=== PATIENT | male | born 1955 | race Caucasian/White ===

== ENCOUNTER → 2017-12-23 | Outpatient (CLI) | payer BC ==
[2017-12-23 16:01] LABS: Carbon Dioxide 25.8 mmol/L (21.6-31.8); Chloride 100 mmol/L (96-109); Cholesterol 208 mg/dL (0-200); Potassium 4.4 mmol/L (3.5-5.5); Sodium 138 mmol/L (135-145)
[2017-12-23 16:38] LABS: Hemoglobin A1C 6.1 % (4.0-6.0)
== END | disposition home or self-care (01) ==
LOC: LABWHC1 09:48
PROVIDERS: ATTEND Family Medicine
DX: I10 Essential (primary) hypertension (principal); Z79.899 Other long term (current) drug therapy
CPT/HCPCS: 36415; 80051; 80061; 82565; 83036; 83721; 84520

== ENCOUNTER → 2018-06-22 | Outpatient (CLI) | payer MEDICARE ==
--- NOTE | 2018-06-23 10:43 | ECHOF ---
Referral Reason:I25.10 Coronary Artery Disease MEASUREMENTS -------- HEIGHT: 180.3 cm WEIGHT: 113.4 kg BP: 156/86 RVIDd: 3.5 cm (< 3.3) IVSd: 1.4 cm (0.6 - 1.1) LVIDd: 4.5 cm (3.9 - 5.3) LVPWd: 1.4 cm (0.6 - 1.1) IVSs: 1.6 cm LVIDs: 2.9 cm LVPWs: 1.6 cm LA Diam: 3.5 cm (2.7 - 3.8) Ao Diam: 4.0 cm (2.0 - 3.7) AV Cusp: 2.3 cm (1.5 - 2.6) EPSS: 1.3 cm MV E Chente: 0.68 m/s MV DecT: 394 ms MV A Chente: 0.87 m/s MV E/A Ratio: 0.78 MV EF SLOPE: 56.21 mm/s (70 - 150) MV EXCURSION: 1.52 cm (> 18.000) FINDINGS -------- Sinus rhythm. This was a technically difficult study with suboptimal views. The left ventricular size is normal. There is moderate concentric left ventricular hypertrophy. O verall left ventricular systolic function is normal with, an EF between 60 - 65 %. The right ventricle is mildly enlarged. The left atrial size is normal. The right atrium was not well visualized. 5 ml of Lumason was utilized for enhancement of images. The aortic valve was not well visualized. Mild mitral annular calcification present. The tricuspid valve was not well visualized. The aortic root size is normal. IVC Not well visulized. There is no pericardial effusion. CONCLUSIONS -------- 1. Sinus rhythm. 2. This was a technically difficult study with suboptimal views. 3. The left ventricular size is normal. 4. There is moderate concentric left ventricular hypertrophy. 5. Overall left ventricular systolic function is normal with, an EF between 60 - 65 %. 6. The right ventricle is mildly enlarged. 7. The left atrial size is normal. 8. The right atrium was not well visualized. 9. 5 ml of Lumason was utilized for enhancement of images. 10. The aortic valve was not well visualized. 11. Mild mitral annular calcification present. 12. The tricuspid valve was not well visualized. 13. The aortic root size is normal. 14. IVC Not well visulized. 15. There is no pericardial effusion. [employer] MANAGER: LUCY Salinas
== END | disposition home or self-care (01) ==
LOC: RADECHMAIN 12:47
PROVIDERS: ATTEND Family Medicine
DX: I05.9 Rheumatic mitral valve disease, unspecified (principal); I25.10 Atherosclerotic heart disease of native coronary artery without angina pectoris
CPT/HCPCS: C8929; Q9950; 93306

== ENCOUNTER → 2018-09-27 | Outpatient (CLI) | payer MEDICARE ==
[2018-09-27 11:21] LABS: African American GFR (CKD) 40.3 (60.0-200.0); Anion Gap 9.3 mmol/L (4.00-12.00); Carbon Dioxide 30.7 mmol/L (21.6-31.8); LDL Cholesterol,Calculated 75.6 mg/dL (0.0-131.0); Potassium 3.5 mmol/L (3.5-5.5); VLDL Calculation 70.4 mg/dL (5.00-40.00)
[2018-09-27 14:06] LABS: Hemoglobin A1C 6.9 % (4.0-6.0)
== END ==
LOC: LABWHC1 07:18
PROVIDERS: ATTEND Family Medicine
DX: E11.9 Type 2 diabetes mellitus without complications (principal); I10 Essential (primary) hypertension; Z79.899 Other long term (current) drug therapy
CPT/HCPCS: 36415; 80051; 80061; 82565; 83036; 83880; 84443; 84520

== ENCOUNTER → 2019-01-05 | Outpatient (CLI) | payer MEDICARE ==
[2019-01-05 16:48] LABS: African American GFR (CKD) 45.4 (60.0-200.0); Non-African American GFR(CKD) 39.2 (60.0-200.0)
[2019-01-06 06:02] LABS: Anion Gap 13.1 mmol/L (4.00-12.00); Carbon Dioxide 24.9 mmol/L (21.6-31.8); Chol/HDL Ratio 5.53; Potassium 4.4 mmol/L (3.5-5.5)
== END | disposition home or self-care (01) ==
LOC: LABWHC1 07:36
PROVIDERS: ATTEND Family Medicine
DX: E11.9 Type 2 diabetes mellitus without complications (principal); I10 Essential (primary) hypertension; R97.20 Elevated prostate specific antigen [PSA]; Z79.899 Other long term (current) drug therapy
CPT/HCPCS: 36415; 80051; 80061; 82565; 83036; 84153; 84520

== ENCOUNTER 2019-03-26 22:37 | Emergency (ER) | payer MEDICARE ==
[2019-03-27] MEDS ORDERED: KETOROLAC 30 MG/ML 1 ML VIAL IM STA (00:03)
[2019-03-27] MEDS ORDERED: LIDOCAINE 5% PATCH TOPICAL STA (00:04)
[2019-03-27] MEDS ORDERED: HYDROcodone/APAP 5-325MG 1 EACH TAB PO STA (00:04)
--- NOTE | 2019-03-27 00:36 | XR ---
EXAMINATION TYPE: XR ribs RT w pa chest xray DATE OF EXAM: 03/27/2019 COMPARISON: 09/12/2015 HISTORY: Right rib injury and pain TECHNIQUE: 5 views FINDINGS: There is some patchy subsegmental atelectasis in both lungs. There is poor inspiration. Hea rt size is normal. There is no pneumothorax. There is slight blunting right costophrenic angle. I see no rib fracture. IMPRESSION: No rib fracture seen. There is mild pleural reaction and subsegmental atelectasis that is a change compared to old exam. Normal heart.
[2019-03-27] MEDS ORDERED: CYCLOBENZAPRINE 10MG STARTER 3 TAB BTL PO STA (01:18)
[2019-03-27] MEDS ORDERED: ACET/COD 300 MG/30 MG STARTER PACK 6 TAB BTL PO STA (01:18)
--- NOTE | 2019-03-27 01:20 | ED ---
General Adult HPI - General Chief complaint: Fall Stated complaint: Fall Time Seen by Provider: 03/26/19 23:48 Source: patient Mode of arrival: ambulatory Limitations: no limitations - History of Present Illness Initial comments: 63-year-old male patient presents to the emergency department today for evaluation of right-sided rib pain. Patient states 2 days ago he slipped on the ice and fell onto a hard snowbank. Patient states that he has developed pain to the right ribs over the last couple of days. Patient states it hurts when he takes a deep breath, coughs, laughs. He denies any cough or hemoptysis. Denies fever or chills. Denies any abdominal pain, nausea, or vomiting. Denies any hematuria, dysuria, urinary frequency, urinary urgency. Patient denies any headache, neck pain, back pain, chest pain, shortness of breath, dizziness, weakness, abdominal pain, nausea, vomiting, or difficulties with bowel movements or urination. Patient states he does generally take eliquis, but has been out of this medication for some time. He denies hitting his head or losing consciousness during the fall. - Related Data Home Medications Medication Instructions Recorded Confirmed Furosemide [Lasix] 40 mg PO DAILY 10/11/15 11/14/15 Amiodarone [Cordarone] 200 mg PO DAILY 10/17/15 11/14/15 Lisinopril [Zestril] 10 mg PO DAILY 11/12/15 11/14/15 Spironolactone [Aldactone] 25 mg PO DAILY 11/12/15 11/14/15 Previous Rx's Medication Instructions Recorded Apixaban [Eliquis] 5 mg PO BID #60 tab 09/12/15 Metoprolol Tartrate [Lopressor] 50 mg PO TID #90 tab 09/12/15 Aspirin 81 mg PO DAILY #90 chew 11/15/15 Atorvastatin [Lipitor] 80 mg PO HS #90 tab 11/15/15 Clopidogrel [Plavix] 75 mg PO DAILY #90 tab 11/15/15 Cyclobenzaprine [Flexeril] 10 mg PO TID #15 tab 03/27/19 Ibuprofen [Motrin] 600 mg PO Q8HR PRN #30 tab 03/27/19 Lidocaine 5% Patch [Lidoderm] 1 patch TOPICAL DAILY #30 patch 03/27/19 Allergies Allergy/AdvReac Type Severity Reaction Status Date / Time Penicillins Allergy THROAT Verified 03/26/19 22:51 SWELLING/RASH/HIVES Review of Systems ROS Statement: Those systems with pertinent positive or pertinent negative responses have been documented in the HPI. ROS Other: All systems not noted in ROS Statement are negative. Past Medical History Past Medical History: Atrial Fibrillation, Chest Pain / Angina, Heart Failure, COPD, Hypertension, Osteoarthritis (OA) Additional Past Medical History / Comment(s): Chronic renal insufficiency stage III, cardiomyopathy. History of Any Multi-Drug Resistant Organisms: None Reported Past Surgical History: Heart Catheterization, Heart Catheterization With Stent, Orthopedic Surgery Additional Past Surgical History / Comment(s): 11/14/15 PTCA with stent to LAD. Other surgical hx: KARAN, CARDIOVERSION 10/17/15, left arm surgery - 1976, heart catherization 10/22/2015 Past Anesthesia/Blood Transfusion Reactions: No Reported Reaction Date of Last Stent Placement:: 11/14/15 Past Psychological History: No Psychological Hx Reported Smoking Status: Current every day smoker - Past Family History Mother Family Medical History: Cancer, Myocardial Infarction ([place]) Additional Family Medical History / Comment(s): Mother of a NH in in 60's General Exam Limitations: no limitations General appearance: alert, in no apparent distress, other (This is a well- developed, well-nourished adult male patient in no acute distress. Vital signs upon presentation are temperature 98.4F, pulse 70, respirations 22, blood pressure 190/88, pulse ox 98% on room air.) Eye exam: Present: normal appearance, PERRL, EOMI. Absent: scleral icterus, conjunctival injection, periorbital swelling ENT exam: Present: normal exam, normal oropharynx, mucous membranes moist Neck exam: Present: normal inspection, full ROM, other (Nontender, no step-off, no deformity to firm midline palpation of the posterior cervical spine. Full range of motion without pain or limitation.). Absent: tenderness, meningismus, lymphadenopathy Respiratory exam: Present: normal lung sounds bilaterally, chest wall tenderness (Right lateral chest wall tenderness over the midaxillary line on the lower ribs.). Absent: respiratory distress, wheezes, rales, rhonchi, stridor Cardiovascular Exam: Present: regular rate, normal rhythm, normal heart sounds. Absent: systolic murmur, diastolic murmur, rubs, gallop, clicks GI/Abdominal exam: Present: soft, normal bowel sounds. Absent: distended, tenderness, guarding, rebound, rigid Back exam: Present: normal inspection, other (Nontender, no step-off, no deformity to firm midline palpation of the thoracic and lumbar vertebrae. Full range of motion without pain or limitation.). Absent: vertebral tenderness Neurological exam: Present: alert, oriented X3, CN II-XII intact Psychiatric exam: Present: normal affect, normal mood Skin exam: Present: warm, dry, intact, normal color. Absent: rash Course Vital Signs 03/26/19 03/27/19 22:46 02:04 Temperature 98.4 F 98.1 F Pulse Rate 70 71 Respiratory 22 18 Rate Blood Pressure 190/88 148/95 O2 Sat by Pulse 98 97 Oximetry Medical Decision Making - Medical Decision Making 63-year-old male patient presents to the emergency department today for evaluation of right rib pain after experiencing a fall 2 days ago. Physical examination did reveal tenderness over the right lateral lower ribs. Vital signs showed no major abnormalities. Normal oxygen saturation. X-ray of the ribs and chest was unremarkable other than some mild pleural reaction at the right lung base. I did discuss findings results with the patient. Symptoms are consistent with possible occult rib fracture or rib contusion. We'll treat with incentive spirometry, anti-inflammatories, muscle relaxer, and Lidoderm patch. He is instructed to follow-up with his primary care physician for recheck in 1-2 days. Return parameters were discussed in detail. He verbalizes understanding and agrees with this plan. - Radiology Data Radiology results: report reviewed, image reviewed 5 views of the right ribs are obtained. Report is reviewed in its entirety. Impression by Dr. Levine shows no rib fracture. Mild pleural reaction subsegmental atelectasis that is a change compared to old exam. Normal heart. Disposition Clinical Impression: Right rib fracture Disposition: HOME SELF-CARE Condition: Good Instructions (If sedation given, give patient instructions): How to Use an Incentive Spirometer (ED), Rib Fracture (ED) Additional Instructions: Take medications as directed. Perform coughing and deep breathing exercises. Use a pillow to splint for any coughing or sneezing. Follow-up with your primary care physician for recheck in 1-2 days. Return to the emergency department immediately for any new, worsening, or concerning symptoms. Prescriptions: Cyclobenzaprine [Flexeril] 10 mg PO TID #15 tab Lidocaine 5% Patch [Lidoderm] 1 patch TOPICAL DAILY #30 patch Ibuprofen [Motrin] 600 mg PO Q8HR PRN #30 tab PRN Reason: Pain Is patient prescribed a controlled substance at d/c from ED?: No Referrals: Ermias Soriano MD [Primary Care Provider] - 1-2 days Time of Disposition: 01:20
[2019-03-27 02:05] VITALS: BP 148/95; PULSE 71; RESP 18; TEMP 98.1
== END 2019-03-27 01:46 | disposition home or self-care (01) ==
LOC: EC 22:37
DX: S22.31XA Fracture of one rib, right side, initial encounter for closed fracture (principal); I48.91 Unspecified atrial fibrillation; I13.0 Hypertensive heart and chronic kidney disease with heart failure and stage 1 through stage 4 chronic kidney disease, or unspecified chronic kidney disease; I50.9 Heart failure, unspecified; N18.3 Chronic kidney disease, stage 3 (moderate); F17.200 Nicotine dependence, unspecified, uncomplicated; Z88.0 Allergy status to penicillin; Z79.899 Other long term (current) drug therapy; Z95.5 Presence of coronary angioplasty implant and graft; W00.0XXA Fall on same level due to ice and snow, initial encounter; Y93.01 Activity, walking, marching and hiking
CPT/HCPCS: 71101; 99283; 96372; J1885

== ENCOUNTER → 2019-11-28 | Outpatient (CLI) | payer MEDICARE ==
[2019-11-28 20:16] LABS: African American GFR (CKD) 48.7 (60.0-200.0); Anion Gap 15.5 mmol/L (4.00-12.00); Carbon Dioxide 25.5 mmol/L (21.6-31.8); Potassium 4.8 mmol/L (3.5-5.5)
[2019-11-28 21:39] LABS: Hemoglobin A1C 6.4 % (4.0-6.0)
== END | disposition home or self-care (01) ==
LOC: LABWHC1 09:47
PROVIDERS: ATTEND Family Medicine
DX: I10 Essential (primary) hypertension (principal); E11.9 Type 2 diabetes mellitus without complications
CPT/HCPCS: 36415; 80051; 82565; 83036; 84520

== ENCOUNTER → 2020-05-16 | Outpatient (CLI) | payer MEDICARE ==
[2020-05-16 18:06] LABS: HCT 35.3 % (39.6-50.0); MCH 28.8 pg (27.0-32.0); MCHC 31.2 g/dL (32.0-37.0); MCV 92.4 fL (80.0-97.0); Mean Platelet Volume 9.9 fL (9.5-12.2); Platelet Count 317 X 10*3/uL (140-440); RBC 3.82 X 10*6/uL (4.40-5.60); RDW 15.2 % (11.5-14.5); WBC 12.79 X 10*3/uL (4.50-10.00)
[2020-05-16 20:57] LABS: Hemoglobin A1C 5.6 % (4.0-6.0)
[2020-05-16 23:49] LABS: African American GFR (CKD) 39.7 (60.0-200.0); Albumin 3.8 g/dL (3.80-4.90); Albumin/Globulin Ratio 1.73 (1.60-3.17); Anion Gap 12.4 mmol/L (4.00-12.00); Calcium 9.1 mg/dL (8.7-10.3); Carbon Dioxide 21.6 mmol/L (21.6-31.8); Chol/HDL Ratio 4.69; Globulin 2.2 g/dL (1.6-3.3); LDL Cholesterol,Calculated 79.6 mg/dL (0.0-131.0); Non-African American GFR(CKD) 34.3 (60.0-200.0); Potassium 3.8 mmol/L (3.5-5.5); Prostate Specific Antigen 0.6 ng/mL (0.0-4.5); Total Bilirubin 1.2 mg/dL (0.2-1.2); VLDL Calculation 27.4 mg/dL (5.00-40.00)
[2020-05-16 23:57] LABS: Urine Creatinine 104.6 mg/dL
== END | disposition home or self-care (01) ==
LOC: LABWHC1 08:11
PROVIDERS: ATTEND Family Medicine
DX: E11.9 Type 2 diabetes mellitus without complications (principal); R97.20 Elevated prostate specific antigen [PSA]; I10 Essential (primary) hypertension; I25.10 Atherosclerotic heart disease of native coronary artery without angina pectoris; Z79.899 Other long term (current) drug therapy
CPT/HCPCS: 36415; 80053; 80061; 82043; 82570; 83036; 84153; 84443; 85027

== ENCOUNTER 2020-10-21 08:29 | Inpatient (IN) | payer MEDICARE ==
--- NOTE | 2020-10-21 09:10 | ED ---
General Adult HPI - General Chief complaint: Shortness of Breath Stated complaint: vertigo, sob, N&V Time Seen by Provider: 10/21/20 08:43 Source: patient Mode of arrival: wheelchair Limitations: physical limitation - History of Present Illness Initial comments: Dictation was produced using [employer] dictation software. please excuse any grammatical, word or spelling errors. Chief Complaint: 64-year-old male with past medical history of A. fib, heart failure hypertension, COPD presents emergency department for shortness of breath History of Present Illness: 64-year-old male he has multiple comorbidities. Over the last several days has been feeling short of breath and nauseated. Patient states he does have a mild rhinorrhea and sore throat. He states that his diffuse muscle aches. Patient states he short of breath especially tries to exert himself whenever he lies flat. Patient states he has past medical history of coronary artery disease that required stent placement. He denies any history of heart failure. Chart review says otherwise. Has past medical history of heart failure and A. fib. He takes multiple cardiac medications. She denies any fever. He does have some mild abdominal pain whenever he ambulates. Denies any pain at rest. The ROS documented in this emergency department record has been reviewed and confirmed by me. Those systems with pertinent positive or negative responses have been documented in the HPI. All other systems are other negative and/or noncontributory. PHYSICAL EXAM: General Impression: Alert and oriented x3, not in acute distress HEENT: Normocephalic atraumatic, extra-ocular movements intact, pupils equal and reactive to light bilaterally, mucous membranes moist, positive JVD Cardiovascular: Heart regular rate and rhythm Chest: Able to complete full sentences, no retractions, no tachypnea, mild crackles to the lung bases Abdomen: abdomen soft, non-tender, non-distended, no organomegaly Musculoskeletal: Pulses present and equal in all extremities, no peripheral e ricardo Motor: no focal deficits noted Neurological: CN II-XII grossly intact, no focal motor or sensory deficits noted Skin: Intact with no visualized rashes Psych: Normal affect and mood ED course: 64-year-old male presents emergency department for chief complaint of dyspnea. His multiple cardiac and pulmonary comorbidities. Vital signs upon arrival shows heart rate of 55, rest of vital signs within acceptable limits. Patient does not appear to be in any acute distress. Laboratory evaluation obtained. Leukocytosis of 15.0. His concern of stress leukocytosis. Hemoglobin is 8.4 which appears to be 2.5 g decreased compared to April. Does have evidence of microcytic anemia. Coag panel shows INR 1.4. Metabolic panel shows potassium 2.3 elevated renal markers above patient's baseline. Rotavirus negative. Chest x-ray is nonacute. Patient reevaluated at bedside final be in stable medical condition. Patient is agreeable for admission for hypokalemia with associated prolonged QT, acute kidney injury, and anemia case discussed with Dr. Soriano was went except patient care. He r equests cardiology consultation. EKG interpretation: Ventricular rate 55, sinus bradycardia, QRS 96, QTC 679. No IA prolongation,no ST or T-wave changes noted. Prolonged QT - Related Data Home Medications Medication Instructions Recorded Confirmed Furosemide [Lasix] 80 mg PO BID@0800,1200 10/11/15 10/21/20 Amiodarone [Cordarone] 100 mg PO DAILY 10/17/15 10/21/20 Aspirin 81 mg PO HS 10/21/20 10/21/20 Atorvastatin [Lipitor] 80 mg PO DAILY 10/21/20 10/21/20 Levothyroxine Sodium [Synthroid] 100 mcg PO DAILY 10/21/20 10/21/20 Montelukast [Singulair] 10 mg PO HS 10/21/20 10/21/20 Tiotropium 18 Mcg/Puff [Spiriva] 1 puff INHALATION RT-DAILY@1200 10/21/20 10/21/20 amLODIPine [Norvasc] 5 mg PO DAILY@1200 10/21/20 10/21/20 metOLazone [Zaroxolyn] 2.5 mg PO Q48H 10/21/20 10/21/20 Previous Rx's Medication Instructions Recorded Apixaban [Eliquis] 5 mg PO BID #60 tab 09/12/15 Metoprolol Tartrate [Lopressor] 50 mg PO TID #90 tab 09/12/15 Allergies Allergy/AdvReac Type Severity Reaction Status Date / Time Penicillins Allergy THROAT Verified 10/21/20 09:35 SWELLING/RASH/HIVES Review of Systems ROS Statement: Those systems with pertinent positive or pertinent negative responses have been documented in the HPI. ROS Other: All systems not noted in ROS Statement are negative. Past Medical History Past Medical History: Atrial Fibrillation, Chest Pain / Angina, Heart Failure, COPD, Hypertension, Osteoarthritis (OA) Additional Past Medical History / Comment(s): Chronic renal insufficiency stage III, cardiomyopathy, abdominal aneurysm History of Any Multi-Drug Resistant Organisms: None Reported Past Surgical History: Heart Catheterization, Heart Catheterization With Stent, Orthopedic Surgery Additional Past Surgical History / Comment(s): KARAN, CARDIOVERSION 10/17/15, left arm surgery - 1976 Past Anesthesia/Blood Transfusion Reactions: No Reported Reaction Date of Last Stent Placement:: 11/14/15 Past Psychological History: No Psychological Hx Reported Smoking Status: Former smoker Past Alcohol Use History: Occasional Past Drug Use History: None Reported - Past Family History Mother Family Medical History: Cancer, Myocardial Infarction ([place]) Additional Family Medical History / Comment(s): Mother of a [place] in in 60's General Exam Limitations: physical limitation Course Vital Signs 10/21/20 10/21/20 08:36 09:39 Temperature 98.3 F Pulse Rate 55 L 52 L Respiratory 18 18 Rate Blood Pressure 124/75 114/65 O2 Sat by Pulse 100 98 Oximetry Medical Decision Making - Lab Data Result diagrams: 10/21/20 09:08 10/21/20 09:08 Lab Results 10/21/20 10/21/20 10/21/20 Range/Units 09:08 09:08 09:08 WBC 15.0 H (3.8-10.6) k/uL RBC 3.79 L (4.30-5.90) m/uL Hgb 8.4 L (13.0-17.5) gm/dL Hct 27.2 L (39.0-53.0) % MCV 71.7 L (80.0-100.0) fL MCH 22.1 L (25.0-35.0) pg MCHC 30.8 L (31.0-37.0) g/dL RDW 17.0 H (11.5-15.5) % Plt Count 391 (150-450) k/uL MPV 8.3 Neutrophils % 80 % Lymphocytes % 8 % Monocytes % 8 % Eosinophils % 1 % Basophils % 1 % Neutrophils # 11.9 H (1.3-7.7) k/uL Lymphocytes # 1.3 (1.0-4.8) k/uL Monocytes # 1.3 H (0-1.0) k/uL Eosinophils # 0.2 (0-0.7) k/uL Basophils # 0.1 (0-0.2) k/uL Hypochromasia Marked Poikilocytosis Slight Anisocytosis Slight Microcytosis Moderate PT 14.3 H (9.0-12.0) sec INR 1.4 H (<1.2) APTT 31.5 H (22.0-30.0) sec Sodium 133 L (137-145) mmol/L Potassium 2.3 L* (3.5-5.1) mmol/L Chloride 88 L (98-107) mmol/L Carbon Dioxide 28 (22-30) mmol/L Anion Gap 17 mmol/L BUN 68 H (9-20) mg/dL Creatinine 3.52 H (0.66-1.25) mg/dL Est GFR (CKD-EPI)AfAm 20 (>60 ml/min/1.73 sqM) Est GFR (CKD-EPI)NonAf 17 (>60 ml/min/1.73 sqM) Glucose 243 H (74-99) mg/dL Calcium 8.6 (8.4-10.2) mg/dL Ionized Calcium Sultana (4.5-5.3) mg/dL Magnesium 2.7 H (1.6-2.3) mg/dL Troponin I (0.000-0.034) ng/mL NT-Pro-B Natriuret Pep pg/mL Coronavirus (PCR) (Not Detectd) 10/21/20 10/21/20 10/21/20 Range/Units 09:08 09:08 09:12 WBC (3.8-10.6) k/uL RBC (4.30-5.90) m/uL Hgb (13.0-17.5) gm/dL Hct (39.0-53.0) % MCV (80.0-100.0) fL MCH (25.0-35.0) pg MCHC (31.0-37.0) g/dL RDW (11.5-15.5) % Plt Count (150-450) k/uL MPV Neutrophils % % Lymphocytes % % Monocytes % % Eosinophils % % Basophils % % Neutrophils # (1.3-7.7) k/uL Lymphocytes # (1.0-4.8) k/uL Monocytes # (0-1.0) k/uL Eosinophils # (0-0.7) k/uL Basophils # (0-0.2) k/uL Hypochromasia Poikilocytosis Anisocytosis Microcytosis PT (9.0-12.0) sec INR (<1.2) APTT (22.0-30.0) sec Sodium (137-145) mmol/L Potassium (3.5-5.1) mmol/L Chloride (98-107) mmol/L Carbon Dioxide (22-30) mmol/L Anion Gap mmol/L BUN (9-20) mg/dL Creatinine (0.66-1.25) mg/dL Est GFR (CKD-EPI)AfAm (>60 ml/min/1.73 sqM) Est GFR (CKD-EPI)NonAf (>60 ml/min/1.73 sqM) Glucose (74-99) mg/dL Calcium (8.4-10.2) mg/dL Ionized Calcium Sultana (4.5-5.3) mg/dL Magnesium (1.6-2.3) mg/dL Troponin I <0.012 (0.000-0.034) ng/mL NT-Pro-B Natriuret Pep 724 pg/mL Coronavirus (PCR) Not Detected (Not Detectd) 10/21/20 Range/Units 09:13 WBC (3.8-10.6) k/uL RBC (4.30-5.90) m/uL Hgb (13.0-17.5) gm/dL Hct (39.0-53.0) % MCV (80.0-100.0) fL MCH (25.0-35.0) pg MCHC (31.0-37.0) g/dL RDW (11.5-15.5) % Plt Count (150-450) k/uL MPV Neutrophils % % Lymphocytes % % Monocytes % % Eosinophils % % Basophils % % Neutrophils # (1.3-7.7) k/uL Lymphocytes # (1.0-4.8) k/uL Monocytes # (0-1.0) k/uL Eosinophils # (0-0.7) k/uL Basophils # (0-0.2) k/uL Hypochromasia Poikilocytosis Anisocytosis Microcytosis PT (9.0-12.0) sec INR (<1.2) APTT (22.0-30.0) sec Sodium (137-145) mmol/L Potassium (3.5-5.1) mmol/L Chloride (98-107) mmol/L Carbon Dioxide (22-30) mmol/L Anion Gap mmol/L BUN (9-20) mg/dL Creatinine (0.66-1.25) mg/dL Est GFR (CKD-EPI)AfAm (>60 ml/min/1.73 sqM) Est GFR (CKD-EPI)NonAf (>60 ml/min/1.73 sqM) Glucose (74-99) mg/dL Calcium (8.4-10.2) mg/dL Ionized Calcium Sultana 3.9 L (4.5-5.3) mg/dL Magnesium (1.6-2.3) mg/dL Troponin I (0.000-0.034) ng/mL NT-Pro-B Natriuret Pep pg/mL Coronavirus (PCR) (Not Detectd) Disposition Clinical Impression: Hypokalemia, Prolonged QT interval, Anemia Disposition: ADMITTED IP TO THIS HOSP Condition: Fair Referrals: Ermias Soriano MD [Primary Care Provider] - 1-2 days
[2020-10-21 09:21] LABS: Anisocytosis Slight; Basophils # (A) 0.1 k/uL (0-0.2); Basophils % (A) 1 %; Eosinophils # (A) 0.2 k/uL (0-0.7); Eosinophils % (A) 1 %; HCT 27.2 % (39.0-53.0); HGB 8.4 gm/dL (13.0-17.5); Hypochromasia Marked; Lymphocytes # (A) 1.3 k/uL (1.0-4.8); Lymphocytes % (A) 8 %; MCH 22.1 pg (25.0-35.0); MCHC 30.8 g/dL (31.0-37.0); MCV 71.7 fL (80.0-100.0); Mean Platelet Volume 8.3; Microcytosis Moderate; Monocytes # (A) 1.3 k/uL (0-1.0); Monocytes % (A) 8 %; Neutrophils # (A) 11.9 k/uL (1.3-7.7); Neutrophils % (A) 80 %; Platelet Count 391 k/uL (150-450); Poikilocytosis Slight; RBC 3.79 m/uL (4.30-5.90)
--- NOTE | 2020-10-21 09:36 | XR ---
EXAMINATION TYPE: XR chest 2V DATE OF EXAM: 10/21/2020 COMPARISON: 03/27/2019 HISTORY: Shortness of breath TECHNIQUE: Frontal and lateral views of the chest are obtained. FINDINGS: Scattered senescent parenchymal changes noted. Hyperinflation compatible with COPD. No evidence for infiltrate. No evidence for atelectasis. Heart size is stable. Mediastinal structures are stable and grossly unremarkable. No evidence for hilar prominence. Degenerative changes dorsal spine. IMPRESSION: 1. No evidence for acute pulmonary disease.
[2020-10-21 09:39] LABS: Calcium 8.6 mg/dL (8.4-10.2); INR 1.4 (<1.2); Magnesium 2.7 mg/dL (1.6-2.3); Partial Thromboplastin Time 31.5 sec (22.0-30.0); Prothrombin Time 14.3 sec (9.0-12.0)
[2020-10-21 09:42] LABS: Potassium 2.3 mmol/L (3.5-5.1)
[2020-10-21] MEDS ORDERED: PANTOPRAZOLE 40 MG/10 ML VIAL IVP STA (09:47)
[2020-10-21] MEDS ORDERED: SODIUM CHLORIDE 0.9% 500 ML 500 ML IV STA (09:47)
[2020-10-21] MEDS ORDERED: CALCIUM GLUCONATE 1 GM in SODIUM CHLORIDE 0.9% 100 ML IVPB ONE (09:48)
[2020-10-21] MEDS: POTASSIUM CHLORIDE 20 MEQ in WATER FOR INJECTION 1 100ML.BAG IVPB SCH ×2 (10:35→13:58)
[2020-10-21] MEDS ORDERED: NALOXONE 0.4 MG/ML 1 ML VIAL IV PRN (10:58)
[2020-10-21] MEDS: SODIUM CHLORIDE 0.9% 1,000 ML IV SCH ×2 (13:58→22:58)
--- NOTE | 2020-10-21 16:50 | P.CNPUL ---
History of Present Illness Consult date: 10/21/20 Reason for consult: dyspnea, cough, COPD Chief complaint: Shortness of breath and cough for last 2-3 days History of present illness: Patient is a 64-year-old male with the history of COPD, hypertension hypertensive cardiovascular disease chronic atrial fibrillation came into the hospital with increasing shortness of breath, symptoms have been progressive like for last 3-4 days and started with upper respiratory infection, this patient started having aches and pains cough has been more productive) came into hospital for further evaluation, or excessive questioning denies initial seizure-like. He had a loss consciousness) ongoing aspiration symptoms denies any chest pain denies any bowel or bladder problems, patient has been monitored for chronic insufficiency as well, admitted chest x-ray consistent with COPD no active pulmonary process seen labs significant for leukocytosis microcytic anemia and severe electrolyte imbalance with potassium is 2.3 BUN/creatinine 16 and 3.5 to chronic virus is negative, patient is being continued on home medications including anticoagulants direct, being repleted with calcium and potassium, Review of Systems All systems: negative Past Medical History Past Medical History: Atrial Fibrillation, Chest Pain / Angina, Heart Failure, COPD, Hypertension, Osteoarthritis (OA) Additional Past Medical History / Comment(s): Chronic renal insufficiency stage III, cardiomyopathy, abdominal aneurysm History of Any Multi-Drug Resistant Organisms: None Reported Past Surgical History: Heart Catheterization, Heart Catheterization With Stent, Orthopedic Surgery Additional Past Surgical History / Comment(s): KARAN, CARDIOVERSION 10/17/15, left arm surgery - 1976 Past Anesthesia/Blood Transfusion Reactions: No Reported Reaction Date of Last Stent Placement:: 11/14/15 Past Psychological History: No Psychological Hx Reported Smoking Status: Former smoker Past Alcohol Use History: Occasional Past Drug Use History: None Reported - Past Family History Mother Family Medical History: Cancer, Myocardial Infarction (ID) Additional Family Medical History / Comment(s): Mother of a ID in in s Medications and Allergies Home Medications Medication Instructions Recorded Confirmed Type Apixaban [Eliquis] 5 mg PO BID #60 tab 09/12/15 10/21/20 Rx Metoprolol Tartrate [Lopressor] 50 mg PO TID #90 tab 09/12/15 10/21/20 Rx Furosemide [Lasix] 80 mg PO BID@0800,1200 10/11/15 10/21/20 History Amiodarone [Cordarone] 100 mg PO DAILY 10/17/15 10/21/20 History Aspirin 81 mg PO HS 10/21/20 10/21/20 History Atorvastatin [Lipitor] 80 mg PO DAILY 10/21/20 10/21/20 History Levothyroxine Sodium [Synthroid] 100 mcg PO DAILY 10/21/20 10/21/20 History Montelukast [Singulair] 10 mg PO HS 10/21/20 10/21/20 History Tiotropium 18 Mcg/Puff [Spiriva] 1 puff INHALATION RT-DAILY@1200 10/21/20 10/21/20 History amLODIPine [Norvasc] 5 mg PO DAILY@1200 10/21/20 10/21/20 History metOLazone [Zaroxolyn] 2.5 mg PO Q48H 10/21/20 10/21/20 History Allergies Allergy/AdvReac Type Severity Reaction Status Date / Time Penicillins Allergy THROAT Verified 10/21/20 09:35 SWELLING/RASH/HIVES Physical Exam Vitals: Vital Signs Temp Pulse Resp BP Pulse Ox 10/21/20 14:00 56 L 20 101/69 96 10/21/20 09:39 52 L 18 114/65 98 10/21/20 08:36 98.3 F 55 L 18 124/75 100 Intake and Output 10/21/20 10/21/20 10/21/20 06:59 14:59 22:59 Other: Weight 117.934 kg - Constitutional General appearance: average body habitus, disheveled - EENT Eyes: PERRLA ENT: normal oropharynx Ears: bilateral: normal - Neck Neck: normal ROM Carotids: bilateral: upstroke normal Thyroid: bilateral: normal size - Respiratory Respiratory: bilateral: diminished, rales, wheezing - Cardiovascular Rhythm: regular Heart sounds: normal: S1, S2 - Gastrointestinal General gastrointestinal: normal bowel sounds, soft - Integumentary Integumentary: normal turgor - Neurologic Neurologic: CNII-XII intact - Musculoskeletal Musculoskeletal: gait normal, generalized weakness, strength equal bilaterally - Psychiatric Psychiatric: A&O x's 3, appropriate affect, intact judgment & insight Results - Laboratory Findings CBC and BMP: 10/21/20 09:08 10/21/20 09:08 PT/INR, D-dimer PT 14.3 sec (9.0-12.0) H 10/21/20 09:08 INR 1.4 (<1.2) H 10/21/20 09:08 Abnormal lab findings: Abnormal Labs 10/21/20 10/21/20 10/21/20 09:08 09:08 09:08 WBC 15.0 H RBC 3.79 L Hgb 8.4 L Hct 27.2 L MCV 71.7 L MCH 22.1 L MCHC 30.8 L RDW 17.0 H Neutrophils # 11.9 H Monocytes # 1.3 H PT 14.3 H INR 1.4 H APTT 31.5 H Sodium 133 L Potassium 2.3 L* Chloride 88 L BUN 68 H Creatinine 3.52 H Glucose 243 H Ionized Calcium [place] Magnesium 2.7 H 10/21/20 09:13 WBC RBC Hgb Hct MCV MCH MCHC RDW Neutrophils # Monocytes # PT INR APTT Sodium Potassium Chloride BUN Creatinine Glucose Ionized Calcium [place] 3.9 L Magnesium - Diagnostic Findings Chest x-ray: report reviewed, image reviewed Assessment and Plan Assessment: Acute COPD exacerbation Severe degree of electrolyte imbalance with hypokalemia and hypocalcemia Tracheobronchitis Chronic kidney disease Chronic atrial fibrillation on direct anticoagulation Plan: Start patient on bronchodilators along with IV steroids and oral broad-spectrum antibiotics Supplemental oxygen Monitor and observe potassium level and electrolytes very closely and replete as needed Trend renal functions closely Further recommendations pending plan of care as per clinical response of patient Time with Patient: Greater than 30
[2020-10-21] MEDS: METOPROLOL TARTRATE 50 MG TAB PO SCH ×2 (18:15→22:06)
[2020-10-21] MEDS: DOXYCYCLINE 100 MG CAP PO SCH (20:58)
[2020-10-21] MEDS: ASPIRIN 81 MG PO SCH (20:58)
[2020-10-21] MEDS: MONTELUKAST 10 MG TAB PO SCH (20:59)
[2020-10-21] MEDS: methylPREDNISolone SOD SUCCI 40 MG/ML 1 ML VIAL IV SCH (20:59)
[2020-10-21] MEDS: APIXABAN 5 MG TAB PO SCH (20:59)
[2020-10-21] MEDS: IPRATROPIUM-ALBUTEROL 3 ML NEB INHALATION SCH (23:20)
--- NOTE | 2020-10-22 03:12 | HP ---
HISTORY AND PHYSICAL HISTORY OF PRESENT ILLNESS: Came with shortness of breath, cough, COPD, renal insufficiency with severe dehydration, COPD, hypertensive heart disease, atrial fibrillation, came in with increasing shortness of breath, progressive over the last 3-4 days with upper respiratory infection. The patient with increased had some loss of consciousness, falling, possible aspiration symptoms, history of COPD, severe electrolyte abnormalities and low potassium levels, leukocytosis, elevated BUN and creatinine. We will give IV fluids overnight. Hold his diuretics. Get Cardiology to see him. Replace potassium, calcium. PAST MEDICAL HISTORY: Atrial fibrillation, chest pain, angina, COPD, hypertension, osteoarthritis, he had heart catheterization with stents, orthopedic surgeries. SOCIAL HISTORY: Former smoker. FAMILY HISTORY: Mother with myocardial infarction, cancer. HOME MEDICATIONS: Eliquis 5 mg b.i.d., metoprolol tartrate 50 mg b.i.d., Lasix 80 mg b.i.d., Cordarone 100 mg daily, aspirin 81 mg daily, Lipitor 80 daily, levothyroxine 100 mcg daily, Zaroxolyn 2.5 mg daily, Norvasc 5 mg daily, Singulair 10 mg daily, Spiriva 1 puff b.i.d. ALLERGIES: TO PENICILLINS. Weight is 117 kg. REVIEW OF SYSTEMS: Fourteen-point review of systems negative except for mentioned in HPI. PHYSICAL EXAMINATION: CARDIOVASCULAR: S1, S2. LUNGS: Clear. GI soft. Integument: Dry skin turgor. Dry mucous membranes. Hematology: Negative Homans. Psych: Fair mood and affect. NEUROLOGIC: Alert and oriented x3. White count 15, hemoglobins 8.4, BUN is 68, creatinine is 3.52, baseline is around 2 for him. Potassium is 2.3. ASSESSMENT: 1. Severe degree of electrolyte imbalance with hypokalemia, hypocalcemia. 2. Tracheobronchitis. 3. Chronic kidney disease. 4. Chronic atrial fibrillation. 5. Prerenal azotemia. Continue with steroids, antibiotics, updraft. Replace electrolytes. Hold diuretics and adjust his diuretics for discharge. MMODL / IJN: [id number] /
[2020-10-22] MEDS: LEVOTHYROXINE 100 MCG TAB PO SCH (06:16)
[2020-10-22] MEDS: IPRATROPIUM-ALBUTEROL 3 ML NEB INHALATION SCH ×4 (08:40→20:14)
[2020-10-22] MEDS: METOPROLOL TARTRATE 50 MG TAB PO SCH ×3 (08:53→20:30)
[2020-10-22] MEDS: methylPREDNISolone SOD SUCCI 40 MG/ML 1 ML VIAL IV SCH ×2 (09:13→20:30)
[2020-10-22] MEDS: ATORVASTATIN 80 MG TAB PO SCH (09:13)
[2020-10-22] MEDS: APIXABAN 5 MG TAB PO SCH (09:13)
[2020-10-22] MEDS: DOXYCYCLINE 100 MG CAP PO SCH ×2 (09:14→20:31)
[2020-10-22] MEDS: AMIODARONE 100 MG TAB PO SCH (09:14)
[2020-10-22] MEDS ORDERED: FUROSEMIDE 40 MG TAB PO SCH (09:28)
[2020-10-22] MEDS ORDERED: Potassium Replacement Protocol 1 EACH MISC MISCELLANE PRN ×2 (10:00→20:04)
[2020-10-22 10:16] LABS: Basophils # (A) 0.02 X 10*3/uL (0.00-0.10); Basophils % (A) 0.2 %; Eosinophils # (A) 0 X 10*3/uL (0.04-0.35); Eosinophils % (A) 0 %; HCT 22.2 % (39.6-50.0); HGB 6.8 g/dL (13.0-17.0); Lymphocytes # (A) 0.62 X 10*3/uL (0.90-5.00); Lymphocytes % (A) 5.2 %; MCH 21.3 pg (27.0-32.0); MCHC 30.6 g/dL (32.0-37.0); MCV 69.6 fL (80.0-97.0); Mean Platelet Volume 10.4 fL (9.5-12.2); Monocytes # (A) 0.36 X 10*3/uL (0.20-1.00); Neutrophils # (A) 10.81 X 10*3/uL (1.80-7.70); Neutrophils % (A) 91.2 %; Platelet Count 322 X 10*3/uL (140-440); RBC 3.19 X 10*6/uL (4.40-5.60); RDW 16.9 % (11.5-14.5); WBC 11.86 X 10*3/uL (4.50-10.00)
[2020-10-22] MEDS: POTASSIUM CHLORIDE ER 20 MEQ TAB.ER PO SCH ×6 (10:16→23:18)
[2020-10-22 10:17] LABS: Acanthocytes 3+; Hypochromasia (M) 2+; Schistocytes 1+
[2020-10-22 10:33] LABS: African American GFR (CKD) 18.9 (60.0-200.0); Albumin 3.5 g/dL (3.80-4.90); Albumin/Globulin Ratio 1.52 (1.60-3.17); Anion Gap 16.7 mmol/L (4.00-12.00); BUN/Creat Ratio 21.08 Ratio (12.00-20.00); Calcium 8.1 mg/dL (8.7-10.3); Carbon Dioxide 28.3 mmol/L (21.6-31.8); Globulin 2.3 g/dL (1.6-3.3); Magnesium 3.1 mg/dL (1.5-2.4); Non-African American GFR(CKD) 16.3 (60.0-200.0); Potassium 2.6 mmol/L (3.5-5.5); Total Bilirubin 1.4 mg/dL (0.3-1.2); Total Protein 5.8 g/dL (6.2-8.2)
--- NOTE | 2020-10-22 10:54 | P.CRDCN ---
History of Present Illness History of present illness: HISTORY OF PRESENTING ILLNESS This is a pleasant 64-year-old male past medical history significant for paroxysmal atrial fibrillation status post cardioversion 2016, coronary artery disease, history of acute OR, history of systolic heart failure, hypertension, COPD, chronic kidney disease and chronic nicotine dependence. He does not follow regularly in the office, he saw Dr. Raya last in 2017. We have been asked to see in consultation for heart failure. He presented to the hospital with shortness of breath that has been worsening over the previous few days associated with nausea and nasal drainage. He denies symptoms of chest discomfort. His shortness of breath is worse with any sort of exertion or when he attempts to lay flat. He is noted to have a hemoglobin of 6.8 with significant hypokalemia. He is seen and examined sitting up on the edge of the bed in no acute distress. He denies active symptoms of chest discomfort or shortness of breath. DIAGNOSTICS EKG reveals indicate sinus bradycardia heart rate of 55 with first-degree AV block. Telemetry tracings sinus bradycardia with PACs Chest xray negative for an acute cardiopulmonary process. Laboratory reviewed, the ABC 11.8, hemoglobin 6.8, platelets 322, INR 1.4, sodium 135, potassium on admission 2. 3 repeat today 2.5, creatinine 3.7, magnesium 3.1, cardiac enzymes negative 1 and NT proBNP 724. Current cardiac medications include amiodarone 100 mg daily, Eliquis 5 mg twice a day, aspirin 81 mg daily, atorvastatin 80 mg daily, Lasix 80 mg twice a day, Lopressor 50 mg 3 times a day, amlodipine 5 mg daily and Zaroxolyn 2.5 mg every other day. Most recent cardiac catheterization 2016 revealed left main with no significant disease, LAD mildly diffuse disease, diagonal branch 90% stenosis, circumflex mild diffuse disease with no significant stenosis, RCA aneurysmal with a focal stenosis in the proximal to midportion 70-80%. At that time he underwent successful PCI of the diagonal branch. Most recent echocardiogram obtained May 2018 revealed preserved LV systolic function with ejection fraction 60-65%. REVIEW OF SYSTEMS At the time of my exam: CONSTITUTIONAL: Denies fever or chills. CARDIOVASCULAR: Denies chest pain, shortness of breath, orthopnea, PND or palpitations. RESPIRATORY: Denies cough. GASTROINTESTINAL: Denies abdominal pain, diarrhea, constipation, nausea or vomiting. MUSCULOSKELETAL: Denies myalgias. NEUROLOGIC: Denies numbness, tingling, headache or weakness. ENDOCRINE: Denies fatigue, weight change, polydipsia or polyurina. GENITOURINARY: Denies burning, hematuria or urgency with micturation. HEMATOLOGIC: Denies history of anemia or bleeding. PHYSICAL EXAMINATION Blood pressure 100/59 heart rate 61 afebrile and maintaining oxygen saturation on room air. CONSTITUTIONAL: No apparent distress. HEENT: Head is normocephalic. Pupils are equal, round. Sclerae anicteric. Mucous membranes of the mouth are moist. No JVD. No carotid bruit. CHEST EXAMINATION: Lungs are clear to auscultation. No chest wall tenderness is noted on palpation or with deep breathing. HEART EXAMINATION: Regular rate and rhythm. S1, S2 heard. No murmurs, gallops or rub. ABDOMEN: Soft, nontender. EXTREMITIES: 2+ peripheral pulses, trace bilateral lower extremity edema and no calf tenderness. NEUROLOGIC EXAMINATION: Patient is awake, alert and oriented x3. ASSESSMENT Shortness of breath secondary to a combination of exacerbation of COPD and anemia Hypokalemia Acute on chronic kidney disease Chronic systolic heart failure, clinically euvolemic Coronary artery disease Chronic nicotine dependence Paroxysmal atrial fibrillation on Eliquis Hypertension Dyslipidemia PLAN Symptoms of shortness of breath are related to a combination of COPD and anemia. CBC profile indicates the patient either has iron deficient anemia or is actively bleeding. Check stool for occult blood as well as iron profile. Hold Eliquis. GI evaluation pending. Hold diuretics secondary to hypokalemia and kidney disease. Clinically the patient is euvolemic. Continue to aggressively replace potassium per protocol. Repeat 2-D echocardiogram and Doppler study to assess cardiac structure and function. Further recommendations to follow based upon clinical course. Thank you kindly for this consultation. Nurse Practitioner note has been reviewed, I agree with a documented findings and plan of care. Patient was seen and examined. Past Medical History Past Medical History: Atrial Fibrillation, Chest Pain / Angina, Heart Failure, COPD, Hypertension, Osteoarthritis (OA) Additional Past Medical History / Comment(s): Chronic renal insufficiency stage III, cardiomyopathy, abdominal aneurysm History of Any Multi-Drug Resistant Organisms: None Reported Past Surgical History: Heart Catheterization, Heart Catheterization With Stent, Orthopedic Surgery Additional Past Surgical History / Comment(s): KARAN, CARDIOVERSION 8/18/16, left arm surgery - 1976 Past Anesthesia/Blood Transfusion Reactions: No Reported Reaction Date of Last Stent Placement:: 11/14/15 Past Psychological History: No Psychological Hx Reported Smoking Status: Former smoker Past Alcohol Use History: Occasional Past Drug Use History: None Reported - Past Family History Mother Family Medical History: Cancer, Myocardial Infarction (OR) Additional Family Medical History / Comment(s): Mother of a OR in in 60's Medications and Allergies Home Medications Medication Instructions Recorded Confirmed Type Apixaban [Eliquis] 5 mg PO BID #60 tab 09/12/15 10/21/20 Rx Metoprolol Tartrate [Lopressor] 50 mg PO TID #90 tab 09/12/15 10/21/20 Rx Furosemide [Lasix] 80 mg PO BID@0800,1200 10/11/15 10/21/20 History Amiodarone [Cordarone] 100 mg PO DAILY 10/17/15 10/21/20 History Aspirin 81 mg PO HS 10/21/20 10/21/20 History Atorvastatin [Lipitor] 80 mg PO DAILY 10/21/20 10/21/20 History Levothyroxine Sodium [Synthroid] 100 mcg PO DAILY 10/21/20 10/21/20 History Montelukast [Singulair] 10 mg PO HS 10/21/20 10/21/20 History Tiotropium 18 Mcg/Puff [Spiriva] 1 puff INHALATION RT-DAILY@1200 10/21/20 10/21/20 History amLODIPine [Norvasc] 5 mg PO DAILY@1200 10/21/20 10/21/20 History metOLazone [Zaroxolyn] 2.5 mg PO Q48H 10/21/20 10/21/20 History Allergies Allergy/AdvReac Type Severity Reaction Status Date / Time Penicillins Allergy THROAT Verified 10/21/20 09:35 SWELLING/RASH/HIVES Physical Exam Vitals: Vital Signs Temp Pulse Pulse Resp BP BP Pulse Ox 10/22/20 08:44 70 10/22/20 01:24 98.3 F 61 16 100/59 97 10/21/20 22:44 98.1 F 68 16 98/61 98 10/21/20 21:00 64 18 102/59 97 10/21/20 20:00 61 16 10/21/20 19:00 61 18 100/64 97 10/21/20 17:27 60 18 107/56 98 10/21/20 14:00 56 L 20 101/69 96 10/21/20 09:39 52 L 18 114/65 98 Intake and Output 10/21/20 10/22/20 10/22/20 22:59 06:59 14:59 Other: Voiding Method Bedside Commode Urinal # Voids 3 Results 10/22/20 05:36 10/22/20 09:15 Cardiac Enzymes 10/21/20 Range/Units 09:08 Troponin I <0.012 (0.000-0.034) ng/mL Coagulation 10/21/20 Range/Units 09:08 PT 14.3 H (9.0-12.0) sec APTT 31.5 H (22.0-30.0) sec Comprehensive Metabolic Panel 10/21/20 Range/Units 09:08 Sodium 133 L (137-145) mmol/L Potassium 2.3 L* (3.5-5.1) mmol/L Chloride 88 L (98-107) mmol/L Carbon Dioxide 28 (22-30) mmol/L BUN 68 H (9-20) mg/dL Creatinine 3.52 H (0.66-1.25) mg/dL Glucose 243 H (74-99) mg/dL Calcium 8.6 (8.4-10.2) mg/dL Current Medications Generic Name Dose Route Start Last Admin Trade Name Freq PRN Reason Stop Dose Admin Albuterol/Ipratropium 3 ml 10/21/20 20:00 10/22/20 08:40 Ipratropium-Albuterol 3 Ml Neb INHALATION 3 ml RT-QID SOFYA Administration Amiodarone HCl 100 mg 10/22/20 09:00 10/22/20 09:14 Amiodarone 100 Mg Tab PO 100 mg DAILY SOFYA Administration Amlodipine Besylate 5 mg 10/22/20 12:00 Amlodipine 5 Mg Tab PO DAILY@1200 SOFYA Apixaban 5 mg 10/21/20 21:00 10/22/20 09:13 Apixaban 5 Mg Tab PO 5 mg BID SOFYA Administration Protocol Aspirin 81 mg 10/21/20 21:00 10/21/20 20:58 Aspirin 81 Mg PO 81 mg HS SOFYA Administration Atorvastatin Calcium 80 mg 10/22/20 09:00 10/22/20 09:13 Atorvastatin 80 Mg Tab PO 80 mg DAILY SOFYA Administration Doxycycline Monohydrate 100 mg 10/21/20 21:00 10/22/20 09:14 Doxycycline 100 Mg Cap PO 100 mg BID SOFYA Administration Furosemide 40 mg 10/22/20 09:28 Furosemide 40 Mg Tab PO BID@0900,1600 REPLACED BY [facility] Sodium Chloride 1,000 mls @ 75 mls/hr 10/21/20 11:00 10/21/20 22:58 Saline 0.9% IV 75 mls/hr .[id number] SOFYA Administration Levothyroxine Sodium 100 mcg 10/22/20 06:30 10/22/20 06:16 Levothyroxine 100 Mcg Tab PO 100 mcg DAILY@0630 SOFYA Administration Methylprednisolone Sodium Succinate 40 mg 10/21/20 21:00 10/22/20 09:13 Methylprednisolone Sod Succi 40 Mg/Ml 1 Ml Vial IV 40 mg Q12HR SOFYA Administration Metoprolol Tartrate 50 mg 10/21/20 16:00 10/22/20 08:53 Metoprolol Tartrate 50 Mg Tab PO Not Given TID SOFYA Montelukast Sodium 10 mg 10/21/20 21:00 10/21/20 20:59 Montelukast 10 Mg Tab PO 10 mg HS SOFYA Administration Naloxone HCl 0.2 mg 10/21/20 10:58 Naloxone 0.4 Mg/Ml 1 Ml Vial IV Q2M PRN Opioid Reversal Tiotropium [place] 2 puff 10/22/20 12:00 Tiotropium 2.5 Mcg Inhaler INHALATION RT-DAILY@1200 REPLACED BY [facility] Intake and Output 10/21/20 10/22/20 10/22/20 22:59 06:59 14:59 Other: Voiding Method Bedside Commode Urinal # Voids 3 10/21/20 09:08 10/21/20 09:08
--- NOTE | 2020-10-22 11:19 | ECHOF ---
Referral Reason:hx cardiomyopathy MEASUREMENTS -------- HEIGHT: 180.3 cm WEIGHT: 117.9 kg BP: IVSd: 1.2 cm (0.6 - 1.1) LVIDd: 4.7 cm (3.9 - 5.3) LVPWd: 1.3 cm (0.6 - 1.1) IVSs: 1.4 cm LVIDs: 2.6 cm LVPWs: 1.6 cm Ao Diam: 3.6 cm (2.0 - 3.7) AV Cusp: 2.5 cm (1.5 - 2.6) LA Diam: 3.6 cm (2.7 - 3.8) MV EXCURSION: 19.371 mm (> 18.000) MV EF SLOPE: 96 mm/s (70 - 150) EPSS: 1.6 cm MV E Chente: 0.55 m/s MV DecT: 206 ms MV A Chenet: 0.60 m/s MV E/A Ratio: 0.92 RAP: 5.00 mmHg RVSP: 17.13 mmHg FINDINGS -------- This was a technically difficult study with suboptimal views. The left ventricular size is normal. There is mild concentric left ventricular hypertrophy. Overa ll left ventricular systolic function is normal with, an EF between 55 - 60 %. The right ventricle is normal in size. The left atrial size is normal. The right atrial size is normal. Lumason used The aortic valve was not well visualized. The mitral valve was not well visualized. There is trace mitral regurgitation. The tricuspid valve was not well visualized. Trace tricuspid regurgitation present. Right ventric ular systolic pressure is normal at < 35 mmHg. The pulmonic valve was not well visualized. The aortic root size is normal. IVC Not well visulized. There is no pericardial effusion. CONCLUSIONS -------- 1. The left ventricular size is normal. 2. There is mild concentric left ventricular hypertrophy. 3. Overall left ventricular systolic function is normal with, an EF between 55 - 60 %. 4. There is trace mitral regurgitation. 5. Trace tricuspid regurgitation present. 6. There is no pericardial effusion. SALES SERVICE ASSISTANT: Claudine Earl [facility]
[2020-10-22] MEDS: TIOTROPIUM 2.5 MCG INHALER INHALATION SCH (11:43)
[2020-10-22] MEDS: amLODIPine 5 MG TAB PO SCH (11:56)
[2020-10-22] MEDS ORDERED: diphenhydrAMINE 50 MG/ML 1 ML VIAL IVP STA (15:06)
--- NOTE | 2020-10-22 15:06 | P.PN ---
Progress Note - Text Progress Note Date: 10/22/20 Called to bedside due to concern for patient's reaction to blood transfusion. Pt was HDS upon my arrival. Plan is to get in touch with blood bank to notify them of reaction and repeat type and cross, then if blood product is permissible, care team will reach out to primary regarding pre-treatment with anti-pyretic and anti-histamine prior to transfusion.
--- NOTE | 2020-10-22 15:18 | P.CONS ---
History of Present Illness - Reason for Consult Consult date: 10/22/20 Anemia Requesting physician: Ermias Soriano - Chief Complaint Shortness of breath - History of Present Illness This a pleasant 64-year-old white male who presented to the emergency department with complaints of shortness of breath. He has a past medical history for proximal atrial fibrillation status post cardioversion 2016, coronary artery disease, history of acute DE, history of systolic heart failure, hypertension, COPD, stage III chronic kidney disease and former smoker. The patient has been taking Eliquis for his atrial fibrillation last dose this morning. He was noted to have a drop in his hemoglobin this morning to 6.8. His labs are consistent with a microcytic anemia. He denies any dark stool or blood in his stool. He does state that he's been having multiple bloody noses within the last 2 weeks maybe every other day, bleeding up to 30 minutes each time. He also states he does vomit frequently within the last 2 weeks that daily but states that he will get dizzy and have sinus drainage and get a GI upset and will vomit. He does state that he has a history of an ulcer in the past with possible EGD. He denies any previous colonoscopy. He denies any NSAID use. He currently has no abdominal pain, nausea, or vomiting. Review of Systems REVIEW OF SYSTEMS: CARDIOPULMONARY: No chest pain. Shortness of breath. Gastrointestinal: No abdominal pain. Nausea, no vomiting. No hematemesis, coffee-ground emesis. No rectal bleeding, or melena. GENITOURINARY: No dysuria or hematuria. MUSCULOSKELETAL: Reports normal range of motion., Joint pain. SKIN: No rashes. No jaundice. ENDOCRINE: No chills, fevers. No excessive weight gain or loss. No polydipsia or polyuria. PSYCHIATRIC: Unremarkable. NEUROLOGY: No change in mental status. Denies dizziness, headache. ENT: Vision unremarkable. CONSTITUTIONAL: No recent weight loss. No fever, chills, night sweats. Past Medical History Past Medical History: Atrial Fibrillation, Chest Pain / Angina, Heart Failure, COPD, Hypertension, Osteoarthritis (OA) Additional Past Medical History / Comment(s): Chronic renal insufficiency stage III, cardiomyopathy, abdominal aneurysm History of Any Multi-Drug Resistant Organisms: None Reported Past Surgical History: Heart Catheterization, Heart Catheterization With Stent, Orthopedic Surgery Additional Past Surgical History / Comment(s): KARAN, CARDIOVERSION 8/18/16, left arm surgery - 1976 Past Anesthesia/Blood Transfusion Reactions: No Reported Reaction Date of Last Stent Placement:: 11/14/15 Past Psychological History: No Psychological Hx Reported Smoking Status: Former smoker Past Alcohol Use History: Occasional Past Drug Use History: None Reported - Past Family History Mother Family Medical History: Cancer, Myocardial Infarction (DE) Additional Family Medical History / Comment(s): Mother of a DE in in 60's Medications and Allergies Home Medications Medication Instructions Recorded Confirmed Type Apixaban [Eliquis] 5 mg PO BID #60 tab 09/12/15 10/21/20 Rx Metoprolol Tartrate [Lopressor] 50 mg PO TID #90 tab 09/12/15 10/21/20 Rx Furosemide [Lasix] 80 mg PO BID@0800,1200 10/11/15 10/21/20 History Amiodarone [Cordarone] 100 mg PO DAILY 10/17/15 10/21/20 History Aspirin 81 mg PO HS 10/21/20 10/21/20 History Atorvastatin [Lipitor] 80 mg PO DAILY 10/21/20 10/21/20 History Levothyroxine Sodium [Synthroid] 100 mcg PO DAILY 10/21/20 10/21/20 History Montelukast [Singulair] 10 mg PO HS 10/21/20 10/21/20 History Tiotropium 18 Mcg/Puff [Spiriva] 1 puff INHALATION RT-DAILY@1200 10/21/20 10/21/20 History amLODIPine [Norvasc] 5 mg PO DAILY@1200 10/21/20 10/21/20 History metOLazone [Zaroxolyn] 2.5 mg PO Q48H 10/21/20 10/21/20 History Allergies Allergy/AdvReac Type Severity Reaction Status Date / Time Penicillins Allergy THROAT Verified 10/21/20 09:35 SWELLING/RASH/HIVES Physical Exam Vitals: Vital Signs Temp Pulse Pulse Resp BP BP BP 10/22/20 10:56 98.4 F 67 17 84/50 10/22/20 09:17 61 16 10/22/20 08:44 70 10/22/20 01:24 98.3 F 61 16 100/59 10/21/20 22:44 98.1 F 68 16 98/61 10/21/20 21:00 64 18 102/59 10/21/20 20:00 61 16 10/21/20 19:00 61 18 100/64 10/21/20 17:27 60 18 107/56 10/21/20 14:00 56 L 20 101/69 Pulse Ox 10/22/20 10:56 98 10/22/20 09:17 10/22/20 08:44 10/22/20 01:24 97 10/21/20 22:44 98 10/21/20 21:00 97 10/21/20 20:00 10/21/20 19:00 97 10/21/20 17:27 98 10/21/20 14:00 96 Intake and Output 10/21/20 10/22/20 10/22/20 22:59 06:59 14:59 Output Total 350 Balance -350 Output: Urine 350 Other: Voiding Method Bedside Commode Bedside Commode Urinal Urinal # Voids 3 General appearance: The patient is alert, oriented, appears in no acute distress. HET: Head is normocephalic and atraumatic. Conjunctiva pink. Sclera anicteric. Neck: Supple without lymphadenopathy. Trachea midline. Heart: S1 S2. Regular rate and rhythm. Lungs: Clear to auscultation. Abdomen: Soft, nontender, nondistended with bowel sounds. No guarding or rigidity. Skin: No rashes. No jaundice. Extremities: Normal skin color and turgor. No pedal edema. Neurological: No focal deficits. Alert and oriented 3.. Results CBC & Chem 7: 10/22/20 05:36 10/22/20 11:58 Labs: Abnormal Lab Results - Last 24 Hours (Table) 10/22/20 10/22/20 10/22/20 Range/Units 05:36 05:36 09:15 WBC 11.86 H (4.50-10.00) X 10*3/uL RBC 3.19 L (4.40-5.60) X 10*6/uL Hgb 6.8 L* (13.0-17.0) g/dL Hct 22.2 L (39.6-50.0) % MCV 69.6 L (80.0-97.0) fL MCH 21.3 L (27.0-32.0) pg MCHC 30.6 L (32.0-37.0) g/dL RDW 16.9 H (11.5-14.5) % Immature Gran # 0.05 H (0.00-0.04) X 10*3/uL Neutrophils # 10.81 H (1.80-7.70) X 10*3/uL Lymphocytes # 0.62 L (0.90-5.00) X 10*3/uL Eosinophils # 0 L (0.04-0.35) X 10*3/uL Potassium 2.6 L* 2.5 L* (3.5-5.5) mmol/L Chloride 90 L (96-109) mmol/L Anion Gap 16.70 H (4.00-12.00) mmol/L BUN 78.0 H (9.0-27.0) mg/dL Creatinine 3.7 H (0.6-1.5) mg/dL Est GFR (CKD-EPI)AfAm 18.9 L (60.0-200.0) Est GFR (CKD-EPI)NonAf 16.3 L (60.0-200.0) BUN/Creatinine Ratio 21.08 H (12.00-20.00) Ratio Glucose 165 H (70-110) mg/dL Calcium 8.1 L (8.7-10.3) mg/dL Magnesium 3.1 H (1.5-2.4) mg/dL Total Bilirubin 1.4 H (0.3-1.2) mg/dL AST 43 H (14-35) U/L Alkaline Phosphatase 139 H (41-126) U/L Total Protein 5.8 L (6.2-8.2) g/dL Albumin 3.50 L (3.80-4.90) g/dL Albumin/Globulin Ratio 1.52 L (1.60-3.17) g/dL 10/22/20 Range/Units 11:58 WBC (4.50-10.00) X 10*3/uL RBC (4.40-5.60) X 10*6/uL Hgb (13.0-17.0) g/dL Hct (39.6-50.0) % MCV (80.0-97.0) fL MCH (27.0-32.0) pg MCHC (32.0-37.0) g/dL RDW (11.5-14.5) % Immature Gran # (0.00-0.04) X 10*3/uL Neutrophils # (1.80-7.70) X 10*3/uL Lymphocytes # (0.90-5.00) X 10*3/uL Eosinophils # (0.04-0.35) X 10*3/uL Potassium 2.9 L (3.5-5.5) mmol/L Chloride (96-109) mmol/L Anion Gap (4.00-12.00) mmol/L BUN (9.0-27.0) mg/dL Creatinine (0.6-1.5) mg/dL Est GFR (CKD-EPI)AfAm (60.0-200.0) Est GFR (CKD-EPI)NonAf (60.0-200.0) BUN/Creatinine Ratio (12.00-20.00) Ratio Glucose (70-110) mg/dL Calcium (8.7-10.3) mg/dL Magnesium (1.5-2.4) mg/dL Total Bilirubin (0.3-1.2) mg/dL AST (14-35) U/L Alkaline Phosphatase (41-126) U/L Total Protein (6.2-8.2) g/dL Albumin (3.80-4.90) g/dL Albumin/Globulin Ratio (1.60-3.17) g/dL Assessment and Plan (1) Anemia Narrative/Plan: This is 64-year-old male who presented to the emergency department with complaints of shortness of breath. He has multiple comorbidities including atrial fibrillation on Eliquis, chronic kidney disease. He denies any history of alcohol abuse. Patient had a drop in his hemoglobin to 6.8 this morning, labs are consistent with microcytic anemia. No signs or symptoms of GI bleed. No previous history of GI bleed. Hernandez to state he has been having some frequent vomiting on a daily basis but states he'll get some dizziness he's had some sinus drainage and then he gets a GI upset and will vomit. Denies any hematemes is or coffee-ground emesis. No dark stool or blood in his stool. He does state though he has been having multiple bloody noses every other day for last 2 weeks duration and states he may have bleeding up to 30 minutes at a time. He has no previous history of colonoscopy or EGD. Does believe he has a history of an ulcer. Iron studies are ordered. Eliquis currently on hold. Current Visit: Yes Status: Acute Code(s): D64.9 - ANEMIA, UNSPECIFIED SNOMED Code(s): 023179733 (2) Chronic kidney disease Current Visit: Yes Status: Acute Code(s): N18.9 - CHRONIC KIDNEY DISEASE, UNSPECIFIED SNOMED Code(s): 162052637 (3) Atrial fibrillation with RVR Current Visit: No Status: Acute Code(s): I48.91 - UNSPECIFIED ATRIAL FIBRILLATION SNOMED Code(s): 586541617234521 (4) CHF (congestive heart failure) Current Visit: No Status: Acute Code(s): I50.9 - HEART FAILURE, UNSPECIFIED SNOMED Code(s): 68173678 Plan: 1. Continue symptomatic and supportive care 2. Hold Eliquis 3. Daily CBC, transfuse for hemoglobin less than 7 4. Agree with PRBC transfusion 5. Iron studies ordered 6. Protonix 40 mg twice a day 7. Continue diet as tolerated, start clear liquid diet tomorrow morning 8. We'll plan for EGD and colonoscopy on , will start bowel prep tomorrow evening. Thank you for this consultation, we will continue to follow closely. Dr. Ugo Dodd I agree with the dictator's note, documented as a scribe by Sara Chen.
[2020-10-22] MEDS ORDERED: ACETAMINOPHEN IV (For NPO) 1,000 MG in EMPTY BAG 1 BAG IVPB ONE (15:30)
--- NOTE | 2020-10-22 15:58 | CT ---
EXAMINATION TYPE: CODE STROKE: CT brain wo contr DATE OF EXAM: 10/22/2020 COMPARISON: None HISTORY: altered mental status CT DLP: 1202.[address] of the brain was performed. The ventricles, basal cisterns and sulci overlying the cerebral convexities demonstrate mild enlargem ent. Physiologic calcification right basal ganglia. There is no evidence for intracranial hemorrhage or sulcal effacement. There is decreased attenuation about the periventricular white matter and deep white matter of both c erebral hemispheres, compatible with chronic small vessel ischemia. Differential diagnosis does inclu de demyelination. No mass effects are seen.No midline shift. Osseous calvarium is intact. If symptoms persist consider MRI. IMPRESSION: 1. Age related atrophic and chronic small vessel ischemic change without acute intracranial process s een at this time.
[2020-10-22 16:19] LABS: Anisocytosis Slight; Basophils % (A) 0 %; Eosinophils % (A) 0 %; HCT 24.3 % (39.0-53.0); HGB 7.4 gm/dL (13.0-17.5); Hypochromasia Marked; Lymphocytes # (A) 0.7 k/uL (1.0-4.8); Lymphocytes % (A) 4 %; MCHC 30.5 g/dL (31.0-37.0); MCV 72.1 fL (80.0-100.0); Microcytosis Moderate; Monocytes # (A) 0.7 k/uL (0-1.0); Monocytes % (A) 4 %; Neutrophils # (A) 18.3 k/uL (1.3-7.7); Neutrophils % (A) 92 %; Platelet Count 382 k/uL (150-450); Poikilocytosis Slight; RBC 3.37 m/uL (4.30-5.90); RDW 16.6 % (11.5-15.5); WBC 19.9 k/uL (3.8-10.6)
[2020-10-22 16:32] LABS: INR 1.4 (<1.2); Partial Thromboplastin Time 30.1 sec (22.0-30.0); Prothrombin Time 14.4 sec (9.0-12.0)
--- NOTE | 2020-10-22 16:33 | P.PN ---
Subjective Progress Note Date: 10/22/20 Principal diagnosis: Acute confusional state may very well be related to Benadryl Transfusion reaction Acute COPD exacerbation Severe degree of electrolyte imbalance with hypokalemia and hypocalcemia Tracheobronchitis Chronic kidney disease Chronic atrial fibrillation on direct anticoagulation 10/22/2020, patient seen eval examined during the rounds labs reviewed medicat ions reviewed care plan discussed, patient underwent blood transfusion during transfusion she started having some chills intermittent back pain, Benadryl was given after that patient was very confused anxious and with a blank stare, patient was taken to the computed tomography scan for "stroke all, computed tomography scan has been no acute findings identified patient slowly coming back oriented 3 now denies any chest pain denies any headache chills or fever we'll consult urology as well for acute current confusional state actually related to Benadryl Patient is a 64-year-old male with the history of COPD, hypertension hypertensive cardiovascular disease chronic atrial fibrillation came into the hospital with increasing shortness of breath, symptoms have been progressive like for last 3-4 days and started with upper respiratory infection, this patient started having aches and pains cough has been more productive) came into hospital for further evaluation, or excessive questioning denies initial seizure-like. He had a loss consciousness) ongoing aspiration symptoms denies any chest pain denies any bowel or bladder problems, patient has been monitored for chronic insufficiency as well, admitted chest x-ray consistent with COPD no active pulmonary process seen labs significant for leukocytosis microcytic anemia and severe electrolyte imbalance with potassium is 2.3 BUN/creatinine 16 and 3.5 to chronic virus is negative, patient is being continued on home medications including anticoagulants direct, being repleted with calcium and potassium, Objective - Vital Signs Vital signs: Vital Signs Temp 97.8 F 10/22/20 15:09 Pulse 82 10/22/20 15:09 Resp 20 10/22/20 15:09 BP 111/71 10/22/20 15:09 Pulse Ox 100 10/22/20 15:09 Intake & Output 10/21/20 10/22/20 10/22/20 18:59 06:59 18:59 Intake Total 305 Output Total 350 Balance -45 Weight 117.934 kg Intake: Blood Product 305 Rc As-1 Unit 305 [id number] Output: Urine 350 Other: Voiding Method Bedside Commode Bedside Commode Urinal Urinal # Voids 3 - Exam - Constitutional General appearance: average body habitus, disheveled - EENT Eyes: PERRLA ENT: normal oropharynx Ears: bilateral: normal - Neck Neck: normal ROM Carotids: bilateral: upstroke normal Thyroid: bilateral: normal size - Respiratory Respiratory: bilateral: diminished, rales, wheezing - Cardiovascular Rhythm: regular Heart sounds: normal: S1, S2 - Gastrointestinal General gastrointestinal: normal bowel sounds, soft - Integumentary Integumentary: normal turgor - Neurologic Neurologic: CNII-XII intact - Musculoskeletal Musculoskeletal: gait normal, generalized weakness, strength equal bilaterally - Psychiatric Psychiatric: A&O x's 3, appropriate affect, intact judgment & insigh - Labs CBC & Chem 7: 10/22/20 15:52 10/22/20 11:58 Labs: Abnormal Lab Results - Last 24 Hours (Table) 10/22/20 10/22/20 10/22/20 Range/Units 05:36 05:36 09:15 WBC 11.86 H (4.50-10.00) X 10*3/uL RBC 3.19 L (4.40-5.60) X 10*6/uL Hgb 6.8 L* (13.0-17.0) g/dL Hct 22.2 L (39.6-50.0) % MCV 69.6 L (80.0-97.0) fL MCH 21.3 L (27.0-32.0) pg MCHC 30.6 L (32.0-37.0) g/dL RDW 16.9 H (11.5-14.5) % Immature Gran # 0.05 H (0.00-0.04) X 10*3/uL Neutrophils # 10.81 H (1.80-7.70) X 10*3/uL Lymphocytes # 0.62 L (0.90-5.00) X 10*3/uL Eosinophils # 0 L (0.04-0.35) X 10*3/uL Potassium 2.6 L* 2.5 L* (3.5-5.5) mmol/L Chloride 90 L (96-109) mmol/L Anion Gap 16.70 H (4.00-12.00) mmol/L BUN 78.0 H (9.0-27.0) mg/dL Creatinine 3.7 H (0.6-1.5) mg/dL Est GFR (CKD-EPI)AfAm 18.9 L (60.0-200.0) Est GFR (CKD-EPI)NonAf 16.3 L (60.0-200.0) BUN/Creatinine Ratio 21.08 H (12.00-20.00) Ratio Glucose 165 H (70-110) mg/dL Calcium 8.1 L (8.7-10.3) mg/dL Magnesium 3.1 H (1.5-2.4) mg/dL Total Bilirubin 1.4 H (0.3-1.2) mg/dL AST 43 H (14-35) U/L Alkaline Phosphatase 139 H (41-126) U/L Total Protein 5.8 L (6.2-8.2) g/dL Albumin 3.50 L (3.80-4.90) g/dL Albumin/Globulin Ratio 1.52 L (1.60-3.17) g/dL Crossmatch 10/22/20 10/22/20 10/22/20 Range/Units 11:58 11:58 15:52 WBC 19.9 H (4.50-10.00) X 10*3/uL RBC 3.37 L (4.40-5.60) X 10*6/uL Hgb 7.4 L (13.0-17.0) g/dL Hct 24.3 L (39.6-50.0) % MCV 72.1 L (80.0-97.0) fL MCH 22.0 L (27.0-32.0) pg MCHC 30.5 L (32.0-37.0) g/dL RDW 16.6 H (11.5-14.5) % Immature Gran # (0.00-0.04) X 10*3/uL Neutrophils # 18.3 H (1.80-7.70) X 10*3/uL Lymphocytes # 0.7 L (0.90-5.00) X 10*3/uL Eosinophils # (0.04-0.35) X 10*3/uL Potassium 2.9 L (3.5-5.5) mmol/L Chloride (96-109) mmol/L Anion Gap (4.00-12.00) mmol/L BUN (9.0-27.0) mg/dL Creatinine (0.6-1.5) mg/dL Est GFR (CKD-EPI)AfAm (60.0-200.0) Est GFR (CKD-EPI)NonAf (60.0-200.0) BUN/Creatinine Ratio (12.00-20.00) Ratio Glucose (70-110) mg/dL Calcium (8.7-10.3) mg/dL Magnesium (1.5-2.4) mg/dL Total Bilirubin (0.3-1.2) mg/dL AST (14-35) U/L Alkaline Phosphatase (41-126) U/L Total Protein (6.2-8.2) g/dL Albumin (3.80-4.90) g/dL Albumin/Globulin Ratio (1.60-3.17) g/dL Crossmatch See Detail Assessment and Plan Assessment: Acute confusional state post Benadryl slowly improving Transfusion reaction mild Acute COPD exacerbation Severe degree of electrolyte imbalance with hypokalemia and hypocalcemia Tracheobronchitis Chronic kidney disease Chronic atrial fibrillation on direct anticoagulation Plan: Observe patient closely neuro checks every 2 hours hourly consult neurology Start patient on bronchodilators along with IV steroids and oral broad-spectrum antibiotics Supplemental oxygen Monitor and observe potassium level and electrolytes very closely and replete as needed Trend renal functions closely Further recommendations pending plan of care as per clinical response of patient Time with Patient: Greater than 30
[2020-10-22 16:34] LABS: AST 43 U/L (17-59); African American GFR (CKD) 18 (>60 ml/min/1.73 sqM); Albumin 3.5 g/dL (3.5-5.0); Albumin/Globulin Ratio 1.3; Alkaline Phosphatase 139 U/L (38-126); Anion Gap 17 mmol/L; Blood Urea Nitrogen 74 mg/dL (9-20); Calcium 8.1 mg/dL (8.4-10.2); Carbon Dioxide 21 mmol/L (22-30); Chloride 89 mmol/L (98-107); Globulin 2.7 g/dL; Glucose 257 mg/dL (74-99); Non-African American GFR(CKD) 16 (>60 ml/min/1.73 sqM); Sodium 127 mmol/L (137-145); Total Bilirubin 1.6 mg/dL (0.2-1.3); Total Protein 6.2 g/dL (6.3-8.2)
[2020-10-22 16:41] LABS: ALT 29 U/L (4-49)
[2020-10-22 16:45] LABS: Potassium 2.5 mmol/L (3.5-5.1)
[2020-10-22] MEDS ORDERED: SODIUM CHLORIDE 0.9% 500 ML 500 ML IV ONE (20:26)
[2020-10-22] MEDS: MONTELUKAST 10 MG TAB PO SCH (20:30)
[2020-10-22] MEDS: ASPIRIN 81 MG PO SCH (20:30)
[2020-10-22] MEDS: SODIUM CHLORIDE 0.9% 1,000 ML IV SCH (20:41)
--- NOTE | 2020-10-22 22:31 | US ---
EXAMINATION TYPE: US carotid duplex BILAT DATE OF EXAM: 10/22/2020 COMPARISON: None. CLINICAL HISTORY: weakness . Weakness per order. Hx previous smoker, cardiac stent, Hypertension. EXAM MEASUREMENTS: RIGHT: Peak Systolic Velocity (PSV) cm/sec ----- Right CCA: 86.4 ----- Right ICA: 107.0 ----- Right ECA: 160.0 ICA/CCA ratio: 1.24 RIGHT: End Diastole cm/sec ----- Right CCA: 24.0 ----- Right ICA: 26.6 ----- Right ECA: 31.7 LEFT: Peak Systolic Velocity (PSV) cm/sec ----- Left CCA: 114.0 ----- Left ICA: 123.0 ----- Left ECA: 274.0 ICA/CCA ratio: 1.08 LEFT: End Diastole cm/sec ----- Left CCA: 24.9 ----- Left ICA: 31.2 ----- Left ECA: 43.0 VERTEBRALS (direction of flow): Right Vertebral: Unable to visualize. Left Vertebral: Antegrade Rhythm: Normal *Exam is limited due to patient being in pain and patient movement. Plaque seen in bilateral carotid arteries and bilateral carotid bifurcations. Elevated velocities within bilateral ECAs, left greater than right. Limited visibility of left ECA. Left ICA appears to be tortuous. IMPRESSION: 1. No evidence of hemodynamically significant stenosis of the bilateral common carotids or internal c arotid arteries. Any stenosis that may be present is less than 50%. 2. There may be hemodynamically significant stenosis of the origin of the left external carotid arter y. 3. Nonvisualization of the right vertebral artery. NASCET criteria was used in interpretation of this exam? Criteria for Assigning % of Stenosis / Diameter reduction (Estimation based on the indirect measurements of the internal carotid artery velocities (ICA PSV). 1. Normal (no stenosis)=ICA PSV < 125 cm/s: ratio < 2.0: ICA EDV<40 cm/s. 2. Less than 50% stenosis=ICA PSV < 125 cm/s: ratio < 2.0: ICA EDV<40 cm/s. 3. 50 to 69% stenosis=ICA PSV of 125 to 230 cm/s: ration 2.0 ? 4.0: ICA EDV 40-100 cm/s. 4. Greater than 70% stenosis to near occlusion= ICA PSV > 230 cm/s: ratio > 4.0: ICA EDV > 100 cm/s. 5. Near occlusion= ICA PSV velocities may be low or undetectable: variable ratio and ICA EDV. 6. Total occlusion=unable to detect flow.
[2020-10-22 23:08] LABS: % Iron Saturation 3.23 (15.00-50.00)
[2020-10-23] MEDS: SODIUM FERRIC GLUCONAT-SUCROSE 125 MG in SODIUM CHLORIDE 0.9% 100 ML IVPB SCH ×2 (00:44→21:08)
[2020-10-23] MEDS: POTASSIUM CHLORIDE ER 20 MEQ TAB.ER PO SCH ×3 (00:44→06:22)
[2020-10-23 02:15] LABS: ALT 22 U/L (4-49); AST 42 U/L (17-59); African American GFR (CKD) 19 (>60 ml/min/1.73 sqM); Albumin 3.1 g/dL (3.5-5.0); Albumin/Globulin Ratio 1.2; Alkaline Phosphatase 134 U/L (38-126); Anion Gap 13 mmol/L; Blood Urea Nitrogen 78 mg/dL (9-20); Calcium 7.9 mg/dL (8.4-10.2); Carbon Dioxide 22 mmol/L (22-30); Chloride 94 mmol/L (98-107); Globulin 2.5 g/dL; Glucose 224 mg/dL (74-99); Non-African American GFR(CKD) 17 (>60 ml/min/1.73 sqM); Potassium 3.3 mmol/L (3.5-5.1); Sodium 129 mmol/L (137-145); Total Bilirubin 1.2 mg/dL (0.2-1.3); Total Protein 5.6 g/dL (6.3-8.2)
[2020-10-23] MEDS ORDERED: Potassium Replacement Protocol 1 EACH MISC MISCELLANE PRN (03:07)
[2020-10-23] MEDS: SODIUM CHLORIDE 0.9% 1,000 ML IV SCH ×3 (03:38→20:47)
[2020-10-23 06:08] LABS: Ferritin 11.2 ng/mL (22.0-322.0)
[2020-10-23] MEDS: LEVOTHYROXINE 100 MCG TAB PO SCH (06:21)
--- NOTE | 2020-10-23 06:51 | PN ---
PROGRESS NOTE 64-year-old white male, confusional state related to Benadryl, transfusion reaction today. Had to stop blood transfusion due to altered mental status. He is in with COPD exacerbation, severe dehydration, hypokalemia, hypomagnesemia, tracheobronchitis, chronic kidney disease, chronic atrial fibrillation, worsening case of prerenal renal insufficiency, continues on boluses of fluids due to hypotension, going to give him a 500 mL bolus today. He is sitting up eating all his food. He is worked up for stroke, but it sounds like he had a transfusion reaction. Temperature 97.8, pulse 88, respiratory 18-20, blood pressure 110/ . Lungs clear. GI soft. Hematology: Negative Homans. Psych: Fair mood and affect. Hemoglobin now is 7.4. PLAN: Observe, neuro checks, broad-spectrum diet. IV steroids, antibiotics, oxygen. Monitor potassium, electrolytes, magnesium. Check renal functions. Prognosis extremely guarded. We will give Venofer due to low iron. Get a hematology consult. GI, EGD and colonoscopy due to possible acute blood loss anemia at this point. MMODL / IJN: [id number] /
[2020-10-23 07:06] LABS: Anisocytosis Slight; Basophils % (A) 0 %; Eosinophils % (A) 0 %; HCT 21.9 % (39.0-53.0); Hypochromasia Marked; Lymphocytes # (A) 0.6 k/uL (1.0-4.8); Lymphocytes % (A) 3 %; MCH 21.6 pg (25.0-35.0); MCHC 29.8 g/dL (31.0-37.0); MCV 72.3 fL (80.0-100.0); Mean Platelet Volume 7.9; Microcytosis Moderate; Monocytes # (A) 0.7 k/uL (0-1.0); Monocytes % (A) 4 %; Neutrophils # (A) 18.8 k/uL (1.3-7.7); Neutrophils % (A) 92 %; Platelet Count 306 k/uL (150-450); Poikilocytosis Slight; RBC 3.03 m/uL (4.30-5.90); RDW 16.8 % (11.5-15.5); WBC 20.4 k/uL (3.8-10.6)
[2020-10-23 07:23] LABS: HGB 6.5 gm/dL (13.0-17.5)
[2020-10-23 07:28] LABS: ALT 21 U/L (4-49); AST 38 U/L (17-59); African American GFR (CKD) 22 (>60 ml/min/1.73 sqM); Albumin/Globulin Ratio 1.2; Alkaline Phosphatase 113 U/L (38-126); Anion Gap 14 mmol/L; Blood Urea Nitrogen 78 mg/dL (9-20); Calcium 7.7 mg/dL (8.4-10.2); Carbon Dioxide 21 mmol/L (22-30); Chloride 95 mmol/L (98-107); Globulin 2.6 g/dL; Glucose 220 mg/dL (74-99); Non-African American GFR(CKD) 19 (>60 ml/min/1.73 sqM); Potassium 3.5 mmol/L (3.5-5.1); Sodium 130 mmol/L (137-145); Total Bilirubin 1.1 mg/dL (0.2-1.3); Total Protein 5.6 g/dL (6.3-8.2)
[2020-10-23] MEDS: METOPROLOL TARTRATE 50 MG TAB PO SCH ×2 (08:16→20:47)
[2020-10-23] MEDS: amLODIPine 5 MG TAB PO SCH (08:16)
[2020-10-23] MEDS: AMIODARONE 100 MG TAB PO SCH (08:17)
[2020-10-23] MEDS: DOXYCYCLINE 100 MG CAP PO SCH ×2 (08:17→20:47)
[2020-10-23] MEDS: ATORVASTATIN 80 MG TAB PO SCH (08:17)
[2020-10-23] MEDS: methylPREDNISolone SOD SUCCI 40 MG/ML 1 ML VIAL IV SCH ×2 (08:17→20:48)
[2020-10-23] MEDS: IPRATROPIUM-ALBUTEROL 3 ML NEB INHALATION SCH ×3 (08:51→16:05)
--- NOTE | 2020-10-23 09:05 | P.CNNES ---
History of Present Illness Consult date: 10/22/20 Requesting physician: Alejandro Bella Reason for Consult: Stroke code History of Present Illness: Patient is a 64-year-old male with history of atrial fibrillation, CHF, hypertension, COPD who came to the hospital actually yesterday at 8:29 AM a.m. for shortness of breath, nausea, dizziness and couldn't walk because of shortn ess of breath, of 4-5 days duration. Patient was found to have significant anemia with hemoglobin 8.4, which the following day, today came down to 6.8. White cells were 15.0, platelets 391. His INR was 1.4 and PTT 31.5. Sodium 133 potassium 2.3, BUN 68, creatinine 3.52. Patient's AST slightly elevated 43, ALT 22. Troponin negative. BNP normal. Kennedy virus negative. GI consultation was initiated, and was recommended to hold Eliquis because of anemia, also recommended daily CBCs and transfusion of PRBC, and patient was scheduled for possible scoping on , 10/24/2020. Due to anemia, patient was given blood transfusion. When the transfusion was started, within less than 5 minutes, patient apparently developed transfusion reaction. He started having trembling, complained of left flank pain, severe headache, and shortness of breath. An A-team was called. It was felt patient probably has ALLERGIC reaction to the transfusion. It was discontinued. Patient was given 50 mg Benadryl IV push. Immediately after Benadryl was given, patient developed some altered mental status, had a glazed look, appeared confused. He was alert and awake, but could not tell the year, or the president or the month. Stroke code was activated. His NIH stroke scale was reported as 4, partly because of disorientation. He was having trouble reading sentences and he was not able to see peripherally. It was also reported he has some limp ataxia on the right side. Patient underwent stat computed tomography scan of the head, which came back no acute process. Age-related atrophic and chronic small vessel ischemic changes without acute intracranial process. I came to see patient, and on my evaluation, the symptoms have all resolved. His NIH stroke scale was 0. Patient denies any focal numbness tingling headache, double vision loss of vision, slurred speech or any stroke symptoms at this time. Review of Systems Patient denies headache. Denies any numbness tingling focal weakness. Denies any problem with the vision. No chest pain,. Denies any abdominal pain nausea vomiting at this time. He does have some shortness of breath. Past Medical History Past Medical History: Atrial Fibrillation, Chest Pain / Angina, Heart Failure, COPD, Hypertension, Osteoarthritis (OA) Additional Past Medical History / Comment(s): Chronic renal insufficiency stage III, cardiomyopathy, abdominal aneurysm History of Any Multi-Drug Resistant Organisms: None Reported Past Surgical History: Heart Catheterization, Heart Catheterization With Stent, Orthopedic Surgery Additional Past Surgical History / Comment(s): KARAN, CARDIOVERSION 10/17/15, left arm surgery - 1976 Past Anesthesia/Blood Transfusion Reactions: No Reported Reaction Date of Last Stent Placement:: 11/14/15 Past Psychological History: No Psychological Hx Reported Smoking Status: Former smoker Past Alcohol Use History: Occasional Past Drug Use History: None Reported - Past Family History Mother Family Medical History: Cancer, Myocardial Infarction ([place]) Additional Family Medical History / Comment(s): Mother of a [place] in in Medications and Allergies Home Medications Medication Instructions Recorded Confirmed Type Apixaban [Eliquis] 5 mg PO BID #60 tab 09/12/15 10/21/20 Rx Metoprolol Tartrate [Lopressor] 50 mg PO TID #90 tab 09/12/15 10/21/20 Rx Furosemide [Lasix] 80 mg PO BID@0800,1200 10/11/15 10/21/20 History Aspirin 81 mg PO HS 10/21/20 10/21/20 History Atorvastatin [Lipitor] 80 mg PO DAILY 10/21/20 10/21/20 History Levothyroxine Sodium [Synthroid] 100 mcg PO DAILY 10/21/20 10/21/20 History Montelukast [Singulair] 10 mg PO HS 10/21/20 10/21/20 History Tiotropium 18 Mcg/Puff [Spiriva] 1 puff INHALATION RT-DAILY@1200 10/21/20 10/21/20 History amLODIPine [Norvasc] 5 mg PO DAILY@1200 10/21/20 10/21/20 History metOLazone [Zaroxolyn] 2.5 mg PO Q48H 10/21/20 10/21/20 History Allergies Allergy/AdvReac Type Severity Reaction Status Date / Time Penicillins Allergy THROAT Verified 10/21/20 09:35 SWELLING/RASH/HIVES Physical Examination - Vital Signs Vital Signs: Vital Signs Temp Pulse Pulse Resp BP BP BP 10/22/20 15:09 97.8 F 82 20 111/71 10/22/20 14:39 99.4 F 81 18 109/67 10/22/20 10:56 98.4 F 67 17 84/50 10/22/20 09:17 61 16 10/22/20 08:44 70 10/22/20 01:24 98.3 F 61 16 100/59 10/21/20 22:44 98.1 F 68 16 98/61 10/21/20 21:00 64 18 102/59 10/21/20 20:00 61 16 10/21/20 19:00 61 18 100/64 10/21/20 17:27 60 18 107/56 Pulse Ox 10/22/20 15:09 100 10/22/20 14:39 100 10/22/20 10:56 98 10/22/20 09:17 10/22/20 08:44 10/22/20 01:24 97 10/21/20 22:44 98 10/21/20 21:00 97 10/21/20 20:00 10/21/20 19:00 97 10/21/20 17:27 98 Intake and Output 10/22/20 10/22/20 10/22/20 06:59 14:59 22:59 Intake Total 305 Output Total 350 Balance -45 Intake: Blood Product 305 Rc As-1 Unit 305 [id number] Output: Urine 350 Other: Voiding Method Bedside Commode Urinal # Voids 3 Patient is an elderly male, in no acute distress. Patient is alert awake oriented to time place and person. Patient knows the month, year and the name of the building, city and the state. Speech and language functions are normal. Attention, concentration and fund of knowledge is adequate. Patient can name and repeat very well, followed directions. Comprehension intact. On cranial examination, pupils are round and reacting to light, visual retana are full on confrontation, with no neglect, extraocular muscles are intact with no nystagmus. Face is symmetric, tongue protrudes to the midline. Palatal elevation and sensation normal, hearing and shoulder shrug normal, facial sensation normal. Shoulder shrug normal. On muscle strength testing, there is no pronator drift and the strength is normal in arms and legs distally and proximally. Patient has some metabolic tremors of outstretched hands. Deep tendon reflexes are hypoactive and plantars downgoing. Sensory to touch is equal with no neglect on double simultaneous stimulation. Cerebellar function showed no ataxia for opolxx-su-lucl testing. Patient has tremulousness for penkiw-tg-lcfa testing. No dysdiadochokinesia. Tone and bulk of muscles normal. Gait not checked. On general examination, there is no carotid bruit or murmur, S1-S2 audible. Abdomen is soft nontender. Chest is clear. Peripheral pulses are present. Mild peripheral edema. Patient has evidence of umbilicus hernia. It is nontender to touch. Results - Laboratory Findings CBC and BMP: 10/23/20 06:44 10/23/20 06:44 Abnormal Lab Findings: Abnormal Labs 10/21/20 10/21/20 10/21/20 09:08 09:08 09:08 WBC 15.0 H RBC 3.79 L Hgb 8.4 L Hct 27.2 L MCV 71.7 L MCH 22.1 L MCHC 30.8 L RDW 17.0 H Immature Gran # Neutrophils # 11.9 H Lymphocytes # Monocytes # 1.3 H Eosinophils # PT 14.3 H INR 1.4 H APTT 31.5 H Sodium 133 L Potassium 2.3 L* Chloride 88 L Carbon Dioxide Anion Gap BUN 68 H Creatinine 3.52 H Est GFR (CKD-EPI)AfAm Est GFR (CKD-EPI)NonAf BUN/Creatinine Ratio Glucose 243 H Calcium Ionized Calcium Sultana Magnesium 2.7 H Total Bilirubin AST Alkaline Phosphatase Total Protein Albumin Albumin/Globulin Ratio Crossmatch 10/21/20 10/22/20 10/22/20 09:13 05:36 05:36 WBC 11.86 H RBC 3.19 L Hgb 6.8 L* Hct 22.2 L MCV 69.6 L MCH 21.3 L MCHC 30.6 L RDW 16.9 H Immature Gran # 0.05 H Neutrophils # 10.81 H Lymphocytes # 0.62 L Monocytes # Eosinophils # 0 L PT INR APTT Sodium Potassium 2.6 L* Chloride 90 L Carbon Dioxide Anion Gap 16.70 H BUN 78.0 H Creatinine 3.7 H Est GFR (CKD-EPI)AfAm 18.9 L Est GFR (CKD-EPI)NonAf 16.3 L BUN/Creatinine Ratio 21.08 H Glucose 165 H Calcium 8.1 L Ionized Calcium Sultana 3.9 L Magnesium 3.1 H Total Bilirubin 1.4 H AST 43 H Alkaline Phosphatase 139 H Total Protein 5.8 L Albumin 3.50 L Albumin/Globulin Ratio 1.52 L Crossmatch 10/22/20 10/22/20 10/22/20 09:15 11:58 11:58 WBC RBC Hgb Hct MCV MCH MCHC RDW Immature Gran # Neutrophils # Lymphocytes # Monocytes # Eosinophils # PT INR APTT Sodium Potassium 2.5 L* 2.9 L Chloride Carbon Dioxide Anion Gap BUN Creatinine Est GFR (CKD-EPI)AfAm Est GFR (CKD-EPI)NonAf BUN/Creatinine Ratio Glucose Calcium Ionized Calcium Sultana Magnesium Total Bilirubin AST Alkaline Phosphatase Total Protein Albumin Albumin/Globulin Ratio Crossmatch See Detail 10/22/20 10/22/20 10/22/20 15:52 15:52 15:52 WBC 19.9 H RBC 3.37 L Hgb 7.4 L Hct 24.3 L MCV 72.1 L MCH 22.0 L MCHC 30.5 L RDW 16.6 H Immature Gran # Neutrophils # 18.3 H Lymphocytes # 0.7 L Monocytes # Eosinophils # PT 14.4 H INR 1.4 H APTT 30.1 H Sodium 127 L Potassium 2.5 L* Chloride 89 L Carbon Dioxide 21 L Anion Gap BUN 74 H Creatinine 3.81 H Est GFR (CKD-EPI)AfAm Est GFR (CKD-EPI)NonAf BUN/Creatinine Ratio Glucose 257 H Calcium 8.1 L Ionized Calcium Sultana Magnesium Total Bilirubin 1.6 H AST Alkaline Phosphatase 139 H Total Protein 6.2 L Albumin Albumin/Globulin Ratio Crossmatch Assessment and Plan Assessment: * Altered mental status, with some focal findings reported, unclear etiology. Differential diagnosis is between an ALLERGIC reaction to transfusion/Benadryl, versus TIA. Neurological symptoms have resolved. Patient not a candidate for TPA at this time, as his symptoms have resolved. * Atrial fibrillation, on long-term anticoagulation, currently on hold because of anemia. * Congestive heart failure * COPD * Hypertension * Chronic renal insufficiency * Osteoarthritis Plan: * Stat carotid Doppler was performed. There is no evidence of hemodynamically significant stenosis of bilateral common carotid or internal carotid artery. Nonvisualization of the right vertebral artery. Patient cannot undergo CTA or MRA because of significant renal insufficiency. * Continue aspirin 81 mg. * Resume Eliquis as early as possible (when cleared by GI/IM) to prevent stroke/TIA related to chronic atrial fibrillation. * 2-D echo revealed normal left-ventricular size. Mild concentric LVH. EF is between 55-60%. Trace MR. * Neuro checks, every 1 hour for 4 hours, then every 2 hours for 4 hours then every 4 hours. Report any changes in neurological status. * We will follow patient.
[2020-10-23] MEDS ORDERED: POTASSIUM CHLORIDE ER 20 MEQ TAB.ER PO STA (09:27)
--- NOTE | 2020-10-23 09:31 | P.NPCON ---
History of Present Illness - Reason for Consult acute renal failure, chronic renal failure - History of Present Illness Reason for consultation: Acute kidney injury on chronic kidney disease History of present illness: Patient is a 64-year-old male seen in renal consultation for acute kidney injury on chronic kidney disease. Patient has chronic kidney disease stage IIIB with baseline creatinine in the range of 1.7-2. Creatinine on admission was 3.5 and peaked at 3.8 on yesterday. It is 3.3 today. Patient presented to the hospital with nausea and vomiting and generalized weakness. He denies history of diabetes. He does not follow with a real estate legal secretary outpatient. He is receiving IV fluids. Good urine output. No hematuria or dysuria. He was on diuretics outpatient which are currently held. Blood pressure is on the lower side and was 99/55 this morning. Chest x-ray done on October 21 revealed no evidence of fluid overload. No edema. Currently on room air. No chest pain or shortness of breath. No fever or chills. Hemoglobin is low at 6.5 today. Scheduled for EGD and colonoscopy today. Hemoglobin is again low at 6.5 this morning. He has received blood transfusion this admission. He denies melena or hematochezia. Denies use of nonsteroidals. He was on anticoagulation outpatient which is currently held. Vital signs are stable. General: The patient appeared well nourished and normally developed. HEENT: Head exam is unremarkable. Neck is without jugular venous distension. LUNGS: Breath sounds decreased. HEART: Rate and Rhythm are regular. ABDOMEN: Soft, obese. No distention. EXTREMITITES: No edema. Past Medical History Past Medical History: Atrial Fibrillation, Chest Pain / Angina, Heart Failure, COPD, Hypertension, Osteoarthritis (OA) Additional Past Medical History / Comment(s): Chronic renal insufficiency stage III, cardiomyopathy, abdominal aneurysm History of Any Multi-Drug Resistant Organisms: None Reported Past Surgical History: Heart Catheterization, Heart Catheterization With Stent, Orthopedic Surgery Additional Past Surgical History / Comment(s): KARAN, CARDIOVERSION 10/17/15, left arm surgery - 1976 Past Anesthesia/Blood Transfusion Reactions: No Reported Reaction Date of Last Stent Placement:: 11/14/15 Past Psychological History: No Psychological Hx Reported Smoking Status: Former smoker Past Alcohol Use History: Occasional Past Drug Use History: None Reported - Past Family History Mother Family Medical History: Cancer, Myocardial Infarction ([place]) Additional Family Medical History / Comment(s): Mother of a [place] in in 60's Medications and Allergies Home Medications Medication Instructions Recorded Confirmed Type Apixaban [Eliquis] 5 mg PO BID #60 tab 09/12/15 10/21/20 Rx Metoprolol Tartrate [Lopressor] 50 mg PO TID #90 tab 09/12/15 10/21/20 Rx Furosemide [Lasix] 80 mg PO BID@0800,1200 10/11/15 10/21/20 History Aspirin 81 mg PO HS 10/21/20 10/21/20 History Atorvastatin [Lipitor] 80 mg PO DAILY 10/21/20 10/21/20 History Levothyroxine Sodium [Synthroid] 100 mcg PO DAILY 10/21/20 10/21/20 History Montelukast [Singulair] 10 mg PO HS 10/21/20 10/21/20 History Tiotropium 18 Mcg/Puff [Spiriva] 1 puff INHALATION RT-DAILY@1200 10/21/20 10/21/20 History amLODIPine [Norvasc] 5 mg PO DAILY@1200 10/21/20 10/21/20 History metOLazone [Zaroxolyn] 2.5 mg PO Q48H 10/21/20 10/21/20 History Allergies Allergy/AdvReac Type Severity Reaction Status Date / Time Penicillins Allergy THROAT Verified 10/21/20 09:35 SWELLING/RASH/HIVES Physical Exam Vitals: Vital Signs Temp Pulse Pulse Resp BP BP BP 10/23/20 08:00 97.5 F L 65 16 99/55 10/23/20 01:33 97.9 F 69 18 101/59 10/22/20 23:20 109/71 10/22/20 23:13 99/62 10/22/20 20:41 98.4 F 18 10/22/20 20:15 98.4 F 77 18 115/71 10/22/20 19:35 69 18 10/22/20 16:20 97.8 F 81 94/56 10/22/20 15:28 97.8 F 83 18 111/71 10/22/20 15:12 97.8 F 83 18 111/71 10/22/20 15:09 97.8 F 82 20 111/71 10/22/20 14:42 99.4 F 81 18 109/67 10/22/20 14:39 99.4 F 81 18 109/67 10/22/20 10:56 98.4 F 67 17 84/50 Pulse Ox 10/23/20 08:00 98 10/23/20 01:33 98 10/22/20 23:20 10/22/20 23:13 10/22/20 20:41 100 10/22/20 20:15 100 10/22/20 19:35 10/22/20 16:20 100 10/22/20 15:28 100 10/22/20 15:12 100 10/22/20 15:09 100 10/22/20 14:42 100 10/22/20 14:39 100 10/22/20 10:56 98 Intake and Output 10/22/20 10/23/20 10/23/20 22:59 06:59 14:59 Output Total 300 Balance -300 Output: Urine 300 Other: Voiding Method Bedside Commode Urinal # Voids 3 Weight 117.934 kg Results - Lab Results Most recent lab results Calcium 7.7 mg/dL (8.4-10.2) L 10/23/20 06:44 Magnesium 3.1 mg/dL (1.5-2.4) H 10/22/20 05:36 10/23/20 06:44 10/23/20 06:44 Assessment and Plan Plan: Assessment: 1. Acute kidney injury secondary to ATN secondary to hypotension and acute blood loss anemia. Creatinine peaked at 3.8 this admission and is 3.3 today. 2. Chronic diastolic CHF. 3. GI bleed status post blood transfusion this admission. GI following. Scheduled for EGD and colonoscopy today. Receiving IV iron. 4. Hypokalemia from diuresis and poor intake. Replaced. Better. 5. Hypovolemic hyponatremia improving with IV hydration. 6. Chronic kidney disease stage IIIB with baseline creatinine in the range of 1.7-2. Etiology is likely nephrosclerosis. 7. Hypertension with chronic kidney disease. Blood pressure on the lower side. Plan: Maintain IV fluids. Consider blood transfusion today. I will give him a dose of IV DDAVP today. Stop amlodipine. Continue to hold diuretics for now. Avoid nephrotoxins. Continue to replace potassium. Continue to monitor renal function and urine output. Check UA and renal ultrasound. Patient will need to follow-up outpatient upon discharge for CKD care. Thank you for the consultation. I will continue to follow the patient with you during his hospital stay.
--- NOTE | 2020-10-23 09:43 | P.PN ---
Subjective Progress Note Date: 10/23/20 Principal diagnosis: Acute confusional state may very well be related to Benadryl Transfusion reaction Acute COPD exacerbation Severe degree of electrolyte imbalance with hypokalemia and hypocalcemia Tracheobronchitis Chronic kidney disease Chronic atrial fibrillation on direct anticoagulation 10/23/2020, patient seen eval reexamined during the rounds awake and alert sitt ing upright in bed with a component confusional state resolved now, patient is being scheduled for upper and lower exam tomorrow, patient hemoglobin drop down to 6.5 would recommend a unit of packed RBC, protection with improved to 3.5 now 10/22/2020, patient seen eval examined during the rounds labs reviewed medications reviewed care plan discussed, patient underwent blood transfusion during transfusion she started having some chills intermittent back pain, Benadryl was given after that patient was very confused anxious and with a blank stare, patient was taken to the computed tomography scan for "stroke all, computed tomography scan has been no acute findings identified patient slowly coming back oriented 3 now denies any chest pain denies any headache chills or fever we'll consult urology as well for acute current confusional state actually related to Benadryl Patient is a 64-year-old male with the history of COPD, hypertension hypertensive cardiovascular disease chronic atrial fibrillation came into the hospital with increasing shortness of breath, symptoms have been progressive like for last 3-4 days and started with upper respiratory infection, this patient started having aches and pains cough has been more productive) came into hospital for further evaluation, or excessive questioning denies initial seizure-like. He had a loss consciousness) ongoing aspiration symptoms denies any chest pain denies any bowel or bladder problems, patient has been monitored for chronic insufficiency as well, admitted chest x-ray consistent with COPD no active pulmonary process seen labs significant for leukocytosis microcytic anemia and severe electrolyte imbalance with potassium is 2.3 BUN/creatinine 16 and 3.5 to chronic virus is negative, patient is being continued on home me dications including anticoagulants direct, being repleted with calcium and potassium, Objective - Vital Signs Vital signs: Vital Signs Temp 97.5 F L 10/23/20 08:00 Pulse 65 10/23/20 08:00 Resp 16 10/23/20 08:00 BP 99/55 10/23/20 08:00 Pulse Ox 98 10/23/20 08:00 Intake & Output 10/22/20 10/23/20 10/23/20 18:59 06:59 18:59 Intake Total 305 Output Total 350 300 Balance -45 -300 Weight 117.934 kg Intake: Blood Product 305 Rc As-1 Unit 305 [id number] Output: Urine 350 300 Other: Voiding Method Bedside Commode Bedside Commode Urinal Urinal # Voids 3 - Exam - Constitutional General appearance: average body habitus, disheveled - EENT Eyes: PERRLA ENT: normal oropharynx Ears: bilateral: normal - Neck Neck: normal ROM Carotids: bilateral: upstroke normal Thyroid: bilateral: normal size - Respiratory Respiratory: bilateral: diminished, rales, wheezing - Cardiovascular Rhythm: regular Heart sounds: normal: S1, S2 - Gastrointestinal General gastrointestinal: normal bowel sounds, soft - Integumentary Integumentary: normal turgor - Neurologic Neurologic: CNII-XII intact - Musculoskeletal Musculoskeletal: gait normal, generalized weakness, strength equal bilaterally - Psychiatric Psychiatric: A&O x's 3, appropriate affect, intact judgment & insigh - Labs CBC & Chem 7: 10/23/20 06:44 10/23/20 06:44 Labs: Abnormal Lab Results - Last 24 Hours (Table) 10/22/20 10/22/20 10/22/20 Range/Units 05:36 05:36 05:36 WBC 11.86 H (4.50-10.00) X 10*3/uL RBC 3.19 L (4.40-5.60) X 10*6/uL Hgb 6.8 L* (13.0-17.0) g/dL Hct 22.2 L (39.6-50.0) % MCV 69.6 L (80.0-97.0) fL MCH 21.3 L (27.0-32.0) pg MCHC 30.6 L (32.0-37.0) g/dL RDW 16.9 H (11.5-14.5) % Immature Gran # 0.05 H (0.00-0.04) X 10*3/uL Neutrophils # 10.81 H (1.80-7.70) X 10*3/uL Lymphocytes # 0.62 L (0.90-5.00) X 10*3/uL Eosinophils # 0 L (0.04-0.35) X 10*3/uL PT (9.0-12.0) sec INR (<1.2) APTT (22.0-30.0) sec Sodium (137-145) mmol/L Potassium 2.6 L* (3.5-5.5) mmol/L Chloride 90 L (96-109) mmol/L Carbon Dioxide (22-30) mmol/L Anion Gap 16.70 H (4.00-12.00) mmol/L BUN 78.0 H (9.0-27.0) mg/dL Creatinine 3.7 H (0.6-1.5) mg/dL Est GFR (CKD-EPI)AfAm 18.9 L (60.0-200.0) Est GFR (CKD-EPI)NonAf 16.3 L (60.0-200.0) BUN/Creatinine Ratio 21.08 H (12.00-20.00) Ratio Glucose 165 H (70-110) mg/dL Calcium 8.1 L (8.7-10.3) mg/dL Magnesium 3.1 H (1.5-2.4) mg/dL Iron 14 L (65-175) ug/dL % Saturation 3.23 L (15.00-50.00) Ferritin 11.2 L (22.0-322.0) ng/mL Total Bilirubin 1.4 H (0.3-1.2) mg/dL AST 43 H (14-35) U/L Alkaline Phosphatase 139 H (41-126) U/L Total Protein 5.8 L (6.2-8.2) g/dL Albumin 3.50 L (3.80-4.90) g/dL Albumin/Globulin Ratio 1.52 L (1.60-3.17) g/dL Crossmatch 10/22/20 10/22/20 10/22/20 Range/Units 09:15 11:58 11:58 WBC (4.50-10.00) X 10*3/uL RBC (4.40-5.60) X 10*6/uL Hgb (13.0-17.0) g/dL Hct (39.6-50.0) % MCV (80.0-97.0) fL MCH (27.0-32.0) pg MCHC (32.0-37.0) g/dL RDW (11.5-14.5) % Immature Gran # (0.00-0.04) X 10*3/uL Neutrophils # (1.80-7.70) X 10*3/uL Lymphocytes # (0.90-5.00) X 10*3/uL Eosinophils # (0.04-0.35) X 10*3/uL PT (9.0-12.0) sec INR (<1.2) APTT (22.0-30.0) sec Sodium (137-145) mmol/L Potassium 2.5 L* 2.9 L (3.5-5.5) mmol/L Chloride (96-109) mmol/L Carbon Dioxide (22-30) mmol/L Anion Gap (4.00-12.00) mmol/L BUN (9.0-27.0) mg/dL Creatinine (0.6-1.5) mg/dL Est GFR (CKD-EPI)AfAm (60.0-200.0) Est GFR (CKD-EPI)NonAf (60.0-200.0) BUN/Creatinine Ratio (12.00-20.00) Ratio Glucose (70-110) mg/dL Calcium (8.7-10.3) mg/dL Magnesium (1.5-2.4) mg/dL Iron (65-175) ug/dL % Saturation (15.00-50.00) Ferritin (22.0-322.0) ng/mL Total Bilirubin (0.3-1.2) mg/dL AST (14-35) U/L Alkaline Phosphatase (41-126) U/L Total Protein (6.2-8.2) g/dL Albumin (3.80-4.90) g/dL Albumin/Globulin Ratio (1.60-3.17) g/dL Crossmatch See Detail 10/22/20 10/22/20 10/22/20 Range/Units 15:52 15:52 15:52 WBC 19.9 H (4.50-10.00) X 10*3/uL RBC 3.37 L (4.40-5.60) X 10*6/uL Hgb 7.4 L (13.0-17.0) g/dL Hct 24.3 L (39.6-50.0) % MCV 72.1 L (80.0-97.0) fL MCH 22.0 L (27.0-32.0) pg MCHC 30.5 L (32.0-37.0) g/dL RDW 16.6 H (11.5-14.5) % Immature Gran # (0.00-0.04) X 10*3/uL Neutrophils # 18.3 H (1.80-7.70) X 10*3/uL Lymphocytes # 0.7 L (0.90-5.00) X 10*3/uL Eosinophils # (0.04-0.35) X 10*3/uL PT 14.4 H (9.0-12.0) sec INR 1.4 H (<1.2) APTT 30.1 H (22.0-30.0) sec Sodium 127 L (137-145) mmol/L Potassium 2.5 L* (3.5-5.5) mmol/L Chloride 89 L (96-109) mmol/L Carbon Dioxide 21 L (22-30) mmol/L Anion Gap (4.00-12.00) mmol/L BUN 74 H (9.0-27.0) mg/dL Creatinine 3.81 H (0.6-1.5) mg/dL Est GFR (CKD-EPI)AfAm (60.0-200.0) Est GFR (CKD-EPI)NonAf (60.0-200.0) BUN/Creatinine Ratio (12.00-20.00) Ratio Glucose 257 H (70-110) mg/dL Calcium 8.1 L (8.7-10.3) mg/dL Magnesium (1.5-2.4) mg/dL Iron (65-175) ug/dL % Saturation (15.00-50.00) Ferritin (22.0-322.0) ng/mL Total Bilirubin 1.6 H (0.3-1.2) mg/dL AST (14-35) U/L Alkaline Phosphatase 139 H (41-126) U/L Total Protein 6.2 L (6.2-8.2) g/dL Albumin (3.80-4.90) g/dL Albumin/Globulin Ratio (1.60-3.17) g/dL Crossmatch 10/22/20 10/23/20 10/23/20 Range/Units 18:07 01:43 06:44 WBC (4.50-10.00) X 10*3/uL RBC (4.40-5.60) X 10*6/uL Hgb (13.0-17.0) g/dL Hct (39.6-50.0) % MCV (80.0-97.0) fL MCH (27.0-32.0) pg MCHC (32.0-37.0) g/dL RDW (11.5-14.5) % Immature Gran # (0.00-0.04) X 10*3/uL Neutrophils # (1.80-7.70) X 10*3/uL Lymphocytes # (0.90-5.00) X 10*3/uL Eosinophils # (0.04-0.35) X 10*3/uL PT (9.0-12.0) sec INR (<1.2) APTT (22.0-30.0) sec Sodium 129 L 130 L (137-145) mmol/L Potassium 2.8 L 3.3 L (3.5-5.5) mmol/L Chloride 94 L 95 L (96-109) mmol/L Carbon Dioxide 21 L (22-30) mmol/L Anion Gap (4.00-12.00) mmol/L BUN 78 H 78 H (9.0-27.0) mg/dL Creatinine 3.60 H 3.31 H (0.6-1.5) mg/dL Est GFR (CKD-EPI)AfAm (60.0-200.0) Est GFR (CKD-EPI)NonAf (60.0-200.0) BUN/Creatinine Ratio (12.00-20.00) Ratio Glucose 224 H 220 H (70-110) mg/dL Calcium 7.9 L 7.7 L (8.7-10.3) mg/dL Magnesium (1.5-2.4) mg/dL Iron (65-175) ug/dL % Saturation (15.00-50.00) Ferritin (22.0-322.0) ng/mL Total Bilirubin (0.3-1.2) mg/dL AST (14-35) U/L Alkaline Phosphatase 134 H (41-126) U/L Total Protein 5.6 L 5.6 L (6.2-8.2) g/dL Albumin 3.1 L 3.0 L (3.80-4.90) g/dL Albumin/Globulin Ratio (1.60-3.17) g/dL Crossmatch 10/23/20 Range/Units 06:44 WBC 20.4 H (4.50-10.00) X 10*3/uL RBC 3.03 L (4.40-5.60) X 10*6/uL Hgb 6.5 L* (13.0-17.0) g/dL Hct 21.9 L (39.6-50.0) % MCV 72.3 L (80.0-97.0) fL MCH 21.6 L (27.0-32.0) pg MCHC 29.8 L (32.0-37.0) g/dL RDW 16.8 H (11.5-14.5) % Immature Gran # (0.00-0.04) X 10*3/uL Neutrophils # 18.8 H (1.80-7.70) X 10*3/uL Lymphocytes # 0.6 L (0.90-5.00) X 10*3/uL Eosinophils # (0.04-0.35) X 10*3/uL PT (9.0-12.0) sec INR (<1.2) APTT (22.0-30.0) sec Sodium (137-145) mmol/L Potassium (3.5-5.5) mmol/L Chloride (96-109) mmol/L Carbon Dioxide (22-30) mmol/L Anion Gap (4.00-12.00) mmol/L BUN (9.0-27.0) mg/dL Creatinine (0.6-1.5) mg/dL Est GFR (CKD-EPI)AfAm (60.0-200.0) Est GFR (CKD-EPI)NonAf (60.0-200.0) BUN/Creatinine Ratio (12.00-20.00) Ratio Glucose (70-110) mg/dL Calcium (8.7-10.3) mg/dL Magnesium (1.5-2.4) mg/dL Iron (65-175) ug/dL % Saturation (15.00-50.00) Ferritin (22.0-322.0) ng/mL Total Bilirubin (0.3-1.2) mg/dL AST (14-35) U/L Alkaline Phosphatase (41-126) U/L Total Protein (6.2-8.2) g/dL Albumin (3.80-4.90) g/dL Albumin/Globulin Ratio (1.60-3.17) g/dL Crossmatch Assessment and Plan Assessment: Acute confusional state resolved now Transfusion reaction mild Acute COPD exacerbation Severe degree of electrolyte imbalance with hypokalemia and hypocalcemia Tracheobronchitis Chronic kidney disease Chronic atrial fibrillation on direct anticoagulation Plan: Endoscopy tomorrow up or and lower Continue bronchodilators along with IV steroids and oral broad-spectrum antibiotics Supplemental oxygen Monitor and observe potassium level and electrolytes very closely and replete as needed Trend renal functions closely Further recommendations pending plan of care as per clinical response of patient
[2020-10-23] MEDS ORDERED: DESMOPRESSIN ACETATE 23 MCG in SODIUM CHLORIDE 0.9% 50 ML IVPB ONE (10:30)
--- NOTE | 2020-10-23 11:04 | P.PN ---
Subjective HISTORY OF PRESENTING ILLNESS This is a pleasant 64-year-old male past medical history significant for paroxysmal atrial fibrillation status post cardioversion 2016, coronary artery disease, history of acute OK, history of systolic heart failure, hypertension, COPD, chronic kidney disease and chronic nicotine dependence. He does not follow regularly in the office, he saw Dr. Raya last in 2017. We have been asked to see in consultation for heart failure. He presented to the hospital with shortness of breath that has been worsening over the previous few days associated with nausea and nasal drainage. He denies symptoms of chest discomfort. His shortness of breath is worse with any sort of exertion or when he attempts to lay flat. He is noted to have a hemoglobin of 6.8 with significant hypokalemia. He is seen and examined sitting up on the edge of the bed in no acute distress. He denies active symptoms of chest discomfort or shortness of breath. DIAGNOSTICS EKG reveals indicate sinus bradycardia heart rate of 55 with first-degree AV block. Telemetry tracings sinus bradycardia with PACs Chest xray negative for an acute cardiopulmonary process. Laboratory reviewed, the ABC 11.8, hemoglobin 6.8, platelets 322, INR 1.4, sodium 135, potassium on admission 2. 3 repeat today 2.5, creatinine 3.7, magnesium 3.1, cardiac enzymes negative 1 and NT proBNP 724. Current cardiac medications include amiodarone 100 mg daily, Eliquis 5 mg twice a day, aspirin 81 mg daily, atorvastatin 80 mg daily, Lasix 80 mg twice a day, Lopressor 50 mg 3 times a day, amlodipine 5 mg daily and Zaroxolyn 2.5 mg every other day. Most recent cardiac catheterization 2015 revealed left main with no significant disease, LAD mildly diffuse disease, diagonal branch 90% stenosis, circumflex mild diffuse disease with no significant stenosis, RCA aneurysmal with a focal stenosis in the proximal to midportion 70-80%. At that time he underwent successful PCI of the diagonal branch. Most recent echocardiogram obtained May 2018 revealed preserved LV systolic function with ejection fraction 60-65%. 10/23/2020 Pt seen and examined sitting up on the edge of the bed in no acute distress. He denies chest pain, shortness of breath, dizziness or palpitations. He is scheduled to undergo endoscopy studies tomorrow with Dr. Dodd. Echocardiogram obtained reveals preserved LV systolic function with ejection fraction 55-60%. Blood pressure 99/55 heart rate 65 afebrile maintaining oxygen saturation on room air. Laboratory data reviewed, WBC 20, hemoglobin 6.5, platelets 306, sodium 1:30, potassium 3.5, creatinine 3.31. PHYSICAL EXAMINATION CONSTITUTIONAL: No apparent distress. HEENT: Head is normocephalic. Pupils are equal, round. Sclerae anicteric. Mucous membranes of the mouth are moist. No JVD. No carotid bruit. CHEST EXAMINATION: Lungs are clear to auscultation. No chest wall tenderness is noted on palpation or with deep breathing. HEART EXAMINATION: Regular rate and rhythm. S1, S2 heard. No murmurs, gallops or rub. EXTREMITIES: 2+ peripheral pulses, trace bilateral lower extremity edema and no calf tenderness. ASSESSMENT Shortness of breath secondary to a combination of exacerbation of COPD and anemia Hypokalemia Acute on chronic kidney disease Chronic systolic heart failure, clinically euvolemic Coronary artery disease Chronic nicotine dependence Paroxysmal atrial fibrillation on Eliquis Hypertension Dyslipidemia PLAN Continue to hold anticoagulation pending further endoscopy findings. Discontinue amiodarone. Ongoing medical management and treatment of underlying anemia and COPD. Follow-up in the office with Dr. Montilla in 2 weeks. Nurse Practitioner note has been reviewed, I agree with a documented findings and plan of care. Patient was seen and examined. Objective - Vital Signs Vital signs: Vital Signs Temp 97.5 F L 10/23/20 08:00 Pulse 65 10/23/20 08:00 Resp 16 10/23/20 08:00 BP 99/55 10/23/20 08:00 Pulse Ox 98 10/23/20 08:00 Intake & Output 10/22/20 10/23/20 10/23/20 18:59 06:59 18:59 Intake Total 305 Output Total 350 300 Balance -45 -300 Weight 117.934 kg Intake: Blood Product 305 Rc As-1 Unit 305 [id number] Output: Urine 350 300 Other: Voiding Method Bedside Commode Bedside Commode Urinal Urinal # Voids 3 - Labs CBC & Chem 7: 10/23/20 06:44 10/23/20 06:44 Labs: Abnormal Lab Results - Last 24 Hours (Table) 10/22/20 10/22/20 10/22/20 Range/Units 05:36 11:58 11:58 WBC (3.8-10.6) k/uL RBC (4.30-5.90) m/uL Hgb (13.0-17.5) gm/dL Hct (39.0-53.0) % MCV (80.0-100.0) fL MCH (25.0-35.0) pg MCHC (31.0-37.0) g/dL RDW (11.5-15.5) % Neutrophils # (1.3-7.7) k/uL Lymphocytes # (1.0-4.8) k/uL PT (9.0-12.0) sec INR (<1.2) APTT (22.0-30.0) sec Sodium (137-145) mmol/L Potassium 2.9 L (3.5-5.1) mmol/L Chloride (98-107) mmol/L Carbon Dioxide (22-30) mmol/L BUN (9-20) mg/dL Creatinine (0.66-1.25) mg/dL Glucose (74-99) mg/dL Calcium (8.4-10.2) mg/dL Iron 14 L (65-175) ug/dL % Saturation 3.23 L (15.00-50.00) Ferritin 11.2 L (22.0-322.0) ng/mL Total Bilirubin (0.2-1.3) mg/dL Alkaline Phosphatase (38-126) U/L Total Protein (6.3-8.2) g/dL Albumin (3.5-5.0) g/dL Crossmatch See Detail 10/22/20 10/22/20 10/22/20 Range/Units 15:52 15:52 15:52 WBC 19.9 H (3.8-10.6) k/uL RBC 3.37 L (4.30-5.90) m/uL Hgb 7.4 L (13.0-17.5) gm/dL Hct 24.3 L (39.0-53.0) % MCV 72.1 L (80.0-100.0) fL MCH 22.0 L (25.0-35.0) pg MCHC 30.5 L (31.0-37.0) g/dL RDW 16.6 H (11.5-15.5) % Neutrophils # 18.3 H (1.3-7.7) k/uL Lymphocytes # 0.7 L (1.0-4.8) k/uL PT 14.4 H (9.0-12.0) sec INR 1.4 H (<1.2) APTT 30.1 H (22.0-30.0) sec Sodium 127 L (137-145) mmol/L Potassium 2.5 L* (3.5-5.1) mmol/L Chloride 89 L (98-107) mmol/L Carbon Dioxide 21 L (22-30) mmol/L BUN 74 H (9-20) mg/dL Creatinine 3.81 H (0.66-1.25) mg/dL Glucose 257 H (74-99) mg/dL Calcium 8.1 L (8.4-10.2) mg/dL Iron (65-175) ug/dL % Saturation (15.00-50.00) Ferritin (22.0-322.0) ng/mL Total Bilirubin 1.6 H (0.2-1.3) mg/dL Alkaline Phosphatase 139 H (38-126) U/L Total Protein 6.2 L (6.3-8.2) g/dL Albumin (3.5-5.0) g/dL Crossmatch 10/22/20 10/23/20 10/23/20 Range/Units 18:07 01:43 06:44 WBC (3.8-10.6) k/uL RBC (4.30-5.90) m/uL Hgb (13.0-17.5) gm/dL Hct (39.0-53.0) % MCV (80.0-100.0) fL MCH (25.0-35.0) pg MCHC (31.0-37.0) g/dL RDW (11.5-15.5) % Neutrophils # (1.3-7.7) k/uL Lymphocytes # (1.0-4.8) k/uL PT (9.0-12.0) sec INR (<1.2) APTT (22.0-30.0) sec Sodium 129 L 130 L (137-145) mmol/L Potassium 2.8 L 3.3 L (3.5-5.1) mmol/L Chloride 94 L 95 L (98-107) mmol/L Carbon Dioxide 21 L (22-30) mmol/L BUN 78 H 78 H (9-20) mg/dL Creatinine 3.60 H 3.31 H (0.66-1.25) mg/dL Glucose 224 H 220 H (74-99) mg/dL Calcium 7.9 L 7.7 L (8.4-10.2) mg/dL Iron (65-175) ug/dL % Saturation (15.00-50.00) Ferritin (22.0-322.0) ng/mL Total Bilirubin (0.2-1.3) mg/dL Alkaline Phosphatase 134 H (38-126) U/L Total Protein 5.6 L 5.6 L (6.3-8.2) g/dL Albumin 3.1 L 3.0 L (3.5-5.0) g/dL Crossmatch 10/23/20 Range/Units 06:44 WBC 20.4 H (3.8-10.6) k/uL RBC 3.03 L (4.30-5.90) m/uL Hgb 6.5 L* (13.0-17.5) gm/dL Hct 21.9 L (39.0-53.0) % MCV 72.3 L (80.0-100.0) fL MCH 21.6 L (25.0-35.0) pg MCHC 29.8 L (31.0-37.0) g/dL RDW 16.8 H (11.5-15.5) % Neutrophils # 18.8 H (1.3-7.7) k/uL Lymphocytes # 0.6 L (1.0-4.8) k/uL PT (9.0-12.0) sec INR (<1.2) APTT (22.0-30.0) sec Sodium (137-145) mmol/L Potassium (3.5-5.1) mmol/L Chloride (98-107) mmol/L Carbon Dioxide (22-30) mmol/L BUN (9-20) mg/dL Creatinine (0.66-1.25) mg/dL Glucose (74-99) mg/dL Calcium (8.4-10.2) mg/dL Iron (65-175) ug/dL % Saturation (15.00-50.00) Ferritin (22.0-322.0) ng/mL Total Bilirubin (0.2-1.3) mg/dL Alkaline Phosphatase (38-126) U/L Total Protein (6.3-8.2) g/dL Albumin (3.5-5.0) g/dL Crossmatch
[2020-10-23 11:36] LABS: Appearance,Urine Clear (Clear); Bilirubin,Urine Negative (Negative); Blood,Urine Trace (Negative); Color,Urine Yellow; Glucose,Urine (UA) Negative (Negative); Ketones,Urine Negative (Negative); Leukocyte Esterase,Urine Negative (Negative); Nitrite,Urine Negative (Negative); Protein,Urine Negative (Negative); RBC,Urine <1 /hpf (0-5); Urobilinogen,Urine <2.0 mg/dL (<2.0); WBC,Urine 4 /hpf (0-5)
--- NOTE | 2020-10-23 11:44 | US ---
EXAMINATION TYPE: US kidneys/renal and bladder DATE OF EXAM: 10/23/2020 COMPARISON: NONE CLINICAL HISTORY: chloe. CHLOE EXAM MEASUREMENTS: Right Kidney: 11.3 x 5.3 x 5.6 cm Left Kidney: 11.8 x 5.2 x 4.8 cm *technical limitations due to large amount of overlying bowel content Right Kidney: no evidence of hydronephrosis Left Kidney: cystic areas noted, largest lower pole = 4.3 x 3.2 x 4.1cm, cysts show anechoic appearan ce with increased through transmission, imperceptible wall consistent with simple cysts. Cortical med ullary differentiation is maintained bilaterally. Question some mild increase in cortical echogenicit y. Bladder: appears wnl Bilateral Jets seen: no There is no evidence for hydronephrosis at this point in time. No nephrolithiasis is seen. IMPRESSION: There may be underlying medical renal disease. Simple cyst left kidney.
[2020-10-23] MEDS: TIOTROPIUM 2.5 MCG INHALER INHALATION SCH (12:17)
--- NOTE | 2020-10-23 14:53 | P.PN ---
Subjective Progress Note Date: 10/23/20 Principal diagnosis: anemia CT 4-year-old male who presented to the emergency department with complaints of shortness of breath. He has a past medical history of proximal atrial fibrillation and was on Eliquis which was discontinued yesterday. Yesterday he was noted to have a drop in his hemoglobin to 6.8. His labs are consistent with microcytic anemia. He has denied any dark stool or blood in his stool. He has stated that he's been having multiple bloody noses. Yesterday he was ordered 1 unit of PRBC transfusion, during his transfusion early on he had a reaction felt hot, sweaty, shaky, and then proceeded to have altered mental status changes. A code stroke was called on the patient, he was evaluated by neurology. He had a CT scan of the head that showed age related atrophy and chronic small vessel ischemic changes without acute intracranial process. Today he states he is feeling much better. He states the symptoms only lasted for about 40 minutes. Neurology does not feel patient had acute stroke, symptoms likely related to blood transfusion reaction. He had a repeat hemoglobin today of 6.5 he was given IV iron yesterday evening and it is ordered every at bedtime. Patient is currently refusing any further blood transfusions. He is denying any abdominal pain, nausea, or vomiting. No reports of any symptoms of GI bleed. Objective - Vital Signs Vital signs: Vital Signs Temp 97.5 F L 10/23/20 08:00 Pulse 65 10/23/20 08:00 Resp 16 10/23/20 08:00 BP 99/55 10/23/20 08:00 Pulse Ox 98 10/23/20 08:00 Intake & Output 10/22/20 10/23/20 10/23/20 18:59 06:59 18:59 Intake Total 305 Output Total 350 300 Balance -45 -300 Weight 117.934 kg Intake: Blood Product 305 Rc As-1 Unit 305 [id number] Output: Urine 350 300 Other: Voiding Method Bedside Commode Bedside Commode Urinal Urinal # Voids 3 - Exam General appearance: The patient is alert, oriented, appears in no acute distress. HET: Head is normocephalic and atraumatic. Conjunctiva pink. Sclera anicteric. Neck: Supple without lymphadenopathy. Abdomen: Soft, nontender, nondistended with bowel sounds. No guarding or rigidity. Extremities: Normal skin color and turgor. No pedal edema Skin: No rashes, no jaundice Neurological: No focal deficits. Alert and oriented 3. - Labs CBC & Chem 7: 10/23/20 06:44 10/23/20 06:44 Labs: Abnormal Lab Results - Last 24 Hours (Table) 10/22/20 10/22/20 10/22/20 Range/Units 05:36 05:36 05:36 WBC 11.86 H (4.50-10.00) X 10*3/uL RBC 3.19 L (4.40-5.60) X 10*6/uL Hgb 6.8 L* (13.0-17.0) g/dL Hct 22.2 L (39.6-50.0) % MCV 69.6 L (80.0-97.0) fL MCH 21.3 L (27.0-32.0) pg MCHC 30.6 L (32.0-37.0) g/dL RDW 16.9 H (11.5-14.5) % Immature Gran # 0.05 H (0.00-0.04) X 10*3/uL Neutrophils # 10.81 H (1.80-7.70) X 10*3/uL Lymphocytes # 0.62 L (0.90-5.00) X 10*3/uL Eosinophils # 0 L (0.04-0.35) X 10*3/uL PT (9.0-12.0) sec INR (<1.2) APTT (22.0-30.0) sec Sodium (137-145) mmol/L Potassium 2.6 L* (3.5-5.5) mmol/L Chloride 90 L (96-109) mmol/L Carbon Dioxide (22-30) mmol/L Anion Gap 16.70 H (4.00-12.00) mmol/L BUN 78.0 H (9.0-27.0) mg/dL Creatinine 3.7 H (0.6-1.5) mg/dL Est GFR (CKD-EPI)AfAm 18.9 L (60.0-200.0) Est GFR (CKD-EPI)NonAf 16.3 L (60.0-200.0) BUN/Creatinine Ratio 21.08 H (12.00-20.00) Ratio Glucose 165 H (70-110) mg/dL Calcium 8.1 L (8.7-10.3) mg/dL Magnesium 3.1 H (1.5-2.4) mg/dL Iron 14 L (65-175) ug/dL % Saturation 3.23 L (15.00-50.00) Ferritin 11.2 L (22.0-322.0) ng/mL Total Bilirubin 1.4 H (0.3-1.2) mg/dL AST 43 H (14-35) U/L Alkaline Phosphatase 139 H (41-126) U/L Total Protein 5.8 L (6.2-8.2) g/dL Albumin 3.50 L (3.80-4.90) g/dL Albumin/Globulin Ratio 1.52 L (1.60-3.17) g/dL Crossmatch 10/22/20 10/22/20 10/22/20 Range/Units 09:15 11:58 11:58 WBC (4.50-10.00) X 10*3/uL RBC (4.40-5.60) X 10*6/uL Hgb (13.0-17.0) g/dL Hct (39.6-50.0) % MCV (80.0-97.0) fL MCH (27.0-32.0) pg MCHC (32.0-37.0) g/dL RDW (11.5-14.5) % Immature Gran # (0.00-0.04) X 10*3/uL Neutrophils # (1.80-7.70) X 10*3/uL Lymphocytes # (0.90-5.00) X 10*3/uL Eosinophils # (0.04-0.35) X 10*3/uL PT (9.0-12.0) sec INR (<1.2) APTT (22.0-30.0) sec Sodium (137-145) mmol/L Potassium 2.5 L* 2.9 L (3.5-5.5) mmol/L Chloride (96-109) mmol/L Carbon Dioxide (22-30) mmol/L Anion Gap (4.00-12.00) mmol/L BUN (9.0-27.0) mg/dL Creatinine (0.6-1.5) mg/dL Est GFR (CKD-EPI)AfAm (60.0-200.0) Est GFR (CKD-EPI)NonAf (60.0-200.0) BUN/Creatinine Ratio (12.00-20.00) Ratio Glucose (70-110) mg/dL Calcium (8.7-10.3) mg/dL Magnesium (1.5-2.4) mg/dL Iron (65-175) ug/dL % Saturation (15.00-50.00) Ferritin (22.0-322.0) ng/mL Total Bilirubin (0.3-1.2) mg/dL AST (14-35) U/L Alkaline Phosphatase (41-126) U/L Total Protein (6.2-8.2) g/dL Albumin (3.80-4.90) g/dL Albumin/Globulin Ratio (1.60-3.17) g/dL Crossmatch See Detail 10/22/20 10/22/20 10/22/20 Range/Units 15:52 15:52 15:52 WBC 19.9 H (4.50-10.00) X 10*3/uL RBC 3.37 L (4.40-5.60) X 10*6/uL Hgb 7.4 L (13.0-17.0) g/dL Hct 24.3 L (39.6-50.0) % MCV 72.1 L (80.0-97.0) fL MCH 22.0 L (27.0-32.0) pg MCHC 30.5 L (32.0-37.0) g/dL RDW 16.6 H (11.5-14.5) % Immature Gran # (0.00-0.04) X 10*3/uL Neutrophils # 18.3 H (1.80-7.70) X 10*3/uL Lymphocytes # 0.7 L (0.90-5.00) X 10*3/uL Eosinophils # (0.04-0.35) X 10*3/uL PT 14.4 H (9.0-12.0) sec INR 1.4 H (<1.2) APTT 30.1 H (22.0-30.0) sec Sodium 127 L (137-145) mmol/L Potassium 2.5 L* (3.5-5.5) mmol/L Chloride 89 L (96-109) mmol/L Carbon Dioxide 21 L (22-30) mmol/L Anion Gap (4.00-12.00) mmol/L BUN 74 H (9.0-27.0) mg/dL Creatinine 3.81 H (0.6-1.5) mg/dL Est GFR (CKD-EPI)AfAm (60.0-200.0) Est GFR (CKD-EPI)NonAf (60.0-200.0) BUN/Creatinine Ratio (12.00-20.00) Ratio Glucose 257 H (70-110) mg/dL Calcium 8.1 L (8.7-10.3) mg/dL Magnesium (1.5-2.4) mg/dL Iron (65-175) ug/dL % Saturation (15.00-50.00) Ferritin (22.0-322.0) ng/mL Total Bilirubin 1.6 H (0.3-1.2) mg/dL AST (14-35) U/L Alkaline Phosphatase 139 H (41-126) U/L Total Protein 6.2 L (6.2-8.2) g/dL Albumin (3.80-4.90) g/dL Albumin/Globulin Ratio (1.60-3.17) g/dL Crossmatch 10/22/20 10/23/20 10/23/20 Range/Units 18:07 01:43 06:44 WBC (4.50-10.00) X 10*3/uL RBC (4.40-5.60) X 10*6/uL Hgb (13.0-17.0) g/dL Hct (39.6-50.0) % MCV (80.0-97.0) fL MCH (27.0-32.0) pg MCHC (32.0-37.0) g/dL RDW (11.5-14.5) % Immature Gran # (0.00-0.04) X 10*3/uL Neutrophils # (1.80-7.70) X 10*3/uL Lymphocytes # (0.90-5.00) X 10*3/uL Eosinophils # (0.04-0.35) X 10*3/uL PT (9.0-12.0) sec INR (<1.2) APTT (22.0-30.0) sec Sodium 129 L 130 L (137-145) mmol/L Potassium 2.8 L 3.3 L (3.5-5.5) mmol/L Chloride 94 L 95 L (96-109) mmol/L Carbon Dioxide 21 L (22-30) mmol/L Anion Gap (4.00-12.00) mmol/L BUN 78 H 78 H (9.0-27.0) mg/dL Creatinine 3.60 H 3.31 H (0.6-1.5) mg/dL Est GFR (CKD-EPI)AfAm (60.0-200.0) Est GFR (CKD-EPI)NonAf (60.0-200.0) BUN/Creatinine Ratio (12.00-20.00) Ratio Glucose 224 H 220 H (70-110) mg/dL Calcium 7.9 L 7.7 L (8.7-10.3) mg/dL Magnesium (1.5-2.4) mg/dL Iron (65-175) ug/dL % Saturation (15.00-50.00) Ferritin (22.0-322.0) ng/mL Total Bilirubin (0.3-1.2) mg/dL AST (14-35) U/L Alkaline Phosphatase 134 H (41-126) U/L Total Protein 5.6 L 5.6 L (6.2-8.2) g/dL Albumin 3.1 L 3.0 L (3.80-4.90) g/dL Albumin/Globulin Ratio (1.60-3.17) g/dL Crossmatch 10/23/20 Range/Units 06:44 WBC 20.4 H (4.50-10.00) X 10*3/uL RBC 3.03 L (4.40-5.60) X 10*6/uL Hgb 6.5 L* (13.0-17.0) g/dL Hct 21.9 L (39.6-50.0) % MCV 72.3 L (80.0-97.0) fL MCH 21.6 L (27.0-32.0) pg MCHC 29.8 L (32.0-37.0) g/dL RDW 16.8 H (11.5-14.5) % Immature Gran # (0.00-0.04) X 10*3/uL Neutrophils # 18.8 H (1.80-7.70) X 10*3/uL Lymphocytes # 0.6 L (0.90-5.00) X 10*3/uL Eosinophils # (0.04-0.35) X 10*3/uL PT (9.0-12.0) sec INR (<1.2) APTT (22.0-30.0) sec Sodium (137-145) mmol/L Potassium (3.5-5.5) mmol/L Chloride (96-109) mmol/L Carbon Dioxide (22-30) mmol/L Anion Gap (4.00-12.00) mmol/L BUN (9.0-27.0) mg/dL Creatinine (0.6-1.5) mg/dL Est GFR (CKD-EPI)AfAm (60.0-200.0) Est GFR (CKD-EPI)NonAf (60.0-200.0) BUN/Creatinine Ratio (12.00-20.00) Ratio Glucose (70-110) mg/dL Calcium (8.7-10.3) mg/dL Magnesium (1.5-2.4) mg/dL Iron (65-175) ug/dL % Saturation (15.00-50.00) Ferritin (22.0-322.0) ng/mL Total Bilirubin (0.3-1.2) mg/dL AST (14-35) U/L Alkaline Phosphatase (41-126) U/L Total Protein (6.2-8.2) g/dL Albumin (3.80-4.90) g/dL Albumin/Globulin Ratio (1.60-3.17) g/dL Crossmatch Assessment and Plan (1) Anemia Narrative/Plan: This is 64-year-old male who presented to the emergency department with complaints of shortness of breath. He has multiple comorbidities including atrial fibrillation on Eliquis, chronic kidney disease. He denies any history of alcohol abuse. Patient had a drop in his hemoglobin to 6.8 this morning, labs are consistent with microcytic anemia. No signs or symptoms of GI bleed. No previous history of GI bleed. Hernandez to state he has been having some frequent vomiting on a daily basis but states he'll get some dizziness he's had some sinus drainage and then he gets a GI upset and will vomit. Denies any hematemesis or coffee-ground emesis. No dark stool or blood in his stool. He does state though he has been having multiple bloody noses every other day for last 2 weeks duration and states he may have bleeding up to 30 minutes at a ti me. He has no previous history of colonoscopy or EGD. Does believe he has a history of an ulcer. Iron studies are ordered. Eliquis currently on hold. Current Visit: Yes Status: Acute Code(s): D64.9 - ANEMIA, UNSPECIFIED SNOMED Code(s): 970691966 (2) Chronic kidney disease Current Visit: Yes Status: Acute Code(s): N18.9 - CHRONIC KIDNEY DISEASE, UNSPECIFIED SNOMED Code(s): 307061572 (3) Atrial fibrillation with RVR Current Visit: No Status: Acute Code(s): I48.91 - UNSPECIFIED ATRIAL FIBRILLATION SNOMED Code(s): 415983056058717 (4) CHF (congestive heart failure) Current Visit: No Status: Acute Code(s): I50.9 - HEART FAILURE, UNSPECIFIED SNOMED Code(s): 66652157 (5) Blood transfusion reaction Current Visit: Yes Status: Acute Code(s): T80.92XA - UNSPECIFIED TRANSFUSION REACTION, INITIAL ENCOUNTER SNOMED Code(s): 59607937 Plan: 1. Continue symptomatic and supportive care 2. Hold Eliquis 3. Daily CBC 4. Hematology on consult, will discuss proceeding with EGD and colonoscopy and need for transfusions 5. Iron studies ordered 6. Protonix 40 mg twice a day 7. Clear liquid diet, nothing by mouth after midnight 8. Bowel prep this evening 9. Agree with IV iron 10. Will proceed with EGD and colonoscopy tomorrow. Procedures discussed with patient in detail including risks and benefits, patient willing to proceed with procedures. Thank you for this consultation, we will continue to follow closely. Dr. Ugo Dodd I agree with the dictator's note, documented as a scribe by Sara Chen.
[2020-10-23] MEDS ORDERED: IPRATROPIUM-ALBUTEROL 3 ML NEB INHALATION PRN (16:09)
[2020-10-23] MEDS ORDERED: PEG 3350-NA SULF,BICARB,CL/KCL 4,000 ML BOTTLE PO ONE (17:00)
--- NOTE | 2020-10-23 17:00 | P.PN ---
Subjective Progress Note Date: 10/23/20 Patient was seen for a follow-up. Patient's was also present today. Patient is not in a good mood. Patient is saying that he is feeling "not good". When I asked about symptoms, patient states that everybody is asking the same question, check out with other people who has asked the questions. I informed him that I do not prefer receiving secondhand information. He then able was informed me about his concerns. He is concerned about procedure coming up tomorrow. Sometimes his low back hurts, sometimes he gets nosebleeds, now complaining of some chest pressure but no pain. He denies any hemorrhoids. No bright red blood per rectum. Objective - Vital Signs Vital signs: Vital Signs Temp 97.5 F L 10/23/20 08:00 Pulse 65 10/23/20 08:00 Resp 16 10/23/20 08:00 BP 99/55 10/23/20 08:00 Pulse Ox 98 10/23/20 08:00 Intake & Output 10/22/20 10/23/20 10/23/20 18:59 06:59 18:59 Intake Total 305 Output Total 350 300 Balance -45 -300 Weight 117.934 kg Intake: Blood Product 305 Rc As-1 Unit 305 [id number] Output: Urine 350 300 Other: Voiding Method Bedside Commode Bedside Commode Urinal Urinal # Voids 3 - Exam Patient is an elderly male, in no acute distress. Patient is alert awake oriented to time place and person. Patient knows the month, year and the name of the building, city and the state. Speech and language functions are normal. Attention, concentration and fund of knowledge is adequate. Patient can name and repeat very well, followed directions. Comprehension intact. No aphasia or dysarthria. On cranial examination, pupils are round and reacting to light, visual retana are full on confrontation, with no neglect, extraocular muscles are intact with no nystagmus. Face is symmetric, tongue protrudes to the midline. Palatal elevation and sensation normal, hearing and shoulder shrug normal, facial sensation normal. Shoulder shrug normal. On muscle strength testing, there is no pronator drift and the strength is normal in arms and legs distally and proximally. Patient has some metabolic tremors of outstretched hands. Deep tendon reflexes are hypoactive and plantars downgoing. Sensory to touch is equal with no neglect on double simultaneous stimulation. Cerebellar function showed no ataxia for [id number] testing. Patient has tremulousness for crpugu-[id number] testing. No dysdiadochokinesia. Tone and bulk of muscles normal. Gait not checked. On general examination, there is no carotid bruit or murmur, S1-S2 audible. Abdomen is soft nontender. Chest is clear. Peripheral pulses are present. Mild peripheral edema. Patient has evidence of umbilicus hernia. It is nontender to touch. - Labs CBC & Chem 7: 10/23/20 06:44 10/23/20 06:44 Labs: Abnormal Lab Results - Last 24 Hours (Table) 10/22/20 10/22/20 10/22/20 Range/Units 05:36 11:58 15:52 WBC 19.9 H (3.8-10.6) k/uL RBC 3.37 L (4.30-5.90) m/uL Hgb 7.4 L (13.0-17.5) gm/dL Hct 24.3 L (39.0-53.0) % MCV 72.1 L (80.0-100.0) fL MCH 22.0 L (25.0-35.0) pg MCHC 30.5 L (31.0-37.0) g/dL RDW 16.6 H (11.5-15.5) % Neutrophils # 18.3 H (1.3-7.7) k/uL Lymphocytes # 0.7 L (1.0-4.8) k/uL PT (9.0-12.0) sec INR (<1.2) APTT (22.0-30.0) sec Sodium (137-145) mmol/L Potassium (3.5-5.1) mmol/L Chloride (98-107) mmol/L Carbon Dioxide (22-30) mmol/L BUN (9-20) mg/dL Creatinine (0.66-1.25) mg/dL Glucose (74-99) mg/dL Calcium (8.4-10.2) mg/dL Iron 14 L (65-175) ug/dL % Saturation 3.23 L (15.00-50.00) Ferritin 11.2 L (22.0-322.0) ng/mL Total Bilirubin (0.2-1.3) mg/dL Alkaline Phosphatase (38-126) U/L Total Protein (6.3-8.2) g/dL Albumin (3.5-5.0) g/dL Urine Blood (Negative) Crossmatch See Detail 10/22/20 10/22/20 10/22/20 Range/Units 15:52 15:52 18:07 WBC (3.8-10.6) k/uL RBC (4.30-5.90) m/uL Hgb (13.0-17.5) gm/dL Hct (39.0-53.0) % MCV (80.0-100.0) fL MCH (25.0-35.0) pg MCHC (31.0-37.0) g/dL RDW (11.5-15.5) % Neutrophils # (1.3-7.7) k/uL Lymphocytes # (1.0-4.8) k/uL PT 14.4 H (9.0-12.0) sec INR 1.4 H (<1.2) APTT 30.1 H (22.0-30.0) sec Sodium 127 L (137-145) mmol/L Potassium 2.5 L* 2.8 L (3.5-5.1) mmol/L Chloride 89 L (98-107) mmol/L Carbon Dioxide 21 L (22-30) mmol/L BUN 74 H (9-20) mg/dL Creatinine 3.81 H (0.66-1.25) mg/dL Glucose 257 H (74-99) mg/dL Calcium 8.1 L (8.4-10.2) mg/dL Iron (65-175) ug/dL % Saturation (15.00-50.00) Ferritin (22.0-322.0) ng/mL Total Bilirubin 1.6 H (0.2-1.3) mg/dL Alkaline Phosphatase 139 H (38-126) U/L Total Protein 6.2 L (6.3-8.2) g/dL Albumin (3.5-5.0) g/dL Urine Blood (Negative) Crossmatch 10/23/20 10/23/20 10/23/20 Range/Units 01:43 06:44 06:44 WBC 20.4 H (3.8-10.6) k/uL RBC 3.03 L (4.30-5.90) m/uL Hgb 6.5 L* (13.0-17.5) gm/dL Hct 21.9 L (39.0-53.0) % MCV 72.3 L (80.0-100.0) fL MCH 21.6 L (25.0-35.0) pg MCHC 29.8 L (31.0-37.0) g/dL RDW 16.8 H (11.5-15.5) % Neutrophils # 18.8 H (1.3-7.7) k/uL Lymphocytes # 0.6 L (1.0-4.8) k/uL PT (9.0-12.0) sec INR (<1.2) APTT (22.0-30.0) sec Sodium 129 L 130 L (137-145) mmol/L Potassium 3.3 L (3.5-5.1) mmol/L Chloride 94 L 95 L (98-107) mmol/L Carbon Dioxide 21 L (22-30) mmol/L BUN 78 H 78 H (9-20) mg/dL Creatinine 3.60 H 3.31 H (0.66-1.25) mg/dL Glucose 224 H 220 H (74-99) mg/dL Calcium 7.9 L 7.7 L (8.4-10.2) mg/dL Iron (65-175) ug/dL % Saturation (15.00-50.00) Ferritin (22.0-322.0) ng/mL Total Bilirubin (0.2-1.3) mg/dL Alkaline Phosphatase 134 H (38-126) U/L Total Protein 5.6 L 5.6 L (6.3-8.2) g/dL Albumin 3.1 L 3.0 L (3.5-5.0) g/dL Urine Blood (Negative) Crossmatch 10/23/20 Range/Units 11:20 WBC (3.8-10.6) k/uL RBC (4.30-5.90) m/uL Hgb (13.0-17.5) gm/dL Hct (39.0-53.0) % MCV (80.0-100.0) fL MCH (25.0-35.0) pg MCHC (31.0-37.0) g/dL RDW (11.5-15.5) % Neutrophils # (1.3-7.7) k/uL Lymphocytes # (1.0-4.8) k/uL PT (9.0-12.0) sec INR (<1.2) APTT (22.0-30.0) sec Sodium (137-145) mmol/L Potassium (3.5-5.1) mmol/L Chloride (98-107) mmol/L Carbon Dioxide (22-30) mmol/L BUN (9-20) mg/dL Creatinine (0.66-1.25) mg/dL Glucose (74-99) mg/dL Calcium (8.4-10.2) mg/dL Iron (65-175) ug/dL % Saturation (15.00-50.00) Ferritin (22.0-322.0) ng/mL Total Bilirubin (0.2-1.3) mg/dL Alkaline Phosphatase (38-126) U/L Total Protein (6.3-8.2) g/dL Albumin (3.5-5.0) g/dL Urine Blood Trace H (Negative) Crossmatch Assessment and Plan Assessment: * Altered mental status, with some focal findings reported, unclear etiology. Differential diagnosis is between an ALLERGIC reaction to transfusion/Benadryl, versus TIA. Neurological symptoms have resolved. Current neurological examination is normal. * Atrial fibrillation, on long-term anticoagulation, currently on hold because of anemia. * Congestive heart failure * COPD * Hypertension * Chronic renal insufficiency * Osteoarthritis Plan: * Carotid Doppler revealed no evidence of hemodynamically significant stenosis of bilateral common carotid or internal carotid artery. Nonvisualization of the right vertebral artery. Patient cannot undergo CTA or MRA because of significant renal insufficiency. * Continue aspirin 81 mg. * Resume Eliquis as early as possible (when cleared by GI/IM) to prevent stroke/TIA related to chronic atrial fibrillation. * Patient undergoing EGD and colonoscopy in the morning. * 2-D echo revealed normal left-ventricular size. Mild concentric LVH. EF is between 55-60%. Trace MR. * Report any changes in neurological status. * Please reconsult neurology if any other concerns.
--- NOTE | 2020-10-23 17:13 | P.CONS ---
History of Present Illness - Reason for Consult Consult date: 10/23/20 anemia Requesting physician: Ermias Soriano - Chief Complaint anemia - History of Present Illness Mr Mo is a very pleasant 64-year-old male with a past medical history including cardiac disease with Cardiac stent, on anticoagulation and antiplatelet therapy, chronic kidney disease, hypertension, hyperlipidemia, Chronic kidney disease and hypothyroidism we have been asked to see because of anemia. Patient denies history of anemia (first noted in this medical record 05/19) he is not currently on any iron supplementation, he has been on Nadine Sharri and aspirin after a cardiac stent for at least 5 years, he denies any overt bleeding, no blood in the urine of the stool that these of her seen. He denies any hemorrhoids, acute changes in bowel habits, his last GI workup was many years ago. He is had no recent difficulty in swallowing, nausea, vomiting, u nintentional weight loss, acute changes in appetite. Denies a personal history of cancer Review of Systems 10 point ROS is neg except as stated in HPI Past Medical History Past Medical History: Atrial Fibrillation, Chest Pain / Angina, Heart Failure, COPD, Hypertension, Osteoarthritis (OA) Additional Past Medical History / Comment(s): Chronic renal insufficiency stage III, cardiomyopathy, abdominal aneurysm History of Any Multi-Drug Resistant Organisms: None Reported Past Surgical History: Heart Catheterization, Heart Catheterization With Stent, Orthopedic Surgery Additional Past Surgical History / Comment(s): KARAN, CARDIOVERSION 10/17/15, left arm surgery - 1976 Past Anesthesia/Blood Transfusion Reactions: No Reported Reaction Date of Last Stent Placement:: 11/14/15 Past Psychological History: No Psychological Hx Reported Smoking Status: Former smoker Past Alcohol Use History: Occasional Past Drug Use History: None Reported - Past Family History Mother Family Medical History: Cancer, Myocardial Infarction (MS) Additional Family Medical History / Comment(s): Mother of a MS in in s Medications and Allergies Home Medications Medication Instructions Recorded Confirmed Type Apixaban [Eliquis] 5 mg PO BID #60 tab 09/12/15 10/21/20 Rx Metoprolol Tartrate [Lopressor] 50 mg PO TID #90 tab 09/12/15 10/21/20 Rx Furosemide [Lasix] 80 mg PO BID@0800,1200 10/11/15 10/21/20 History Aspirin 81 mg PO HS 10/21/20 10/21/20 History Atorvastatin [Lipitor] 80 mg PO DAILY 10/21/20 10/21/20 History Levothyroxine Sodium [Synthroid] 100 mcg PO DAILY 10/21/20 10/21/20 History Montelukast [Singulair] 10 mg PO HS 10/21/20 10/21/20 History Tiotropium 18 Mcg/Puff [Spiriva] 1 puff INHALATION RT-DAILY@1200 10/21/20 10/21/20 History amLODIPine [Norvasc] 5 mg PO DAILY@1200 10/21/20 10/21/20 History metOLazone [Zaroxolyn] 2.5 mg PO Q48H 10/21/20 10/21/20 History Allergies Allergy/AdvReac Type Severity Reaction Status Date / Time Penicillins Allergy THROAT Verified 10/21/20 09:35 SWELLING/RASH/HIVES Physical Exam Vitals: Vital Signs Temp Pulse Resp BP BP Pulse Ox 10/23/20 14:00 97.7 F 77 18 124/70 100 10/23/20 08:00 97.5 F L 65 16 99/55 98 10/23/20 01:33 97.9 F 69 18 101/59 98 10/22/20 23:20 109/71 10/22/20 23:13 99/62 10/22/20 20:41 98.4 F 18 100 10/22/20 20:15 98.4 F 77 18 115/71 100 10/22/20 19:35 69 18 Intake and Output 10/23/20 10/23/20 10/23/20 06:59 14:59 22:59 Intake Total 600 Output Total 300 Balance -300 600 Intake: Intake, IV Titration 600 Amount Sodium Chloride 0.9% 1, 600 000 ml @ 75 mls/hr IV . [id number] [facility] Rx#:[id number] Output: Urine 300 - Constitutional General appearance: cooperative, no acute distress - EENT Eyes: anicteric sclerae, EOMI ENT: hearing grossly normal - Neck Neck: no lymphadenopathy - Respiratory Respiratory: bilateral: CTA - Cardiovascular Heart sounds: normal: S1, S2 Abnormal Heart Sounds: no systolic murmur, no diastolic murmur, no rub, no S3 Gallop, no S4 Gallop, no click, no other leg Peripheral Edema: bilateral: Trace - Gastrointestinal General gastrointestinal: no absent bowel sounds, no decreased bowel sounds, no distended, no hepatomegaly, no hyperactive bowel sounds, normal bowel sounds, no organomegaly, no rigid, no scaphoid, soft, no splenomegaly, no tenderness, no umbilical hernia, no ventral hernia - Neurologic Neurologic: CNII-XII intact - Musculoskeletal Musculoskeletal: generalized weakness, strength equal bilaterally - Psychiatric Psychiatric: A&O x's 3, appropriate affect, intact judgment & insight Results CBC & Chem 7: 10/23/20 06:44 10/23/20 06:44 Labs: Abnormal Lab Results - Last 24 Hours (Table) 10/22/20 10/22/20 10/23/20 Range/Units 05:36 18:07 01:43 WBC (3.8-10.6) k/uL RBC (4.30-5.90) m/uL Hgb (13.0-17.5) gm/dL Hct (39.0-53.0) % MCV (80.0-100.0) fL MCH (25.0-35.0) pg MCHC (31.0-37.0) g/dL RDW (11.5-15.5) % Neutrophils # (1.3-7.7) k/uL Lymphocytes # (1.0-4.8) k/uL Sodium 129 L (137-145) mmol/L Potassium 2.8 L 3.3 L (3.5-5.1) mmol/L Chloride 94 L (98-107) mmol/L Carbon Dioxide (22-30) mmol/L BUN 78 H (9-20) mg/dL Creatinine 3.60 H (0.66-1.25) mg/dL Glucose 224 H (74-99) mg/dL Calcium 7.9 L (8.4-10.2) mg/dL Iron 14 L (65-175) ug/dL % Saturation 3.23 L (15.00-50.00) Ferritin 11.2 L (22.0-322.0) ng/mL Alkaline Phosphatase 134 H (38-126) U/L Total Protein 5.6 L (6.3-8.2) g/dL Albumin 3.1 L (3.5-5.0) g/dL Urine Blood (Negative) 10/23/20 10/23/2021 Range/Units 06:44 06:44 11:20 WBC 20.4 H (3.8-10.6) k/uL RBC 3.03 L (4.30-5.90) m/uL Hgb 6.5 L* (13.0-17.5) gm/dL Hct 21.9 L (39.0-53.0) % MCV 72.3 L (80.0-100.0) fL MCH 21.6 L (25.0-35.0) pg MCHC 29.8 L (31.0-37.0) g/dL RDW 16.8 H (11.5-15.5) % Neutrophils # 18.8 H (1.3-7.7) k/uL Lymphocytes # 0.6 L (1.0-4.8) k/uL Sodium 130 L (137-145) mmol/L Potassium (3.5-5.1) mmol/L Chloride 95 L (98-107) mmol/L Carbon Dioxide 21 L (22-30) mmol/L BUN 78 H (9-20) mg/dL Creatinine 3.31 H (0.66-1.25) mg/dL Glucose 220 H (74-99) mg/dL Calcium 7.7 L (8.4-10.2) mg/dL Iron (65-175) ug/dL % Saturation (15.00-50.00) Ferritin (22.0-322.0) ng/mL Alkaline Phosphatase (38-126) U/L Total Protein 5.6 L (6.3-8.2) g/dL Albumin 3.0 L (3.5-5.0) g/dL Urine Blood Trace H (Negative) MRI - head: report reviewed Assessment and Plan (1) Microcytic hypochromic anemia Narrative/Plan: Labs and chart thoroughly reviewed. As of note, patient's renal function has been trending down, hemoglobin has been following. Nephrology consulted Patient's labs are indicative of iron deficiency. GI workup has been ordered. Iron has been ordered. Was contacted by nursing, patient had a reaction to blood transfusion yesterday and now he does not want to be transfused again for fear of another reaction. Explained that each transfusion is a different unit of blood. So, if the patient needs blood, has a reaction, must remove the offending unit of blood and begin with the next unit. Having a reaction to one unit of blood does not mean that she will have a reaction to all of them. Also, offered pre-medications. Patient refused the same. He understands risks of endoscopy procedure with anemia. Nursing is obtaining a new consent. Recheck CBC in a.m. Current Visit: Yes Status: Acute Priority: High Code(s): D50.9 - IRON DEFICIENCY ANEMIA, UNSPECIFIED SNOMED Code(s): 70753729
[2020-10-23] MEDS: ASPIRIN 81 MG PO SCH (20:47)
[2020-10-23] MEDS: MONTELUKAST 10 MG TAB PO SCH (20:47)
[2020-10-23 22:36] LABS: % Iron Saturation 3.47 (15.00-50.00); Ferritin 11.1 ng/mL (22.0-322.0)
[2020-10-24] MEDS: LEVOTHYROXINE 100 MCG TAB PO SCH (05:37)
--- NOTE | 2020-10-24 07:13 | PN ---
PROGRESS NOTE 64-year-old white male with anemia hypokalemia, severe anemia of unclear etiology. Refused blood transfusion. Hemoglobin despite I think the patient had vasovagal reaction to the blood transfusion as it happened within 2 drops of the blood going in his body. Benzo was not given until after reaction, so he possibly will need a blood transfusion if they cannot find any bleeding on EGD and colonoscopy. Either way will have to stop his blood thinners, Eliquis he takes for atrial fibrillation. Discussed case with the and the patient. Cardiovascular S1-S2. Lungs clear. GI soft. Extremities 2+ edema. PLAN: For EGD, colonoscopy. Possible blood transfusion tomorrow. Hold Eliquis indefinitely due to severe anemia, bleeding. MMODL / IJN: [id number] /
[2020-10-24] MEDS: METOPROLOL TARTRATE 50 MG TAB PO SCH ×2 (07:31→21:12)
[2020-10-24] MEDS: methylPREDNISolone SOD SUCCI 40 MG/ML 1 ML VIAL IV SCH ×2 (07:33→21:12)
[2020-10-24] MEDS: DOXYCYCLINE 100 MG CAP PO SCH ×2 (07:33→21:12)
[2020-10-24] MEDS: ATORVASTATIN 80 MG TAB PO SCH (07:33)
--- NOTE | 2020-10-24 09:05 | P.PN ---
Subjective Progress Note Date: 10/24/20 Principal diagnosis: Acute confusional state may very well be related to Benadryl Transfusion reaction Acute COPD exacerbation Severe degree of electrolyte imbalance with hypokalemia and hypocalcemia Tracheobronchitis Chronic kidney disease Chronic atrial fibrillation on direct anticoagulation 10/24/2020 patient seen eval reexamined awake and alert now continue to present, denies any chest pain, patient is awaiting endoscopy upper and lower, afebrile hemodynamically stable, oxygen saturation 97%, labs from yesterday reviewed hemoglobin down to 6.4, protection improving so a sodium BUN/creatinine continued to be indicative of severe acute renal failure 10/23/2020, patient seen eval reexamined during the rounds awake and alert sitting upright in bed with a component confusional state resolved now, patient is being scheduled for upper and lower exam tomorrow, patient hemoglobin drop down to 6.5 would recommend a unit of packed RBC, protection with improved to 3. 5 now 10/22/2020, patient seen eval examined during the rounds labs reviewed medications reviewed care plan discussed, patient underwent blood transfusion during transfusion she started having some chills intermittent back pain, Benadryl was given after that patient was very confused anxious and with a blank stare, patient was taken to the computed tomography scan for "stroke all, computed tomography scan has been no acute findings identified patient slowly coming back oriented 3 now denies any chest pain denies any headache chills or fever we'll consult urology as well for acute current confusional state actually related to Benadryl Patient is a 64-year-old male with the history of COPD, hypertension hypertensive cardiovascular disease chronic atrial fibrillation came into the hospital with increasing shortness of breath, symptoms have been progressive like for last 3-4 days and started with upper respiratory infection, this patient started having aches and pains cough has been more productive) came into hospital for further evaluation, or excessive questioning denies initial sei zure-like. He had a loss consciousness) ongoing aspiration symptoms denies any chest pain denies any bowel or bladder problems, patient has been monitored for chronic insufficiency as well, admitted chest x-ray consistent with COPD no active pulmonary process seen labs significant for leukocytosis microcytic anemia and severe electrolyte imbalance with potassium is 2.3 BUN/creatinine 16 and 3.5 to chronic virus is negative, patient is being continued on home medications including anticoagulants direct, being repleted with calcium and potassium, Objective - Vital Signs Vital signs: Vital Signs Temp 98.0 F 10/24/20 07:43 Pulse 67 10/24/20 07:43 Resp 16 10/24/20 07:43 BP 100/52 10/24/20 07:43 Pulse Ox 97 10/24/20 07:43 Intake & Output 10/23/20 10/24/20 10/24/20 18:59 06:59 18:59 Intake Total 600 4925 Balance 600 4925 Intake: Intake, IV Titration 600 925 Amount Sodium Chloride 0.9% 1, 600 825 000 ml @ 75 mls/hr IV . [id number] [facility] Rx#:[id number] Sodium Ferric Gluconat- 100 Sucrose 125 mg In Sodium Chloride 0.9% 100 ml @ 100 mls/hr IVPB HS [facility] Rx #:[id number] Oral 4000 Other: # Voids 1 # Bowel Movements 1 - Exam - Constitutional General appearance: average body habitus, disheveled - EENT Eyes: PERRLA ENT: normal oropharynx Ears: bilateral: normal - Neck Neck: normal ROM Carotids: bilateral: upstroke normal Thyroid: bilateral: normal size - Respiratory Respiratory: bilateral: diminished, rales, wheezing - Cardiovascular Rhythm: regular Heart sounds: normal: S1, S2 - Gastrointestinal General gastrointestinal: normal bowel sounds, soft - Integumentary Integumentary: normal turgor - Neurologic Neurologic: CNII-XII intact - Musculoskeletal Musculoskeletal: gait normal, generalized weakness, strength equal bilaterally - Psychiatric Psychiatric: A&O x's 3, appropriate affect, intact judgment & insigh - Labs CBC & Chem 7: 10/23/20 06:44 10/23/20 06:44 Labs: Abnormal Lab Results - Last 24 Hours (Table) 10/21/20 10/23/20 Range/Units 09:13 11:20 Iron 16 L (65-175) ug/dL TIBC 461 H (228-460) ug/dL % Saturation 3.47 L (15.00-50.00) Ferritin 11.1 L (22.0-322.0) ng/mL Urine Blood Trace H (Negative) Assessment and Plan Assessment: Severe anemia plans are on their way for endoscopy later on today Acute confusional state resolved now Transfusion reaction mild Acute COPD exacerbation Severe degree of electrolyte imbalance with hypokalemia and hypocalcemia Tracheobronchitis Chronic kidney disease Chronic atrial fibrillation on direct anticoagulation Plan: Endoscopy planned later on today Continue bronchodilators along with IV steroids and oral broad-spectrum antibiotics, likely can be switched to oral when ready for discharge Supplemental oxygen Monitor and observe potassium level and electrolytes very closely and replete as needed Trend renal functions closely Further recommendations pending plan of care as per clinical response of patient Time with Patient: Greater than 30
--- NOTE | 2020-10-24 10:19 | P.PN ---
Subjective Patient is seen in follow-up for acute kidney injury on chronic kidney disease. Renal function improving with creatinine down to 3.31 as of yesterday. Denies any melena or hematochezia. Scheduled for EGD and colonoscopy today. No vomiting or diarrhea. Vital signs are stable. General: The patient appeared well nourished and normally developed. HEENT: Head exam is unremarkable. LUNGS: Breath sounds decreased. HEART: Rate and Rhythm are regular. ABDOMEN: Soft, no distention. EXTREMITITES: No edema. Objective - Vital Signs Vital signs: Vital Signs Temp 98.0 F 10/24/20 07:43 Pulse 67 10/24/20 07:43 Resp 16 10/24/20 07:43 BP 100/52 10/24/20 07:43 Pulse Ox 97 10/24/20 07:43 Intake & Output 10/23/20 10/24/20 10/24/20 18:59 06:59 18:59 Intake Total 600 4925 Balance 600 4925 Intake: Intake, IV Titration 600 925 Amount Sodium Chloride 0.9% 1, 600 825 000 ml @ 75 mls/hr IV . [id number] [facility] Rx#:[id number] Sodium Ferric Gluconat- 100 Sucrose 125 mg In Sodium Chloride 0.9% 100 ml @ 100 mls/hr IVPB HS [facility] Rx #:[id number] Oral 4000 Other: # Voids 1 # Bowel Movements 1 - Labs CBC & Chem 7: 10/23/20 06:44 10/23/20 06:44 Labs: Abnormal Lab Results - Last 24 Hours (Table) 10/21/20 10/23/20 Range/Units 09:13 11:20 Iron 16 L (65-175) ug/dL TIBC 461 H (228-460) ug/dL % Saturation 3.47 L (15.00-50.00) Ferritin 11.1 L (22.0-322.0) ng/mL Urine Blood Trace H (Negative) Assessment and Plan Plan: Assessment: 1. Acute kidney injury secondary to ATN secondary to hypotension and acute blood loss anemia. Creatinine peaked at 3.8 this admission and down to 3.31 as of yesterday. UA benign. No hydronephrosis noted on kidney ultrasound. 2. Chronic diastolic CHF. 3. GI bleed status post blood transfusion this admission. GI following. Scheduled for EGD and colonoscopy today. Receiving IV iron. Also received a dose of IV DDAVP. 4. Hypokalemia from diuresis and poor intake. Replaced. 5. Hypovolemic hyponatremia improving with IV hydration. 6. Chronic kidney disease stage IIIB with baseline creatinine in the range of 1.7-2. Etiology is nephrosclerosis. 7. Hypertension with chronic kidney disease. Blood pressure on the lower side. Plan: Maintain IV fluids. Unable to receive blood due to transfusion reaction. Stopped amlodipine. Continue to hold diuretics for now. Avoid nephrotoxins. Continue to replace potassium as needed. Continue to monitor renal function and urine output. Morning labs pending. Patient will need to follow-up outpatient upon discharge for CKD care.
[2020-10-24] MEDS ORDERED: IV FLUID CONTINUATION 500 ML IV ONE (12:16)
[2020-10-24] MEDS ORDERED: PROPOFOL 10 MG/ML 20 ML VIAL IV ONE (12:18)
[2020-10-24] MEDS ORDERED: PHENYLEPHRINE-0.9% NACL SYG 1,000 MCG/10 ML SYRINGE ONE (12:18)
[2020-10-24] MEDS ORDERED: LIDOCAINE 1% INJ 10MG/ML (20 ML MDV) ONE (12:18)
[2020-10-24 12:36] LABS: Basophils # (A) 0.02 X 10*3/uL (0.00-0.10); Basophils % (A) 0.1 %; Eosinophils # (A) 0 X 10*3/uL (0.04-0.35); Eosinophils % (A) 0 %; HCT 18.8 % (39.6-50.0); HGB 5.5 g/dL (13.0-17.0); Lymphocytes # (A) 0.61 X 10*3/uL (0.90-5.00); Lymphocytes % (A) 3.7 %; MCH 20.7 pg (27.0-32.0); MCHC 29.3 g/dL (32.0-37.0); MCV 70.7 fL (80.0-97.0); Monocytes # (A) 0.88 X 10*3/uL (0.20-1.00); Monocytes % (A) 5.3 %; Neutrophils # (A) 14.91 X 10*3/uL (1.80-7.70); Neutrophils % (A) 90.2 %; Platelet Count 298 X 10*3/uL (140-440); RBC 2.66 X 10*6/uL (4.40-5.60); RDW 16.9 % (11.5-14.5); WBC 16.53 X 10*3/uL (4.50-10.00)
[2020-10-24 12:37] LABS: Acanthocytes 2+; Microcytosis (M) 2+; Schistocytes 1+
--- NOTE | 2020-10-24 12:57 | P.PCN ---
Date of Procedure: 10/24/20 Procedure(s) Performed: Brief history: Patient is a pleasant 64-year-old white male with the hospital with severe symptomatic microcytic Anemia with hemoglobin of 6 g/dL consistent with iron deficiency. He denies any GI bleeding. He is scheduled scheduled for an upper endoscopy as well as colonoscopy as a part of evaluation of and deficiency anemia. He is on a Eliquis has been on hold for the last 2 days. Procedure performed: Esophagogastroduodenoscopy with biopsy and cautery Colonoscopy Preoperative diagnosis: Microcytic hypochromic anemia Anesthesia: MAC Procedure: After informed consent was obtained from the patient was brought into the endoscopy unit and IV sedation was administered by anesthesia under continuous monitoring. Initially upper endoscopy was done. The Olympus GF 160 video endoscope was inserted inserted into the mouth and esophagus intubated without any difficulty and was gradually advanced into the stomach and duodenum and carefully examined. The bulb and second part of the duodenum appeared normal. Biopsies were done from the duodenum to rule out celiac disease. The scope was then withdrawn into the stomach adequately insufflated with air and upon careful examination the antrum scattered vascular ectasia noted with a couple of them having some oozing. Cautery was performed using a gold probe and hemostasis. The body, cardia and fundus appeared normal. The scope was then withdrawn into the esophagus. The GE junction was located at 40 cm to the incthere was a short segment of Grover's esophagus at 25-6 minutes proximal to the GE junction which was biopsied.Rest of the esophagus appeared normal. Patient tolerated the procedure well. At this time the patient continued to remain sedation. Initial digital rectal examination was normal. Olympus CF 160 video colonoscope was then inserted into the rectum and gradually advanced to the cecum without any difficulty. Careful examination was performed as the scope was gradually being withdrawn. The prep was excellent. The cecum, ascending colon, transverse colon, descending colon, sigmoid colon and rectum appeared normal. Retroflexion was performed in the rectum and no lesions were noted. Patient tolerated the procedure well. Impression: 1. 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 Colonoscopy was within normal limits with no evidence of colitis or colorectal neoplasia Recommendations: Findings of this examination were discussed with the patient as wel his family. He was advised to follow with the biopsy results. Continue iron supplements. Monitor CBC periodically. Resume Eliquis in 2-3 days
[2020-10-24 13:51] LABS: African American GFR (CKD) 25.3 (60.0-200.0); Albumin 3.3 g/dL (3.80-4.90); Albumin/Globulin Ratio 1.57 (1.60-3.17); Anion Gap 15.3 mmol/L (4.00-12.00); BUN/Creat Ratio 26.55 Ratio (12.00-20.00); Carbon Dioxide 23.7 mmol/L (21.6-31.8); Globulin 2.1 g/dL (1.6-3.3); Non-African American GFR(CKD) 21.9 (60.0-200.0); Potassium 3.6 mmol/L (3.5-5.5); Total Bilirubin 1.1 mg/dL (0.3-1.2); Total Protein 5.4 g/dL (6.2-8.2)
[2020-10-24] MEDS ORDERED: diphenhydrAMINE 50 MG/ML 1 ML VIAL IVP STA (14:10)
[2020-10-24] MEDS ORDERED: FAMOTIDINE 20 MG/2 ML VIAL IV STA (14:10)
[2020-10-24] MEDS ORDERED: methylPREDNISolone SOD SUCCI 125 MG/2 ML VIAL IV STA (14:10)
--- NOTE | 2020-10-24 18:28 | P.PN ---
Subjective Progress Note Date: 10/24/20 Principal diagnosis: anemia Pt pending endoscopy today, denies bleeding, fever. He has been ordered daily IV iron. He had a transfusion reaction and refused blood previously. Blood transfusions and reactions reviewed with pt. We also discussed pre meds can be used. Family at bedside Objective - Vital Signs Vital signs: Vital Signs Temp 98.2 F 10/24/20 17:35 Pulse 81 10/24/20 17:35 Resp 16 10/24/20 17:35 BP 136/75 10/24/20 17:35 Pulse Ox 96 10/24/20 13:42 Intake & Output 10/23/20 10/24/20 10/24/20 18:59 06:59 18:59 Intake Total 600 4925 1310 Balance 600 4925 1310 Intake: IV 400 Intake, IV Titration 600 925 600 Amount Sodium Chloride 0.9% 1, 600 825 600 000 ml @ 75 mls/hr IV . [id number] [facility] Rx#:[id number] Sodium Ferric Gluconat- 100 Sucrose 125 mg In Sodium Chloride 0.9% 100 ml @ 100 mls/hr IVPB HS [facility] Rx #:[id number] Oral 4000 Blood Product 310 Rc As-1 Unit 310 [id number] Other: # Voids 1 # Bowel Movements 1 - Constitutional General appearance: Present: cooperative, no acute distress, obese - EENT Eyes: Present: anicteric sclerae, EOMI ENT: Present: hearing grossly normal - Respiratory Details: resp even and unlabored at rest - Peripheral edema foot Peripheral Edema: bilateral: Trace - Integumentary Integumentary: Present: pale - Neurologic Neurologic: Present: CNII-XII intact - Musculoskeletal Musculoskeletal: Present: strength equal bilaterally - Psychiatric Psychiatric: Present: A&O x's 3, appropriate affect, intact judgment & insight - Labs CBC & Chem 7: 10/24/20 07:00 10/24/20 07:00 Labs: Abnormal Lab Results - Last 24 Hours (Table) 10/21/20 10/22/20 10/24/20 Range/Units 09:13 11:58 07:00 WBC 16.53 H (4.50-10.00) X 10*3/uL RBC 2.66 L (4.40-5.60) X 10*6/uL Hgb 5.5 L* (13.0-17.0) g/dL Hct 18.8 L* (39.6-50.0) % MCV 70.7 L (80.0-97.0) fL MCH 20.7 L (27.0-32.0) pg MCHC 29.3 L (32.0-37.0) g/dL RDW 16.9 H (11.5-14.5) % Immature Gran # 0.11 H (0.00-0.04) X 10*3/uL Neutrophils # 14.91 H (1.80-7.70) X 10*3/uL Lymphocytes # 0.61 L (0.90-5.00) X 10*3/uL Eosinophils # 0 L (0.04-0.35) X 10*3/uL Anion Gap (4.00-12.00) mmol/L BUN (9.0-27.0) mg/dL Creatinine (0.6-1.5) mg/dL Est GFR (CKD-EPI)AfAm (60.0-200.0) Est GFR (CKD-EPI)NonAf (60.0-200.0) BUN/Creatinine Ratio (12.00-20.00) Ratio Glucose (70-110) mg/dL Calcium (8.7-10.3) mg/dL Iron 16 L (65-175) ug/dL TIBC 461 H (228-460) ug/dL % Saturation 3.47 L (15.00-50.00) Ferritin 11.1 L (22.0-322.0) ng/mL AST (14-35) U/L Total Protein (6.2-8.2) g/dL Albumin (3.80-4.90) g/dL Albumin/Globulin Ratio (1.60-3.17) g/dL Crossmatch See Detail 10/24/20 Range/Units 07:00 WBC (4.50-10.00) X 10*3/uL RBC (4.40-5.60) X 10*6/uL Hgb (13.0-17.0) g/dL Hct (39.6-50.0) % MCV (80.0-97.0) fL MCH (27.0-32.0) pg MCHC (32.0-37.0) g/dL RDW (11.5-14.5) % Immature Gran # (0.00-0.04) X 10*3/uL Neutrophils # (1.80-7.70) X 10*3/uL Lymphocytes # (0.90-5.00) X 10*3/uL Eosinophils # (0.04-0.35) X 10*3/uL Anion Gap 15.30 H (4.00-12.00) mmol/L BUN 77.0 H (9.0-27.0) mg/dL Creatinine 2.9 H (0.6-1.5) mg/dL Est GFR (CKD-EPI)AfAm 25.3 L (60.0-200.0) Est GFR (CKD-EPI)NonAf 21.9 L (60.0-200.0) BUN/Creatinine Ratio 26.55 H (12.00-20.00) Ratio Glucose 158 H (70-110) mg/dL Calcium 8.0 L (8.7-10.3) mg/dL Iron (65-175) ug/dL TIBC (228-460) ug/dL % Saturation (15.00-50.00) Ferritin (22.0-322.0) ng/mL AST 50 H (14-35) U/L Total Protein 5.4 L (6.2-8.2) g/dL Albumin 3.30 L (3.80-4.90) g/dL Albumin/Globulin Ratio 1.57 L (1.60-3.17) g/dL Crossmatch Assessment and Plan (1) Microcytic hypochromic anemia Narrative/Plan: Labs and chart thoroughly reviewed. As of note, patient's renal function has been trending down, hemoglobin has been following. Nephrology consulted Patient's labs show iron deficiency. Attending ordered IV iron. Endo with GI today. Was contacted by nursing, Hgb 5.5. Recommended transfusion of 1 unit with premeds, I see from medical record pt did receive and it appears to be without incident. CBC in AM Current Visit: Yes Status: Acute Priority: High Code(s): D50.9 - IRON DEFICIENCY ANEMIA, UNSPECIFIED SNOMED Code(s): 71735936
[2020-10-24] MEDS: MONTELUKAST 10 MG TAB PO SCH (21:12)
[2020-10-24] MEDS: SODIUM FERRIC GLUCONAT-SUCROSE 125 MG in SODIUM CHLORIDE 0.9% 100 ML IVPB SCH (21:12)
[2020-10-24] MEDS: ASPIRIN 81 MG PO SCH (21:12)
[2020-10-25] MEDS: SODIUM CHLORIDE 0.9% 1,000 ML IV SCH ×2 (00:42→07:54)
[2020-10-25 02:02] VITALS: RESP 16
[2020-10-25] MEDS: LEVOTHYROXINE 100 MCG TAB PO SCH (05:30)
[2020-10-25 07:18] LABS: Anisocytosis Slight; Basophils % (A) 0 %; Eosinophils % (A) 0 %; HCT 26.3 % (39.0-53.0); Hypochromasia Marked; Lymphocytes # (A) 0.5 k/uL (1.0-4.8); Lymphocytes % (A) 3 %; MCH 23.4 pg (25.0-35.0); MCHC 30.7 g/dL (31.0-37.0); MCV 76.3 fL (80.0-100.0); Mean Platelet Volume 7.5; Microcytosis Slight; Monocytes # (A) 0.8 k/uL (0-1.0); Monocytes % (A) 4 %; Neutrophils % (A) 93 %; Platelet Count 340 k/uL (150-450); Poikilocytosis Moderate; RBC 3.44 m/uL (4.30-5.90); RDW 17.5 % (11.5-15.5); WBC 19.5 k/uL (3.8-10.6)
[2020-10-25 07:33] LABS: HGB 8.1 gm/dL (13.0-17.5)
[2020-10-25] MEDS: METOPROLOL TARTRATE 50 MG TAB PO SCH (07:51)
[2020-10-25] MEDS: ATORVASTATIN 80 MG TAB PO SCH (07:51)
[2020-10-25] MEDS: methylPREDNISolone SOD SUCCI 40 MG/ML 1 ML VIAL IV SCH (07:52)
[2020-10-25] MEDS: DOXYCYCLINE 100 MG CAP PO SCH (07:52)
--- NOTE | 2020-10-25 09:00 | PN ---
PROGRESS NOTE Was given 2 units of blood for hemoglobin 5.5. He was having no transfusion reaction at al. He had a vasovagal with a prior infusion. He underwent EGD with biopsy and cautery and well as well as a colonoscopy. He had a vascular ectasia of the antrum, short-segment Grover's esophagus proximal to the GE junction. This was biopsied. Colonoscopy done didn't find a whole lot. ASSESSMENT: Gastric antral vascular ectasia, oozing, status post cautery, short-segment Grover's esophagus, colonoscopies negative. Monitor CBC. Resume Eliquis 2-3 days. To get two units of blood. CARDIOVASCULAR: S1, S2. Lungs clear. GI soft. Negative Homans. I would recommend PPI twice a day, blood transfusion of 2 units today. Monitor his hemoglobin and possible discharge home next 24 to 48 hours depending on his strength and ambulation. MMODL / IJN: [id number] /
--- NOTE | 2020-10-25 09:44 | P.PN ---
Subjective Patient is seen in follow-up for acute kidney injury on chronic kidney disease. Renal function improving with creatinine down to 2.9 as of yesterday. Denies any melena or hematochezia. Hemoglobin improved post blood transfusion yesterday. No vomiting or diarrhea. No active complaints at this time. Vital signs are stable. General: The patient appeared well nourished and normally developed. HEENT: Head exam is unremarkable. LUNGS: Breath sounds decreased. HEART: Rate and Rhythm are regular. ABDOMEN: Soft, no distention. EXTREMITITES: No edema. Objective - Vital Signs Vital signs: Vital Signs Temp 97.9 F 10/25/20 08:00 Pulse 63 10/25/20 08:00 Resp 16 10/25/20 08:00 BP 131/73 10/25/20 08:00 Pulse Ox 95 10/25/20 08:00 Intake & Output 10/24/20 10/25/20 10/25/20 18:59 06:59 18:59 Intake Total 1310 2908 Balance 1310 2908 Intake: IV 400 Intake, IV Titration 600 850 Amount Sodium Chloride 0.9% 1, 600 750 000 ml @ 75 mls/hr IV . [id number] [facility] Rx#:[id number] Sodium Ferric Gluconat- 100 Sucrose 125 mg In Sodium Chloride 0.9% 100 ml @ 100 mls/hr IVPB HS SOF[facility] Rx #:[id number] Oral 1120 Blood Product 310 938 Rc As-1 Unit 310 [id number] Rc As-1 Unit 310 [id number] Other: # Voids 2 # Bowel Movements 2 - Labs CBC & Chem 7: 10/25/20 06:53 10/24/20 07:00 Labs: Abnormal Lab Results - Last 24 Hours (Table) 10/22/20 10/24/20 10/24/20 Range/Units 11:58 07:00 07:00 WBC 16.53 H (4.50-10.00) X 10*3/uL RBC 2.66 L (4.40-5.60) X 10*6/uL Hgb 5.5 L* (13.0-17.0) g/dL Hct 18.8 L* (39.6-50.0) % MCV 70.7 L (80.0-97.0) fL MCH 20.7 L (27.0-32.0) pg MCHC 29.3 L (32.0-37.0) g/dL RDW 16.9 H (11.5-14.5) % Immature Gran # 0.11 H (0.00-0.04) X 10*3/uL Neutrophils # 14.91 H (1.80-7.70) X 10*3/uL Lymphocytes # 0.61 L (0.90-5.00) X 10*3/uL Eosinophils # 0 L (0.04-0.35) X 10*3/uL Anion Gap 15.30 H (4.00-12.00) mmol/L BUN 77.0 H (9.0-27.0) mg/dL Creatinine 2.9 H (0.6-1.5) mg/dL Est GFR (CKD-EPI)AfAm 25.3 L (60.0-200.0) Est GFR (CKD-EPI)NonAf 21.9 L (60.0-200.0) BUN/Creatinine Ratio 26.55 H (12.00-20.00) Ratio Glucose 158 H (70-110) mg/dL Calcium 8.0 L (8.7-10.3) mg/dL AST 50 H (14-35) U/L Total Protein 5.4 L (6.2-8.2) g/dL Albumin 3.30 L (3.80-4.90) g/dL Albumin/Globulin Ratio 1.57 L (1.60-3.17) g/dL Crossmatch See Detail 10/25/20 Range/Units 06:53 WBC 19.5 H (4.50-10.00) X 10*3/uL RBC 3.44 L (4.40-5.60) X 10*6/uL Hgb 8.1 L D (13.0-17.0) g/dL Hct 26.3 L (39.6-50.0) % MCV 76.3 L (80.0-97.0) fL MCH 23.4 L (27.0-32.0) pg MCHC 30.7 L (32.0-37.0) g/dL RDW 17.5 H (11.5-14.5) % Immature Gran # (0.00-0.04) X 10*3/uL Neutrophils # 18.0 H (1.80-7.70) X 10*3/uL Lymphocytes # 0.5 L (0.90-5.00) X 10*3/uL Eosinophils # (0.04-0.35) X 10*3/uL Anion Gap (4.00-12.00) mmol/L BUN (9.0-27.0) mg/dL Creatinine (0.6-1.5) mg/dL Est GFR (CKD-EPI)AfAm (60.0-200.0) Est GFR (CKD-EPI)NonAf (60.0-200.0) BUN/Creatinine Ratio (12.00-20.00) Ratio Glucose (70-110) mg/dL Calcium (8.7-10.3) mg/dL AST (14-35) U/L Total Protein (6.2-8.2) g/dL Albumin (3.80-4.90) g/dL Albumin/Globulin Ratio (1.60-3.17) g/dL Crossmatch Assessment and Plan Plan: Assessment: 1. Acute kidney injury secondary to ATN secondary to hypotension and acute blood loss anemia. Creatinine peaked at 3.8 this admission and down to 2.9 as of yesterday. UA benign. No hydronephrosis noted on kidney ultrasound. 2. Chronic diastolic CHF. 3. GI bleed status post blood transfusion this admission. GI following. 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 Receiving IV iron. Also received a dose of IV DDAVP. 4. Hypokalemia from diuresis and poor intake. Replaced. 5. Hypovolemic hyponatremia improving with IV hydration. 6. Chronic kidney disease stage IIIB with baseline creatinine in the range of 1.7-2. Etiology is nephrosclerosis. 7. Hypertension with chronic kidney disease. Controlled. Plan: Hep-Lock IV fluids. Stopped amlodipine. Continue to hold diuretics for now. Avoid nephrotoxins. Continue to replace potassium as needed. Continue to monitor renal function and urine output. Morning labs pending. Patient will need to follow-up outpatient upon discharge for CKD care.
[2020-10-25 10:12] LABS: African American GFR (CKD) 31.8 (60.0-200.0); Anion Gap 14.1 mmol/L (4.00-12.00); BUN/Creat Ratio 25.42 Ratio (12.00-20.00); Calcium 8.3 mg/dL (8.7-10.3); Carbon Dioxide 22.9 mmol/L (21.6-31.8); Magnesium 2.6 mg/dL (1.5-2.4); Non-African American GFR(CKD) 27.5 (60.0-200.0); Potassium 3.4 mmol/L (3.5-5.5)
[2020-10-25 15:18] VITALS: BP 107/68; PULSE 62; TEMP 97.3
[2020-10-25] MEDS ORDERED: Potassium Replacement Protocol 1 EACH MISC MISCELLANE PRN (15:32)
[2020-10-25] MEDS: POTASSIUM CHLORIDE ER 20 MEQ TAB.ER PO SCH (15:41)
--- NOTE | 2020-10-25 17:08 | P.PN ---
Subjective Progress Note Date: 10/25/20 Principal diagnosis: anemia 64-year-old male who presented to the emergency department with complaints of shortness of breath. He has a past medical history of proximal atrial fi brillation and was on Eliquis is currently on hold. He was noted to have a drop in his hemoglobin to 6.8. His labs are consistent with microcytic anemia. He has denied any dark stool or blood in his stool. He has stated that he's been having multiple bloody noses. The patient underwent an EGD and colonoscopy yesterday. EGD revealed gastric antral vascular ectasia with losing status post cautery using a cold probe and short segment of Grover's esophagus. Colonoscopy was within normal limits with no evidence of colitis or colorectal neoplasia. Patient had repeat CBC which had a drop in his hemoglobin to type 0.5 yesterday and received 2 units of PRBC transfusion with no reaction. Today he denies any bowel movement, no abdominal pain, nausea, or vomiting. His hemoglobin is stable at 8.0. Objective - Vital Signs Vital signs: Vital Signs Temp 97.9 F 10/25/20 08:00 Pulse 63 10/25/20 08:00 Resp 16 10/25/20 08:00 BP 131/73 10/25/20 08:00 Pulse Ox 95 10/25/20 08:00 Intake & Output 10/24/20 10/25/20 10/25/20 18:59 06:59 18:59 Intake Total 1310 2908 Balance 1310 2908 Intake: IV 400 Intake, IV Titration 600 850 Amount Sodium Chloride 0.9% 1, 600 750 000 ml @ 75 mls/hr IV . [id number] [facility] Rx#:[id number] Sodium Ferric Gluconat- 100 Sucrose 125 mg In Sodium Chloride 0.9% 100 ml @ 100 mls/hr IVPB HS [facility] Rx #:[id number] Oral 1120 Blood Product 310 938 Rc As-1 Unit 310 [id number] Rc As-1 Unit 310 [id number] Other: # Voids 2 # Bowel Movements 2 - Exam General appearance: The patient is alert, oriented, appears in no acute distress. HET: Head is normocephalic and atraumatic. Conjunctiva pink. Sclera anicteric. Neck: Supple without lymphadenopathy. Abdomen: Soft, nontender, nondistended with bowel sounds. No guarding or rigidity. Extremities: Normal skin color and turgor. No pedal edema Skin: No rashes, no jaundice Neurological: No focal deficits. Alert and oriented 3. - Labs CBC & Chem 7: 10/25/20 06:53 10/25/20 06:53 Labs: Abnormal Lab Results - Last 24 Hours (Table) 10/22/20 10/24/20 10/24/20 Range/Units 11:58 07:00 07:00 WBC 16.53 H (4.50-10.00) X 10*3/uL RBC 2.66 L (4.40-5.60) X 10*6/uL Hgb 5.5 L* (13.0-17.0) g/dL Hct 18.8 L* (39.6-50.0) % MCV 70.7 L (80.0-97.0) fL MCH 20.7 L (27.0-32.0) pg MCHC 29.3 L (32.0-37.0) g/dL RDW 16.9 H (11.5-14.5) % Immature Gran # 0.11 H (0.00-0.04) X 10*3/uL Neutrophils # 14.91 H (1.80-7.70) X 10*3/uL Lymphocytes # 0.61 L (0.90-5.00) X 10*3/uL Eosinophils # 0 L (0.04-0.35) X 10*3/uL Anion Gap 15.30 H (4.00-12.00) mmol/L BUN 77.0 H (9.0-27.0) mg/dL Creatinine 2.9 H (0.6-1.5) mg/dL Est GFR (CKD-EPI)AfAm 25.3 L (60.0-200.0) Est GFR (CKD-EPI)NonAf 21.9 L (60.0-200.0) BUN/Creatinine Ratio 26.55 H (12.00-20.00) Ratio Glucose 158 H (70-110) mg/dL Calcium 8.0 L (8.7-10.3) mg/dL AST 50 H (14-35) U/L Total Protein 5.4 L (6.2-8.2) g/dL Albumin 3.30 L (3.80-4.90) g/dL Albumin/Globulin Ratio 1.57 L (1.60-3.17) g/dL Crossmatch See Detail 10/25/20 Range/Units 06:53 WBC 19.5 H (4.50-10.00) X 10*3/uL RBC 3.44 L (4.40-5.60) X 10*6/uL Hgb 8.1 L D (13.0-17.0) g/dL Hct 26.3 L (39.6-50.0) % MCV 76.3 L (80.0-97.0) fL MCH 23.4 L (27.0-32.0) pg MCHC 30.7 L (32.0-37.0) g/dL RDW 17.5 H (11.5-14.5) % Immature Gran # (0.00-0.04) X 10*3/uL Neutrophils # 18.0 H (1.80-7.70) X 10*3/uL Lymphocytes # 0.5 L (0.90-5.00) X 10*3/uL Eosinophils # (0.04-0.35) X 10*3/uL Anion Gap (4.00-12.00) mmol/L BUN (9.0-27.0) mg/dL Creatinine (0.6-1.5) mg/dL Est GFR (CKD-EPI)AfAm (60.0-200.0) Est GFR (CKD-EPI)NonAf (60.0-200.0) BUN/Creatinine Ratio (12.00-20.00) Ratio Glucose (70-110) mg/dL Calcium (8.7-10.3) mg/dL AST (14-35) U/L Total Protein (6.2-8.2) g/dL Albumin (3.80-4.90) g/dL Albumin/Globulin Ratio (1.60-3.17) g/dL Crossmatch Assessment and Plan (1) Anemia Narrative/Plan: This is 64-year-old male who presented to the emergency department with complaints of shortness of breath. He has multiple comorbidities including atrial fibrillation on Eliquis, chronic kidney disease. He denies any history of alcohol abuse. Patient had a drop in his hemoglobin to 6.8 this morning, labs are consistent with microcytic anemia. No signs or symptoms of GI bleed. No previous history of GI bleed. Hernandez to state he has been having some frequent vomiting on a daily basis but states he'll get some dizziness he's had some sinus drainage and then he gets a GI upset and will vomit. Denies any hematemesis or coffee-ground emesis. No dark stool or blood in his stool. He does state though he has been having multiple bloody noses every other day for last 2 weeks duration and states he may have bleeding up to 30 minutes at a time. He has no previous history of colonoscopy or EGD. Does believe he has a history of an ulcer. Iron studies are ordered. Eliquis currently on hold. Patient is status post EGD and colonoscopy. EGD showed gastric antral vascular ectasia with oozing status post cautery using a cold probe and short segment of Grover's esophagus. Colonoscopy showed a normal colon with no evidence of colitis or colorectal neoplasia. Recommend holding Ahlquist for 2-3 more days. Current Visit: Yes Status: Acute Code(s): D64.9 - ANEMIA, UNSPECIFIED SNOMED Code(s): 753424381 (2) Chronic kidney disease Current Visit: Yes Status: Acute Code(s): N18.9 - CHRONIC KIDNEY DISEASE, UNSPECIFIED SNOMED Code(s): 036481335 (3) Atrial fibrillation with RVR Current Visit: No Status: Acute Code(s): I48.91 - UNSPECIFIED ATRIAL FIBRILLATION SNOMED Code(s): 178158231332604 (4) CHF (congestive heart failure) Current Visit: No Status: Acute Code(s): I50.9 - HEART FAILURE, UNSPECIFIED SNOMED Code(s): 46089958 (5) Blood transfusion reaction Current Visit: Yes Status: Acute Code(s): T80.92XA - UNSPECIFIED TRANSFUSION REACTION, INITIAL ENCOUNTER SNOMED Code(s): 42393127 Plan: 1. Continue symptomatic and supportive care 2. Hold Eliquis for 2-3 days 3. Daily CBC 4. Continue IV iron 5. Patient is status post EGD and colonoscopy 6. Protonix 40 mg twice a day 7. Diabetes tolerated 8. Patient is cleared for discharge from gastroenterology, again recommend holding Eliquis for 2-3 days Thank you for this consultation, we will sign off at this time. Dr. Ugo Dodd I agree with the dictator's note, documented as a scribe by Sara Chen.
--- NOTE | 2020-10-25 17:08 | PN ---
PROGRESS NOTE This is a 64-year-old white male who was admitted with acute GI bleeding. He had an EGD and colonoscopy that showed some antral ectasias which were cauterized. He received two units of blood, yesterday went from 5.5 up to 8.1 hemoglobin today. Potassium is low at 3.4. Sodium is 136. BUN and creatinine are improving every day, as he had acute tubular necrosis from 3.6 to 3.31 to 2.9 down to 2.4 today. Sugars have been running in the mid 150s in the last 24 hours. Magnesium is a little bit high. Liver enzymes: AST is low high at 50. Albumin is low at 3.3, but improved. ASSESSMENT: 1. Acute kidney injury secondary to acute tubular necrosis due to hypertension. 2. Acute blood loss anemia, as mentioned, is much improved. 3. Chronic diastolic congestive heart failure. 4. Gastrointestinal bleed. Two units of blood, receiving IV iron. IV DDAVP was given. 5. Hypokalemia. Potassium is replaced. 6. Hypovolemic hyponatremia, improved with IV hydration. 7. Chronic kidney disease stage IIIB. Baseline creatinine 1.7 to 2. Etiology is nephrosclerosis. 8. Hypertension. 9. Chronic kidney disease, controlled. Amlodipine was stopped. Diuretics were held on admission. Avoiding nephrotoxins. Replacing potassium. Once he is stabilized and his hemoglobin stabilizes, possibly discharge in the next 24 to 48 hours. MMODL / IJN: [id number] /
--- NOTE | 2020-10-25 20:43 | P.PN ---
Subjective Progress Note Date: 10/25/20 Patient was seen for a follow-up. Patient is doing very well. Wants to go home. Denies any focal symptoms. Patient underwent EGD and colonoscopy yesterday on 10/24/2020. It revealed gastric antral vascular ectasia with closing, status post cautery using cold probe and short segment Grover's esophagus. Eap Counselor recommended resuming Eliquis in 2-3 days. Objective - Vital Signs Vital signs: Vital Signs Temp 97.3 F L 10/25/20 14:00 Pulse 62 10/25/20 14:00 Resp 16 10/25/20 14:00 BP 107/68 10/25/20 14:00 Pulse Ox 99 10/25/20 14:00 Intake & Output 10/24/20 10/25/20 10/25/20 18:59 06:59 18:59 Intake Total 1310 2908 Balance 1310 2908 Intake: IV 400 Intake, IV Titration 600 850 Amount Sodium Chloride 0.9% 1, 600 750 000 ml @ 75 mls/hr IV . [id number] [facility] Rx#:[id number] Sodium Ferric Gluconat- 100 Sucrose 125 mg In Sodium Chloride 0.9% 100 ml @ 100 mls/hr IVPB HS [facility] Rx #:[id number] Oral 1120 Blood Product 310 938 Rc As-1 Unit 310 [id number] Rc As-1 Unit 310 [id number] Other: Voiding Method Toilet # Voids 2 # Bowel Movements 2 - Exam Patient is an elderly male, in no acute distress. Patient is alert awake oriented to time place and person. Patient knows the month, year and the name of the building, city and the state. Speech and language functions are normal. Attention, concentration and fund of knowledge is adequate. Patient can name and repeat very well, followed directions. Comprehension intact. No aphasia or dysarthria. On cranial examination, pupils are round and reacting to light, visual retana are full on confrontation, with no neglect, extraocular muscles are intact with no nystagmus. Face is symmetric, tongue protrudes to the midline. Palatal elevation and sensation normal, hearing and shoulder shrug normal, facial sensation normal. Shoulder shrug normal. On muscle strength testing, there is no pronator drift and the strength is normal in arms and legs distally and proximally. Patient has some metabolic tremors of outstretched hands. Deep tendon reflexes are hypoactive and plantars downgoing. Sensory to touch is equal with no neglect on double simultaneous stimulation. Cerebellar function showed no ataxia for znilbx-xe-hken testing. Patient has tremulousness for bebztp-zz-luyz testing. No dysdiadochokinesia. Tone and bulk of muscles normal. Gait not checked. On general examination, there is no carotid bruit or murmur, S1-S2 audible. Abdomen is soft nontender. Chest is clear. Peripheral pulses are present. Mild peripheral edema. Patient has evidence of umbilicus hernia. It is nontender to touch. - Labs CBC & Chem 7: 10/25/20 06:53 10/25/20 06:53 Labs: Abnormal Lab Results - Last 24 Hours (Table) 10/22/20 10/25/20 10/25/20 Range/Units 11:58 06:53 06:53 WBC 19.5 H (3.8-10.6) k/uL RBC 3.44 L (4.30-5.90) m/uL Hgb 8.1 L D (13.0-17.5) gm/dL Hct 26.3 L (39.0-53.0) % MCV 76.3 L (80.0-100.0) fL MCH 23.4 L (25.0-35.0) pg MCHC 30.7 L (31.0-37.0) g/dL RDW 17.5 H (11.5-15.5) % Neutrophils # 18.0 H (1.3-7.7) k/uL Lymphocytes # 0.5 L (1.0-4.8) k/uL Potassium 3.4 L (3.5-5.5) mmol/L Anion Gap 14.10 H (4.00-12.00) mmol/L BUN 61.0 H (9.0-27.0) mg/dL Creatinine 2.4 H (0.6-1.5) mg/dL Est GFR (CKD-EPI)AfAm 31.8 L (60.0-200.0) Est GFR (CKD-EPI)NonAf 27.5 L (60.0-200.0) BUN/Creatinine Ratio 25.42 H (12.00-20.00) Ratio Glucose 155 H (70-110) mg/dL Calcium 8.3 L (8.7-10.3) mg/dL Magnesium 2.6 H (1.5-2.4) mg/dL Crossmatch See Detail Assessment and Plan Assessment: * Altered mental status, with some focal findings reported, unclear etiology. Differential diagnosis is between an ALLERGIC reaction to transfusion/Benadryl, versus TIA. Neurological symptoms have resolved. Current neurological examination is normal. * Atrial fibrillation, on long-term anticoagulation, currently on hold because of anemia. * Gastric antral vascular ectasia with oozing * Congestive heart failure * COPD * Hypertension * Chronic renal insufficiency * Osteoarthritis Plan: * Patient's EGD showed gastric antral vascular ectasia with closing. Patient had undergone cauterization. Eap Counselor has recommended to resume Eliquis in 2-3 days. Patient states that he will follow up with his primary physician on 10/28/2020 and will probably resume Eliquis. * Carotid Doppler revealed no evidence of hemodynamically significant stenosis of bilateral common carotid or internal carotid artery. Nonvisualization of the right vertebral artery. Patient cannot undergo CTA or MRA because of significant renal insufficiency. * Continue aspirin 81 mg. * 2-D echo revealed normal left-ventricular size. Mild concentric LVH. EF is between 55-60%. Trace MR. * We will sign off. Please reconsult neurology if any other concerns.
--- NOTE | 2020-10-26 00:30 | P.PN ---
Subjective Progress Note Date: 10/26/20 Principal diagnosis: GI Bleed Status Post GI evaluation with evidence of gastric antral ectasia with oozing status post cautery per GI ok to resume AC with eliquis in 2 days. Plan for patient to follow-up in office for CBC check next week and probable parental iron. Objective - Vital Signs Vital signs: Vital Signs Temp 97.4 F L 10/25/20 10:54 Pulse 64 10/25/20 10:54 Resp 16 10/25/20 08:00 BP 119/75 10/25/20 10:54 Pulse Ox 100 10/25/20 10:54 Intake & Output 10/24/20 10/25/20 10/25/20 18:59 06:59 18:59 Intake Total 1310 2908 Balance 1310 2908 Intake: IV 400 Intake, IV Titration 600 850 Amount Sodium Chloride 0.9% 1, 600 750 000 ml @ 75 mls/hr IV . [id number] [facility] Rx#:[id number] Sodium Ferric Gluconat- 100 Sucrose 125 mg In Sodium Chloride 0.9% 100 ml @ 100 mls/hr IVPB HS [facility] Rx #:[id number] Oral 1120 Blood Product 310 938 Rc As-1 Unit 310 [id number] Rc As-1 Unit 310 [id number] Other: Voiding Method Bedside Commode Urinal # Voids 2 # Bowel Movements 2 - Exam - Constitutional General appearance: Present: cooperative, no acute distress, obese - EENT Eyes: Present: anicteric sclerae, EOMI ENT: Present: hearing grossly normal - Respiratory Details: resp even and unlabored at rest - Peripheral edema foot Peripheral Edema: bilateral: Trace - Integumentary Integumentary: Present: pale - Neurologic Neurologic: Present: CNII-XII intact - Musculoskeletal Musculoskeletal: Present: strength equal bilaterally - Psychiatric Psychiatric: Present: A&O x's 3, appropriate affect, intact judgment & insight - Labs CBC & Chem 7: 10/25/20 06:53 10/25/20 06:53 Labs: Abnormal Lab Results - Last 24 Hours (Table) 10/22/20 10/24/20 10/24/20 Range/Units 11:58 07:00 07:00 WBC 16.53 H (4.50-10.00) X 10*3/uL RBC 2.66 L (4.40-5.60) X 10*6/uL Hgb 5.5 L* (13.0-17.0) g/dL Hct 18.8 L* (39.6-50.0) % MCV 70.7 L (80.0-97.0) fL MCH 20.7 L (27.0-32.0) pg MCHC 29.3 L (32.0-37.0) g/dL RDW 16.9 H (11.5-14.5) % Immature Gran # 0.11 H (0.00-0.04) X 10*3/uL Neutrophils # 14.91 H (1.80-7.70) X 10*3/uL Lymphocytes # 0.61 L (0.90-5.00) X 10*3/uL Eosinophils # 0 L (0.04-0.35) X 10*3/uL Potassium (3.5-5.5) mmol/L Anion Gap 15.30 H (4.00-12.00) mmol/L BUN 77.0 H (9.0-27.0) mg/dL Creatinine 2.9 H (0.6-1.5) mg/dL Est GFR (CKD-EPI)AfAm 25.3 L (60.0-200.0) Est GFR (CKD-EPI)NonAf 21.9 L (60.0-200.0) BUN/Creatinine Ratio 26.55 H (12.00-20.00) Ratio Glucose 158 H (70-110) mg/dL Calcium 8.0 L (8.7-10.3) mg/dL Magnesium (1.5-2.4) mg/dL AST 50 H (14-35) U/L Total Protein 5.4 L (6.2-8.2) g/dL Albumin 3.30 L (3.80-4.90) g/dL Albumin/Globulin Ratio 1.57 L (1.60-3.17) g/dL Crossmatch See Detail 10/25/20 10/25/20 Range/Units 06:53 06:53 WBC 19.5 H (4.50-10.00) X 10*3/uL RBC 3.44 L (4.40-5.60) X 10*6/uL Hgb 8.1 L D (13.0-17.0) g/dL Hct 26.3 L (39.6-50.0) % MCV 76.3 L (80.0-97.0) fL MCH 23.4 L (27.0-32.0) pg MCHC 30.7 L (32.0-37.0) g/dL RDW 17.5 H (11.5-14.5) % Immature Gran # (0.00-0.04) X 10*3/uL Neutrophils # 18.0 H (1.80-7.70) X 10*3/uL Lymphocytes # 0.5 L (0.90-5.00) X 10*3/uL Eosinophils # (0.04-0.35) X 10*3/uL Potassium 3.4 L (3.5-5.5) mmol/L Anion Gap 14.10 H (4.00-12.00) mmol/L BUN 61.0 H (9.0-27.0) mg/dL Creatinine 2.4 H (0.6-1.5) mg/dL Est GFR (CKD-EPI)AfAm 31.8 L (60.0-200.0) Est GFR (CKD-EPI)NonAf 27.5 L (60.0-200.0) BUN/Creatinine Ratio 25.42 H (12.00-20.00) Ratio Glucose 155 H (70-110) mg/dL Calcium 8.3 L (8.7-10.3) mg/dL Magnesium 2.6 H (1.5-2.4) mg/dL AST (14-35) U/L Total Protein (6.2-8.2) g/dL Albumin (3.80-4.90) g/dL Albumin/Globulin Ratio (1.60-3.17) g/dL Crossmatch Assessment and Plan Plan: Assessment and Plan (1) Microcytic hypochromic anemia Current Visit: Yes Status: Acute Priority: High Code(s): D50.9 - IRON DEFICIENCY ANEMIA, UNSPECIFIED SNOMED Code(s): 60384210 Status Post GI evaluation with evidence of gastric antral ectasia with oozing status post cautery per GI ok to resume AC with eliquis in 2 days. Plan for patient to follow-up in office for CBC check next week and probable parental iron.
== END 2020-10-25 17:46 | disposition home or self-care (01) | DRG 377 ==
LOC: EC 08:29 → 4SSUR 10:59
PROVIDERS: ADMIT Family Medicine; ATTEND Family Medicine
PROC: 30233N1 Transfusion of Nonautologous Red Blood Cells into Peripheral Vein, Percutaneous Approach (ICD-10-PCS; 2020-10-22)
PROC: 0DB48ZX Excision of Esophagogastric Junction, Via Natural or Artificial Opening Endoscopic, Diagnostic (ICD-10-PCS; principal; 2020-10-24 12:00)
PROC: 0W3P8ZZ Control Bleeding in Gastrointestinal Tract, Via Natural or Artificial Opening Endoscopic (ICD-10-PCS; 2020-10-24 12:00)
PROC: 0DJD8ZZ Inspection of Lower Intestinal Tract, Via Natural or Artificial Opening Endoscopic (ICD-10-PCS; 2020-10-24 12:00)
DX: K31.811 Angiodysplasia of stomach and duodenum with bleeding (principal); N17.0 Acute kidney failure with tubular necrosis; J44.1 Chronic obstructive pulmonary disease with (acute) exacerbation; I50.42 Chronic combined systolic (congestive) and diastolic (congestive) heart failure; I48.20 Chronic atrial fibrillation, unspecified; I42.9 Cardiomyopathy, unspecified; I13.0 Hypertensive heart and chronic kidney disease with heart failure and stage 1 through stage 4 chronic kidney disease, or unspecified chronic kidney disease; F05 Delirium due to known physiological condition; E87.1 Hypo-osmolality and hyponatremia; D62 Acute posthemorrhagic anemia; Z79.82 Long term (current) use of aspirin; Z79.01 Long term (current) use of anticoagulants; Y84.8 Other medical procedures as the cause of abnormal reaction of the patient, or of later complication, without mention of misadventure at the time of the procedure; Z79.890 Hormone replacement therapy; Z79.899 Other long term (current) drug therapy; Z82.49 Family history of ischemic heart disease and other diseases of the circulatory system; Z95.5 Presence of coronary angioplasty implant and graft; M54.9 Dorsalgia, unspecified; I48.0 Paroxysmal atrial fibrillation; I44.0 Atrioventricular block, first degree; I25.10 Atherosclerotic heart disease of native coronary artery without angina pectoris; F17.200 Nicotine dependence, unspecified, uncomplicated; E87.6 Hypokalemia; E86.1 Hypovolemia; E86.0 Dehydration; E83.51 Hypocalcemia; E83.42 Hypomagnesemia; E78.5 Hyperlipidemia, unspecified; E03.9 Hypothyroidism, unspecified; D72.829 Elevated white blood cell count, unspecified; M19.90 Unspecified osteoarthritis, unspecified site; N18.32 Chronic kidney disease, stage 3b; D50.9 Iron deficiency anemia, unspecified
CPT/HCPCS: 36415; 43239; 43255; 45378; 70450; 71046; 76770; 80048; 80053; 81001; 82330; 82728; 83540; 83550; 83735; 83880; 84132; 84484; 85025; 85610; 85730; 86850; 86880; 86900; 86901; 86920; 87635; 88305; 93005; 93306; 93880; 94640; 96365; 96375; 99285

== ENCOUNTER → 2020-10-28 | Outpatient (CLI) | payer MEDICARE ==
[2020-10-28 18:47] LABS: HCT 26.8 % (39.6-50.0); HGB 8.1 g/dL (13.0-17.0); MCH 23.2 pg (27.0-32.0); MCHC 30.2 g/dL (32.0-37.0); MCV 76.8 fL (80.0-97.0); Mean Platelet Volume 10.5 fL (9.5-12.2); Platelet Count 300 X 10*3/uL (140-440); RBC 3.49 X 10*6/uL (4.40-5.60); RDW 20.9 % (11.5-14.5); WBC 18.88 X 10*3/uL (4.50-10.00)
[2020-10-28 21:32] LABS: African American GFR (CKD) 27.6 (60.0-200.0); Anion Gap 11.8 mmol/L (4.00-12.00); Carbon Dioxide 26.2 mmol/L (21.6-31.8); Magnesium 2.3 mg/dL (1.5-2.4); Non-African American GFR(CKD) 23.8 (60.0-200.0); Potassium 3.3 mmol/L (3.5-5.5)
== END | disposition home or self-care (01) ==
LOC: LABWHC1 14:24
PROVIDERS: ATTEND Family Medicine
DX: B89 Unspecified parasitic disease (principal); I10 Essential (primary) hypertension
CPT/HCPCS: 36415; 80051; 82565; 83735; 84520; 85027

== ENCOUNTER → 2020-11-07 | Outpatient (CLI) | payer MEDICARE ==
[2020-11-07 19:19] LABS: HCT 27.8 % (39.6-50.0); HGB 8.1 g/dL (13.0-17.0); MCHC 29.1 g/dL (32.0-37.0); MCV 82.2 fL (80.0-97.0); Mean Platelet Volume 10.7 fL (9.5-12.2); Platelet Count 158 X 10*3/uL (140-440); RBC 3.38 X 10*6/uL (4.40-5.60); RDW 25.4 % (11.5-14.5); WBC 11.55 X 10*3/uL (4.50-10.00)
[2020-11-08 03:24] LABS: African American GFR (CKD) 33.5 (60.0-200.0); Anion Gap 13.1 mmol/L (4.00-12.00); Carbon Dioxide 20.9 mmol/L (21.6-31.8); Magnesium 1.9 mg/dL (1.5-2.4); Non-African American GFR(CKD) 28.9 (60.0-200.0); Potassium 3.9 mmol/L (3.5-5.5)
== END | disposition home or self-care (01) ==
LOC: LABWHC1 10:54
PROVIDERS: ATTEND Family Medicine
DX: B89 Unspecified parasitic disease (principal); I10 Essential (primary) hypertension
CPT/HCPCS: 36415; 80051; 82565; 83540; 83735; 84520; 85027

== ENCOUNTER → 2020-11-25 | Outpatient (CLI) | payer MEDICARE ==
[2020-11-25 17:10] LABS: Reticulocyte % 1.42 % (0.10-1.80)
[2020-11-25 17:45] LABS: HCT 27.2 % (39.6-50.0); HGB 8.1 g/dL (13.0-17.0); MCH 26.1 pg (27.0-32.0); MCHC 29.8 g/dL (32.0-37.0); MCV 87.7 fL (80.0-97.0); Mean Platelet Volume 9.9 fL (9.5-12.2); Platelet Count 205 X 10*3/uL (140-440); RDW 25.1 % (11.5-14.5)
[2020-11-25 17:46] LABS: Acanthocytes 2+; Anisocytosis (M) 2+
[2020-11-25 18:46] LABS: African American GFR (CKD) 45.1 (60.0-200.0); Albumin 3.6 g/dL (3.80-4.90); Albumin/Globulin Ratio 2.12 (1.60-3.17); Anion Gap 7.7 mmol/L (4.00-12.00); BUN/Creat Ratio 13.89 Ratio (12.00-20.00); Calcium 8.4 mg/dL (8.7-10.3); Carbon Dioxide 21.3 mmol/L (21.6-31.8); Globulin 1.7 g/dL (1.6-3.3); Non-African American GFR(CKD) 38.9 (60.0-200.0); Potassium 4.5 mmol/L (3.5-5.5); Total Bilirubin 1.1 mg/dL (0.3-1.2); Total Protein 5.3 g/dL (6.2-8.2)
== END | disposition home or self-care (01) ==
LOC: LABWHC1 09:45
PROVIDERS: ATTEND Family Medicine
DX: K92.2 Gastrointestinal hemorrhage, unspecified (principal); N18.9 Chronic kidney disease, unspecified
CPT/HCPCS: 36415; 80053; 83540; 83880; 85027; 85045; 86900; 86901

== ENCOUNTER → 2020-12-20 | Outpatient (CLI) | payer MEDICARE ==
[2020-12-20 19:50] LABS: African American GFR (CKD) 41.9 (60.0-200.0); Anion Gap 14.1 mmol/L (4.00-12.00); Blood Urea Nitrogen 18.8 mg/dL (9.0-27.0); Carbon Dioxide 23.9 mmol/L (21.6-31.8); Non-African American GFR(CKD) 36.2 (60.0-200.0); Potassium 3.1 mmol/L (3.5-5.5)
== END | disposition home or self-care (01) ==
LOC: LABWHC1 08:58
PROVIDERS: ATTEND Family Medicine
DX: I48.91 Unspecified atrial fibrillation (principal); M86.9 Osteomyelitis, unspecified
CPT/HCPCS: 36415; 80051; 82565; 84520

== ENCOUNTER 2021-06-21 14:23 | Inpatient (IN) | payer MEDICARE ==
[2021-06-21 14:51] LABS: Anisocytosis Slight; Basophils # (A) 0.1 k/uL (0-0.2); Basophils % (A) 0 %; Eosinophils # (A) 0.4 k/uL (0-0.7); Eosinophils % (A) 2 %; HGB 12.2 gm/dL (13.0-17.5); Lymphocytes # (A) 0.9 k/uL (1.0-4.8); Lymphocytes % (A) 4 %; MCH 28.8 pg (25.0-35.0); MCHC 32.1 g/dL (31.0-37.0); MCV 89.7 fL (80.0-100.0); Mean Platelet Volume 8.1; Monocytes # (A) 1.4 k/uL (0-1.0); Monocytes % (A) 6 %; Neutrophils # (A) 18.9 k/uL (1.3-7.7); Neutrophils % (A) 87 %; Platelet Count 218 k/uL (150-450); RBC 4.24 m/uL (4.30-5.90); RDW 16.1 % (11.5-15.5); WBC 21.8 k/uL (3.8-10.6)
[2021-06-21 15:05] LABS: Albumin 3.8 g/dL (3.5-5.0); Calcium 8.6 mg/dL (8.4-10.2); Potassium 4.2 mmol/L (3.5-5.1); Total Bilirubin 1.9 mg/dL (0.2-1.3); Total Protein 6.6 g/dL (6.3-8.2)
--- NOTE | 2021-06-21 15:14 | CT ---
EXAMINATION TYPE: CT brain wo con DATE OF EXAM: 06/21/2021 COMPARISON: 10/22/2020 HISTORY: ams CT DLP: 1247.4 mGycm Automated exposure control for dose reduction was used. There is cerebral cortical atrophy. There is no mass effect or midline shift. There is no sign of int racranial hemorrhage. The calvarium is intact. There is normal aeration of the mastoid sinuses. There is mucosal thickening and mucous retention cyst right maxillary sinus. There is calcific density in the anterior right internal capsule that measures 12 mm. Unchanged. IMPRESSION: Cerebral atrophy. Calcific density in the anterior right internal capsule stable compared to old exam and consistent with an old infarct.
[2021-06-21] MEDS ORDERED: Kcentra PER PHARMACY 1 EACH MISC MISCELLANE PRN (15:18)
[2021-06-21] MEDS ORDERED: levETIRAcetam IV 1,500 MG in SALINE 1 100ML.BAG IVPB STA (15:18)
[2021-06-21] MEDS ORDERED: SODIUM CHLORIDE 0.9% 500 ML 500 ML IV ONE (15:19)
--- NOTE | 2021-06-21 15:21 | XR ---
EXAMINATION TYPE: XR chest 1V DATE OF EXAM: 06/21/2021 COMPARISON: 10/21/2020 HISTORY: Short of breath TECHNIQUE: Single view FINDINGS: There is no heart failure nor confluent pneumonic infiltrate. There is some coarsening of t he lung markings on the left side. There are no hilar masses. Bony thorax is intact. IMPRESSION: There are some interstitial infiltrates in the left lung which appear new compared to old exam. No heart failure.
--- NOTE | 2021-06-21 15:25 | ED ---
General Adult HPI - General Chief complaint: Altered Mental Status Stated complaint: altered Time Seen by Provider: 06/21/21 15:04 Source: EMS, RN notes reviewed, old records reviewed Mode of arrival: EMS Limitations: altered mental status - History of Present Illness Initial comments: 65-year-old male presented for evaluation of acute confusion. Around 1 PM today the patient had gone to the restroom stating he was not feeling well. He began to have several episodes of vomiting. He was in the bathroom for about 30 minutes when his checked on him noting that he was not himself and was confused. He was barely able to stand at that time. Medics were called and the patient was brought to the emergency department. He is unable to contribute to the history with any kind of significance. He is on Eliquis with history of CAD and atrial fibrillation. - Related Data Home Medications Medication Instructions Recorded Confirmed Aspirin 81 mg PO HS 10/21/20 06/21/21 Atorvastatin [Lipitor] 80 mg PO DAILY 10/21/20 06/21/21 Levothyroxine Sodium [Synthroid] 100 mcg PO DAILY 10/21/20 06/21/21 Montelukast [Singulair] 10 mg PO HS 10/21/20 06/21/21 Tiotropium 18 Mcg/Puff [Spiriva] 2 puff INHALATION RT-DAILY@1200 10/21/20 06/21/21 Apixaban [Eliquis] 5 mg PO BID 06/21/21 06/21/21 Furosemide [Lasix] 40 mg PO DAILY@1400 06/21/21 06/21/21 Furosemide [Lasix] 80 mg PO DAILY@0600 06/21/21 06/21/21 Iron (Unknown Dose) 2 tab PO DAILY@1200 06/21/21 06/21/21 Omeprazole 40 mg PO HS 06/21/21 06/21/21 Spironolactone 25 mg PO HS 06/21/21 06/21/21 amLODIPine [Norvasc] 2.5 mg PO DAILY@1200 06/21/21 06/21/21 Previous Rx's Medication Instructions Recorded Metoprolol Tartrate [Lopressor] 50 mg PO TID #90 tab 09/12/15 Allergies Allergy/AdvReac Type Severity Reaction Status Date / Time Penicillins Allergy THROAT Verified 06/21/21 17:05 SWELLING/RASH/HIVES Review of Systems ROS Statement: Those systems with pertinent positive or pertinent negative responses have been documented in the HPI. ROS Other: All systems not noted in ROS Statement are negative. Past Medical History Past Medical History: Atrial Fibrillation, Chest Pain / Angina, Heart Failure, COPD, Hypertension, Osteoarthritis (OA) Additional Past Medical History / Comment(s): Chronic renal insufficiency stage III, cardiomyopathy, abdominal aneurysm History of Any Multi-Drug Resistant Organisms: None Reported Past Surgical History: Heart Catheterization, Heart Catheterization With Stent, Orthopedic Surgery Additional Past Surgical History / Comment(s): KARAN, CARDIOVERSION 10/17/15, left arm surgery - 1976 Past Anesthesia/Blood Transfusion Reactions: No Reported Reaction Date of Last Stent Placement:: 11/14/15 Past Psychological History: No Psychological Hx Reported Smoking Status: Former smoker Past Alcohol Use History: Occasional Past Drug Use History: None Reported - Past Family History Mother Family Medical History: Cancer, Myocardial Infarction ([place]) Additional Family Medical History / Comment(s): Mother of a [place] in in 60's General Exam General appearance: lethargic, in distress Head exam: Present: atraumatic, normocephalic Eye exam: Present: normal appearance, PERRL ENT exam: Present: mucous membranes dry Respiratory exam: Present: respiratory distress, decreased breath sounds Cardiovascular Exam: Present: regular rate, normal rhythm GI/Abdominal exam: Present: soft, distended. Absent: tenderness, guarding, rebound Extremities exam: Present: pedal edema Neurological exam: Present: motor sensory deficit (Patient will follow commands on the left, he has decreased movement on the right side of his body.). Absent: alert, oriented X3 Skin exam: Present: warm, dry, intact Course Vital Signs 06/21/21 06/21/21 06/21/21 14:28 15:09 15:10 Temperature 103.2 F H Pulse Rate 91 Respiratory 28 H Rate Blood Pressure 143/70 O2 Sat by Pulse 99 Oximetry - Reevaluation(s) Reevaluation #1: 06/21/21 17:39 Patient significantly improved, he is alert and oriented 3. He has equal border patrol agent strength. Fever improved. Blood pressure stable. EKG Findings - EKG Comments: EKG Findings:: EKG: I suspect sinus mechanism, rate of 89, normal GA interval, QRS duration 84, QTC [address] segment elevation. Medical Decision Making - Medical Decision Making 65-year-old male who presented with altered level consciousness, vomiting episode and high fever at 103. According to the the patient had been doing well prior to approximately 1 PM today. Workup was initiated including chest x-ray, CT brain, laboratory testing including blood cultures. CT was performed and there was concern for intracranial hemorrhage in the right internal capsule. Given the patient's acute change in mental status. This was reviewed with the radiologist and felt to be old calcified lesion and not acute bleed. I did discuss this with Dr. Kiser covering for neurology as well as the patient's presentation. His altered level consciousness is likely secondary to sepsis. He is covered with broad-spectrum antibiotics including acyclovir. He has a leukocytosis of 21,000. Stable anemia at 12.2. Chronic stable kidney disease, minimal lactic of 2.4. Urinalysis is negative, influenza and coronavirus are negative. Chest x-ray shows possible infiltrate left lower lung. Case discussed with Dr. Soriano who will admit. Both infectious disease and neurology will be placed on consult. - Lab Data Result diagrams: 06/21/21 14:45 06/21/21 14:45 Lab Results 06/21/21 06/21/21 06/21/21 Range/Units 14:33 14:45 14:45 WBC 21.8 H (3.8-10.6) k/uL RBC 4.24 L (4.30-5.90) m/uL Hgb 12.2 L (13.0-17.5) gm/dL Hct 38.0 L (39.0-53.0) % MCV 89.7 (80.0-100.0) fL MCH 28.8 (25.0-35.0) pg MCHC 32.1 (31.0-37.0) g/dL RDW 16.1 H (11.5-15.5) % Plt Count 218 (150-450) k/uL MPV 8.1 Neutrophils % 87 % Lymphocytes % 4 % Monocytes % 6 % Eosinophils % 2 % Basophils % 0 % Neutrophils # 18.9 H (1.3-7.7) k/uL Lymphocytes # 0.9 L (1.0-4.8) k/uL Monocytes # 1.4 H (0-1.0) k/uL Eosinophils # 0.4 (0-0.7) k/uL Basophils # 0.1 (0-0.2) k/uL Anisocytosis Slight PT (9.0-12.0) sec INR (<1.2) APTT (22.0-30.0) sec Sodium 139 (137-145) mmol/L Potassium 4.2 (3.5-5.1) mmol/L Chloride 111 H (98-107) mmol/L Carbon Dioxide 17 L (22-30) mmol/L Anion Gap 11 mmol/L BUN 25 H (9-20) mg/dL Creatinine 2.01 H (0.66-1.25) mg/dL Est GFR (CKD-EPI)AfAm 39 (>60 ml/min/1.73 sqM) Est GFR (CKD-EPI)NonAf 34 (>60 ml/min/1.73 sqM) Glucose 128 H (74-99) mg/dL Plasma Lactic Acid [place] (0.7-2.0) mmol/L Calcium 8.6 (8.4-10.2) mg/dL Total Bilirubin 1.9 H (0.2-1.3) mg/dL AST 54 (17-59) U/L ALT 23 (4-49) U/L Alkaline Phosphatase 124 (38-126) U/L Troponin I (0.000-0.034) ng/mL Total Protein 6.6 (6.3-8.2) g/dL Albumin 3.8 (3.5-5.0) g/dL Urine Color Urine Appearance (Clear) Urine pH (5.0-8.0) Ur Specific [place] (1.001-1.035) Urine Protein (Negative) Urine Glucose (UA) (Negative) Urine Ketones (Negative) Urine Blood (Negative) Urine Nitrite (Negative) Urine Bilirubin (Negative) Urine Urobilinogen (<2.0) mg/dL Ur Leukocyte Esterase (Negative) Urine Opiates Screen (NotDetected) Ur Oxycodone Screen (NotDetected) Urine Methadone Screen (NotDetected) Ur Propoxyphene Screen (NotDetected) Ur Barbiturates Screen (NotDetected) U Tricyclic Antidepress (NotDetected) Ur Phencyclidine Scrn (NotDetected) Ur Amphetamines Screen (NotDetected) U Methamphetamines Scrn (NotDetected) U Benzodiazepines Scrn (NotDetected) Urine Cocaine Screen (NotDetected) U Marijuana (THC) Screen (NotDetected) Coronavirus (PCR) Not Detected (Not Detectd) Influenza Type A RNA (Not Detectd) Influenza Type B (PCR) (Not Detectd) 06/21/21 06/21/21 06/21/21 Range/Units 14:45 15:17 16:35 WBC (3.8-10.6) k/uL RBC (4.30-5.90) m/uL Hgb (13.0-17.5) gm/dL Hct (39.0-53.0) % MCV (80.0-100.0) fL MCH (25.0-35.0) pg MCHC (31.0-37.0) g/dL RDW (11.5-15.5) % Plt Count (150-450) k/uL MPV Neutrophils % % Lymphocytes % % Monocytes % % Eosinophils % % Basophils % % Neutrophils # (1.3-7.7) k/uL Lymphocytes # (1.0-4.8) k/uL Monocytes # (0-1.0) k/uL Eosinophils # (0-0.7) k/uL Basophils # (0-0.2) k/uL Anisocytosis PT 12.3 H (9.0-12.0) sec INR 1.2 H (<1.2) APTT 26.9 (22.0-30.0) sec Sodium (137-145) mmol/L Potassium (3.5-5.1) mmol/L Chloride (98-107) mmol/L Carbon Dioxide (22-30) mmol/L Anion Gap mmol/L BUN (9-20) mg/dL Creatinine (0.66-1.25) mg/dL Est GFR (CKD-EPI)AfAm (>60 ml/min/1.73 sqM) Est GFR (CKD-EPI)NonAf (>60 ml/min/1.73 sqM) Glucose (74-99) mg/dL Plasma Lactic Acid Oswaldo (0.7-2.0) mmol/L Calcium (8.4-10.2) mg/dL Total Bilirubin (0.2-1.3) mg/dL AST (17-59) U/L ALT (4-49) U/L Alkaline Phosphatase (38-126) U/L Troponin I <0.012 (0.000-0.034) ng/mL Total Protein (6.3-8.2) g/dL Albumin (3.5-5.0) g/dL Urine Color Urine Appearance (Clear) Urine pH (5.0-8.0) Ur Specific [place] (1.001-1.035) Urine Protein (Negative) Urine Glucose (UA) (Negative) Urine Ketones (Negative) Urine Blood (Negative) Urine Nitrite (Negative) Urine Bilirubin (Negative) Urine Urobilinogen (<2.0) mg/dL Ur Leukocyte Esterase (Negative) Urine Opiates Screen (NotDetected) Ur Oxycodone Screen (NotDetected) Urine Methadone Screen (NotDetected) Ur Propoxyphene Screen (NotDetected) Ur Barbiturates Screen (NotDetected) U Tricyclic Antidepress (NotDetected) Ur Phencyclidine Scrn (NotDetected) Ur Amphetamines Screen (NotDetected) U Methamphetamines Scrn (NotDetected) U Benzodiazepines Scrn (NotDetected) Urine Cocaine Screen (NotDetected) U Marijuana (THC) Screen (NotDetected) Coronavirus (PCR) (Not Detectd) Influenza Type A RNA Not Detected (Not Detectd) Influenza Type B (PCR) Not Detected (Not Detectd) 06/21/21 06/21/21 Range/Units 16:35 17:01 WBC (3.8-10.6) k/uL RBC (4.30-5.90) m/uL Hgb (13.0-17.5) gm/dL Hct (39.0-53.0) % MCV (80.0-100.0) fL MCH (25.0-35.0) pg MCHC (31.0-37.0) g/dL RDW (11.5-15.5) % Plt Count (150-450) k/uL MPV Neutrophils % % Lymphocytes % % Monocytes % % Eosinophils % % Basophils % % Neutrophils # (1.3-7.7) k/uL Lymphocytes # (1.0-4.8) k/uL Monocytes # (0-1.0) k/uL Eosinophils # (0-0.7) k/uL Basophils # (0-0.2) k/uL Anisocytosis PT (9.0-12.0) sec INR (<1.2) APTT (22.0-30.0) sec Sodium (137-145) mmol/L Potassium (3.5-5.1) mmol/L Chloride (98-107) mmol/L Carbon Dioxide (22-30) mmol/L Anion Gap mmol/L BUN (9-20) mg/dL Creatinine (0.66-1.25) mg/dL Est GFR (CKD-EPI)AfAm (>60 ml/min/1.73 sqM) Est GFR (CKD-EPI)NonAf (>60 ml/min/1.73 sqM) Glucose (74-99) mg/dL Plasma Lactic Acid Oswaldo 2.4 H* (0.7-2.0) mmol/L Calcium (8.4-10.2) mg/dL Total Bilirubin (0.2-1.3) mg/dL AST (17-59) U/L ALT (4-49) U/L Alkaline Phosphatase (38-126) U/L Troponin I (0.000-0.034) ng/mL Total Protein (6.3-8.2) g/dL Albumin (3.5-5.0) g/dL Urine Color Yellow Urine Appearance Clear (Clear) Urine pH 5.5 (5.0-8.0) Ur Specific [place] 1.010 (1.001-1.035) Urine Protein Negative (Negative) Urine Glucose (UA) Negative (Negative) Urine Ketones Negative (Negative) Urine Blood Negative (Negative) Urine Nitrite Negative (Negative) Urine Bilirubin Negative (Negative) Urine Urobilinogen <2.0 (<2.0) mg/dL Ur Leukocyte Esterase Negative (Negative) Urine Opiates Screen Not Detected (NotDetected) Ur Oxycodone Screen Not Detected (NotDetected) Urine Methadone Screen Not Detected (NotDetected) Ur Propoxyphene Screen Not Detected (NotDetected) Ur Barbiturates Screen Not Detected (NotDetected) U Tricyclic Antidepress Not Detected (NotDetected) Ur Phencyclidine Scrn Not Detected (NotDetected) Ur Amphetamines Screen Not Detected (NotDetected) U Methamphetamines Scrn Not Detected (NotDetected) U Benzodiazepines Scrn Not Detected (NotDetected) Urine Cocaine Screen Not Detected (NotDetected) U Marijuana (THC) Screen Not Detected (NotDetected) Coronavirus (PCR) (Not Detectd) Influenza Type A RNA (Not Detectd) Influenza Type B (PCR) (Not Detectd) Critical Care Time Critical Care Time: Yes Total Critical Care Time: 35 Disposition Clinical Impression: Anemia, Fever, Altered mental status, Delirium due to general medical condition, Sepsis Disposition: ADMITTED IP TO THIS [facility] Condition: Serious Is patient prescribed a controlled substance at d/c from ED?: No Referrals: Ermias Soriano MD [Primary Care Provider] - 1-2 days Time of Disposition: 17:20
[2021-06-21] MEDS ORDERED: EMPTY BAG 1 BAG with HUMAN PROTHROMBIN COMPLX 2,140 UNIT IV ONE (15:30)
[2021-06-21] MEDS ORDERED: LEVOFLOXACIN 500MG-D5W PMX 500 MG in DEXTROSE/WATER 1 100ML.BAG IVPB STA (15:35)
[2021-06-21] MEDS ORDERED: ACETAMINOPHEN IV (For NPO) 1,000 MG in EMPTY BAG 1 BAG IVPB ONE (15:45)
[2021-06-21] MEDS ORDERED: ACYCLOVIR SODIUM IV ONE (16:42)
[2021-06-21] MEDS ORDERED: SODIUM CHLORIDE 0.9% IV ONE (16:42)
[2021-06-21] MEDS ORDERED: VANCOMYCIN IV PER PHARMACY 1 EACH MISC MISCELLANE PRN (16:45)
[2021-06-21 16:54] LABS: Appearance,Urine Clear (Clear); Bilirubin,Urine Negative (Negative); Blood,Urine Negative (Negative); Color,Urine Yellow; Glucose,Urine (UA) Negative (Negative); Ketones,Urine Negative (Negative); Leukocyte Esterase,Urine Negative (Negative); Nitrite,Urine Negative (Negative); PH, Urine 5.5 (5.0-8.0); Protein,Urine Negative (Negative); Urobilinogen,Urine <2.0 mg/dL (<2.0)
[2021-06-21] MEDS ORDERED: cefTRIAXone IN SWFI 1,000 MG/10 ML SYRINGE IVP STA (17:04)
[2021-06-21 17:06] LABS: Amphetamine Screen,Urine Not Detected (NotDetected); Barbiturate Screen,Urine Not Detected (NotDetected); Benzodiazepines Screen,Urine Not Detected (NotDetected); Cocaine Screen,Urine Not Detected (NotDetected); Methadone Screen, Urine Not Detected (NotDetected); Opiate Screen,Urine Not Detected (NotDetected); Oxycodone Screen, Urine Not Detected (NotDetected); Phencyclidine Screen,Urine Not Detected (NotDetected); Tricyclic Antidepressant,Urine Not Detected (NotDetected); Urn Cannabinoid Scrn Not Detected (NotDetected)
[2021-06-21 17:10] LABS: INR 1.2 (<1.2); Partial Thromboplastin Time 26.9 sec (22.0-30.0); Prothrombin Time 12.3 sec (9.0-12.0)
[2021-06-21] MEDS ORDERED: VANCOMYCIN 1,750 MG in SODIUM CHLORIDE 0.9% 500 ML 500 ML IVPB STA (17:32)
[2021-06-21] MEDS ORDERED: NALOXONE 0.4 MG/ML 1 ML VIAL IV PRN (17:35)
[2021-06-21] MEDS ORDERED: ACETAMINOPHEN TAB 325 MG TAB PO PRN (17:35)
[2021-06-21] MEDS: SODIUM CHLORIDE 0.9% 1,000 ML IV SCH (18:37)
[2021-06-21] MEDS: APIXABAN 5 MG TAB PO SCH (22:03)
[2021-06-21] MEDS: METOPROLOL TARTRATE 50 MG TAB PO SCH (22:03)
[2021-06-21] MEDS: PANTOPRAZOLE 40 MG TABLET PO SCH (22:04)
[2021-06-21] MEDS: ASPIRIN 81 MG PO SCH (22:04)
[2021-06-21] MEDS: SPIRONOLACTONE 25 MG TAB PO SCH (22:04)
[2021-06-21] MEDS: MONTELUKAST 10 MG TAB PO SCH (22:05)
[2021-06-22] MEDS: SODIUM CHLORIDE 0.9% 1,000 ML IV SCH ×3 (05:02→21:38)
[2021-06-22] MEDS: LEVOTHYROXINE 100 MCG TAB PO SCH (06:24)
[2021-06-22] MEDS: FUROSEMIDE 80 MG TAB PO SCH (06:24)
[2021-06-22] MEDS: APIXABAN 5 MG TAB PO SCH ×2 (08:20→21:37)
[2021-06-22] MEDS: ATORVASTATIN 80 MG TAB PO SCH (08:20)
[2021-06-22] MEDS: METOPROLOL TARTRATE 50 MG TAB PO SCH ×3 (08:21→21:37)
[2021-06-22] MEDS: IPRATROPIUM 0.5 MG/2.5 ML NEBU INHALATION SCH ×4 (08:34→20:27)
[2021-06-22] MEDS ORDERED: ACYCLOVIR SODIUM 900 MG in SODIUM CHLORIDE 0.9% 250 ML IVPB SCH (09:45)
--- NOTE | 2021-06-22 11:21 | P.CNNES ---
History of Present Illness Consult date: 06/22/21 Requesting physician: Cesario Nevarez Reason for Consult: altered mental status History of Present Illness: This is a 65-year-old gentleman with history of atrial fibrillation on eliquis, gastric antral vascular ectasia, congestive heart failure, hypertension, chronic kidney insufficiency, coronary artery disease status post stent, osteoarthritis, COPD presented emergency department on 06/21/2021 for acute confusion. Some of the history is obtained from medical records as well as the ED physician. According to patient for the past 3 weeks he has been having upset stomach but denied any nausea or vomiting or fever. He denies of any headache, focal weakness, numbness, visual disturbance. According to the ED physician, It seems add that the patient had the acute confusion and around 1 PM yesterday he went to the restroom stated that he was not feeling well and he began to have several episodes of vomiting. Then when the went to check up on him since he was in the bathroom for 30 minutes she felt like he was not himself and was confused and he was barely able to stand. As a result EMS was contacted. Of note Dr. Helm (Neuro-Hospitalist) evaluated the patient in our facility at the end of September 2020 for altered mental status and felt the patient had some focal finding of unclear etiology and he felt the diagnosis could be ALLERGIC reaction to transfusion/Benadryl versus TIA. His mentation has resolved. Please refer to his notes for further details. Some of the workup in the hospital consisted of: Initial vital signs is initial lead temperature of 103.2 Fahrenheit oral, the blood pressure was 143/70, heart rate of 91, respiratory of 28, pulse ox of 99% room air. But otherwise patient has been afebrile in our facility. Initial white blood cell is 21.8 thousand, and is predominantly neutrophilic. Creatinine is 2.01, BUN is 25, sodium is 139, calcium is 8.6, it is a lot plasma lactic acid venous 2. 4 repeat is 2.6. AST and ALT is within normal limits Urinalysis negative for urinary tract infection Kennedy virus PCR is not detected. Influenza a/B PCR was not detected Chest x-ray is reported as there is some interstitial infiltrates in the left lung which appears new compared to old exam. No heart failure. CT of the head is reported as cerebral atrophy. Calcified density in the right anterior internal capsule stable compared to old exam consistent with an old infarct. The ED contacted me yesterday and initially that it seems that the reading radiologist felt there is concern for intracranial hemorrhage in the right internal capsule but in 10/22/[address] the patient had a CT of the head and is reported as was felt that calcification over the right internal capsule. Then the reading radiologist briefly reviewed the images and he felt this was more calcified lesion and not acute bleed. I personally reviewed the CT of the head and I felt was consistent with the patient calcification in the past but seemed a little bit bigger but again it was in the same territory and it seemed consistent with calcification from the September 2020. I notified the ED team at to start the patient on broad spectrum antibiotic as well as acyclovir because of his fever and leukocytosis for coverage of meningeal encephalitis. Was unable to get lumbar puncture since the patient is on eliquis. Review of Systems Review of system: The 12 point system was reviewed and apparent positive and negative per HPI. Past Medical History Past Medical History: Atrial Fibrillation, Chest Pain / Angina, Heart Failure, COPD, Hypertension, Osteoarthritis (OA) Additional Past Medical History / Comment(s): chronic renal insufficiency stage III, cardiomyopathy, abdominal aneurysm History of Any Multi-Drug Resistant Organisms: None Reported Past Surgical History: Heart Catheterization, Heart Catheterization With Stent, Orthopedic Surgery Additional Past Surgical History / Comment(s): KARAN, cardioversion 10/17/15, left arm surgery - 1976 Past Anesthesia/Blood Transfusion Reactions: No Reported Reaction Date of Last Stent Placement:: 11/14/15 Past Psychological History: No Psychological Hx Reported Additional Psychological History / Comment(s): Pt resides with spouse. He has a cane which he has been using lately. He drives. Smoking Status: Current some day smoker Past Alcohol Use History: Occasional Additional Past Alcohol Use History / Comment(s): "SMOKES A COUPLE A DAY" A pack of cigarettes last him 3-4 days. Past Drug Use History: None Reported - Past Family History Mother Family Medical History: Cancer, Myocardial Infarction ([place]) Additional Family Medical History / Comment(s): Mother of a [place] in in 60's Medications and Allergies Home Medications Medication Instructions Recorded Confirmed Type Metoprolol Tartrate [Lopressor] 50 mg PO TID #90 tab 09/12/15 06/21/21 Rx Aspirin 81 mg PO HS 10/21/20 06/21/21 History Atorvastatin [Lipitor] 80 mg PO DAILY 10/21/20 06/21/21 History Levothyroxine Sodium [Synthroid] 100 mcg PO DAILY 10/21/20 06/21/21 History Montelukast [Singulair] 10 mg PO HS 10/21/20 06/21/21 History Tiotropium 18 Mcg/Puff [Spiriva] 2 puff INHALATION RT-DAILY@1200 10/21/20 06/21/21 History Apixaban [Eliquis] 5 mg PO BID 06/21/21 06/21/21 History Furosemide [Lasix] 40 mg PO DAILY@1400 06/21/21 06/21/21 History Furosemide [Lasix] 80 mg PO DAILY@0600 06/21/21 06/21/21 History Iron (Unknown Dose) 2 tab PO DAILY@1200 06/21/21 06/21/21 History Omeprazole 40 mg PO HS 06/21/21 06/21/21 History Spironolactone 25 mg PO HS 06/21/21 06/21/21 History amLODIPine [Norvasc] 2.5 mg PO DAILY@1200 06/21/21 06/21/21 History Allergies Allergy/AdvReac Type Severity Reaction Status Date / Time Penicillins Allergy THROAT Verified 06/21/21 17:05 SWELLING/RASH/HIVES Physical Examination - Vital Signs Vital Signs: Vital Signs Temp Pulse Pulse Resp BP BP Pulse Ox 06/22/21 04:00 98.2 F 63 17 103/51 98 06/21/21 23:55 98.4 F 68 18 96/54 98 06/21/21 20:00 99.4 F 85 20 105/51 98 06/21/21 18:17 98.9 F 85 18 119/65 99 06/21/21 15:10 103.2 F H 06/21/21 15:09 143/70 06/21/21 14:28 91 28 H 99 Intake and Output 06/21/21 06/22/21 06/22/21 22:59 06:59 14:59 Intake Total 20 20 Balance 20 20 Intake: IV 20 20 Invasive Line 1 10 Invasive Line 2 10 10 Invasive Line 3 10 Other: Voiding Method Toilet Toilet # Voids 1 1 Weight 113.469 kg GENERAL: The patient is an obese gentleman who is sitting at side of bed and is not in acute distress. HENT: No nuchal rigidity. Supple neck. CHEST: The heart rate is regular rate rhythm. No murmurs to auscultation. LUNG: Clear to auscultation bilaterally no wheezing noted throughout. Not labored breathing. ABDOMEN/GI: Bowel sounds present in all 4 quadrants. No tenderness to palpation throughout. NEUROLOGICAL: Higher mental function: The patient is awake, alert, oriented to self, place and time. He is minimally slowly to responding. He names objects correctly (pen, watch, glasses). Is able to stated the current state. Patient is following commands. No aphasia and no neglect. Cranial nerves: The pupils are round, equal and reactive to light and accommodation. Visual retana are full to confrontation throughout. Extraocular movement is intact no nystagmus is noted. Facial sensation is normal to touch throughout. The facial strength is normal throughout. Hearing is normal bilaterally to hand rub. Tongue is midline and moved [id number] without any difficulty. No dysarthria is noted. Shoulder shrug is normal bilaterally. Motor: Gait is deferred. The strength is 5 over 5 throughout. Normal tone and bulk. Cerebellum: Normal finger to nose bilaterally. Sensation: Sensation is normal to touch throughout. Reflexes (right/left): 1+ throughout. Plantars are downgoing bilaterally. Results - Laboratory Findings CBC and BMP: 06/21/21 14:45 06/22/21 08:47 Abnormal Lab Findings: Abnormal Labs 06/21/21 06/21/21 06/21/21 14:45 14:45 16:35 WBC 21.8 H RBC 4.24 L Hgb 12.2 L Hct 38.0 L RDW 16.1 H Neutrophils # 18.9 H Lymphocytes # 0.9 L Monocytes # 1.4 H PT 12.3 H INR 1.2 H Chloride 111 H Carbon Dioxide 17 L BUN 25 H Creatinine 2.01 H Glucose 128 H Plasma Lactic Acid Oswaldo Total Bilirubin 1.9 H 06/21/21 06/21/21 06/21/21 17:01 20:28 23:45 WBC RBC Hgb Hct RDW Neutrophils # Lymphocytes # Monocytes # PT INR Chloride Carbon Dioxide BUN Creatinine Glucose Plasma Lactic Acid Oswaldo 2.4 H* 2.6 H* 2.1 H* Total Bilirubin Assessment and Plan Assessment: * Altered mental status: Appears Septic Encephalopathy or unknown exact cause. He states he has GI upset for past 3 weeks but on X-ray possible due to underlying pneumonia (left lower lung infiltrate on CXR). Cannot rule out meningitis but seems very atypical since had only one time high grade fever (103.2F) and mentation is drastically improved and no focal deficits. * Atrial fibrillation on eliquis * History of Gastric antral vascular ectasia * Congestive heart failure * Hypertension * Chronic kidney insufficiency * History of coronary artery disease status post stent * Osteoarthritis * COPD Plan: Patient is on vancomycin, ceftriaxone was given 2 g once, levofloxacin was given a 500 mg dose and acyclovir 1130mg once. I started the patient on Ceftriaxone 2gm every 12 hours and Acylovir 10mg/g every 12 hours. I will defer modification of medication to I.D. team. Recommend consideration of Lumbar puncture. It would not be done until 2-3 days out since on Eliquis. I will speak with his significant other regarding stopping eliquis and side-effect of stopping medication and lumbar puncture. I ordered MRI of the brain without as well as MRA stat which will be done tomorrow since there is no tics available today. Cannot perform w/ because of kidney insuffiency. I ordered an urgent EEG. I will not start the patient on an antiepileptic drug unless there is epileptiform discharges or seizure on the EEG. In the ED the patient was given Keppra 1500mg once. Every 4 hour neuro checks Ordered vitamin B12, folate, TSH, ammonia level. Infection disease team is consulted. We'll defer the rest of the medical management to the primary team. The plan is discussed with the patient and his nurse. Thank you for the consultation. UPDATE: I spoke with the patient's (Lizzy) via phone and she stated that patient does not have any history of seizure and did not witness any episode of seizure yesterday. She stated patient was confused yesterday but was still responding. She felt patient is doing drastically better today compared to yesterday. She does not want to pursue with Lumbar Puncture at this time. I notified her about the CT head findings and it was felt that right basal ganglia finding was more due to calcification but bleed could not be rule out. Jack Trejo M.D. Neuro-Hospitalist Time with Patient: Greater than 30
[2021-06-22] MEDS: FUROSEMIDE 40 MG TAB PO SCH (13:08)
[2021-06-22] MEDS: FERROUS SULFATE 325 MG TAB PO SCH (13:08)
[2021-06-22] MEDS: amLODIPine 2.5 MG TAB PO SCH (13:08)
[2021-06-22] MEDS ORDERED: VANCOMYCIN 1,750 MG in SODIUM CHLORIDE 0.9% 500 ML 500 ML IVPB ONE (13:30)
--- NOTE | 2021-06-22 13:46 | CT ---
EXAMINATION TYPE: CT brain wo con CT DLP: 1159.4 mGycm, Automated exposure control for dose reduction was used. DATE OF EXAM: 06/22/2021 1:08 PM COMPARISON: Prior CT Brain from 06/21/2021 and 10/22/2020. CLINICAL INDICATION:Male, 65 years old with history of altered mental status. ?Calcification right ba lanre , AMS TECHNIQUE: Brain: Multiple axial CT images of the brain were obtained without IV contrast. FINDINGS: Brain: Extra-axial spaces: No abnormal extra-axial fluid collections. Ventricular system: Within normal limits Cerebral parenchyma: Increased density within the right basal ganglia is similar to most recent prior but has increased from 10/22/2020. Currently this area measures similarly at 11 mm. This has increase d in size from prior study 10/22/2020 but is stable from 06/18/2021. The ogden-white junction is well di fferentiated. Cerebellum: Unremarkable. Mass effect: No evidence of midline shift. Intracranial vasculature: unremarkable Soft tissues: Normal. Calvarium/osseous structures: No depressed skull fracture. Paranasal sinuses and mastoid air cells: Mild scattered paranasal sinus disease. Visualized orbits: Orbital contents are intact. IMPRESSION: Right basal ganglia area of increased attenuation which is increased in size from 10/22/2020 but stabl e from 10/21/2021. This may may represent calcification versus hemorrhage. Attention on MRI imaging to rule out hemorrhage.
[2021-06-22] MEDS: IOPAMIDOL CONTRAST (ORAL USE) VIAL PO PRN ×2 (14:11→14:32)
--- NOTE | 2021-06-22 15:43 | P.HPIM ---
History of Present Illness H&P Date: 06/22/21 Chief Complaint: Altered mental status Patient is a 65-year-old male with known history of atrial fibrillation on anticoagulation with Eliquis, coronary artery disease with history of stent placement, history of cardiomyopathy with more recent most recent echocardiogram showed ejection fraction 55 to 60%, CKD stage III, abdominal pain and is on, currently some day smoker and osteoarthritis was brought to the hospital due to confusion. At about 1 PM yesterday patient went to restroom and stating that he was not feeling well and he began having several episodes of vomiting. He was in the bathroom for about 30 minutes when his checked on him noting that he was not himself and was confused. And was barely able to stand with the time. Patient was brought to the hospital by EMS. In the ER on admission patient had fever with T-max 103.2, respiration 28 and pulse ox 99% on room air. He was given a dose of antibiotics in the form of Levaquin and vancomycin, ceftriaxone and acyclovir. Patient is being current on IV hydration. Patient mentation did improve within an hour while in the ER.And is back to baseline. Laboratory data showed WBC 21.8 hemoglobin 12.1 platelets 218 Neutrophils 18.9 Sodium 139 potassium 4.2 chloride 101 bicarb is 817 BUN 25 and creatinine 2.01 and urinalysis is negative for infection UDS negative and coronavirus PCR not detected. CT head showed cerebral atrophy. Calcific density in the anterior right internal capsule stable compared to wall exam. Consistent with old infarct. Chest x-ray showed there are some interstitial infiltrates in the left lung which appear new compared to old exam. EKG showed atrial fibrillation with controlled heart rate 89. Review of Systems Constitutional: Patient denies any fever or chills . No generalized weakness or weight loss. Abdomen: Patient denied nausea vomiting and diarrhea and abdominal pain. Cardiovascular: Patient denies any chest pain or short of breath no palpitations. Respiratory: patient denied any cough is from production. No shortness of breath Neurologic: Patient denied any numbness or tingling headache. Musculoskeletal: Patient denies any complaints of joint swelling or deformity. Skin: Negative Psychiatric: Negative Endocrine: No heat or cold intolerance. No recent weight gain. Genitourinary: No dysuria or hematuria. All other 14 point ROS negative except the above Past Medical History Past Medical History: Atrial Fibrillation, Chest Pain / Angina, Heart Failure, COPD, Hypertension, Osteoarthritis (OA) Additional Past Medical History / Comment(s): chronic renal insufficiency stage III, cardiomyopathy, abdominal aneurysm History of Any Multi-Drug Resistant Organisms: None Reported Past Surgical History: Heart Catheterization, Heart Catheterization With Stent, Orthopedic Surgery Additional Past Surgical History / Comment(s): KARAN, cardioversion 10/17/15, left arm surgery - 1976 Past Anesthesia/Blood Transfusion Reactions: No Reported Reaction Date of Last Stent Placement:: 11/14/15 Past Psychological History: No Psychological Hx Reported Additional Psychological History / Comment(s): Pt resides with spouse. He has a cane which he has been using lately. He drives. Smoking Status: Current some day smoker Past Alcohol Use History: Occasional Additional Past Alcohol Use History / Comment(s): "SMOKES A COUPLE A DAY" A pack of cigarettes last him 3-4 days. Past Drug Use History: None Reported - Past Family History Mother Family Medical History: Cancer, Myocardial Infarction ([place]) Additional Family Medical History / Comment(s): Mother of a [place] in in s Medications and Allergies Home Medications Medication Instructions Recorded Confirmed Type Metoprolol Tartrate [Lopressor] 50 mg PO TID #90 tab 09/12/15 06/21/21 Rx Aspirin 81 mg PO HS 10/21/20 06/21/21 History Atorvastatin [Lipitor] 80 mg PO DAILY 10/21/20 06/21/21 History Levothyroxine Sodium [Synthroid] 100 mcg PO DAILY 10/21/20 06/21/21 History Montelukast [Singulair] 10 mg PO HS 10/21/20 06/21/21 History Tiotropium 18 Mcg/Puff [Spiriva] 2 puff INHALATION RT-DAILY@1200 10/21/20 06/21/21 History Apixaban [Eliquis] 5 mg PO BID 06/21/21 06/21/21 History Furosemide [Lasix] 40 mg PO DAILY@1400 06/21/21 06/21/21 History Furosemide [Lasix] 80 mg PO DAILY@0600 06/21/21 06/21/21 History Iron (Unknown Dose) 2 tab PO DAILY@1200 06/21/21 06/21/21 History Omeprazole 40 mg PO HS 06/21/21 06/21/21 History Spironolactone 25 mg PO HS 06/21/21 06/21/21 History amLODIPine [Norvasc] 2.5 mg PO DAILY@1200 06/21/21 06/21/21 History Allergies Allergy/AdvReac Type Severity Reaction Status Date / Time Penicillins Allergy THROAT Verified 06/21/21 17:05 SWELLING/RASH/HIVES Physical Exam Vitals: Vital Signs Temp Pulse Pulse Resp BP BP Pulse Ox 06/22/21 04:00 98.2 F 63 17 103/51 98 06/21/21 23:55 98.4 F 68 18 96/54 98 06/21/21 20:00 99.4 F 85 20 105/51 98 06/21/21 18:17 98.9 F 85 18 119/65 99 06/21/21 15:10 103.2 F H 06/21/21 15:09 143/70 06/21/21 14:28 91 28 H 99 Intake and Output 06/21/21 06/22/21 06/22/21 22:59 06:59 14:59 Intake Total 20 20 180 Balance 20 20 180 Intake: IV 20 20 Invasive Line 1 10 Invasive Line 2 10 10 Invasive Line 3 10 Oral 180 Other: Voiding Method Toilet Toilet # Voids 1 1 Weight 113.469 kg PHYSICAL EXAMINATION: Patient is lying in the bed comfortably, no acute distress, awake alert and oriented.. HEENT: Normocephalic. Neck is supple. Pupils reactive. Nostrils clear. Oral cavity is moist. Neck reveals no JVD, carotid bruits, or thyromegaly. CHEST EXAMINATION: Trachea is central. Symmetrical expansion. Lung retana clear to auscultation and percussion. CARDIAC: Normal S1, S2 with no gallops. No murmurs ABDOMEN: Soft. Bowel sounds normal. No organomegaly. No abdominal bruits. Extremities: reveal no edema. No clubbing or cyanosis Neurologically awake, alert, oriented x3 with well-coordinated movements. No focal deficits noted Skin: No rash or skin lesions. Psychiatric: Coperative. Nonsuicidal Musculoskeletal: No joint swelling or deformity. Normal range of motion. Results CBC & Chem 7: 06/21/21 14:45 06/22/21 08:47 Labs: Abnormal Lab Results - Last 24 Hours (Table) 06/21/21 06/21/21 06/21/21 Range/Units 14:45 14:45 16:35 WBC 21.8 H (3.8-10.6) k/uL RBC 4.24 L (4.30-5.90) m/uL Hgb 12.2 L (13.0-17.5) gm/dL Hct 38.0 L (39.0-53.0) % RDW 16.1 H (11.5-15.5) % Neutrophils # 18.9 H (1.3-7.7) k/uL Lymphocytes # 0.9 L (1.0-4.8) k/uL Monocytes # 1.4 H (0-1.0) k/uL PT 12.3 H (9.0-12.0) sec INR 1.2 H (<1.2) Chloride 111 H (98-107) mmol/L Carbon Dioxide 17 L (22-30) mmol/L BUN 25 H (9-20) mg/dL Creatinine 2.01 H (0.66-1.25) mg/dL Glucose 128 H (74-99) mg/dL Plasma Lactic Acid Oswaldo (0.7-2.0) mmol/L Total Bilirubin 1.9 H (0.2-1.3) mg/dL 06/21/21 06/21/21 06/21/21 Range/Units 17:01 20:28 23:45 WBC (3.8-10.6) k/uL RBC (4.30-5.90) m/uL Hgb (13.0-17.5) gm/dL Hct (39.0-53.0) % RDW (11.5-15.5) % Neutrophils # (1.3-7.7) k/uL Lymphocytes # (1.0-4.8) k/uL Monocytes # (0-1.0) k/uL PT (9.0-12.0) sec INR (<1.2) Chloride (98-107) mmol/L Carbon Dioxide (22-30) mmol/L BUN (9-20) mg/dL Creatinine (0.66-1.25) mg/dL Glucose (74-99) mg/dL Plasma Lactic Acid Oswaldo 2.4 H* 2.6 H* 2.1 H* (0.7-2.0) mmol/L Total Bilirubin (0.2-1.3) mg/dL 06/22/21 Range/Units 08:47 WBC (3.8-10.6) k/uL RBC (4.30-5.90) m/uL Hgb (13.0-17.5) gm/dL Hct (39.0-53.0) % RDW (11.5-15.5) % Neutrophils # (1.3-7.7) k/uL Lymphocytes # (1.0-4.8) k/uL Monocytes # (0-1.0) k/uL PT (9.0-12.0) sec INR (<1.2) Chloride (98-107) mmol/L Carbon Dioxide (22-30) mmol/L BUN (9-20) mg/dL Creatinine 1.87 H (0.66-1.25) mg/dL Glucose (74-99) mg/dL Plasma Lactic Acid Oswaldo (0.7-2.0) mmol/L Total Bilirubin (0.2-1.3) mg/dL Thrombosis Risk Factor Assmnt - DVT/VTE Prophylaxis DVT/VTE Prophylaxis: Pharmacologic Prophylaxis ordered - Choose All That Apply Any of the Below Risk Factors Present?: Yes Each Factor Represents 1 point: Abnormal pulmonary function (COPD), Obesity (BMI >25), Swollen legs (current) Other Risk Factors: Yes Each Risk Factor Represents 2 Points: Age 61-74 years Other congenital or acquired thrombophilia - If yes, enter type in comment: No Thrombosis Risk Factor Assessment Total Risk Factor Score: 5 Thrombosis Risk Factor Assessment Level: High Risk Assessment and Plan Assessment: Altered mental status/metabolic encephalopathy likely due to infection/sepsis. Rule out meningitis. Patient was febrile with T-max 103.1 admission. Left lower lobe infiltrate. Possible pneumonia Nausea vomiting and diarrhea 3-week duration Chronic atrial fibrillation on anticoagulation with Eliquis History of cardiomyopathy. Recent echocardiogram showed ejection fraction 55 to 60%. Coronary artery disease history of stent placement History of gastric antral vascular ectasia CKD stage III with baseline creatinine level around 1.9 Lactic acidosis on admission Osteoarthritis Hypertension COPD Currently some day smoker DVT prophylaxis patient is already on Eliquis. Plan: Patient will be continued on antibiotics in the form of ceftriaxone and vancomycin and acyclovir. Continue with IV hydration and monitor respiratory status closely. Neurology and ID is on board. Possible LP tomorrow. Neurological work-up including MRI/MRA of the brain was ordered. Follow-up TSH, B12, folate and ammonia level. Blood cultures follow-up blood cultures. Continue with home medication including Eliquis. Patient's mentation is at baseline currently. Prognosis is guarded. Time with Patient: Greater than 30
[2021-06-22] MEDS: CEFEPIME 2 GM in SODIUM CHLORIDE 0.9% 100 ML IVPB SCH ×2 (18:34→23:38)
[2021-06-22] MEDS: SPIRONOLACTONE 25 MG TAB PO SCH (21:37)
[2021-06-22] MEDS: MONTELUKAST 10 MG TAB PO SCH (21:37)
[2021-06-22] MEDS: PANTOPRAZOLE 40 MG TABLET PO SCH (21:37)
[2021-06-22] MEDS: ASPIRIN 81 MG PO SCH (21:37)
--- NOTE | 2021-06-22 21:46 | CT ---
EXAMINATION TYPE: CT abdomen pelvis wo con DATE OF EXAM: 06/22/2021 COMPARISON: 09/06/2015 HISTORY: Fever, vomiting. CT DLP: 1287.4 mGycm Automated exposure control for dose reduction was used. Images obtained from the diaphragm to the floor of the pelvis with some oral contrast present. The lung bases are clear of consolidation. No pleural effusion. Heart size is normal. No pericardial effusion. Liver spleen and stomach pancreas appear intact. There is 12 mm calcified gallstone. The bi le ducts are not dilated. There is no adrenal mass. Kidneys have normal size. No hydronephrosis. There is a 4 cm cortical cyst lateral left kidney. Abdominal aorta is atheromatous. There is 5.8 cm aneurysm of the lower abdominal aorta. There is mild aneurysmal change in the common iliac arteries. There is a fat-containing left side lower abdominal wall periumbilical hernia. Hernia measures approximately 8 x 6 cm. There is no ascites or free air. No sign of a bowel obstruction. There is contrast material down to t he rectum. Bladder distends smoothly. No pelvic mass. No free fluid in the pelvis. The lumbar vertebr a appear intact. No compression fracture. Disc spaces are fairly normal. The bony pelvis is intact. IMPRESSION: There is lower abdominal aortic aneurysm which is increased 1.5 cm compared to old exam. Cholelithiasis which appears new compared to the old exam. Large periumbilical fat-containing hernia is increased in size compared to old exam. Old exam measures 3 cm and now measures 8 cm.
--- NOTE | 2021-06-23 00:15 | P.CONS ---
History of Present Illness - Reason for Consult Consult date: 06/22/21 Sepsis Requesting physician: Cesario Nevarez - Chief Complaint Mental status changes x one day - History of Present Illness Patient is a 65-year-old male who was brought into the ER yesterday afternoon for evaluation of acute confusion apparently around 1 PM the day of presentation to the hospital patient went to the restroom and stayed there for a long time when the went to check on him he was standing and complaining of not feeling well there and he was slightly confused and the patient did have several episodes of vomiting patient was complaining of feeling weak and barely able to stand, with the symptom the patient was brought into the ER on arrival to the ER the patient did have a fever of 103.2 F patient did have white count 21.8 with a left shift creatinine is mildly elevated elevated lactic acid level enzymes are normal urine was negative urine drug screen was negative kraus and influenza PCR was negative patient did have a CT of the brain that was negative for any bleed chest x-ray some interstitial infiltrate left lung which appear new compared to old exam patient has been evaluated by neurology and concern for possible encephalitis/meningitis started on acyclovir vancomycin and Rocephin, subsequently blood cultures coming positive with gram-negative bacilli infectious disease was consulted for further management of antibiotic therapy Review of Systems Positive point has been mentioned in the HPI rest of the systems are negative Past Medical History Past Medical History: Atrial Fibrillation, Chest Pain / Angina, Heart Failure, COPD, Hypertension, Osteoarthritis (OA) Additional Past Medical History / Comment(s): chronic renal insufficiency stage III, cardiomyopathy, abdominal aneurysm History of Any Multi-Drug Resistant Organisms: None Reported Past Surgical History: Heart Catheterization, Heart Catheterization With Stent, Orthopedic Surgery Additional Past Surgical History / Comment(s): KARAN, cardioversion 10/17/15, left arm surgery - 1976 Past Anesthesia/Blood Transfusion Reactions: No Reported Reaction Date of Last Stent Placement:: 11/14/15 Past Psychological History: No Psychological Hx Reported Additional Psychological History / Comment(s): Pt resides with spouse. He has a cane which he has been using lately. He drives. Smoking Status: Current some day smoker Past Alcohol Use History: Occasional Additional Past Alcohol Use History / Comment(s): "SMOKES A COUPLE A DAY" A pack of cigarettes last him 3-4 days. Past Drug Use History: None Reported - Past Family History Mother Family Medical History: Cancer, Myocardial Infarction ([place]) Additional Family Medical History / Comment(s): Mother of a [place] in in 60's Medications and Allergies Home Medications Medication Instructions Recorded Confirmed Type Metoprolol Tartrate [Lopressor] 50 mg PO TID #90 tab 09/12/15 06/21/21 Rx Aspirin 81 mg PO HS 10/21/20 06/21/21 History Atorvastatin [Lipitor] 80 mg PO DAILY 10/21/20 06/21/21 History Levothyroxine Sodium [Synthroid] 100 mcg PO DAILY 10/21/20 06/21/21 History Montelukast [Singulair] 10 mg PO HS 10/21/20 06/21/21 History Tiotropium 18 Mcg/Puff [Spiriva] 2 puff INHALATION RT-DAILY@1200 10/21/20 06/21/21 History Apixaban [Eliquis] 5 mg PO BID 06/21/21 06/21/21 History Furosemide [Lasix] 40 mg PO DAILY@1400 06/21/21 06/21/21 History Furosemide [Lasix] 80 mg PO DAILY@0600 06/21/21 06/21/21 History Iron (Unknown Dose) 2 tab PO DAILY@1200 06/21/21 06/21/21 History Omeprazole 40 mg PO HS 06/21/21 06/21/21 History Spironolactone 25 mg PO HS 06/21/21 06/21/21 History amLODIPine [Norvasc] 2.5 mg PO DAILY@1200 06/21/21 06/21/21 History Allergies Allergy/AdvReac Type Severity Reaction Status Date / Time Penicillins Allergy THROAT Verified 06/21/21 17:05 SWELLING/RASH/HIVES Physical Exam Vitals: Vital Signs Temp Pulse Pulse Resp BP BP Pulse Ox 06/22/21 08:00 98.2 F 65 18 101/59 97 06/22/21 04:00 98.2 F 63 17 103/51 98 06/21/21 23:55 98.4 F 68 18 96/54 98 06/21/21 20:00 99.4 F 85 20 105/51 98 06/21/21 18:17 98.9 F 85 18 119/65 99 06/21/21 15:10 103.2 F H 04/23/22 15:09 143/70 06/21/21 14:28 91 28 H 99 Intake and Output 06/21/21 06/22/21 06/22/21 22:59 06:59 14:59 Intake Total 20 20 200 Balance 20 20 200 Intake: IV 20 20 20 Invasive Line 1 10 Invasive Line 2 10 10 10 Invasive Line 3 10 10 Oral 180 Other: Voiding Method Toilet Toilet # Voids 1 2 Weight 113.469 kg GENERAL DESCRIPTION: An elderly male lying in bed, no distress. No tachypnea or accessory muscle of respiration use. HEENT: Shows Pallor , no scleral icterus. Oral mucous membrane is dry. No pharyngeal erythema or thrush NECK: Trachea central, no thyromegaly. LUNGS: Unlabored breathing. Clear to auscultation anteriorly. No wheeze or crackle. HEART: S1, S2, regular rate and rhythm. No loud murmur ABDOMEN: Soft, no tenderness , guarding or rigidity, no organomegaly EXTREMITIES: Swelling and some redness to the right lower extremity SKIN: No rash, no masses palpable. NEUROLOGICAL: The patient is awake, alert, oriented x3, mood and affect normal. Results CBC & Chem 7: 06/21/21 14:45 06/22/21 08:47 Labs: Abnormal Lab Results - Last 24 Hours (Table) 06/21/21 06/21/21 06/21/21 Range/Units 14:45 14:45 16:35 WBC 21.8 H (3.8-10.6) k/uL RBC 4.24 L (4.30-5.90) m/uL Hgb 12.2 L (13.0-17.5) gm/dL Hct 38.0 L (39.0-53.0) % RDW 16.1 H (11.5-15.5) % Neutrophils # 18.9 H (1.3-7.7) k/uL Lymphocytes # 0.9 L (1.0-4.8) k/uL Monocytes # 1.4 H (0-1.0) k/uL PT 12.3 H (9.0-12.0) sec INR 1.2 H (<1.2) Chloride 111 H (98-107) mmol/L Carbon Dioxide 17 L (22-30) mmol/L BUN 25 H (9-20) mg/dL Creatinine 2.01 H (0.66-1.25) mg/dL Glucose 128 H (74-99) mg/dL Plasma Lactic Acid Oswaldo (0.7-2.0) mmol/L Total Bilirubin 1.9 H (0.2-1.3) mg/dL Ammonia (<30) umol/L 06/21/21 06/21/21 06/21/21 Range/Units 17:01 20:28 23:45 WBC (3.8-10.6) k/uL RBC (4.30-5.90) m/uL Hgb (13.0-17.5) gm/dL Hct (39.0-53.0) % RDW (11.5-15.5) % Neutrophils # (1.3-7.7) k/uL Lymphocytes # (1.0-4.8) k/uL Monocytes # (0-1.0) k/uL PT (9.0-12.0) sec INR (<1.2) Chloride (98-107) mmol/L Carbon Dioxide (22-30) mmol/L BUN (9-20) mg/dL Creatinine (0.66-1.25) mg/dL Glucose (74-99) mg/dL Plasma Lactic Acid Oswaldo 2.4 H* 2.6 H* 2.1 H* (0.7-2.0) mmol/L Total Bilirubin (0.2-1.3) mg/dL Ammonia (<30) umol/L 06/22/21 06/22/21 Range/Units 08:47 10:20 WBC (3.8-10.6) k/uL RBC (4.30-5.90) m/uL Hgb (13.0-17.5) gm/dL Hct (39.0-53.0) % RDW (11.5-15.5) % Neutrophils # (1.3-7.7) k/uL Lymphocytes # (1.0-4.8) k/uL Monocytes # (0-1.0) k/uL PT (9.0-12.0) sec INR (<1.2) Chloride (98-107) mmol/L Carbon Dioxide (22-30) mmol/L BUN (9-20) mg/dL Creatinine 1.87 H (0.66-1.25) mg/dL Glucose (74-99) mg/dL Plasma Lactic Acid Oswaldo (0.7-2.0) mmol/L Total Bilirubin (0.2-1.3) mg/dL Ammonia 30 H (<30) umol/L Microbiology - Last 24 Hours (Table) 06/21/21 16:40 Blood Culture - Final Blood Assessment and Plan (1) Sepsis Current Visit: Yes Status: Acute Code(s): A41.9 - SEPSIS, UNSPECIFIED [facility] Code(s): 59831095 Plan: 1patient presented to hospital with sepsis and respiratory have fever elevated white count and now with evidence of gram-negative bacteremia patient did have multiple episodes of vomiting high clinical suspicious for abdominal source as the patient did have a negative UA, the patient also have a right lower extremity cellulitis with some superficial ulceration on the dorsal aspect of the right foot may be contributing to this sepsis and bacteremia if the CT abdominal pelvis is negative. 2clinically doubt meningitis or encephalitis. 3discontinue vancomycin Rocephin and acyclovir. 4obtain CT of abdominal pelvis with oral contrast in view of borderline kidney function. 5we will start the patient cefepime 2 g every 8 hourly while waiting for the ID sensitivity. We will follow on clinical condition and cultures to further adjust medication if needed Thank you for this consultation will follow this patient along with you Time with Patient: Greater than 30
[2021-06-23] MEDS ORDERED: FUROSEMIDE 80 MG TAB ONE (06:00)
[2021-06-23] MEDS ORDERED: APIXABAN 5 MG TAB ONE (06:00)
[2021-06-23] MEDS ORDERED: LEVOTHYROXINE 100 MCG TAB ONE (06:00)
[2021-06-23] MEDS ORDERED: ATORVASTATIN 80 MG TAB ONE (06:00)
[2021-06-23] MEDS ORDERED: METOPROLOL TARTRATE 50 MG TAB ONE (06:00)
[2021-06-23 08:35] LABS: Calcium 8.2 mg/dL (8.4-10.2); Potassium 3.7 mmol/L (3.5-5.1); Total Bilirubin 1.4 mg/dL (0.2-1.3); Total Protein 5.7 g/dL (6.3-8.2)
[2021-06-23] MEDS: IPRATROPIUM 0.5 MG/2.5 ML NEBU INHALATION SCH ×3 (11:14→21:47)
[2021-06-23] MEDS: FERROUS SULFATE 325 MG TAB PO SCH (12:31)
[2021-06-23] MEDS: amLODIPine 2.5 MG TAB PO SCH (12:31)
[2021-06-23] MEDS: SODIUM CHLORIDE 0.9% 1,000 ML IV SCH ×2 (12:33→23:56)
[2021-06-23] MEDS ORDERED: VANCOMYCIN 1,750 MG in SODIUM CHLORIDE 0.9% 500 ML 500 ML IVPB SCH (13:00)
--- NOTE | 2021-06-23 13:28 | XR ---
EXAMINATION TYPE: XR chest 1V DATE OF EXAM: 06/23/2021 COMPARISON: 06/21/2021 HISTORY: Cough TECHNIQUE: Single frontal view of the chest is obtained. FINDINGS: Heart size prominent is prominent perihilar interstitial markings. No pneumothorax or pleu ral effusion. No large area of consolidation. IMPRESSION: Cardiomegaly correlate for chronic interstitial lung disease otherwise consider intersti tial pneumonitis.
--- NOTE | 2021-06-23 14:46 | P.GSCN ---
History of Present Illness Consult date: 06/23/21 Reason for Consult: Abdominal aortic aneurysm Requesting physician: Ermias Soriano History of present illness: This is 65-year-old male with multiple comorbidities including coronary artery disease status post stent, atrial fibrillation on eliquis,, gastric AVMs, CHF, hypertension, chronic kidney disease and COPD and previous smoker of greater than 40 years. He presented to the emergency department 2 days ago with complaints of acute onset confusion. His states that time he told her he was not feeling well on Wednesday and then he went into the bathroom and vomited several times after 30 minutes he did not come out so she went in to see him and he appeared confused and weak. He was brought to the emergency department and noted to have a temperature of 103.0. He was started on antibiotics and seen by neurology. As part of his workup for infectious process infectious disease recommended a CT of the abdomen and pelvis, as well as with oral contrast only due to her kidney function. It was reported there was significant abdominal aortic aneurysm measuring 5.8 cm which was increased 1.5 cm from previous. Vascular surgery was consulted for abdominal aortic aneurysm. The patient states has no abdominal or back pain. He denies any shortness of breath or chest pain. No recent sick contacts. He has a large umbilical hernia that he states he has had for years. CT of abdomen and pelvis state that they hernias now measuring 8x 6 cm. He is been afebrile today. Blood cultures on showing gram-negative bacilli. Currently on cefepime. He just underwent EEG, pending results. MRI of brain ordered. Review of Systems 14 point review of systems was completed all pertinent positives and negatives as stated in the HPI Past Medical History Past Medical History: Atrial Fibrillation, Chest Pain / Angina, Heart Failure, COPD, Hypertension, Osteoarthritis (OA) Additional Past Medical History / Comment(s): chronic renal insufficiency stage III, cardiomyopathy, abdominal aneurysm History of Any Multi-Drug Resistant Organisms: None Reported Past Surgical History: Heart Catheterization, Heart Catheterization With Stent, Orthopedic Surgery Additional Past Surgical History / Comment(s): KARAN, cardioversion 10/17/15, left arm surgery - 1976 Past Anesthesia/Blood Transfusion Reactions: No Reported Reaction Date of Last Stent Placement:: 11/14/15 Past Psychological History: No Psychological Hx Reported Additional Psychological History / Comment(s): Pt resides with spouse. He has a cane which he has been using lately. He drives. Smoking Status: Current some day smoker Past Alcohol Use History: Occasional Additional Past Alcohol Use History / Comment(s): "SMOKES A COUPLE A DAY" A pack of cigarettes last him 3-4 days. Past Drug Use History: None Reported - Past Family History Mother Family Medical History: Cancer, Myocardial Infarction ([place]) Additional Family Medical History / Comment(s): Mother of a [place] in in 60's Medications and Allergies Home Medications Medication Instructions Recorded Confirmed Type Metoprolol Tartrate [Lopressor] 50 mg PO TID #90 tab 09/12/15 06/21/21 Rx Aspirin 81 mg PO HS 10/21/20 06/21/21 History Atorvastatin [Lipitor] 80 mg PO DAILY 10/21/20 06/21/21 History Levothyroxine Sodium [Synthroid] 100 mcg PO DAILY 10/21/20 06/21/21 History Montelukast [Singulair] 10 mg PO HS 10/21/20 06/21/21 History Tiotropium 18 Mcg/Puff [Spiriva] 2 puff INHALATION RT-DAILY@1200 10/21/20 06/21/21 History Apixaban [Eliquis] 5 mg PO BID 06/21/21 06/21/21 History Furosemide [Lasix] 40 mg PO DAILY@1400 06/21/21 06/21/21 History Furosemide [Lasix] 80 mg PO DAILY@0600 06/21/21 06/21/21 History Iron (Unknown Dose) 2 tab PO DAILY@1200 06/21/21 06/21/21 History Omeprazole 40 mg PO HS 06/21/21 06/21/21 History Spironolactone 25 mg PO HS 06/21/21 06/21/21 History amLODIPine [Norvasc] 2.5 mg PO DAILY@1200 06/21/21 06/21/21 History Allergies Allergy/AdvReac Type Severity Reaction Status Date / Time Penicillins Allergy THROAT Verified 06/21/21 17:05 SWELLING/RASH/HIVES Surgical - Exam Vital Signs Pulse Resp Pulse Ox 91 28 H 99 06/21/21 14:28 06/21/21 14:28 06/21/21 14:28 General appearance: The patient is alert, oriented, appears in no acute distress. HET: Head is normocephalic and atraumatic. Pupils are equal and reactive. Neck: Supple without lymphadenopathy. Trachea midline. No audible carotid bruit. Heart: S1 S2. Regular rate and rhythm. Lungs: Clear to auscultation bilaterally. Abdomen: Soft, nontender, large umbilical hernia, nondistended. Extremities: Normal skin color and turgor. Bilateral lower extremity edema. Neurological: No focal deficits. Strength and sensation are grossly intact. Results - Labs 06/21/21 14:45 06/23/21 07:35 Abnormal Lab Results - Last 24 Hours (Table) 06/23/21 Range/Units 07:35 Chloride 113 H (98-107) mmol/L Carbon Dioxide 16 L (22-30) mmol/L BUN 25 H (9-20) mg/dL Creatinine 1.90 H (0.66-1.25) mg/dL Calcium 8.2 L (8.4-10.2) mg/dL Total Bilirubin 1.4 H (0.2-1.3) mg/dL Total Protein 5.7 L (6.3-8.2) g/dL Albumin 3.0 L (3.5-5.0) g/dL Microbiology - Last 24 Hours (Table) 06/21/21 16:40 Blood Culture Gram Stain - Preliminary Blood Blood Culture - Preliminary Gram Neg Bacilli 06/21/21 16:40 Blood Culture Gram Stain - Preliminary Blood 06/21/21 16:40 Blood Culture - Final Blood 06/21/21 16:40 Blood Culture - Final Blood Diabetes panel 06/23/21 Range/Units 07:35 Sodium 140 (137-145) mmol/L Potassium 3.7 (3.5-5.1) mmol/L Chloride 113 H (98-107) mmol/L Carbon Dioxide 16 L (22-30) mmol/L BUN 25 H (9-20) mg/dL Creatinine 1.90 H (0.66-1.25) mg/dL Glucose 86 (74-99) mg/dL Calcium 8.2 L (8.4-10.2) mg/dL AST 46 (17-59) U/L ALT 20 (4-49) U/L Alkaline Phosphatase 99 (38-126) U/L Total Protein 5.7 L (6.3-8.2) g/dL Albumin 3.0 L (3.5-5.0) g/dL Calcium panel 06/23/21 Range/Units 07:35 Calcium 8.2 L (8.4-10.2) mg/dL Albumin 3.0 L (3.5-5.0) g/dL Pituitary panel 06/23/21 Range/Units 07:35 Sodium 140 (137-145) mmol/L Potassium 3.7 (3.5-5.1) mmol/L Chloride 113 H (98-107) mmol/L Carbon Dioxide 16 L (22-30) mmol/L BUN 25 H (9-20) mg/dL Creatinine 1.90 H (0.66-1.25) mg/dL Glucose 86 (74-99) mg/dL Calcium 8.2 L (8.4-10.2) mg/dL Adrenal panel 06/23/21 Range/Units 07:35 Sodium 140 (137-145) mmol/L Potassium 3.7 (3.5-5.1) mmol/L Chloride 113 H (98-107) mmol/L Carbon Dioxide 16 L (22-30) mmol/L BUN 25 H (9-20) mg/dL Creatinine 1.90 H (0.66-1.25) mg/dL Glucose 86 (74-99) mg/dL Calcium 8.2 L (8.4-10.2) mg/dL Total Bilirubin 1.4 H (0.2-1.3) mg/dL AST 46 (17-59) U/L ALT 20 (4-49) U/L Alkaline Phosphatase 99 (38-126) U/L Total Protein 5.7 L (6.3-8.2) g/dL Albumin 3.0 L (3.5-5.0) g/dL - Imaging Comments: CT abdomen and pelvis: 5.8 cm aneurysm of the lower abdominal aorta. Lower abdominal aortic aneurysm increased by 1.5 cm compared to old exam. Cholelithiasis which appears new compared to old exam. Large periumbilical fat- containing hernia increased in size compared to old exam. Old exam measures 3 cm and now measures [address] brain: Right basal ganglia area of increased in size from 10/22/2020 but stable from 10/21/2021. May represent calcification versus hemorrhage. Attention on MRI imaging to rule out hemorrhage. CT scan - abdomen: report reviewed Assessment and Plan Assessment: 1. Abdominal aortic aneurysm measuring 5.8 cm, asymptomatic 2. Sepsis, preliminary blood culturegram-negative bacilli 3. Altered mental status changes 4. Hyperammonemia 5. Atrial fibrillation on Eliquis 6. Coronary artery disease status post stent 7. History of gastric AVM 8. Hypertension 9. Chronic kidney disease 10. COPD 11. Previous smoker Plan: No plans at this time for any vascular surgical intervention as abdominal aortic aneurysm is asymptomatic, patient is being worked up for sepsis. If kidney function improves recommend CT angiogram abdomen and pelvis to further evaluate abdominal aortic aneurysm. Patient will need follow-up closely with vascular surgery, to discuss surgical intervention. Maintain optimal blood pressure. Continue workup with infectious disease and neurology. Thank you for this consultation, we will continue to follow. The impression and plan of care has been dictated as directed. Dr. Xie I performed a history and examination of this patient, discussed the same with the dictator. I agree with the dictator's note ,documented as a scribe. Any additional findings or plans will be noted.
--- NOTE | 2021-06-23 15:20 | EEG ---
ELECTROENCEPHALOGRAM REPORT DATE OF SERVICE: 06/23/2021. CLINICAL HISTORY: This is a 65-year-old gentleman with altered mental status. The video EEG is obtained to evaluate for seizure epileptiform activity. Relevant medications: The patient is not on any antiepileptic drugs. EEG TYPE: A routine 21-channel EEG is performed with video using the 10/20 electrode placement system. DESCRIPTION: Wakefulness is only obtained. During awake state, the background consists of 6 to 7 hertz activity. There is no physiological sleep architecture. There is no focal slowing. There is moderate to significant myogenic artifact over the right hemisphere and the left temporal region. Interictal and ictal is none. ACTIVATION PROCEDURE: Photic stimulation and hyperventilation are not performed. CLINICAL INTERPRETATION: This is an abnormal routine EEG. The background slowing is suggestive of mild encephalopathy of unknown etiology. Otherwise there is no focal slowing, epileptiform discharge or seizure on the EEG. Clinical correlation is recommended. BLANCA / SHAMEKA: [id number] / MTDD
[2021-06-23] MEDS: LEVOTHYROXINE 100 MCG TAB PO SCH (15:54)
[2021-06-23] MEDS: APIXABAN 5 MG TAB PO SCH ×2 (15:54→22:05)
[2021-06-23] MEDS: FUROSEMIDE 80 MG TAB PO SCH (15:54)
[2021-06-23] MEDS: ATORVASTATIN 80 MG TAB PO SCH (15:54)
[2021-06-23] MEDS: METOPROLOL TARTRATE 50 MG TAB PO SCH ×3 (15:55→22:05)
--- NOTE | 2021-06-23 15:56 | P.PN ---
Subjective Progress Note Date: 06/23/21 The patient is seen at bedside and feels he is doing well. He denies of any new neurological issues. No further fevers. I.D. felt his symptoms are due to abdominal source. They discontinue IV Acyclovir and Acylclovir Objective - Vital Signs Vital signs: Vital Signs Temp 98.2 F 06/23/21 08:00 Pulse 66 06/23/21 14:00 Resp 18 06/23/21 14:00 BP 109/72 06/23/21 12:00 Pulse Ox 98 06/23/21 12:00 Intake & Output 06/22/21 06/23/21 06/23/21 18:59 06:59 18:59 Intake Total 210 240 Output Total 900 Balance 210 -900 240 Intake: IV 30 Invasive Line 2 20 Invasive Line 3 10 Oral 180 240 Output: Urine 900 Other: Voiding Method Toilet Toilet Urinal Urinal # Voids 2 120 - Exam GENERAL: The patient is an obese gentleman who is sitting at side of bed and is not in acute distress. NEUROLOGICAL: Higher mental function: The patient is awake, alert, oriented to self and place. He initially states the year is 2020 but on asking him again he correctly states the year. He is minimally slowly to responding. He names objects correctly (pen, watch, glasses). Is able to stated the current state. Patient is following commands. No aphasia and no neglect. Cranial nerves: The pupils are round, equal and reactive to light and accommodation. Visual retana are full to confrontation throughout. Extraocular movement is intact no nystagmus is noted. Facial sensation is normal to touch throughout. The facial strength is normal throughout. Hearing is normal bilaterally to hand rub. Tongue is midline and moved [id number] without any difficulty. No dysarthria is noted. Shoulder shrug is normal bilaterally. Motor: Gait is deferred. The strength is 5 over 5 throughout. Normal tone and bulk. Cerebellum: Normal finger to nose bilaterally. Sensation: Sensation is normal to touch throughout. Reflexes (right/left): 1+ throughout. Plantars are downgoing bilaterally. WORK-UP: Vitamin B12: 937 Folate is 10.5 TSH: 0.893 Ammonia is 30 UDS is not detected. Kennedy virus PCR is not detected. Influenza a/B PCR was not detected CT of the head is reported as cerebral atrophy. 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 The ED contacted me yesterday and initially that it seems that the reading radiologist felt there is concern for intracranial hemorrhage in the right internal capsule but in 10/22/[address] the patient had a CT of the head and is reported as was felt that calcification over the right internal capsule. Then the reading radiologist briefly reviewed the images and he felt this was more calcified lesion and not acute bleed. I personally reviewed the CT of the head and I felt was consistent with the patient calcification in the past but seemed a little bit bigger but again it was in the same territory and it seemed consistent with calcification from the September 2020. Blood culture is gram neg bacilli - Labs CBC & Chem 7: 06/21/21 14:45 06/23/21 07:35 Labs: Abnormal Lab Results - Last 24 Hours (Table) 06/23/21 Range/Units 07:35 Chloride 113 H (98-107) mmol/L Carbon Dioxide 16 L (22-30) mmol/L BUN 25 H (9-20) mg/dL Creatinine 1.90 H (0.66-1.25) mg/dL Calcium 8.2 L (8.4-10.2) mg/dL Total Bilirubin 1.4 H (0.2-1.3) mg/dL Total Protein 5.7 L (6.3-8.2) g/dL Albumin 3.0 L (3.5-5.0) g/dL Microbiology - Last 24 Hours (Table) 06/21/21 16:40 Blood Culture Gram Stain - Preliminary Blood Blood Culture - Preliminary Gram Neg Bacilli 06/21/21 16:40 Blood Culture Gram Stain - Preliminary Blood 06/21/21 16:40 Blood Culture - Final Blood Assessment and Plan Assessment: * Altered mental status: Appears Septic Encephalopathy of unknown exact cause. He states he has GI upset for past 3 weeks but on X-ray possible due to underlying pneumonia (left lower lung infiltrate on CXR). Blood cultures is gram neg bacilli. It does not seem meningitis since had only one time high grade fever (103.2F) and mentation is drastically improved and no focal deficits. * Atrial fibrillation on eliquis * History of Gastric antral vascular ectasia * Congestive heart failure * Hypertension * Chronic kidney insufficiency * History of coronary artery disease status post stent * Osteoarthritis * COPD Plan: Pending MRI of the brain without as well as MRA stat which will be done tomorrow since there is no tics available today. Cannot perform w/ because of kidney insufficiency. I do not feel this is meningitis and neither does I.D. team. Pending routine EEG. I will not start the patient on an antiepileptic drug unless there is epileptiform discharges or seizure on the EEG. Every 4 hour neuro checks His ammonia level is 30 which is borderline abnormal. Will defer management to primary team. Primary team consulted GI team. Infection disease team is consulted. We'll defer the rest of the medical management to the primary team. The plan is discussed with the patient and his nurse. Jack Trejo M.D. Neuro-Hospitalist Time with Patient: Less than 30
[2021-06-23] MEDS: FUROSEMIDE 40 MG TAB PO SCH (16:02)
[2021-06-23] MEDS: CEFEPIME 2 GM in SODIUM CHLORIDE 0.9% 100 ML IVPB SCH ×2 (17:41→22:06)
--- NOTE | 2021-06-23 21:18 | MR ---
EXAMINATION TYPE: MR angio head wo con DATE OF EXAM: 06/23/2021 COMPARISON: None HISTORY: Altered mental status, evaluate for aneurysm. MR angiographic images were obtained of the intracerebral arterial circulation without contrast. There is arterial flow in the vertebral basilar artery system. There is arterial flow in the anterior middle and posterior cerebral arteries. There is arterial flow in both distal internal carotid arter ies. No mass effect. No evidence of intracranial aneurysm or neovascularity. No evidence of any signi ficant flow in the posterior communicating arteries. No evidence of hemodynamic stenosis. IMPRESSION: Normal MR angiography of the brain.
--- NOTE | 2021-06-23 21:19 | P.PN ---
Subjective Progress Note Date: 06/23/21 Principal diagnosis: Bacteremia Patient is a 65-year-old male presenting to the hospital with vomiting and some mental status changes subsequently noticed to have evidence of gram- negative bacteremia CT abdominal pelvis and this shows slight increase in size of the abdominal aortic aneurysm and cholelithiasis. On today's evaluation that is 06/23/2021, the patient is afebrile the patient is feeling slightly better, the patient denies having any headache no chest pain shortness of cough no nausea no vomiting no abdominal pain or diarrhea Objective - Vital Signs Vital signs: Vital Signs Temp 98.2 F 06/23/21 08:00 Pulse 61 06/23/21 08:00 Resp 18 06/23/21 08:00 BP 114/74 06/23/21 08:00 Pulse Ox 98 06/23/21 08:00 Intake & Output 06/22/21 06/23/21 06/23/21 18:59 06:59 18:59 Intake Total 210 Output Total 900 Balance 210 -900 Intake: IV 30 Invasive Line 2 20 Invasive Line 3 10 Oral 180 Output: Urine 900 Other: Voiding Method Toilet Urinal # Voids 2 - Exam GENERAL DESCRIPTION: An elderly male lying in bed in no distress RESPIRATORY SYSTEM: Unlabored breathing , decreased breath sounds at bases HEART: S1 S2 regular rate and rhythm , ABDOMEN: Soft , no tenderness EXTREMITIES: No edema feet - Labs CBC & Chem 7: 06/21/21 14:45 06/23/21 07:35 Labs: Abnormal Lab Results - Last 24 Hours (Table) 06/23/21 Range/Units 07:35 Chloride 113 H (98-107) mmol/L Carbon Dioxide 16 L (22-30) mmol/L BUN 25 H (9-20) mg/dL Creatinine 1.90 H (0.66-1.25) mg/dL Calcium 8.2 L (8.4-10.2) mg/dL Total Bilirubin 1.4 H (0.2-1.3) mg/dL Total Protein 5.7 L (6.3-8.2) g/dL Albumin 3.0 L (3.5-5.0) g/dL Microbiology - Last 24 Hours (Table) 06/21/21 16:40 Blood Culture Gram Stain - Preliminary Blood 06/21/21 16:40 Blood Culture Gram Stain - Preliminary Blood 06/21/21 16:40 Blood Culture - Final Blood 06/21/21 16:40 Blood Culture - Final Blood Assessment and Plan (1) Sepsis Current Visit: Yes Status: Acute Code(s): A41.9 - SEPSIS, UNSPECIFIED ORGANISM SNOMED Code(s): 20985758 Plan: 1patient presented to hospital with sepsis and respiratory have fever elevated white count and now with evidence of gram-negative bacteremia patient did have multiple episodes of vomiting high clinical suspicious for abdominal source as the patient did have a negative UA, the patient also have a right lower extremity cellulitis with some superficial ulceration on the dorsal aspect of the right foot may be contributing to this sepsis and bacteremia if the CT abdominal pelvis is negative. 2clinically doubt meningitis or encephalitis. 3 CT of abdominal pelvis with oral contrast did show evidence of cholelithiasis but no cholecystitis or diverticulitis. We will check ultrasound of the gallbladder area 4patient to continue with cefepime 2 g every 8 hourly while waiting for the ID sensitivity. Time with Patient: Less than 30
--- NOTE | 2021-06-23 21:25 | MR ---
EXAMINATION TYPE: MR brain wo con DATE OF EXAM: 06/23/2021 COMPARISON: HISTORY: Altered mental status, evaluate for aneurysm. Multiplanar multiecho imaging of the brain performed without contrast. There is some cerebral cortical atrophy. There is no mass effect nor midline shift. There is rounded 12 mm area of decreased signal in the right internal capsule consistent with calcification and is als o demonstrated on the CT scan yesterday. There is slight enlargement of the ventricles. Diffusion tonya ges show no sign of an acute infarct. The corpus callosum is intact. There is mucous retention cyst r ight maxillary sinus. The brainstem is intact. There are scattered foci of increased signal in the gr ay-white matter junction both cerebral hemispheres. Most of these measure less than 5 mm. There is a larger focus that measures 1.7 cm in the left parietal lobe white matter near the internal capsule. T otal number of white matter lesions as less than 20. The cerebellum is intact. 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 Scattered white matter lesions likely related to chronic small vessel ischemia. No evidence of an acute cortical infa rct.
[2021-06-23] MEDS: SPIRONOLACTONE 25 MG TAB PO SCH (22:05)
[2021-06-23] MEDS: MONTELUKAST 10 MG TAB PO SCH (22:05)
[2021-06-23] MEDS: PANTOPRAZOLE 40 MG TABLET PO SCH (22:05)
[2021-06-23] MEDS: ASPIRIN 81 MG PO SCH (22:05)
[2021-06-24] MEDS: FUROSEMIDE 80 MG TAB PO SCH (06:14)
[2021-06-24] MEDS: LEVOTHYROXINE 100 MCG TAB PO SCH (06:14)
[2021-06-24] MEDS: IPRATROPIUM 0.5 MG/2.5 ML NEBU INHALATION SCH ×4 (07:56→19:44)
[2021-06-24] MEDS: APIXABAN 5 MG TAB PO SCH ×2 (08:47→20:12)
[2021-06-24] MEDS: CEFEPIME 2 GM in SODIUM CHLORIDE 0.9% 100 ML IVPB SCH ×2 (08:48→20:12)
[2021-06-24] MEDS: ATORVASTATIN 80 MG TAB PO SCH (08:49)
[2021-06-24] MEDS: METOPROLOL TARTRATE 50 MG TAB PO SCH ×3 (08:49→22:05)
--- NOTE | 2021-06-24 10:00 | PN ---
PROGRESS NOTE This patient has Gram-negative bacteremia, leg cellulitis, delirium, dementia, altered mental status. He is improving daily with fluids, IV antibiotics. Repeat blood cultures are being done. Mentally he is more alert and awake. Vascular shows a 5.8 cm AAA for followup as an outpatient. ASSESSMENT: 1. Abdominal aortic aneurysm. 2. AMS. 3. Sepsis. 4. Pneumonia. Continue current treatment. Follow up in next 24 to 48 hours. Aneurysm check will be done by vascular surgeon. Continue with sepsis treatment. Prognosis guarded. MMODL / IJN: [id number] /
--- NOTE | 2021-06-24 10:54 | P.PN ---
Subjective Progress Note Date: 06/24/21 Principal diagnosis: Abdominal aortic aneurysm Patient seen and examined is a follow-up for abdominal aortic aneurysm measuring 5.8 cm. Patient was admitted with altered mental status changes, sepsis with gram-negative bacteremia. Unknown source at this time, infectious disease is following with clinical suspicion for abdominal source versus pneumonia. Patient is denying any abdominal pain, pain radiating to his back, nausea or vomiting. He is afebrile. He is alert and oriented. Denies any other focal deficits at this time. Objective - Vital Signs Vital signs: Vital Signs Temp 98.5 F 06/24/21 04:00 Pulse 57 L 06/24/21 04:00 Resp 17 06/24/21 04:00 BP 128/78 06/24/21 04:00 Pulse Ox 100 06/24/21 04:00 Intake & Output 06/23/21 06/24/21 06/24/21 18:59 06:59 18:59 Intake Total 240 120 Balance 240 120 Intake: Oral 240 120 Other: Voiding Method Toilet Toilet Urinal Urinal # Voids 120 2 - Exam General appearance: The patient is alert, oriented, appears in no acute distress. HET: Head is normocephalic and atraumatic. Pupils are equal and reactive. Neck: Supple without lymphadenopathy. Trachea midline. No audible carotid bruit. Heart: S1 S2. Regular rate and rhythm. Lungs: Clear to auscultation bilaterally. Abdomen: Soft, nontender, large umbilical hernia, nondistended. Extremities: Normal skin color and turgor. Bilateral lower extremity edema. Neurological: No focal deficits. Strength and sensation are grossly intact. - Labs CBC & Chem 7: 06/21/21 14:45 06/24/21 07:56 Labs: Abnormal Lab Results - Last 24 Hours (Table) 06/23/21 06/24/21 Range/Units 07:35 07:56 Chloride 113 H (98-107) mmol/L Carbon Dioxide 16 L (22-30) mmol/L BUN 25 H (9-20) mg/dL Creatinine 1.90 H 1.83 H (0.66-1.25) mg/dL Calcium 8.2 L (8.4-10.2) mg/dL Total Bilirubin 1.4 H (0.2-1.3) mg/dL Total Protein 5.7 L (6.3-8.2) g/dL Albumin 3.0 L (3.5-5.0) g/dL Microbiology - Last 24 Hours (Table) 06/21/21 16:40 Blood Culture Gram Stain - Preliminary Blood Blood Culture - Preliminary Gram Neg Bacilli Assessment and Plan Assessment: 1. Abdominal aortic aneurysm measuring 5.8 cm, asymptomatic 2. Sepsis, preliminary blood culturegram-negative bacilli 3. Altered mental status changes 4. Hyperammonemia 5. Atrial fibrillation on Eliquis 6. Coronary artery disease status post stent 7. History of gastric AVM 8. Hypertension 9. Chronic kidney disease 10. COPD 11. Previous smoker Plan: No plans at this time for any vascular surgical intervention as abdominal aortic aneurysm is asymptomatic, patient is being worked up for sepsis. If kidney function improves recommend CT angiogram abdomen and pelvis to further evaluate abdominal aortic aneurysm. Patient will need to follow-up closely with vascular surgery to discuss surgical intervention. Patient states he wants to discuss surgical options further with his . Maintain optimal blood pressure. Continue workup with infectious disease and neurology. Thank you for this consultation, we will continue to follow. The impression and plan of care has been dictated as directed. Dr. Xie I performed a history and examination of this patient, discussed the same with the dictator. I agree with the dictator's note ,documented as a scribe. Any additional findings or plans will be noted.
--- NOTE | 2021-06-24 13:59 | P.PN ---
Subjective Progress Note Date: 06/24/21 The patient is seen at bedside and is accompanied by his . He feels he is doing and denies of any weakness, visual defects or headaches. Objective - Vital Signs Vital signs: Vital Signs Temp 98.0 F 06/24/21 12:00 Pulse 58 L 06/24/21 12:00 Resp 16 06/24/21 12:00 BP 137/79 06/24/21 12:00 Pulse Ox 100 06/24/21 12:00 Intake & Output 06/23/21 06/24/21 06/24/21 18:59 06:59 18:59 Intake Total 240 420 Balance 240 420 Intake: Intake, IV Titration 300 Amount Sodium Chloride 0.9% 1, 300 000 ml @ 75 mls/hr IV . [id number] [facility] Rx#:[id number] Oral 240 120 Other: Voiding Method Toilet Toilet Toilet Urinal Urinal Urinal # Voids 120 2 - Exam GENERAL: The patient is an obese gentleman who is sitting at side of bed and is not in acute distress. NEUROLOGICAL: Higher mental function: The patient is awake, alert, oriented to self and place. He initially states the year is 2020 but on asking him again he correctly states the year. He is minimally slowly to responding. He names objects correctly (pen, watch, glasses). Is able to stated the current state. Patient is following commands. No aphasia and no neglect. Cranial nerves: The pupils are round, equal and reactive to light and accommodation. Visual retana are full to confrontation throughout. Extraocular movement is intact no nystagmus is noted. Facial sensation is normal to touch throughout. The facial strength is normal throughout. Hearing is normal bilaterally to hand rub. Tongue is midline and moved [id number] without any difficulty. No dysarthria is noted. Shoulder shrug is normal bilaterally. Motor: Gait is deferred. The strength is 5 over 5 throughout. Normal tone and bulk. Cerebellum: Normal finger to nose bilaterally. Sensation: Sensation is normal to touch throughout. Reflexes (right/left): 1+ throughout. Plantars are downgoing bilaterally. WORK-UP: Vitamin B12: 937 Folate is 10.5 TSH: 0.893 Ammonia is 30 UDS is not detected. Kennedy virus PCR is not detected. Influenza a/B PCR was not detected CT of the head is reported as cerebral atrophy. Calcified density in the right anterior internal capsule stable compared to old exam consistent with an old infarct. The ED contacted me initially that it seems that the reading radiologist felt there is concern for intracranial hemorrhage in the right internal capsule but in 10/22/[address] the patient had a CT of the head and is reported as was felt that calcification over the right internal capsule. Then the reading radiologist briefly reviewed the images and he felt this was more calcified lesion and not acute bleed. I personally reviewed the CT of the head and I felt was consistent with the patient calcification in the past but seemed a little bit bigger but again it was in the same territory and it seemed consistent with calcification from the September 2020. 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 Scattered white matter lesion likely related to chronic small vessel ischemia. No evidence of acute cortical infarct. Normal MRA of the brain Routine EEG on 06/23/2021 is abnormal. The back of slowing suggestive of mild encephalopathy of unknown etiology. Otherwise there is no focal slowing, epileptiform discharges or seizure on the EEG. Blood culture is gram neg bacilli - Labs CBC & Chem 7: 06/21/21 14:45 06/24/21 07:56 Labs: Abnormal Lab Results - Last 24 Hours (Table) 06/24/21 Range/Units 07:56 Creatinine 1.83 H (0.66-1.25) mg/dL Microbiology - Last 24 Hours (Table) 06/21/21 16:40 Blood Culture Gram Stain - Preliminary Blood Blood Culture - Preliminary Gram Neg Bacilli Assessment and Plan Assessment: * Altered mental status: Appears Septic Encephalopathy of unknown exact cause. He states he has GI upset for past 3 weeks but on X-ray possible due to underlying pneumonia (left lower lung infiltrate on CXR). Blood cultures is gram neg bacilli. It does not seem meningitis since had only one time high grade fever (103.2F) and mentation is drastically improved and no focal def icits. 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 Scattered white matter lesion likely related to chronic small vessel ischemia. No evidence of acute cortical infarct. Normal MRA of the brain I attempted multiple times to contact the reading extra hand but nobody is available we'll attempt tomorrow and hopefully a different reading radiologist I can review the MRI. I updated patient and of findings of MRI report. I do not feel this is meningitis and neither does I.D. team. Every 4 hour neuro checks His ammonia level is 30 which is borderline abnormal. Will defer management to primary team. Primary team consulted GI team. Infection disease team is consulted. We'll defer the rest of the medical management to the primary team. The plan is discussed with the patient and his who is at bedside. Jack Trejo M.D. Neuro-Hospitalist Time with Patient: Less than 30
[2021-06-24] MEDS: amLODIPine 2.5 MG TAB PO SCH (16:08)
[2021-06-24] MEDS: FUROSEMIDE 40 MG TAB PO SCH (16:08)
[2021-06-24] MEDS: FERROUS SULFATE 325 MG TAB PO SCH (16:08)
--- NOTE | 2021-06-24 16:32 | US ---
EXAMINATION TYPE: US abdomen limited DATE OF EXAM: 06/24/2021 COMPARISON: CT 06/22/2021 CLINICAL HISTORY: Fever, gall stone ?cholecystitis. Pain EXAM MEASUREMENTS: Liver Length: 16.8 cm, liver is enlarged on patient's CT, spleen was noted to be enlarged on prior C T. Gallbladder Wall: .4 cm upper limits. CBD: .4 cm Right Kidney: 10.9 x 5.3 x 4.9 cm Limitations due to bowel gas. Pancreas: Obscured by bowel gas Liver: Increased attenuation Gallbladder: Multiple gallstones seen, suggestion of ringdown artifact, there may be underlying chol esterolosis. Evidence for sonographic Bill's sign: No CBD: wnl Right Kidney: wnl IMPRESSION: Exam somewhat limited. Cholelithiasis, possible cholesterolosis in the gallbladder. Coars e echotexture of the liver could be due to underlying hepatocellular disease.
[2021-06-24] MEDS: SODIUM CHLORIDE 0.9% 1,000 ML IV SCH (19:26)
[2021-06-24] MEDS: SPIRONOLACTONE 25 MG TAB PO SCH (20:12)
[2021-06-24] MEDS: PANTOPRAZOLE 40 MG TABLET PO SCH (20:12)
[2021-06-24] MEDS: MONTELUKAST 10 MG TAB PO SCH (20:12)
[2021-06-24] MEDS: ASPIRIN 81 MG PO SCH (20:12)
[2021-06-25] MEDS: SODIUM CHLORIDE 0.9% 1,000 ML IV SCH ×2 (00:45→15:18)
[2021-06-25] MEDS: LEVOTHYROXINE 100 MCG TAB PO SCH (06:12)
[2021-06-25] MEDS: FUROSEMIDE 80 MG TAB PO SCH (06:12)
[2021-06-25 07:28] LABS: Anisocytosis Slight; Basophils # (A) 0.1 k/uL (0-0.2); Basophils % (A) 1 %; Eosinophils # (A) 0.4 k/uL (0-0.7); Eosinophils % (A) 6 %; HCT 35.6 % (39.0-53.0); HGB 11.4 gm/dL (13.0-17.5); Hypochromasia Slight; Lymphocytes % (A) 16 %; MCH 29.1 pg (25.0-35.0); MCV 91.2 fL (80.0-100.0); Mean Platelet Volume 7.8; Monocytes # (A) 0.6 k/uL (0-1.0); Monocytes % (A) 10 %; Neutrophils # (A) 3.9 k/uL (1.3-7.7); Neutrophils % (A) 63 %; Platelet Count 201 k/uL (150-450); RDW 16.3 % (11.5-15.5); WBC 6.3 k/uL (3.8-10.6)
[2021-06-25 07:47] LABS: Albumin 3.1 g/dL (3.5-5.0); Calcium 8.3 mg/dL (8.4-10.2); Potassium 3.7 mmol/L (3.5-5.1); Total Protein 5.9 g/dL (6.3-8.2)
[2021-06-25] MEDS: IPRATROPIUM 0.5 MG/2.5 ML NEBU INHALATION SCH ×4 (08:14→21:59)
[2021-06-25] MEDS: APIXABAN 5 MG TAB PO SCH ×2 (08:41→21:51)
[2021-06-25] MEDS: METOPROLOL TARTRATE 50 MG TAB PO SCH ×3 (08:41→21:51)
[2021-06-25] MEDS: CEFEPIME 2 GM in SODIUM CHLORIDE 0.9% 100 ML IVPB SCH ×2 (08:41→21:51)
[2021-06-25] MEDS: ATORVASTATIN 80 MG TAB PO SCH (08:41)
--- NOTE | 2021-06-25 08:47 | PN ---
PROGRESS NOTE This 65-year-old has altered mental status, sepsis, pneumonia, Gram-negative bacteremia. Repeat blood culture so far is negative. Remains on broad-spectrum antibiotics. Vascular doctor saw him for a 5.8 cm AAA and he will have outpatient workup with on this. Continue on broad-spectrum antibiotics until septic workup is completed. The patient is slowly improving, although he is fatigued and weak. Cardiovascular S1, S2. Lungs clear. GI soft. ASSESSMENT: 1. Altered mental status. 2. Sepsis. 3. Pneumonia, improving. 4. Diastolic congestive heart failure. IV Lasix, antibiotics. Check lactic acid. Prognosis guarded. 5. abdominal aortic aneurysm. Follow up as an outpatient. MMODL / IJN: [id number] /
--- NOTE | 2021-06-25 10:32 | P.PN ---
Subjective Progress Note Date: 06/25/21 Principal diagnosis: Abdominal aortic aneurysm Patient seen and examined is a follow-up for abdominal aortic aneurysm measuring 5.8 cm. Patient was admitted with altered mental status changes, sepsis with gram-negative bacteremia. Unknown source at this time, infectious disease is following with clinical suspicion for abdominal source versus pneumonia. And underwent abdominal ultrasound yesterday reporting cholelithiasis, possible cholesterolosis of gallbladder. Coarse echotexture of liver could be due to underlying hepatocellular disease. Patient denies any previous history of underlying liver disease, denies any history of former alcohol abuse or current alcohol abuse. Repeat BUN 23 creatinine 1.97. Objective - Vital Signs Vital signs: Vital Signs Temp 97.7 F 06/25/21 08:00 Pulse 67 06/25/21 08:00 Resp 18 06/25/21 08:00 BP 112/63 06/25/21 08:00 Pulse Ox 99 06/25/21 08:00 Intake & Output 06/24/21 06/25/21 06/25/21 18:59 06:59 18:59 Intake Total 660 520 400 Balance 660 520 400 Intake: Intake, IV Titration 300 280 Amount Cefepime 2 gm In Sodium 100 Chloride 0.9% 100 ml @ 25 mls/hr IVPB Q12HR [facility] Rx #:[id number] Sodium Chloride 0.9% 1, 300 180 000 ml @ 75 mls/hr IV . [id number] [facility] Rx#:[id number] Oral 360 240 400 Other: Voiding Method Toilet Toilet Urinal Urinal # Voids 3 - Exam General appearance: The patient is alert, oriented, appears in no acute distress. HET: Head is normocephalic and atraumatic. Pupils are equal and reactive. Neck: Supple without lymphadenopathy. Trachea midline. No audible carotid bruit. Heart: S1 S2. Regular rate and rhythm. Lungs: Clear to auscultation bilaterally. Abdomen: Soft, nontender, large umbilical hernia, nondistended. Extremities: Normal skin color and turgor. Bilateral lower extremity edema. Neurological: No focal deficits. Strength and sensation are grossly intact. - Labs CBC & Chem 7: 06/25/21 07:01 06/25/21 07:01 Labs: Abnormal Lab Results - Last 24 Hours (Table) 06/25/21 06/25/21 Range/Units 07:01 07:01 RBC 3.90 L (4.30-5.90) m/uL Hgb 11.4 L (13.0-17.5) gm/dL Hct 35.6 L (39.0-53.0) % RDW 16.3 H (11.5-15.5) % Chloride 109 H (98-107) mmol/L Carbon Dioxide 21 L (22-30) mmol/L BUN 23 H (9-20) mg/dL Creatinine 1.97 H (0.66-1.25) mg/dL Calcium 8.3 L (8.4-10.2) mg/dL Total Protein 5.9 L (6.3-8.2) g/dL Albumin 3.1 L (3.5-5.0) g/dL Assessment and Plan Assessment: 1. Abdominal aortic aneurysm measuring 5.8 cm, asymptomatic 2. Sepsis, preliminary blood culturegram-negative bacilli 3. Altered mental status changes 4. Hyperammonemia 5. Atrial fibrillation on Eliquis 6. Coronary artery disease status post stent 7. History of gastric AVM 8. Hypertension 9. Chronic kidney disease 10. COPD 11. Previous smoker 12. Umbilical hernia Plan: No plans at this time for any vascular surgical intervention as abdominal aortic aneurysm is asymptomatic, patient is being worked up for sepsis. If kidney function improves recommend CT angiogram abdomen and pelvis to further evaluate abdominal aortic aneurysm. Patient will need to follow-up closely with vascular surgery to discuss surgical intervention. Patient states he wants to discuss surgical options further with his . Maintain optimal blood pressure. Continue workup with infectious disease and neurology. Thank you for this consultation, the patient is cleared for discharge from vascular surgery. Patient will need follow-up in the next 2 weeks. The impression and plan of care has been dictated as directed. Dr. Xie I performed a history and examination of this patient, discussed the same with the dictator. I agree with the dictator's note ,documented as a scribe. Any additional findings or plans will be noted.
--- NOTE | 2021-06-25 12:07 | P.PN ---
Subjective Progress Note Date: 06/25/21 The patient is seen at bedside and he continues to be feeling well. He feels back to baseline. He continues to be afebrile. Denies of any headache. Objective - Vital Signs Vital signs: Vital Signs Temp 97.7 F 06/25/21 08:00 Pulse 67 06/25/21 08:00 Resp 18 06/25/21 08:00 BP 112/63 06/25/21 08:00 Pulse Ox 99 06/25/21 08:00 Intake & Output 06/24/21 06/25/21 06/25/21 18:59 06:59 18:59 Intake Total 660 520 400 Balance 660 520 400 Intake: Intake, IV Titration 300 280 Amount Cefepime 2 gm In Sodium 100 Chloride 0.9% 100 ml @ 25 mls/hr IVPB Q12HR [facility] Rx #:[id number] Sodium Chloride 0.9% 1, 300 180 000 ml @ 75 mls/hr IV . [id number] [facility] Rx#:[id number] Oral 360 240 400 Other: Voiding Method Toilet Toilet Toilet Urinal Urinal Urinal # Voids 3 - Labs CBC & Chem 7: 06/25/21 07:01 06/25/21 07:01 Labs: Abnormal Lab Results - Last 24 Hours (Table) 06/25/21 06/25/21 Range/Units 07:01 07:01 RBC 3.90 L (4.30-5.90) m/uL Hgb 11.4 L (13.0-17.5) gm/dL Hct 35.6 L (39.0-53.0) % RDW 16.3 H (11.5-15.5) % Chloride 109 H (98-107) mmol/L Carbon Dioxide 21 L (22-30) mmol/L BUN 23 H (9-20) mg/dL Creatinine 1.97 H (0.66-1.25) mg/dL Calcium 8.3 L (8.4-10.2) mg/dL Total Protein 5.9 L (6.3-8.2) g/dL Albumin 3.1 L (3.5-5.0) g/dL Assessment and Plan Assessment: * Altered mental status: Appears Septic Encephalopathy of unknown exact cause. He states he has GI upset for past 3 weeks but on X-ray possible due to underlying pneumonia (left lower lung infiltrate on CXR). Blood cultures is gram neg bacilli. It does not seem meningitis since had only one time high grade fever (103.2F) and mentation is drastically improved and no focal deficits. * Atrial fibrillation on eliquis * History of Gastric antral vascular ectasia * Congestive heart failure * Hypertension * Chronic kidney insufficiency * Abdominal aortic aneurysm of about 1.5 cm * History of coronary artery disease status post stent * Osteoarthritis * COPD Plan: Normal MRA of the brain I spoke with Dr. Romero (reading radiologist) regarding MRI Brain and he reviewed it and felt blooming artifact on this patient is presumed related to unilateral basal ganglia calcification of indeterminate etiology. Old hemorrhagic infarct felt unlikely. I attempted multiple times to contact the reading measurement operator but nobody is available we'll attempt tomorrow and hopefully a different reading radiologist I can review the MRI. I updated patient and of findings of MRI report. I do not feel this is meningitis and neither does I.D. team. Every 4 hour neuro checks His ammonia level is 30-->9. Primary team consulted GI team. Infection disease team is consulted. We'll defer the rest of the medical management to the primary team. Recommend patient to follow-up with neurologist and neurosurgeon as outpatient within 2-3 weeks. The plan is discussed with the patient. No additional work-up is needed. Jack Trejo M.D. Neuro-Hospitalist Time with Patient: Less than 30
[2021-06-25] MEDS: FERROUS SULFATE 325 MG TAB PO SCH (12:37)
[2021-06-25] MEDS: amLODIPine 2.5 MG TAB PO SCH (12:37)
--- NOTE | 2021-06-25 15:05 | P.GSCN ---
History of Present Illness Consult date: 06/25/21 History of present illness: CHIEF COMPLAINT: Altered mental status HISTORY OF PRESENT ILLNESS: This is a 65-year-old male who presented to the hospital with altered mental status, fever, leukocytosis and evidence of sepsis with positive blood cultures. He did report an upset stomach with vomiting. Patient has a known history of atrial fibrillation and coronary artery disease he is anticoagulated L Oquist. Patient being followed by infectious disease. There are concerns about possible abdominal source of infection. Patient currently denies any abdominal pain. Denies any nausea or vomiting. He is tolerating diet without any pain. He reports having regular bowel movements. He is currently afebrile. Patient also has evidence of a incarcerated umbilical hernia. He reports that he has had this for 15 years. He denies any pain at that site. Patient also has evidence of abdominal aortic aneurysm. Evaluated by basilar surgery no surgical intervention planned during this admission. Patient seen and examined with Dr. dunne PAST MEDICAL HISTORY: Atrial Fibrillation, Chest Pain / Angina, Heart Failure, COPD, Hypertension, Osteoarthritis (OA), Chronic renal insufficiency stage III, cardiomyopathy, abdominal aneurysm PAST SURGICAL HISTORY: Heart catheterization with stents, KARAN, cardioversion MEDICATIONS: See list. ALLERGIES: See list. SOCIAL HISTORY: No illicit drug use. REVIEW OF SYSTEMS: CONSTITUTIONAL: Denies fever or chills. HEENT: Denies blurred vision, vision changes, or eye pain. Denies hemoptysis CARDIOVASCULAR: Denies chest pain or pressure. RESPIRATORY: No shortness of breath. GASTROINTESTINAL: See HPI for pertinent findings HEMATOLOGIC: Denies bleeding disorders. GENITOURINARY: Denies any blood in urine or increased urinary frequency. SKIN: Denies pruitis. Denies rash. PHYSICAL EXAM: VITAL SIGNS: Reviewed GENERAL: Well-developed in no acute distress. HEENT: No sclera icterus. Extraocular movements grossly intact. Moist buccal mucosa. Head is atraumatic, normocephalic. No nasal drainage. ABDOMEN: Soft. Nondistended. Nontender. Patient has a incarcerated umbilical hernia with palpable small bowel. Nontender. NEUROLOGIC: Alert and oriented. Cranial nerves II through XII grossly intact. LABORATORY DATA: WBC 21.8 down to 6.3 hemoglobin 11.4 platelets 201 Sodium 140 potassium 3.7 creatinine 1.97 lactic acid 2.1 down to 1.4 Total bilirubin 1.9 down to 1.0 LFTs normal ammonia level 30 down to 9 Urinalysis negative Drugs negative COVID-19 and flu negative IMAGING: abdominal ultrasound cholelithiasis, possible cholesterolosis in the gallbladder. Coarse echotexture of the liver could be due to underlying hepatocellular disease Computed tomography scan abdomen and pelvis lower abdominal aortic aneurysm which is increased 1.5 cm compared to old measuring at 5.8 cm. Cholelithiasis which appears new compared to old exam. Large periumbilical fat-containing hernia is increased in size compared to old exam. Old exam measuring 3 cm and now measuring 8 cm ASSESSMENT: 1. Cholelithiasis 2. Incarcerated fat-containing umbilical hernia that has increased in size 3. Nausea and vomiting with dyspepsia. now resolved. No abdominal pain 4. Bacteremia 5. Altered mental status changes PLAN: -No surgical intervention planned at this time -Recommend repair of incarcerated umbilical hernia in the outpatient setting when patient is medically stable -Continue antibiotics per ID service -Continue regular diet -Continue supportive care Thank you for this consultation Physician Guide note has been reviewed by physician. Signing provider agrees with the documented findings, assessment, and plan of care. Past Medical History Past Medical History: Atrial Fibrillation, Chest Pain / Angina, Heart Failure, COPD, Hypertension, Osteoarthritis (OA) Additional Past Medical History / Comment(s): chronic renal insufficiency stage III, cardiomyopathy, abdominal aneurysm History of Any Multi-Drug Resistant Organisms: None Reported Past Surgical History: Heart Catheterization, Heart Catheterization With Stent, Orthopedic Surgery Additional Past Surgical History / Comment(s): KARAN, cardioversion 10/17/15, left arm surgery - 1976 Past Anesthesia/Blood Transfusion Reactions: No Reported Reaction Date of Last Stent Placement:: 11/14/15 Past Psychological History: No Psychological Hx Reported Additional Psychological History / Comment(s): Pt resides with spouse. He has a cane which he has been using lately. He drives. Smoking Status: Current some day smoker Past Alcohol Use History: Occasional Additional Past Alcohol Use History / Comment(s): "SMOKES A COUPLE A DAY" A pack of cigarettes last him 3-4 days. Past Drug Use History: None Reported - Past Family History Mother Family Medical History: Cancer, Myocardial Infarction ([place]) Additional Family Medical History / Comment(s): Mother of a [place] in in 60's Medications and Allergies Home Medications Medication Instructions Recorded Confirmed Type Metoprolol Tartrate [Lopressor] 50 mg PO TID #90 tab 09/12/15 06/21/21 Rx Aspirin 81 mg PO HS 10/21/20 06/21/21 History Atorvastatin [Lipitor] 80 mg PO DAILY 10/21/20 06/21/21 History Levothyroxine Sodium [Synthroid] 100 mcg PO DAILY 10/21/20 06/21/21 History Montelukast [Singulair] 10 mg PO HS 10/21/20 06/21/21 History Tiotropium 18 Mcg/Puff [Spiriva] 2 puff INHALATION RT-DAILY@1200 10/21/20 06/21/21 History Apixaban [Eliquis] 5 mg PO BID 06/21/21 06/21/21 History Furosemide [Lasix] 40 mg PO DAILY@1400 06/21/21 06/21/21 History Furosemide [Lasix] 80 mg PO DAILY@0600 06/21/21 06/21/21 History Iron (Unknown Dose) 2 tab PO DAILY@1200 06/21/21 06/21/21 History Omeprazole 40 mg PO HS 06/21/21 06/21/21 History Spironolactone 25 mg PO HS 06/21/21 06/21/21 History amLODIPine [Norvasc] 2.5 mg PO DAILY@1200 06/21/21 06/21/21 History Allergies Allergy/AdvReac Type Severity Reaction Status Date / Time Penicillins Allergy THROAT Verified 06/21/21 17:05 SWELLING/RASH/HIVES Surgical - Exam Vital Signs Pulse Resp Pulse Ox 91 28 H 99 06/21/21 14:28 06/21/21 14:28 06/21/21 14:28 Results - Labs 06/25/21 07:01 06/25/21 07:01 Abnormal Lab Results - Last 24 Hours (Table) 06/25/21 06/25/21 Range/Units 07:01 07:01 RBC 3.90 L (4.30-5.90) m/uL Hgb 11.4 L (13.0-17.5) gm/dL Hct 35.6 L (39.0-53.0) % RDW 16.3 H (11.5-15.5) % Chloride 109 H (98-107) mmol/L Carbon Dioxide 21 L (22-30) mmol/L BUN 23 H (9-20) mg/dL Creatinine 1.97 H (0.66-1.25) mg/dL Calcium 8.3 L (8.4-10.2) mg/dL Total Protein 5.9 L (6.3-8.2) g/dL Albumin 3.1 L (3.5-5.0) g/dL Microbiology - Last 24 Hours (Table) 06/21/21 16:40 Blood Culture Gram Stain - Preliminary Blood Diabetes panel 06/25/21 Range/Units 07:01 Sodium 140 (137-145) mmol/L Potassium 3.7 (3.5-5.1) mmol/L Chloride 109 H (98-107) mmol/L Carbon Dioxide 21 L (22-30) mmol/L BUN 23 H (9-20) mg/dL Creatinine 1.97 H (0.66-1.25) mg/dL Glucose 96 (74-99) mg/dL Calcium 8.3 L (8.4-10.2) mg/dL AST 41 (17-59) U/L ALT 20 (4-49) U/L Alkaline Phosphatase 86 (38-126) U/L Total Protein 5.9 L (6.3-8.2) g/dL Albumin 3.1 L (3.5-5.0) g/dL Calcium panel 06/25/21 Range/Units 07:01 Calcium 8.3 L (8.4-10.2) mg/dL Albumin 3.1 L (3.5-5.0) g/dL Pituitary panel 06/25/21 Range/Units 07:01 Sodium 140 (137-145) mmol/L Potassium 3.7 (3.5-5.1) mmol/L Chloride 109 H (98-107) mmol/L Carbon Dioxide 21 L (22-30) mmol/L BUN 23 H (9-20) mg/dL Creatinine 1.97 H (0.66-1.25) mg/dL Glucose 96 (74-99) mg/dL Calcium 8.3 L (8.4-10.2) mg/dL Adrenal panel 06/25/21 Range/Units 07:01 Sodium 140 (137-145) mmol/L Potassium 3.7 (3.5-5.1) mmol/L Chloride 109 H (98-107) mmol/L Carbon Dioxide 21 L (22-30) mmol/L BUN 23 H (9-20) mg/dL Creatinine 1.97 H (0.66-1.25) mg/dL Glucose 96 (74-99) mg/dL Calcium 8.3 L (8.4-10.2) mg/dL Total Bilirubin 1.0 (0.2-1.3) mg/dL AST 41 (17-59) U/L ALT 20 (4-49) U/L Alkaline Phosphatase 86 (38-126) U/L Total Protein 5.9 L (6.3-8.2) g/dL Albumin 3.1 L (3.5-5.0) g/dL
[2021-06-25] MEDS: FUROSEMIDE 40 MG TAB PO SCH (15:18)
--- NOTE | 2021-06-25 17:38 | P.PN ---
Subjective Progress Note Date: 06/24/21 Principal diagnosis: Bacteremia Patient is a 65-year-old male presenting to the hospital with vomiting and some mental status changes subsequently noticed to have evidence of gram- negative bacteremia CT abdominal pelvis and this shows slight increase in size of the abdominal aortic aneurysm and cholelithiasis. On today's evaluation that is 06/24/2021, the patient remains to be afebrile the patient is breathing comfortably and the patient denies chest pain shortness of cough no nausea no vomiting no abdominal pain or diarrhea Objective - Vital Signs Vital signs: Vital Signs Temp 98.0 F 06/24/21 12:00 Pulse 58 L 06/24/21 14:00 Resp 16 06/24/21 14:00 BP 137/79 06/24/21 12:00 Pulse Ox 100 06/24/21 12:00 Intake & Output 06/23/21 06/24/21 06/24/21 18:59 06:59 18:59 Intake Total 240 420 Balance 240 420 Intake: Intake, IV Titration 300 Amount Sodium Chloride 0.9% 1, 300 000 ml @ 75 mls/hr IV . [id number] [facility] Rx#:[id number] Oral 240 120 Other: Voiding Method Toilet Toilet Toilet Urinal Urinal Urinal # Voids 120 2 - Exam GENERAL DESCRIPTION: An elderly male lying in bed in no distress RESPIRATORY SYSTEM: Unlabored breathing , decreased breath sounds at bases HEART: S1 S2 regular rate and rhythm , ABDOMEN: Soft , no tenderness EXTREMITIES: No edema feet - Labs CBC & Chem 7: 06/25/21 07:01 06/25/21 07:01 Labs: Abnormal Lab Results - Last 24 Hours (Table) 06/24/21 Range/Units 07:56 Creatinine 1.83 H (0.66-1.25) mg/dL Microbiology - Last 24 Hours (Table) 06/21/21 16:40 Blood Culture Gram Stain - Preliminary Blood Blood Culture - Preliminary Gram Neg Bacilli Assessment and Plan (1) Sepsis Current Visit: Yes Status: Acute Code(s): A41.9 - SEPSIS, UNSPECIFIED ORGANISM SNOMED Code(s): 91950683 Plan: 1patient presented to hospital with sepsis and respiratory have fever elevated white count and now with evidence of gram-negative bacteremia patient did have multiple episodes of vomiting high clinical suspicious for abdominal source as the patient did have a negative UA, the patient also have a right lower extremity cellulitis with some superficial ulceration on the dorsal aspect of the right foot may be contributing to this sepsis and bacteremia if the CT abdom inal pelvis is negative. 2clinically doubt meningitis or encephalitis. 3 CT of abdominal pelvis with oral contrast did show evidence of cholelithiasis but no cholecystitis or diverticulitis. ultrasound of the gallbladder area is currently pending 4patient to continue with cefepime 2 g every 8 hourly while waiting for the ID sensitivity of the positive blood culture. Time with Patient: Less than 30
--- NOTE | 2021-06-25 17:40 | P.PN ---
Subjective Progress Note Date: 06/25/21 Principal diagnosis: Bacteremia Patient is a 65-year-old male presenting to the hospital with vomiting and some mental status changes subsequently noticed to have evidence of gram- negative bacteremia CT abdominal pelvis and this shows slight increase in size of the abdominal aortic aneurysm and cholelithiasis. On today's evaluation that is 06/25/2021, the patient denies any fever or any chills, the patient is breathing comfortably on room air, the patient denies devika st pain shortness of cough no nausea no vomiting no abdominal pain or diarrhea Objective - Vital Signs Vital signs: Vital Signs Temp 97.7 F 06/25/21 08:00 Pulse 50 L 06/25/21 12:00 Resp 17 06/25/21 12:00 BP 110/77 06/25/21 12:00 Pulse Ox 96 06/25/21 12:00 Intake & Output 06/24/21 06/25/21 06/25/21 18:59 06:59 18:59 Intake Total 660 520 900 Balance 660 520 900 Intake: Intake, IV Titration 300 280 Amount Cefepime 2 gm In Sodium 100 Chloride 0.9% 100 ml @ 25 mls/hr IVPB Q12HR [facility] Rx #:[id number] Sodium Chloride 0.9% 1, 300 180 000 ml @ 75 mls/hr IV . [id number] [id number] Rx#:[id number] Oral 360 240 900 Other: Voiding Method Toilet Toilet Toilet Urinal Urinal Urinal # Voids 3 1 - Exam GENERAL DESCRIPTION: An elderly male lying in bed in no distress RESPIRATORY SYSTEM: Unlabored breathing , decreased breath sounds at bases HEART: S1 S2 regular rate and rhythm , ABDOMEN: Soft , no tenderness EXTREMITIES: No edema feet - Labs CBC & Chem 7: 06/25/21 07:01 06/25/21 07:01 Labs: Abnormal Lab Results - Last 24 Hours (Table) 06/25/21 06/25/21 Range/Units 07:01 07:01 RBC 3.90 L (4.30-5.90) m/uL Hgb 11.4 L (13.0-17.5) gm/dL Hct 35.6 L (39.0-53.0) % RDW 16.3 H (11.5-15.5) % Chloride 109 H (98-107) mmol/L Carbon Dioxide 21 L (22-30) mmol/L BUN 23 H (9-20) mg/dL Creatinine 1.97 H (0.66-1.25) mg/dL Calcium 8.3 L (8.4-10.2) mg/dL Total Protein 5.9 L (6.3-8.2) g/dL Albumin 3.1 L (3.5-5.0) g/dL Microbiology - Last 24 Hours (Table) 06/21/21 16:40 Blood Culture Gram Stain - Preliminary Blood Assessment and Plan (1) Sepsis Current Visit: Yes Status: Acute Code(s): A41.9 - SEPSIS, UNSPECIFIED ORGANISM SNOMED Code(s): 70264014 Plan: 1patient presented to hospital with sepsis and respiratory have fever elevated white count and now with evidence of gram-negative bacteremia patient did have multiple episodes of vomiting high clinical suspicious for abdominal source as the patient did have a negative UA, the patient also have a right lower extremity cellulitis with some superficial ulceration on the dorsal aspect of the right leg may be contributing to this sepsis and bacteremia if the CT abdominal pelvis is negative. 2clinically doubt meningitis or encephalitis. 3 CT of abdominal pelvis with oral contrast did show evidence of cholelithiasis but no cholecystitis or diverticulitis. ultrasound of the gallbladder area did shows cholelithiasis but no evidence of cholecystitis 4patient to continue with cefepime 2 g every 8 hourly as he is still waiting for the ID sensitivity of the positive blood culture, repeat blood culture have been negative so far Time with Patient: Less than 30
[2021-06-25] MEDS: ASPIRIN 81 MG PO SCH (21:51)
[2021-06-25] MEDS: SPIRONOLACTONE 25 MG TAB PO SCH (21:51)
[2021-06-25] MEDS: MONTELUKAST 10 MG TAB PO SCH (21:51)
[2021-06-25] MEDS: PANTOPRAZOLE 40 MG TABLET PO SCH (21:51)
[2021-06-25] MEDS ORDERED: LORazepam 2 MG/ML INJ IV STA (22:50)
[2021-06-26] MEDS: FUROSEMIDE 80 MG TAB PO SCH (05:55)
[2021-06-26] MEDS: LEVOTHYROXINE 100 MCG TAB PO SCH (05:55)
[2021-06-26] MEDS: SODIUM CHLORIDE 0.9% 1,000 ML IV SCH ×2 (05:56→18:38)
[2021-06-26] MEDS: IPRATROPIUM 0.5 MG/2.5 ML NEBU INHALATION SCH ×4 (08:02→20:20)
[2021-06-26] MEDS: APIXABAN 5 MG TAB PO SCH ×2 (09:53→19:54)
[2021-06-26] MEDS: ATORVASTATIN 80 MG TAB PO SCH (09:53)
[2021-06-26] MEDS: CEFEPIME 2 GM in SODIUM CHLORIDE 0.9% 100 ML IVPB SCH ×2 (09:53→19:54)
[2021-06-26] MEDS: METOPROLOL TARTRATE 50 MG TAB PO SCH ×3 (09:53→19:54)
--- NOTE | 2021-06-26 10:19 | P.PN ---
Subjective Progress Note Date: 06/26/21 Principal diagnosis: Abdominal aortic aneurysm Patient seen and examined is a follow-up for abdominal aortic aneurysm. He remains on IV antibiotics for sepsis with gram negatives bacilli. He's been afebrile since admission. Gen. surgery saw patient yesterday plan is for outpa tient follow-up for possible repair of umbilical hernia. Objective - Vital Signs Vital signs: Vital Signs Temp 97.8 F 06/26/21 05:53 Pulse 60 06/26/21 05:53 Resp 15 06/26/21 05:53 BP 105/61 06/26/21 05:53 Pulse Ox 99 06/26/21 05:53 Intake & Output 06/25/21 06/26/21 06/26/21 18:59 06:59 18:59 Intake Total 1400 420 Balance 1400 420 Intake: Oral 1400 420 Other: Voiding Method Toilet Toilet Urinal Urinal # Voids 1 3 - Exam General appearance: The patient is alert, oriented, appears in no acute distress. HET: Head is normocephalic and atraumatic. Pupils are equal and reactive. Neck: Supple without lymphadenopathy. Trachea midline. No audible carotid bruit. Heart: S1 S2. Regular rate and rhythm. Lungs: Clear to auscultation bilaterally. Abdomen: Soft, nontender, large umbilical hernia, nondistended. Extremities: Normal skin color and turgor. Bilateral lower extremity edema. Neurological: No focal deficits. Strength and sensation are grossly intact. - Labs CBC & Chem 7: 06/25/21 07:01 06/25/21 07:01 Labs: Microbiology - Last 24 Hours (Table) 06/21/21 16:40 Blood Culture Gram Stain - Preliminary Blood Assessment and Plan Assessment: 1. Abdominal aortic aneurysm measuring 5.8 cm, asymptomatic 2. Sepsis, preliminary blood culturegram-negative bacilli 3. Altered mental status changes 4. Hyperammonemia 5. Atrial fibrillation on Eliquis 6. Coronary artery disease status post stent 7. History of gastric AVM 8. Hypertension 9. Chronic kidney disease 10. COPD 11. Previous smoker 12. Umbilical hernia Plan: No plans at this time for any vascular surgical intervention as abdominal aortic aneurysm is asymptomatic, patient is being worked up for sepsis. I would like to get a CT angiogram abdomen and pelvis however kidney function has not improved at this point. If kidney function improves recommend CT angiogram abdomen and pelvis to further evaluate abdominal aortic aneurysm, Patient will need to follow-up closely with vascular surgery to discuss surgical intervention. Thank you for this consultation, the patient is cleared for discharge from vascular surgery. Patient will need follow-up in the next 2 weeks. The impression and plan of care has been dictated as directed. Dr. Xie I performed a history and examination of this patient, discussed the same with the dictator. I agree with the dictator's note ,documented as a scribe. Any additional findings or plans will be noted.
[2021-06-26 10:35] LABS: Potassium 3.5 mmol/L (3.5-5.1)
[2021-06-26 10:36] LABS: Calcium 8.5 mg/dL (8.4-10.2)
[2021-06-26 10:37] VITALS: BMI 35.9
[2021-06-26] MEDS: amLODIPine 2.5 MG TAB PO SCH (11:36)
[2021-06-26] MEDS: FERROUS SULFATE 325 MG TAB PO SCH (11:36)
--- NOTE | 2021-06-26 12:44 | P.PN ---
Subjective Progress Note Date: 06/26/21 The patient is seen at bedside he feels about the same. He denies of any new neurological issues. No further fevers except for one on presentation. Objective - Vital Signs Vital signs: Vital Signs Temp 98.2 F 06/26/21 11:44 Pulse 61 06/26/21 11:44 Resp 16 06/26/21 11:44 BP 141/78 06/26/21 11:44 Pulse Ox 99 06/26/21 11:44 Intake & Output 06/25/21 06/26/21 06/26/21 18:59 06:59 18:59 Intake Total 1400 420 Balance 1400 420 Weight 113.469 kg Intake: Oral 1400 420 Other: Voiding Method Toilet Toilet Toilet Urinal Urinal Urinal # Voids 1 3 - Exam GENERAL: The patient is an obese gentleman who is sitting at side of bed and is not in acute distress. NEUROLOGICAL: Higher mental function: The patient is awake, alert, oriented to self and place. He initially states the year is 2020 but on asking him again he correctly states the year. He is minimally slowly to responding. He names objects correctly (pen, watch, glasses). Is able to stated the current state. Patient is following commands. No aphasia and no neglect. Cranial nerves: The pupils are round, equal and reactive to light and accommodation. Visual retana are full to confrontation throughout. Extraocular movement is intact no nystagmus is noted. Facial sensation is normal to touch throughout. The facial strength is normal throughout. Hearing is normal bilaterally to hand rub. Tongue is midline and moved [id number] without any difficulty. No dysarthria is noted. Shoulder shrug is normal bilaterally. Motor: Gait is deferred. The strength is 5 over 5 throughout. Normal tone and bulk. Cerebellum: Normal finger to nose bilaterally. Sensation: Sensation is normal to touch throughout. Reflexes (right/left): 1+ throughout. Plantars are downgoing bilaterally. WORK-UP: Vitamin B12: 937 Folate is 10.5 TSH: 0.893 Ammonia is 30 UDS is not detected. Kennedy virus PCR is not detected. Influenza a/B PCR was not detected CT of the head is reported as cerebral atrophy. Calcified density in the right anterior internal capsule stable compared to old exam consistent with an old infarct. The ED contacted me initially that it seems that the reading radiologist felt there is concern for intracranial hemorrhage in the right internal capsule but in 10/22/[address] the patient had a CT of the head and is reported as was felt that calcification over the right internal capsule. Then the reading radiologist briefly reviewed the images and he felt this was more calcified lesion and not acute bleed. I personally reviewed the CT of the head and I felt was consistent with the patient calcification in the past but seemed a little bit bigger but again it was in the same territory and it seemed consistent with calcification from the September 2020. 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 Scattered white matter lesion likely related to chronic small vessel ischemia. No evidence of acute cortical infarct. Normal MRA of the brain Routine EEG on 06/23/2021 is abnormal. The back of slowing suggestive of mild encephalopathy of unknown etiology. Otherwise there is no focal slowing, epileptiform discharges or seizure on the EEG. Blood culture is gram neg bacilli - Labs CBC & Chem 7: 06/25/21 07:01 06/26/21 09:54 Labs: Abnormal Lab Results - Last 24 Hours (Table) 06/26/21 Range/Units 09:54 Chloride 110 H (98-107) mmol/L Carbon Dioxide 21 L (22-30) mmol/L BUN 22 H (9-20) mg/dL Creatinine 1.87 H (0.66-1.25) mg/dL Glucose 120 H (74-99) mg/dL Microbiology - Last 24 Hours (Table) 06/21/21 16:40 Blood Culture Gram Stain - Preliminary Blood Assessment and Plan Assessment: * Altered mental status: Appears Septic Encephalopathy of unknown exact cause. Has gram negative bacilli on blood cultures. It does not seem meningitis since had only one time high grade fever (103.2F) and mentation is drastically improved and no focal deficits. * Atrial fibrillation on eliquis * History of Gastric antral vascular ectasia * Congestive heart failure * Hypertension * Chronic kidney insufficiency * Abdominal aortic aneurysm of about 1.5 cm * History of coronary artery disease status post stent * Osteoarthritis * COPD Plan: Normal MRA of the brain I spoke with Dr. Romero (reading radiologist) regarding MRI Brain and he reviewed it and felt blooming artifact on this patient is presumed related to unilateral basal ganglia calcification of indeterminate etiology. Old hemorrhagic infarct felt unlikely. I do not feel this is meningitis and neither does I.D. team. Every 4 hour neuro checks His ammonia level is 30-->9. Primary team consulted GI team. Infection disease team is consulted. We'll defer the rest of the medical management to the primary team. Recommend patient to follow-up with neurologist and neurosurgeon as outpatient within 2-3 weeks. The plan is discussed with the patient. No additional work-up is needed. Patient is clear from neurological perspective. Jack Trejo M.D. Neuro-Hospitalist Time with Patient: Less than 30
--- NOTE | 2021-06-26 13:25 | P.PN ---
Subjective Progress Note Date: 06/26/21 CHIEF COMPLAINT: Fever with altered mental status HISTORY OF PRESENT ILLNESS: Patient lying in bed comfortably. Denies any abdominal pain. Tolerating diet. Reports having bowel movements. Afebrile. Sodium 140 potassium 3.5 creatinine 1.87. Blood culture growing gram-negative bacilli. PHYSICAL EXAM: VITAL SIGNS: Reviewed. GENERAL: Well-developed in no acute distress. HEENT: No sclera icterus. Extraocular movements grossly intact. Moist buccal mucosa. Head is atraumatic, normocephalic. ABDOMEN: Soft. Nondistended. Nontender. Patient has a incarcerated umbilical hernia with palpable small bowel. Nontender. NEUROLOGIC: Alert and oriented. Cranial nerves II through XII grossly intact. ASSESSMENT: 1. Cholelithiasis 2. Incarcerated fat-containing umbilical hernia that has increased in size 3. Nausea and vomiting with dyspepsia. now resolved. No abdominal pain 4. Bacteremia 5. Altered mental status changes PLAN: -No surgical intervention planned at this time -Recommend repair of incarcerated umbilical hernia in the outpatient setting when patient is medically stable -Continue antibiotics per ID service -Continue regular diet -Continue supportive care Physician Log Turner note has been reviewed by physician. Signing provider agrees with the documented findings, assessment, and plan of care. Objective - Vital Signs Vital signs: Vital Signs Temp 98.2 F 06/26/21 11:44 Pulse 61 06/26/21 11:44 Resp 16 06/26/21 11:44 BP 141/78 06/26/21 11:44 Pulse Ox 99 06/26/21 11:44 Intake & Output 06/25/21 06/26/21 06/26/21 18:59 06:59 18:59 Intake Total 1400 420 Balance 1400 420 Weight 113.469 kg Intake: Oral 1400 420 Other: Voiding Method Toilet Toilet Toilet Urinal Urinal Urinal # Voids 1 3 - Labs CBC & Chem 7: 06/25/21 07:01 06/26/21 09:54 Labs: Abnormal Lab Results - Last 24 Hours (Table) 06/26/21 06/26/21 Range/Units 09:54 11:59 Chloride 110 H (98-107) mmol/L Carbon Dioxide 21 L (22-30) mmol/L BUN 22 H (9-20) mg/dL Creatinine 1.87 H (0.66-1.25) mg/dL Glucose 120 H (74-99) mg/dL C-Reactive Protein 1.8 H (<1.0) mg/dL Microbiology - Last 24 Hours (Table) 06/21/21 16:40 Blood Culture Gram Stain - Preliminary Blood
[2021-06-26] MEDS ORDERED: Potassium Replacement Protocol 1 EACH MISC MISCELLANE PRN (13:52)
[2021-06-26] MEDS: POTASSIUM CHLORIDE ER 20 MEQ TAB.ER PO SCH ×2 (14:24→15:43)
[2021-06-26] MEDS: FUROSEMIDE 40 MG TAB PO SCH (14:25)
[2021-06-26] MEDS: SPIRONOLACTONE 25 MG TAB PO SCH (19:54)
[2021-06-26] MEDS: MONTELUKAST 10 MG TAB PO SCH (19:54)
[2021-06-26] MEDS: ASPIRIN 81 MG PO SCH (19:54)
[2021-06-26] MEDS: PANTOPRAZOLE 40 MG TABLET PO SCH (19:54)
--- NOTE | 2021-06-26 21:41 | P.PN ---
Subjective Progress Note Date: 06/26/21 Principal diagnosis: Bacteremia Patient is a 65-year-old male presenting to the hospital with vomiting and some mental status changes subsequently noticed to have evidence of gram- negative bacteremia CT abdominal pelvis and this shows slight increase in size of the abdominal aortic aneurysm and cholelithiasis. On today's evaluation that is 06/26/2021, the patient remains to be afebrile, the patient is breathing comfortably on room air, the patient denies chest pain shortness of cough, the patient denies nausea no vomiting no abdominal pain or diarrhea Objective - Vital Signs Vital signs: Vital Signs Temp 97.8 F 06/26/21 05:53 Pulse 60 06/26/21 05:53 Resp 15 06/26/21 05:53 BP 105/61 06/26/21 05:53 Pulse Ox 99 06/26/21 05:53 Intake & Output 06/25/21 06/26/21 06/26/21 18:59 06:59 18:59 Intake Total 1400 420 Balance 1400 420 Weight 113.469 kg Intake: Oral 1400 420 Other: Voiding Method Toilet Toilet Urinal Urinal # Voids 1 3 - Exam GENERAL DESCRIPTION: An elderly male lying in bed in no distress RESPIRATORY SYSTEM: Unlabored breathing , decreased breath sounds at bases HEART: S1 S2 regular rate and rhythm , ABDOMEN: Soft , no tenderness EXTREMITIES: No edema feet - Labs CBC & Chem 7: 06/25/21 07:01 06/26/21 09:54 Labs: Abnormal Lab Results - Last 24 Hours (Table) 06/26/21 Range/Units 09:54 Chloride 110 H (98-107) mmol/L Carbon Dioxide 21 L (22-30) mmol/L BUN 22 H (9-20) mg/dL Creatinine 1.87 H (0.66-1.25) mg/dL Glucose 120 H (74-99) mg/dL Microbiology - Last 24 Hours (Table) 06/21/21 16:40 Blood Culture Gram Stain - Preliminary Blood Assessment and Plan (1) Sepsis Current Visit: Yes Status: Acute Code(s): A41.9 - SEPSIS, UNSPECIFIED ORGANISM SNOMED Code(s): 12125414 Plan: 1patient presented to hospital with sepsis and respiratory have fever elevated white count and now with evidence of gram-negative bacteremia patient did have multiple episodes of vomiting high clinical suspicious for abdominal source as the patient did have a negative UA, source is likely abdominal and question of possible cholangitis 2 CT of abdominal pelvis with oral contrast did show evidence of cholelithiasis but no cholecystitis or diverticulitis. ultrasound of the gallbladder area did shows cholelithiasis but no evidence of cholecystitis 3patient to continue with cefepime 2 g every 8 hourly as he we are still waiting for the ID sensitivity of the positive blood culture, blood cultures have been repeated to document clearance of bacteremia family has multiple questions and concerns were answered Time with Patient: Less than 30
[2021-06-27] MEDS: FUROSEMIDE 80 MG TAB PO SCH (06:07)
[2021-06-27] MEDS: LEVOTHYROXINE 100 MCG TAB PO SCH (06:07)
[2021-06-27] MEDS: IPRATROPIUM 0.5 MG/2.5 ML NEBU INHALATION SCH ×4 (08:07→20:11)
[2021-06-27] MEDS: SODIUM CHLORIDE 0.9% 1,000 ML IV SCH ×3 (09:23→13:03)
[2021-06-27] MEDS: CEFEPIME 2 GM in SODIUM CHLORIDE 0.9% 100 ML IVPB SCH ×2 (09:28→20:03)
[2021-06-27] MEDS: ATORVASTATIN 80 MG TAB PO SCH (09:28)
[2021-06-27] MEDS: APIXABAN 5 MG TAB PO SCH ×2 (09:28→20:03)
[2021-06-27] MEDS: METOPROLOL TARTRATE 50 MG TAB PO SCH ×3 (09:28→21:08)
[2021-06-27] MEDS: POTASSIUM CHLORIDE ER 20 MEQ TAB.ER PO SCH (09:28)
--- NOTE | 2021-06-27 12:01 | P.PN ---
Subjective Progress Note Date: 06/27/21 Principal diagnosis: Abdominal aortic aneurysm Patient was seen and examined is a follow-up for abdominal aortic aneurysm. Patient has remained afebrile. Infectious disease is following and patient remains on IV antibiotics awaiting culture and sensitivity. Repeat culture is pending. He denies any abdominal pain, nausea or vomiting. Denies any pain radiating to his back. Shortness of breath improved, and he is no longer requiring oxygen. Objective - Vital Signs Vital signs: Vital Signs Temp 98 F 06/27/21 04:00 Pulse 58 L 06/27/21 04:00 Resp 17 06/27/21 04:00 BP 105/63 06/27/21 04:00 Pulse Ox 98 06/27/21 04:00 Intake & Output 06/26/21 06/27/21 06/27/21 18:59 06:59 18:59 Intake Total 1290 240 Balance 1290 240 Weight 113.469 kg Intake: Oral 1290 240 Other: Voiding Method Toilet Urinal # Voids 2 1 1 - Exam General appearance: The patient is alert, oriented, appears in no acute distress. HET: Head is normocephalic and atraumatic. Pupils are equal and reactive. Neck: Supple without lymphadenopathy. Trachea midline. No audible carotid bruit. Heart: S1 S2. Regular rate and rhythm. Lungs: Clear to auscultation bilaterally. Abdomen: Soft, nontender, large umbilical hernia, nondistended. Extremities: Normal skin color and turgor. No pedal edema. Neurological: No focal deficits. Strength and sensation are grossly intact. - Labs CBC & Chem 7: 06/25/21 07:01 06/26/21 09:54 Labs: Abnormal Lab Results - Last 24 Hours (Table) 06/26/21 06/26/21 Range/Units 09:54 11:59 Chloride 110 H (98-107) mmol/L Carbon Dioxide 21 L (22-30) mmol/L BUN 22 H (9-20) mg/dL Creatinine 1.87 H (0.66-1.25) mg/dL Glucose 120 H (74-99) mg/dL C-Reactive Protein 1.8 H (<1.0) mg/dL Microbiology - Last 24 Hours (Table) 06/21/21 16:40 Blood Culture Gram Stain - Final Blood Assessment and Plan Assessment: 1. Abdominal aortic aneurysm measuring 5.8 cm, asymptomatic 2. Sepsis, blood culture gram-negative bacilli 3. Altered mental status changes 4. Hyperammonemia, resloved 5. Atrial fibrillation on Eliquis 6. Coronary artery disease status post stent 7. History of gastric AVM 8. Hypertension 9. Chronic kidney disease 10. COPD 11. Previous smoker 12. Umbilical hernia Plan: No plans at this time for any vascular surgical intervention as abdominal aortic aneurysm is asymptomatic, patient is being worked up for sepsis. CT angiogram abdomen and pelvis ordered. Spoke with nephrology who recommended 500 mL of 0.9 normal saline bolus prior to CT with maintenance of 75 mL per hour with repeat labs status post. Discussed risk to kidneys and worsening kidney function with the patient and his . He verbalized understanding and agreed to proceed with CT angiogram abdomen and pelvis. Thank you for this consultation. Patient will need follow-up in the next 2 weeks. The impression and plan of care has been dictated as directed. Dr. Xie I performed a history and examination of this patient, discussed the same with the dictator. I agree with the dictator's note ,documented as a scribe. Any additional findings or plans will be noted.
[2021-06-27] MEDS ORDERED: SODIUM CHLORIDE 0.9% 500 ML 500 ML IV ONE (12:25)
[2021-06-27] MEDS: amLODIPine 2.5 MG TAB PO SCH (13:03)
[2021-06-27] MEDS: FERROUS SULFATE 325 MG TAB PO SCH (13:03)
--- NOTE | 2021-06-27 14:10 | P.PN ---
Subjective Progress Note Date: 06/27/21 CHIEF COMPLAINT: Fever with altered mental status HISTORY OF PRESENT ILLNESS: Patient lying in bed comfortably. Denies any abdominal pain. Tolerating diet. Reports having bowel movements. Vascular surgery have ordered a CTA of abdomen and pelvis for evaluation of abdominal aortic aneurysm. Afebrile. patient with positive blood cultures infectious diseases following PHYSICAL EXAM: VITAL SIGNS: Reviewed. GENERAL: Well-developed in no acute distress. HEENT: No sclera icterus. Extraocular movements grossly intact. Moist buccal mucosa. Head is atraumatic, normocephalic. ABDOMEN: Soft. Nondistended. Nontender. Patient has a incarcerated umbilical hernia with palpable small bowel. Nontender. NEUROLOGIC: Alert and oriented. Cranial nerves II through XII grossly intact. ASSESSMENT: 1. Cholelithiasis 2. Incarcerated fat-containing umbilical hernia that has increased in size 3. Nausea and vomiting with dyspepsia. now resolved. No abdominal pain 4. Bacteremia 5. Altered mental status changes PLAN: -Patient can be discharged from surgical standpoint -No surgical intervention planned at this time -Recommend repair of incarcerated umbilical hernia in the outpatient setting when patient is medically stable -Continue antibiotics per ID service -Continue regular diet Physician Quarry Supervisor note has been reviewed by physician. Signing provider agrees with the documented findings, assessment, and plan of care. Objective - Vital Signs Vital signs: Vital Signs Temp 98.3 F 06/27/21 08:00 Pulse 63 06/27/21 08:00 Resp 18 06/27/21 08:00 BP 147/73 06/27/21 08:00 Pulse Ox 100 06/27/21 08:00 Intake & Output 06/26/21 06/27/21 06/27/21 18:59 06:59 18:59 Intake Total 1290 240 Balance 1290 240 Weight 113.469 kg Intake: Oral 1290 240 Other: Voiding Method Toilet Toilet Urinal Urinal # Voids 2 1 1 - Labs CBC & Chem 7: 06/25/21 07:01 06/26/21 09:54 Labs: Microbiology - Last 24 Hours (Table) 06/21/21 16:40 Blood Culture Gram Stain - Final Blood Blood Culture - Final Gram Neg Ray Non-Head Porter 06/21/21 16:40 Blood Culture Gram Stain - Final Blood Blood Culture - Final Gram Neg Ray Non-Head Porter
--- NOTE | 2021-06-27 15:30 | P.PN ---
Subjective Progress Note Date: 06/27/21 The patient is seen at bedside and states he is doing well. Denies of any new neurological problems. Objective - Vital Signs Vital signs: Vital Signs Temp 98.2 F 06/27/21 12:00 Pulse 59 L 06/27/21 12:00 Resp 16 06/27/21 12:00 BP 136/70 06/27/21 12:00 Pulse Ox 100 06/27/21 12:00 Intake & Output 06/26/21 06/27/21 06/27/21 18:59 06:59 18:59 Intake Total 1290 240 Balance 1290 240 Weight 113.469 kg Intake: Oral 1290 240 Other: Voiding Method Toilet Toilet Urinal Urinal # Voids 2 1 1 - Labs CBC & Chem 7: 06/25/21 07:01 06/26/21 09:54 Labs: Microbiology - Last 24 Hours (Table) 06/26/21 11:59 Blood Culture - Preliminary Blood No Growth after 24 hours 06/21/21 16:40 Blood Culture Gram Stain - Final Blood Blood Culture - Final Gram Neg Ray Non-Pretzel Twister 06/21/21 16:40 Blood Culture Gram Stain - Final Blood Blood Culture - Final Gram Neg Ray Non-Pretzel Twister Assessment and Plan Assessment: * Altered mental status: Appears Septic Encephalopathy of unknown exact cause. Has gram negative bacilli on blood cultures. It does not seem meningitis since had only one time high grade fever (103.2F) and mentation is drastically improved and no focal deficits. * Atrial fibrillation on eliquis * History of Gastric antral vascular ectasia * Congestive heart failure * Hypertension * Chronic kidney insufficiency * Abdominal aortic aneurysm of about 1.5 cm * History of coronary artery disease status post stent * Osteoarthritis * COPD Plan: Normal MRA of the brain I spoke with Dr. Romero (reading radiologist) regarding MRI Brain and he reviewed it and felt blooming artifact on this patient is presumed related to unilateral basal ganglia calcification of indeterminate etiology. Old hemorrhagic infarct felt unlikely. I do not feel this is meningitis and neither does I.D. team. Every 4 hour neuro checks His ammonia level is 30-->9. Primary team consulted GI team. Infection disease team is on board. We'll defer the rest of the medical management to the primary team. Recommend patient to follow-up with neurologist and neurosurgeon as outpatient within 2-3 weeks. The plan is discussed with the patient. No additional work-up is needed. Patient is clear from neurological perspective. Neurology will sign off. Please reconsult if needed. Jack Trejo M.D. Neuro-Hospitalist Time with Patient: Less than 30
--- NOTE | 2021-06-27 16:30 | CT ---
CTA abdomen and pelvis with contrast. HISTORY: Abdominal aortic aneurysm. COMPARISON: CT abdomen pelvis 06/22/2021. TECHNIQUE: Multiple axial images were obtained through the abdomen and pelvis following uneventful ad ministration nonionic IV contrast material. The exam was performed according to the CTA protocol and included coronal and sagittal reconstruction s. 3-D postprocessing was performed. FINDINGS: There are a few scattered small groundglass densities within the lung bases. There is no pleural effu katja. There are gallstones. There is no biliary ductal dilatation. There is moderate splenomegaly which was seen previously and is stable. There is no pancreatic mass. There is marked aneurysmal dilatation of the infrarenal abdominal aorta which is 5.6 cm transverse an d 4.8 cm AP with mild mural thrombus in mild diffuse arteriovascular calcification. There is no steno sis of the origins celiac artery, superior mesenteric arteries bilaterally. 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 There is a midline anterior abdominal wall hernia containing fat but no bowel loops. There is no casandra l obstruction or inflammation. There is no free intraperitoneal air or fluid. The kidneys excrete contrast promptly and symmetrically and no solid renal mass or process. There is a small simple cortical cyst of the right kidney. 3.9 cyst of the left kidney. There is no pelvic mass, free fluid or adenopathy. IMPRESSION: 1. Large 5.6 cm infrarenal abdominal aortic aneurysm, stable compared to the prior study. 2. Periumbilical hernia which is stable containing fat but no bowel loops and there is no bowel obstr uction. 3. Cholelithiasis 4. Stable moderate splenomegaly 5. A few small groundglass densities within the lower lobes.
--- NOTE | 2021-06-27 17:21 | P.PN ---
Subjective Progress Note Date: 06/27/21 Principal diagnosis: Bacteremia Patient is a 65-year-old male presenting to the hospital with vomiting and some mental status changes subsequently noticed to have evidence of gram- negative bacteremia CT abdominal pelvis and this shows slight increase in size of the abdominal aortic aneurysm and cholelithiasis. On today's evaluation that is 06/27/2021, the patient continues to be afebrile, the patient is breathing comfortably on room air, the patient denies chest pain shortness of cough, the patient denies nausea no vomiting no abdominal pain or diarrhea, overall feeling better and wants to go home Objective - Vital Signs Vital signs: Vital Signs Temp 98.2 F 06/27/21 12:00 Pulse 59 L 06/27/21 12:00 Resp 16 06/27/21 12:00 BP 136/70 06/27/21 12:00 Pulse Ox 100 06/27/21 12:00 Intake & Output 06/26/21 06/27/21 06/27/21 18:59 06:59 18:59 Intake Total 1290 240 Balance 1290 240 Weight 113.469 kg Intake: Oral 1290 240 Other: Voiding Method Toilet Toilet Urinal Urinal # Voids 2 1 1 - Exam GENERAL DESCRIPTION: An elderly male lying in bed in no distress RESPIRATORY SYSTEM: Unlabored breathing , decreased breath sounds at bases HEART: S1 S2 regular rate and rhythm , ABDOMEN: Soft , no tenderness EXTREMITIES: No edema feet - Labs CBC & Chem 7: 06/25/21 07:01 06/26/21 09:54 Labs: Microbiology - Last 24 Hours (Table) 06/26/21 11:59 Blood Culture - Preliminary Blood No Growth after 24 hours 06/21/21 16:40 Blood Culture Gram Stain - Final Blood Blood Culture - Final Gram Neg Ray Non-Network Cabler 06/21/21 16:40 Blood Culture Gram Stain - Final Blood Blood Culture - Final Gram Neg Ray Non-Network Cabler Assessment and Plan (1) Sepsis Current Visit: Yes Status: Acute Code(s): A41.9 - SEPSIS, UNSPECIFIED ORGANISM SNOMED Code(s): 46091816 Plan: 1patient presented to hospital with sepsis and respiratory have fever elevated white count and now with evidence of gram-negative bacteremia patient did have multiple episodes of vomiting high clinical suspicious for abdominal source as the patient did have a negative UA, source is likely abdominal and question of possible cholangitis 2 CT of abdominal pelvis with oral contrast did show evidence of cholelithiasis but no cholecystitis or diverticulitis. ultrasound of the gallbladder area did shows cholelithiasis but no evidence of cholecystitis 3patient blood culture has been finalized with gram-negative sensitivities are available however not the ID of the pathogen repeat blood supper negative we will finish therapy with oral Cipro 500 mg twice a day for 12 days prescription was sent to the pharmacy discussed with admitting physician Time with Patient: Less than 30
[2021-06-27] MEDS: FUROSEMIDE 40 MG TAB PO SCH (17:25)
[2021-06-27] MEDS: CIPROFLOXACIN HCL 500 MG TAB PO SCH (20:03)
[2021-06-27] MEDS: MONTELUKAST 10 MG TAB PO SCH (20:03)
[2021-06-27] MEDS: ASPIRIN 81 MG PO SCH (20:03)
[2021-06-27] MEDS: SPIRONOLACTONE 25 MG TAB PO SCH (20:03)
[2021-06-27] MEDS: PANTOPRAZOLE 40 MG TABLET PO SCH (20:03)
--- NOTE | 2021-06-28 06:08 | PN ---
PROGRESS NOTE 65-year-old white male with blood culture finalized status possible blood coming from the gallbladder. Going to send him home on Cipro tomorrow for 10 days until surgery which he is going to have surgery based on his aneurysm 6.7 cm. Waiting for a CTA done of the abdomen. Fluids to be given overnight and send him home on antibiotics tomorrow. Standing up in the room, no acute distress. Cardiovascular: S1, S2. Lungs clear. GI is soft. Hematology: Negative Homans. ASSESSMENT: Sepsis secondary to cholecystitis, getting gallbladder removed as an outpatient with incarcerated abdominal hernia after surgery for his AAA of 6.7 cm. CTA is being done and will be going home in the morning. PROGNOSIS: Guarded. MMODL / IJN: [id number] /
[2021-06-28] MEDS: LEVOTHYROXINE 100 MCG TAB PO SCH (06:23)
[2021-06-28] MEDS: FUROSEMIDE 80 MG TAB PO SCH (06:23)
[2021-06-28] MEDS: CIPROFLOXACIN HCL 500 MG TAB PO SCH (07:31)
[2021-06-28] MEDS: METOPROLOL TARTRATE 50 MG TAB PO SCH (07:31)
[2021-06-28] MEDS: ATORVASTATIN 80 MG TAB PO SCH (07:31)
[2021-06-28] MEDS: APIXABAN 5 MG TAB PO SCH (07:31)
[2021-06-28] MEDS: POTASSIUM CHLORIDE ER 20 MEQ TAB.ER PO SCH (07:31)
[2021-06-28] MEDS: CEFEPIME 2 GM in SODIUM CHLORIDE 0.9% 100 ML IVPB SCH (07:32)
[2021-06-28] MEDS: SODIUM CHLORIDE 0.9% 1,000 ML IV SCH (07:32)
[2021-06-28 07:38] VITALS: TEMP 97.9
[2021-06-28] MEDS: IPRATROPIUM 0.5 MG/2.5 ML NEBU INHALATION SCH ×2 (08:08→11:20)
[2021-06-28 09:57] LABS: Calcium 8.3 mg/dL (8.4-10.2); Potassium 3.6 mmol/L (3.5-5.1)
[2021-06-28] MEDS: FERROUS SULFATE 325 MG TAB PO SCH (11:07)
[2021-06-28] MEDS: amLODIPine 2.5 MG TAB PO SCH (11:07)
[2021-06-28 11:45] VITALS: BP 132/71; PULSE 58; RESP 20
[2021-06-28] MEDS: FUROSEMIDE 40 MG TAB PO SCH (14:00)
== END 2021-06-28 14:27 | disposition home or self-care (01) | DRG 871 ==
LOC: EC 14:23 → 3SCARD 17:36
PROVIDERS: ADMIT Family Medicine; ATTEND Family Medicine
PROC: 30283B1 Transfusion of Nonautologous 4-Factor Prothrombin Complex Concentrate into Vein, Percutaneous Approach (ICD-10-PCS; principal; 2021-06-21)
PROC: 05HF33Z Insertion of Infusion Device into Left Cephalic Vein, Percutaneous Approach (ICD-10-PCS; 2021-06-25 11:00)
DX: A41.50 Gram-negative sepsis, unspecified (principal); G93.41 Metabolic encephalopathy; J18.9 Pneumonia, unspecified organism; E87.2 Acidosis; I13.0 Hypertensive heart and chronic kidney disease with heart failure and stage 1 through stage 4 chronic kidney disease, or unspecified chronic kidney disease; K42.0 Umbilical hernia with obstruction, without gangrene; I50.32 Chronic diastolic (congestive) heart failure; I42.9 Cardiomyopathy, unspecified; I48.20 Chronic atrial fibrillation, unspecified; L03.115 Cellulitis of right lower limb; J44.0 Chronic obstructive pulmonary disease with (acute) lower respiratory infection; E72.20 Disorder of urea cycle metabolism, unspecified; L97.511 Non-pressure chronic ulcer of other part of right foot limited to breakdown of skin; F03.90 Unspecified dementia, unspecified severity, without behavioral disturbance, psychotic disturbance, mood disturbance, and anxiety; N18.30 Chronic kidney disease, stage 3 unspecified; I71.4 Abdominal aortic aneurysm, without rupture; R65.20 Severe sepsis without septic shock; Z20.822 Contact with and (suspected) exposure to COVID-19; G93.89 Other specified disorders of brain; D63.1 Anemia in chronic kidney disease; K31.819 Angiodysplasia of stomach and duodenum without bleeding; K80.20 Calculus of gallbladder without cholecystitis without obstruction; I25.10 Atherosclerotic heart disease of native coronary artery without angina pectoris; M19.90 Unspecified osteoarthritis, unspecified site; E66.9 Obesity, unspecified; Z68.35 Body mass index [BMI] 35.0-35.9, adult; F17.210 Nicotine dependence, cigarettes, uncomplicated; Z71.6 Tobacco abuse counseling; Z79.01 Long term (current) use of anticoagulants; Z79.82 Long term (current) use of aspirin; Z79.890 Hormone replacement therapy; Z79.899 Other long term (current) drug therapy; Z95.5 Presence of coronary angioplasty implant and graft; Z87.19 Personal history of other diseases of the digestive system; Z71.3 Dietary counseling and surveillance; Z88.0 Allergy status to penicillin; Z82.49 Family history of ischemic heart disease and other diseases of the circulatory system; Z80.9 Family history of malignant neoplasm, unspecified; G31.9 Degenerative disease of nervous system, unspecified
CPT/HCPCS: 36410; 36415; 70450; 70544; 70551; 71045; 74174; 74176; 76705; 76937; 80048; 80053; 80306; 81003; 82140; 82565; 82607; 82746; 83605; 84443; 84484; 85025; 85610; 85730; 86140; 87040; 87077; 87186; 87502; 87635; 93005; 95816; 96365; 96367; 96375; 99291

== ENCOUNTER → 2021-07-24 | Outpatient (CLI) | payer MEDICARE ==
[2021-07-24 23:03] LABS: African American GFR (CKD) 28.7 (60.0-200.0); Anion Gap 10.4 mmol/L (10.00-18.00); Blood Urea Nitrogen 37.5 mg/dL (9.0-27.0); MCH 28.4 pg (27.0-32.0); MCHC 31.4 g/dL (32.0-37.0); MCV 90.2 fL (80.0-97.0); Mean Platelet Volume 10.7 fL (9.5-12.2); NRBC Per 100 WBC 0 /100 WBCS (0.0-0.0); Non-African American GFR(CKD) 24.8 (60.0-200.0); Platelet Count 163 X 10*3/uL (140-440); Potassium 4.9 mmol/L (3.5-5.5); RBC 3.88 X 10*6/uL (4.40-5.60); RDW 16.4 % (11.5-14.5); WBC 7.73 X 10*3/uL (4.50-10.00)
== END | disposition home or self-care (01) ==
LOC: LABPAT 08:42
PROVIDERS: ATTEND Surgery
DX: Z01.812 Encounter for preprocedural laboratory examination (principal); I71.4 Abdominal aortic aneurysm, without rupture
CPT/HCPCS: 36415; 80051; 82565; 84520; 85027; 86850; 86900; 86901; 87040

== ENCOUNTER 2021-09-18 06:14 | Inpatient (IN) | payer MEDICARE ==
[2021-09-17 13:50] VITALS: BMI 35.5
[~2021-09-18 06:14] MED LIST: ALPRAZolam 0.25 MG TAB PO PRN; ALPRAZolam 0.5 MG TAB PO PRN; DEXAMETHASONE SOD PHOSPHATE 4 MG/ML 1 ML VIAL IV ONE; LIDOCAINE 1% (10MG/ML) FOR IV START INTRADERMA PRN; ONDANSETRON 4 MG/2 ML VIAL IVP ONE; SODIUM CHLORIDE 0.9% 1,000 ML in EMPTY BAG 1 BAG IV ONE; ZOLPIDEM 5 MG TAB PO PRN
[2021-09-18] MEDS ORDERED: ceFAZolin 1 GM in SODIUM CHLORIDE 0.9% 250 ML IRRIGATION PRN (07:00)
[2021-09-18] MEDS ORDERED: ONDANSETRON 4 MG/2 ML VIAL IVP PRN (07:00)
[2021-09-18] MEDS ORDERED: HYDROmorphone 0.5 MG/0.5 ML SYRINGE IVP PRN (07:00)
[2021-09-18 07:24] LABS: Anisocytosis Slight; Basophils % (A) 1 %; Eosinophils # (A) 0.3 k/uL (0-0.7); Eosinophils % (A) 3 %; HCT 36.9 % (39.0-53.0); HGB 12.2 gm/dL (13.0-17.5); Hypochromasia Slight; Lymphocytes # (A) 1.2 k/uL (1.0-4.8); Lymphocytes % (A) 12 %; MCH 29.8 pg (25.0-35.0); MCV 90.3 fL (80.0-100.0); Mean Platelet Volume 7.7; Monocytes # (A) 0.7 k/uL (0-1.0); Monocytes % (A) 7 %; Neutrophils # (A) 7.1 k/uL (1.3-7.7); Neutrophils % (A) 74 %; Platelet Count 117 k/uL (150-450); RBC 4.09 m/uL (4.30-5.90); RDW 16.6 % (11.5-15.5); WBC 9.6 k/uL (3.8-10.6)
[2021-09-18 07:31] LABS: Calcium 8.6 mg/dL (8.4-10.2); Potassium 3.8 mmol/L (3.5-5.1)
[2021-09-18] MEDS ORDERED: NEOSTIGMINE 1 MG/ML 10 ML VIAL ONE (08:43)
[2021-09-18] MEDS ORDERED: LIDOCAINE 2% INJ 20 MG/ML (2 ML VIAL) ONE (08:43)
[2021-09-18] MEDS ORDERED: LABETALOL 5 MG/ML VIAL MDV ONE (08:43)
[2021-09-18] MEDS ORDERED: PROTAMINE SULFATE 10 MG/ML 5 ML VIAL IV ONE (08:43)
[2021-09-18] MEDS ORDERED: PROPOFOL 10 MG/ML 20 ML VIAL IV ONE (08:43)
[2021-09-18] MEDS ORDERED: MIDAZOLAM 2 MG/2 ML VIAL ONE (08:43)
[2021-09-18] MEDS ORDERED: SUCCINYLCHOLINE CHLORIDE 100 MG/5 ML SYR IV ONE (08:43)
[2021-09-18] MEDS ORDERED: fentaNYL (PF) 50 MCG/ML 2 ML AMP ONE (08:43)
[2021-09-18] MEDS ORDERED: ROCURONIUM 10 MG/ML (5 ML VIAL) IV ONE (08:43)
[2021-09-18] MEDS ORDERED: GLYCOPYRROLATE 0.2 MG/ML 2 ML VIAL ONE (08:43)
[2021-09-18] MEDS ORDERED: HEPARIN SODIUM,PORCINE 5,000 UNIT/ML 1 ML VIAL ONE (08:43)
[2021-09-18] MEDS ORDERED: ePHEDrine 50 MG/ML 1 ML VIAL ONE (08:43)
[2021-09-18 08:45] LABS: Crenated RBC Present; Poikilocytosis (M) Present
[2021-09-18 08:46] LABS: RBC Fragments Present
--- NOTE | 2021-09-18 08:54 | P.HPIHPCON ---
History of Present Illness H&P Date: 09/18/21 Nicholas is a 65-year-old male who recently was found to have a 5.7cm abdominal aortic aneurysm while he was being worked up for sepsis. At that point it was found he had a bacteremia. Since then his bacteremia has cleared. He has been cleared by his primary care as well as cardiology. A discussion had been had with infectious disease and since there was no further bacteremia was recommended he undergo his surgical intervention for his aorta at this time.. Consent for Procedure: I have explained the operation/procedure to the patient, including the risks, benefits, side effects, alternative therapies (including not receiving the proposed treatment or service), the likelihood of the patient achieving his/her goals, and potential recuperation problems for the procedure/sedation/analgesia, as well as any blood products, if indicated. I also explained to the patient the risks, benefits and side effects of the alternatives, as well as the risks related to not receiving the proposed procedure, care, treatment, or services. Past Medical History Past Medical History: Atrial Fibrillation, Chest Pain / Angina, Heart Failure, COPD, Hypertension, Osteoarthritis (OA) Additional Past Medical History / Comment(s): chronic renal insufficiency stage III, cardiomyopathy, abdominal aneurysm, admitted to [facility] July for lower ext's swelling. Hernia. History of Any Multi-Drug Resistant Organisms: None Reported Past Surgical History: Heart Catheterization, Heart Catheterization With Stent, Orthopedic Surgery Additional Past Surgical History / Comment(s): KARAN, cardioversion 10/17/15, left arm surgery - 1976 Past Anesthesia/Blood Transfusion Reactions: No Reported Reaction Date of Last Stent Placement:: 11/14/15 Smoking Status: Former smoker - Past Family History Mother Family Medical History: Cancer, Myocardial Infarction (PR) Additional Family Medical History / Comment(s): Mother of a PR in in s Medications and Allergies Home Medications Medication Instructions Recorded Confirmed Type Metoprolol Tartrate [Lopressor] 50 mg PO TID #90 tab 09/12/15 09/18/21 Rx Aspirin 81 mg PO HS 10/21/20 09/17/21 History Atorvastatin [Lipitor] 80 mg PO DAILY 10/21/20 09/17/21 History Levothyroxine Sodium [Synthroid] 100 mcg PO DAILY 10/21/20 09/18/21 History Montelukast [Singulair] 10 mg PO HS 10/21/20 09/17/21 History Tiotropium 18 Mcg/Puff [Spiriva] 2 puff INHALATION RT-DAILY@1200 10/21/20 09/17/21 History Apixaban [Eliquis] 5 mg PO BID 06/21/21 09/18/21 History Furosemide [Lasix] 40 mg PO DAILY@1400 06/21/21 09/17/21 History Furosemide [Lasix] 80 mg PO DAILY@0600 06/21/21 09/17/21 History Iron (Unknown Dose) 2 tab PO DAILY@1200 06/21/21 09/17/21 History Omeprazole 40 mg PO HS 06/21/21 09/17/21 History Spironolactone 25 mg PO HS 06/21/21 09/17/21 History amLODIPine [Norvasc] 2.5 mg PO DAILY@1200 06/21/21 09/17/21 History Potassium Chloride ER [K-Dur 20] 20 meq PO DAILY 90 Days #90 tablet 06/27/21 09/17/21 Rx Calcium Carbonate [Calcium] 600 mg PO DAILY 09/17/21 09/17/21 History Doxycycline [Vibramycin] 100 mg PO BID 09/17/21 09/17/21 History predniSONE [Deltasone] 20 mg PO DAILY 09/17/21 09/17/21 History Allergies Allergy/AdvReac Type Severity Reaction Status Date / Time Penicillins Allergy THROAT Verified 09/18/21 06:38 SWELLING/RASH/HIVES Surgical - Exam Vital Signs Temp Pulse Resp BP Pulse Ox 97.1 F L 54 L 18 150/78 99 09/18/21 07:10 09/18/21 07:10 09/18/21 07:10 09/18/21 07:10 09/18/21 07:10 Results Gen. is a pleasant cooperative male in no acute distress. HEENT is no cephalic, atraumatic, excellent motion intact. Heart regular. Lungs are clear. Abdomen is soft. Extremity show no clubbing or cyanosis. Is 2+ edema bilaterally with patchy portions of erythema/psoriasis plaquing. No drainage. No signs of cellulitis. Palpable radial, femoral, dorsalis pedis bilaterally. Normal mood and affect. Cranial nerve II through XII grossly intact - Labs 09/18/21 06:40 09/18/21 06:40 Abnormal Lab Results - Last 24 Hours (Table) 09/18/21 09/18/21 Range/Units 06:40 06:40 RBC 4.09 L (4.30-5.90) m/uL Hgb 12.2 L (13.0-17.5) gm/dL Hct 36.9 L (39.0-53.0) % RDW 16.6 H (11.5-15.5) % Plt Count 117 L (150-450) k/uL Chloride 108 H (98-107) mmol/L BUN 47 H (9-20) mg/dL Creatinine 2.05 H (0.66-1.25) mg/dL Diabetes panel 09/18/21 Range/Units 06:40 Sodium 138 (137-145) mmol/L Potassium 3.8 (3.5-5.1) mmol/L Chloride 108 H (98-107) mmol/L Carbon Dioxide 22 (22-30) mmol/L BUN 47 H (9-20) mg/dL Creatinine 2.05 H (0.66-1.25) mg/dL Glucose 95 (74-99) mg/dL Calcium 8.6 (8.4-10.2) mg/dL Calcium panel 09/18/21 Range/Units 06:40 Calcium 8.6 (8.4-10.2) mg/dL Pituitary panel 09/18/21 Range/Units 06:40 Sodium 138 (137-145) mmol/L Potassium 3.8 (3.5-5.1) mmol/L Chloride 108 H (98-107) mmol/L Carbon Dioxide 22 (22-30) mmol/L BUN 47 H (9-20) mg/dL Creatinine 2.05 H (0.66-1.25) mg/dL Glucose 95 (74-99) mg/dL Calcium 8.6 (8.4-10.2) mg/dL Adrenal panel 09/18/21 Range/Units 06:40 Sodium 138 (137-145) mmol/L Potassium 3.8 (3.5-5.1) mmol/L Chloride 108 H (98-107) mmol/L Carbon Dioxide 22 (22-30) mmol/L BUN 47 H (9-20) mg/dL Creatinine 2.05 H (0.66-1.25) mg/dL Glucose 95 (74-99) mg/dL Calcium 8.6 (8.4-10.2) mg/dL Assessment and Plan Assessment: Infrarenal abdominal aortic aneurysm Tobacco abuse Alcohol abuse Congestive heart failure Hypertension Chronic kidney disease Plan: Plan today for repair of abdominal aortic aneurysm the endovascular stent graft. Risks and benefits discussed with the patient and family. They seem to understand and are willing to proceed.
[2021-09-18] MEDS ORDERED: IV FLUID CONTINUATION 1,000 ML IV ONE (09:17)
[2021-09-18] MEDS ORDERED: IOPAMIDOL-250 100ML BTL INTRAARTER ONE (11:03)
--- NOTE | 2021-09-18 11:31 | P.OP ---
Date of Procedure: 09/18/21 Description of Procedure: Preoperative diagnosis: Asymptomatic Infrarenal 5.7 cm abdominal aortic aneurysm Postoperative diagnosis: Same Procedure: 1. Ultrasound-guided bilateral common femoral artery access 2. Percutaneous Endovascular aortic repair with [place] device. Surgeon: Nirali Xie DO Anesthesia: General Estimated blood loss: 100 mL Complications: None Condition: Stable Disposition: Extubated and transferred to recovery in stable condition Fluoro Time: 21.2m Contrast: 85cc Indications: The patient is a 65-year-old male with history of infrarenal AAA measuring 5.7 cm presents to the [facility] for endovascular aortic repair Operative narrative: After written and informed consent was obtained from the patient all risks benefits and complications were described the patient was brought to the [facility] and laid in a supine position. The area of the groins were prepped and draped in usual sterile fashion after appropriate anesthetic was performed per the anesthesiologist. A timeout was performed in normal fashion and antibiotics were administered prior to incisions. Utilizing ultrasound bilateral common femoral arteries were visualized demonstrating patency with minimal calcification. Under ultrasound guidance utilizing a multipurpose needle bilateral common femoral arteries were accessed and guidewire was placed followed by deployment of 2 Perclose closure devices for each femoral artery. Utilizing Seldinger technique and 8-English sheath was then placed and patient was administered heparin and followed with ACTs. 035 Glidewire was then placed up the right femoral sheath and exchanged for a Lunderquist wire through a catheter. The left femoral artery was then utilized and guidewire was placed followed by pigtail catheter and aortogram was obtained. Utilizing the Lunderquist wire a 26 mm main body device was then loaded over the guidewire after the 8-English sheath was removed. Delivery system was then placed 1 cm proximal to the intended landing site and the aortic body was oriented for appropriate access for the contralateral limb. Delivery system was then retracted out of the sheath and the aortic body radiopaque markers were verified to be in the correct position. First segment of the graft was then deployed in normal fashion by releasing and pulling the knob in normal fashion. Balloon injection port was then inflated utilizing a 4-1 saline contrast mixture in order to open the mid crown. Balloon was then deflated. Angiogram was performed and Precise positioning was then performed with utilizing the radiopaque markers and parallax was removed in order to land at the renal arteries. Pigtail catheter was then retracted away from the proximal stent and the proximal stent was released in normal fashion creating fixation. Polymer was then utilized and filled through the polymer port which was visualized under fluoroscopy. The stiff Lunderquist wire was then retracted within the ipsilateral limb. Attention was then placed to accessing the contralateral limb. Utilizing the Glidewire and angled glide catheter the contralateral limb was accessed and pigtail catheter was placed. Pigtail catheter was then spun to verify intragraft cannulation. A stiff wire was then placed within the pigtail catheter and retrograde angiogram was obtained demonstrating the internal iliac artery takeoff. Measurements were obtained and a [id number] mm Ovation limb was chosen to be deployed and deployed in normal fashion. Once completed the aortic main body was completely deployed in normal fashion. Utilizing the balloon balloon angioplasty was performed at the ring to further mold the polymer to the aortic neck. Once completed the aortic body deployment sheath was removed in normal fashion. Pigtail catheter was then placed over the Lunderquist wire and retrograde angiogram was obtained with measurements to the internal iliac artery on the ipsilateral limb. A 16 x 120mm Ovation limb was chosen and deployed in normal fashion. Once completed two 12 x 40mm balloons were placed up each iliac limb and balloon angioplasty was performed through its entirety. Once completed balloons were removed and pigtail catheter was placed above the graft and final angiogram was obtained demonstrating exclusion of the aneurysm with no evidence of endoleak's. All guidewires and catheters were then removed and the Perclose closure devices were closed in normal fashion. The areas were then cleansed and dressings were placed. The patient tolerated procedure well and had palpable DP pulses and was sent to PACU for recovery.
[2021-09-18] MEDS ORDERED: NALOXONE 0.4 MG/ML 1 ML VIAL IVP PRN (11:35)
[2021-09-18] MEDS ORDERED: LACTATED RINGERS 1,000 ML IV ONE (12:30)
[2021-09-18 13:02] LABS: Glucose,Whole Blood 142 mg/dL (70-110)
[2021-09-18] MEDS: LACTATED RINGERS 1,000 ML IV SCH ×2 (13:07→13:30)
[2021-09-18] MEDS: LACTATED RINGERS 500 ML IV SCH ×2 (16:59→18:36)
[2021-09-18 17:00] LABS: Calcium 8.1 mg/dL (8.4-10.2); Potassium 4.1 mmol/L (3.5-5.1)
[2021-09-18 17:09] LABS: Anisocytosis Slight; Basophils % (A) 0 %; Eosinophils # (A) 0.2 k/uL (0-0.7); Eosinophils % (A) 2 %; HCT 32.5 % (39.0-53.0); HGB 10.5 gm/dL (13.0-17.5); Hypochromasia Slight; Lymphocytes # (A) 0.6 k/uL (1.0-4.8); Lymphocytes % (A) 8 %; MCH 29.6 pg (25.0-35.0); MCHC 32.4 g/dL (31.0-37.0); MCV 91.3 fL (80.0-100.0); Mean Platelet Volume 7.7; Monocytes # (A) 0.5 k/uL (0-1.0); Monocytes % (A) 7 %; Neutrophils # (A) 5.7 k/uL (1.3-7.7); Neutrophils % (A) 79 %; RBC 3.56 m/uL (4.30-5.90); RDW 16.7 % (11.5-15.5); WBC 7.1 k/uL (3.8-10.6)
[2021-09-18 17:16] LABS: Platelet Count 98 k/uL (150-450)
[2021-09-18] MEDS ORDERED: PRAVASTATIN SODIUM 40 MG TAB PO SCH (21:00)
[2021-09-19] MEDS: LACTATED RINGERS 1,000 ML IV SCH ×2 (03:13→08:25)
[2021-09-19 06:59] LABS: Anisocytosis Slight; HCT 34.4 % (39.0-53.0); HGB 10.6 gm/dL (13.0-17.5); Hypochromasia Moderate; MCH 28.5 pg (25.0-35.0); MCHC 30.9 g/dL (31.0-37.0); MCV 92.3 fL (80.0-100.0); Mean Platelet Volume 7.1; RBC 3.73 m/uL (4.30-5.90); RDW 16.3 % (11.5-15.5); WBC 7.5 k/uL (3.8-10.6)
--- NOTE | 2021-09-19 08:00 | P.CRDCN ---
History of Present Illness Consult date: 09/19/21 History of present illness: History of Present Illness: The patient is a 65-year-old male who was admitted to undergo elective endovascular repair of an abdominal aortic aneurysm, performed yesterday by Dr. Xie. He has a known history of AAA but was found to have significant enlargement on the recent computed tomography scan of the abdomen. He has a known history of CAD, status post stenting of the diagonal branch in 2016 at that time had ectatic right coronary artery and had episodes of atrial arrhythmia prior with cardiomyopathy, post cardioversion with cheondoism of left ventricle systolic function. He has rare episode of chest discomfort according to him at times activity related and mild dyspnea on exertion. He continues to be in sinus mechanism. He denies any palpitations, dizziness or palpitations. He has no PND or orthopnea with occasional peripheral edema. His last echocardiogram available to me from 2020 showed a normal systolic function. His current risk factors are positive for hyperlipidemia and hypertension, he is nondiabetic he stopped smoking long time ago. Medications: Metoprolol 50 mg 3 times a day, Norvasc 2 and half milligrams daily, Lipitor 80 mg daily, spironolactone 25 mg daily, Synthroid, Singulair 10 mg daily, aspirin once a day, Eliquis 5 mg bid Review of Systems: Respiratory: Mild dyspnea on exertion no recent fever cough GI: No nausea or vomiting . No history of peptic ulcer disease. No recent GI bleed. : No hematuria or dysuria. Nervous System: No stroke or seizure. Physical Examination: 65-year-old male alert and oriented no apparent distress ,Blood pressure 110/50, Heart rate 70 Head: Normocephalic. Eyes: Sclerae nonicteric. Neck: Good carotid upstroke, no bruit, no jugular venous distention. Lungs: Clear to auscultation. Heart: Regular rate and rhythm, S1-S2, no S3, no rub. Systolic ejection murmur. Abdomen: Soft nontender, positive bowel sounds no organomegaly. Extremities: No edema, intact distal pulses, dressing noted on both groins. Labs: Hemoglobin 10.6, BUN 41, creatinine 1.78, potassium 4.1. Impression: 1. Status post abdominal aortic aneurysm endovascular repair, stable 2. History of atrial fibrillation status post cardioversion, maintaining sinus mechanism 3. History of CAD status post stenting in 2015 4. Prior cardiomyopathy, improved after cardioversion 5. Chronic kidney disease 6. History of hypertension 7. History of hyperlipidemia Plan: 1. Restart beta andree and statin 2. Restart anticoagulation when cleared by Dr. Xie 3. Increase physical activity 4. Hold Norvasc for now and follow depending on the blood pressure 5. Probable discharge home soon and follow-up as an outpatient. Thank you for this consult we will follow with you. Past Medical History Past Medical History: Atrial Fibrillation, Chest Pain / Angina, Heart Failure, COPD, Hypertension, Osteoarthritis (OA) Additional Past Medical History / Comment(s): chronic renal insufficiency stage III, cardiomyopathy, abdominal aneurysm, admitted to [facility] July for lower ext's swelling. Hernia. History of Any Multi-Drug Resistant Organisms: None Reported Past Surgical History: Heart Catheterization, Heart Catheterization With Stent, Orthopedic Surgery Additional Past Surgical History / Comment(s): KARAN, cardioversion 10/17/15, left arm surgery - 1976 Past Anesthesia/Blood Transfusion Reactions: No Reported Reaction Date of Last Stent Placement:: 11/14/15 Smoking Status: Former smoker - Past Family History Mother Family Medical History: Cancer, Myocardial Infarction (SC) Additional Family Medical History / Comment(s): Mother of a SC in in Medications and Allergies Home Medications Medication Instructions Recorded Confirmed Type Metoprolol Tartrate [Lopressor] 50 mg PO TID #90 tab 09/12/15 09/18/21 Rx Aspirin 81 mg PO HS 10/21/20 09/17/21 History Atorvastatin [Lipitor] 80 mg PO DAILY 10/21/20 09/17/21 History Levothyroxine Sodium [Synthroid] 100 mcg PO DAILY 10/21/20 09/18/21 History Montelukast [Singulair] 10 mg PO HS 10/21/20 09/17/21 History Tiotropium 18 Mcg/Puff [Spiriva] 2 puff INHALATION RT-DAILY@1200 10/21/20 09/17/21 History Apixaban [Eliquis] 5 mg PO BID 06/21/21 09/18/21 History Furosemide [Lasix] 40 mg PO DAILY@1400 06/21/21 09/17/21 History Furosemide [Lasix] 80 mg PO DAILY@0600 06/21/21 09/17/21 History Iron (Unknown Dose) 2 tab PO DAILY@1200 06/21/21 09/17/21 History Omeprazole 40 mg PO HS 06/21/21 09/17/21 History Spironolactone 25 mg PO HS 06/21/21 09/17/21 History amLODIPine [Norvasc] 2.5 mg PO DAILY@1200 06/21/21 09/17/21 History Potassium Chloride ER [K-Dur 20] 20 meq PO DAILY 90 Days #90 tablet 06/27/21 09/17/21 Rx Calcium Carbonate [Calcium] 600 mg PO DAILY 09/17/21 09/17/21 History Doxycycline [Vibramycin] 100 mg PO BID 09/17/21 09/17/21 History predniSONE [Deltasone] 20 mg PO DAILY 09/17/21 09/17/21 History Allergies Allergy/AdvReac Type Severity Reaction Status Date / Time Penicillins Allergy THROAT Verified 09/18/21 06:38 SWELLING/RASH/HIVES Physical Exam Vitals: Vital Signs Temp Pulse Pulse Resp BP BP BP 09/19/21 07:00 70 19 100/60 09/19/21 06:30 67 14 111/51 09/19/21 06:00 71 17 124/74 09/19/21 05:30 79 20 118/59 09/19/21 05:00 64 15 122/61 09/19/21 04:30 64 14 123/61 09/19/21 04:00 98.2 F 68 14 115/58 09/19/21 03:30 69 14 101/54 09/19/21 03:00 66 15 115/56 09/19/21 02:30 68 17 108/51 09/19/21 02:00 70 11 L 112/59 09/19/21 01:30 64 15 111/54 09/19/21 01:00 66 14 103/50 09/19/21 00:30 65 14 111/54 09/19/21 00:10 63 13 09/19/21 00:00 98.2 F 64 15 105/56 09/18/21 23:30 64 13 92/43 09/18/21 23:00 64 13 106/48 09/18/21 22:30 61 15 104/85 09/18/21 22:00 97.8 F 59 L 13 107/53 09/18/21 21:30 66 14 102/63 09/18/21 21:00 68 17 119/66 09/18/21 20:30 72 18 101/62 09/18/21 20:00 98.0 F 72 19 113/68 09/18/21 19:30 68 15 108/59 09/18/21 19:00 71 16 114/64 09/18/21 18:00 73 14 102/62 09/18/21 17:45 72 13 09/18/21 17:30 79 12 103/49 09/18/21 17:15 75 7 L 09/18/21 17:00 75 14 99/61 09/18/21 16:45 75 10 L 09/18/21 16:30 72 13 97/59 09/18/21 16:15 75 13 97/59 09/18/21 16:00 98.0 F 73 11 L 96/54 09/18/21 15:45 69 28 H 96/54 09/18/21 15:30 97.1 F L 68 16 101/56 09/18/21 15:15 59 L 22 09/18/21 15:00 64 20 93/51 09/18/21 14:45 66 28 H 09/18/21 14:30 96.2 F L 62 23 09/18/21 14:15 59 L 23 97/47 09/18/21 14:00 59 L 12 106/48 09/18/21 13:45 53 L 11 L 09/18/21 13:30 57 L 14 130/85 09/18/21 13:15 55 L 12 09/18/21 13:00 94.3 F L 53 L 14 09/18/21 12:30 60 16 120/51 130/54 09/18/21 12:05 58 L 16 128/60 120/58 09/18/21 11:50 67 16 128/57 123/67 09/18/21 11:38 73 16 110/50 09/18/21 11:23 97.9 F 84 16 101/47 BP Pulse Ox 09/19/21 07:00 97 09/19/21 06:30 97 09/19/21 06:00 96 09/19/21 05:30 97 09/19/21 05:00 94 L 09/19/21 04:30 96 09/19/21 04:00 97 09/19/21 03:30 93 L 09/19/21 03:00 95 09/19/21 02:30 95 09/19/21 02:00 95 09/19/21 01:30 95 09/19/21 01:00 94 L 09/19/21 00:30 94 L 09/19/21 00:10 95 09/19/21 00:00 96 09/18/21 23:30 90 L 09/18/21 23:00 94 L 09/18/21 22:30 96 09/18/21 22:00 98 09/18/21 21:30 99 09/18/21 21:00 95 09/18/21 20:30 97 09/18/21 20:00 97 09/18/21 19:30 96 09/18/21 19:00 99 09/18/21 18:00 97 09/18/21 17:45 97 09/18/21 17:30 97 09/18/21 17:15 98 09/18/21 17:00 97 09/18/21 16:45 97 09/18/21 16:30 97 09/18/21 16:15 96 09/18/21 16:00 96 09/18/21 15:45 95 09/18/21 15:30 94 L 09/18/21 15:15 96 09/18/21 15:00 95 09/18/21 14:45 94 L 09/18/21 14:30 95 09/18/21 14:15 95 09/18/21 14:00 95 09/18/21 13:45 95 09/18/21 13:30 98 09/18/21 13:15 99 09/18/21 13:00 97 09/18/21 12:30 99 09/18/21 12:05 99 09/18/21 11:50 96 09/18/21 11:38 107/53 98 09/18/21 11:23 97 Intake and Output 09/18/21 09/19/21 09/19/21 22:59 06:59 14:59 Intake Total 950 675 Output Total 610 710 Balance 340 -35 Intake: IV 950 675 Lactated Ringers 1,000 ml 450 675 @ 75 mls/hr IV .[id number] [facility] Rx#:[id number] Lactated Ringers 500 ml @ 500 250 mls/hr IV .Q2H [facility] Rx#:[id number] Output: Urine 610 710 Other: Voiding Method Indwelling Catheter Indwelling Catheter Weight 120.1 kg Results 09/19/21 06:20 09/18/21 16:28 CBC 09/18/21 09/19/21 Range/Units 16:28 06:20 WBC 7.1 7.5 (3.8-10.6) k/uL RBC 3.56 L 3.73 L (4.30-5.90) m/uL Hgb 10.5 L 10.6 L (13.0-17.5) gm/dL Hct 32.5 L 34.4 L (39.0-53.0) % Plt Count 98 L 92 L (150-450) k/uL Comprehensive Metabolic Panel 09/18/21 Range/Units 16:28 Sodium 138 (137-145) mmol/L Potassium 4.1 (3.5-5.1) mmol/L Chloride 113 H (98-107) mmol/L Carbon Dioxide 19 L (22-30) mmol/L BUN 41 H (9-20) mg/dL Creatinine 1.78 H (0.66-1.25) mg/dL Glucose 121 H (74-99) mg/dL Calcium 8.1 L (8.4-10.2) mg/dL Current Medications Generic Name Dose Route Start Last Admin Trade Name Freq PRN Reason Stop Dose Admin Alprazolam 0.25 mg 09/18/21 05:48 Alprazolam 0.25 Mg Tab PO Q6HR PRN Mild Anxiety Alprazolam 0.5 mg 09/18/21 05:48 09/18/21 21:50 Alprazolam 0.5 Mg Tab PO 0.5 mg Q6HR PRN Administration Moderate Anxiety Aspirin 81 mg 09/19/21 09:00 Aspirin 81 Mg PO DAILY [facility] Lactated Ringer's 1,000 mls @ 20 mls/hr 09/18/21 05:48 09/18/21 13:07 Lactated Ringers IV Not Given .Q24H [facility] Lactated Ringer's 1,000 mls @ 75 mls/hr 09/18/21 12:00 09/19/21 03:13 Lactated Ringers IV Not Given .[id number] [facility] Lidocaine HCl 0.1 ml 09/18/21 05:48 Lidocaine 1% (10mg/Ml) For Iv Start INTRADERMA PER PROTOCOL PRN IV Start Naloxone HCl 0.2 mg 09/18/21 11:35 Naloxone 0.4 Mg/Ml 1 Ml Vial IVP Q2M PRN Opioid Reversal Pravastatin Sodium 40 mg 09/18/21 21:00 09/18/21 20:30 Pravastatin Sodium 40 Mg Tab PO 40 mg HS [facility] Administration Zolpidem Tartrate 5 mg 09/18/21 05:48 Zolpidem 5 Mg Tab PO HS PRN Insomnia Intake and Output 09/18/21 09/19/21 09/19/21 22:59 06:59 14:59 Intake Total 950 675 Output Total 610 710 Balance 340 -35 Intake: IV 950 675 Lactated Ringers 1,000 ml 450 675 @ 75 mls/hr IV .[id number] [facility] Rx#:[id number] Lactated Ringers 500 ml @ 500 250 mls/hr IV .Q2H [facility] Rx#:[id number] Output: Urine 610 710 Other: Voiding Method Indwelling Catheter Indwelling Catheter Weight 120.1 kg 09/19/21 06:20 09/18/21 16:28
[2021-09-19] MEDS ORDERED: METOPROLOL TARTRATE 50 MG TAB PO SCH (09:00)
[2021-09-19] MEDS ORDERED: APIXABAN 5 MG TAB PO SCH (09:00)
[2021-09-19] MEDS ORDERED: ATORVASTATIN 80 MG TAB PO SCH (09:00)
[2021-09-19] MEDS ORDERED: ASPIRIN 81 MG PO SCH (09:00)
--- NOTE | 2021-09-19 10:28 | CDI ---
Documentation Clarification Form Date: 09/19/2021 10:14:50 AM From: Daria Christian CCS, CCDS Admit Date: 09/18/2021 06:14:00 AM Patient Name: Pravin Mo Visit Number: [id number] Discharge Date: ATTENTION: The Clinical Documentation Specialists (CDI) and [facility] Coding Staff appreciate your assistance in clarifying documentation. Please respond to the clarification below the line at the bottom and electronically sign. The CDI & [facility] Coding staff will review the response and follow-up if needed. Please note: Queries are made part of the Legal Health Record. If you have any questions, please contact the author of this message via ITS. Dr. Bharat Veliz: The following is documented in the 09/19 Cardiology Consult: History of Heart Failure, Last ECHO in 2020: normal systolic function. Additional information regarding the Type and Acuity of CHF is requested. History/Risk Factors per the Cardiology Consult 09/19: Atrial Fibrillation status post Cardioversion in normal sinus rhythm, Chest Pain/Angina: occasional with dyspnea, Heart Failure, COPD, Hypertension, Osteoarthritis, CKD Stage III, Cardiomyopathy, CAD with Coronary Stent and Former smoker. Clinical Indicators: Presented 09/18 for elective Endovascular Repair of AAA. Admit with the same. 09/18 VS: T 97.1, P 54 (regular), R 18, BP 150/78, PO 99 RA, BMI: 36.9 09/18 LAB: Hgb 12.2, Hct 36.9, Plt Ct 117; Chl 108, BUN 47, Creatinine 2.05, GFR 33 BNP not done. No Chest Xray Most recent ECHO (10/21/2020): Mild concentric LVH. Overall left ventricular systolic function is normal with an EF between 55-60%. Trace MR/TR. Treatment 09/18 Surgery as above, Blood glucose monitoring, Xie Catheter, O2 postop: 6L - 2Lnc, Room air on 09/19; IV Cefazolin 50 mls @ 100 mls/hr x1, IV Dilaudid 0.5 mg q5M/prn, IV Zofran 4 mg x1/prn, IV Lactated Ringers, po Eliquis 5 mg BID, po Aspirin 81 mg Daily. Home meds: Lopressor, Synthroid, Eliquis, Vibramycin, Singulair, Lasix 40-80 mg Daily, Lipitor, Norvasc, INH Spiriva, K Dur, Omeprazole, Calcium, Deltasone In your professional opinion, can you please clarify the Type and Acuity of CHF if known? [ ] Chronic Diastolic Heart Failure [ ] Chronic Systolic & Diastolic Heart Failure [ ] Other Heart Failure, please specify: [ ] Other, please specify Patient is not in HF at this time [ ] Unable to determine (Template Last Revised: April 2020) MTDD
[2021-09-19 10:48] LABS: Calcium 8.3 mg/dL (8.4-10.2); Potassium 4.4 mmol/L (3.5-5.1)
[2021-09-19 11:23] LABS: Platelet Count 92 k/uL (150-450)
[2021-09-19 12:33] VITALS: TEMP 98.2
--- NOTE | 2021-09-19 12:46 | P.DS ---
Providers Date of admission: 09/18/21 06:14 Expected date of discharge: 09/19/21 Attending physician: Nirali Xie DO Consults: 09/18/21 05:48 Consult to Anesthesia Routine Consulting Provider: Anesthesia,Services Consult Reason/Comments: General anesthesia for Aortic Stent procedure 09/18/21 11:35 Consult Physician Routine Consulting Provider: Manolo Schmidt Consult Reason/Comments: chf/afib post evar Do you want consulting provider notified?: Yes Consult Physician Routine Consulting Provider: Ermias Soriano Consult Reason/Comments: post op evar, med mgmnt Do you want consulting provider notified?: Yes Primary care physician: [facility] Course: This 65-year-old male who had been found recently with a 5.7 cm abdominal aortic aneurysm will he was being worked up in the hospital for sepsis. Once his bacteremia cleared he was scheduled for abdominal aortic aneurysm repair. Yesterday he underwent endovascular abdominal aortic repair. Patient was admitted to the ICU overnight for observation. He did have a couple of low blood pressures but was asymptomatic. Xie catheter has been discontinued arterial line has been discontinued. Blood pressures have improved. Patient is tolerating his diet. He denies any shortness of breath, chest pain, abdominal pain, nausea or vomiting. He is been afebrile, denies any fevers or chills. Access sites without any bleeding. Exam: General appearance: The patient is alert, oriented, appears in no acute distress. HET: Head is normocephalic and atraumatic. Pupils are equal and reactive. Neck: Supple without lymphadenopathy. Trachea midline. Heart: S1 S2. Regular rate and rhythm. Lungs: Clear to auscultation bilaterally. Abdomen: Soft, nontender, reducible umbilical hernia, nondistended. Extremities: Bilateral groins access sites without any bleeding, no hematoma or ecchymosis noted. Bilateral lower extremity edema with venous ulcers. Neurological: No focal deficits. Strength and sensation are grossly intact. Procedures: 1. Ultrasound-guided bilateral common femoral artery access 2. Percutaneous Endovascular aortic repair with Potwin device. Patient Condition at Discharge: Stable Plan - Discharge Summary Discharge Rx Participant: Yes New Discharge Prescriptions: New Metoprolol Tartrate [Lopressor] 50 mg PO BID tab Continue Levothyroxine Sodium [Synthroid] 100 mcg PO DAILY Atorvastatin [Lipitor] 80 mg PO DAILY Aspirin 81 mg PO HS Iron (Unknown Dose) 2 tab PO DAILY@1200 Furosemide [Lasix] 40 mg PO DAILY@1400 Spironolactone 25 mg PO HS Potassium Chloride ER [K-Dur 20] 20 meq PO DAILY 90 Days #90 tablet Tiotropium 18 Mcg/Puff [Spiriva] 2 puff INHALATION RT-DAILY@1200 Montelukast [Singulair] 10 mg PO HS Omeprazole 40 mg PO HS Apixaban [Eliquis] 5 mg PO BID predniSONE [Deltasone] 20 mg PO DAILY Calcium Carbonate [Calcium] 600 mg PO DAILY Doxycycline [Vibramycin] 100 mg PO BID Discontinued Metoprolol Tartrate [Lopressor] 50 mg PO TID #90 tab amLODIPine [Norvasc] 2.5 mg PO DAILY@1200 No Action Furosemide [Lasix] 80 mg PO DAILY@0600 Discharge Medication List Aspirin 81 mg PO HS 10/21/20 [History] Atorvastatin [Lipitor] 80 mg PO DAILY 10/21/20 [History] Levothyroxine Sodium [Synthroid] 100 mcg PO DAILY 10/21/20 [History] Montelukast [Singulair] 10 mg PO HS 10/21/20 [History] Tiotropium 18 Mcg/Puff [Spiriva] 2 puff INHALATION RT-DAILY@1200 10/21/20 [History] Apixaban [Eliquis] 5 mg PO BID 06/21/21 [History] Furosemide [Lasix] 40 mg PO DAILY@1400 06/21/21 [History] Furosemide [Lasix] 80 mg PO DAILY@0600 06/21/21 [History] Iron (Unknown Dose) 2 tab PO DAILY@1200 06/21/21 [History] Omeprazole 40 mg PO HS 06/21/21 [History] Spironolactone 25 mg PO HS 06/21/21 [History] Potassium Chloride ER [K-Dur 20] 20 meq PO DAILY 90 Days #90 tablet 06/27/21 [Rx] Calcium Carbonate [Calcium] 600 mg PO DAILY 09/17/21 [History] Doxycycline [Vibramycin] 100 mg PO BID 09/17/21 [History] predniSONE [Deltasone] 20 mg PO DAILY 09/17/21 [History] Metoprolol Tartrate [Lopressor] 50 mg PO BID tab 09/19/21 [Rx] Follow up Appointment(s)/Referral(s): Bharat Veliz MD [STAFF PHYSICIAN] - 1 Week Ermias Soriano MD [Primary Care Provider] - 3 Days Nirali Xie DO [STAFF PHYSICIAN] - 10 Days Patient Instructions/Handouts: Endovascular Aneurysm Repair of Abdominal Aorta (DC) Activity/Diet/Wound Care/Special Instructions: No driving for 7 days. Avoid heavy lifting greater than 10 lbs , pushing, pulling, straining, flights of stairs for three days. ok to shower tomorrow but no baths, pools, soaking in tubs for three days to avoid risk of infection. signs of infection ie: fever, rash, drainage from puncture site, swelling contact doctor or return to ER immediately. Heavy bleeding from puncture site apply firm direct pressure and return to ER. Do not attempt to drive self. low sodium/low fat diet Discharge Disposition: HOME SELF-CARE
[2021-09-19 14:09] VITALS: BP 142/77; PULSE 69; RESP 14
--- NOTE | 2021-09-19 19:22 | CONS ---
CONSULTATION DATE OF SERVICE: 09/18/2021 HISTORY OF PRESENT ILLNESS: 65-year-old male date of service 09/18/2021 for consultation for medical management. He is status post elective endoscopic repair of abdominal aortic aneurysm, history of AAA. He also has history of cholecystitis recently with abdominal hernia, needs to be fixed. He was given prophylactic antibiotics as an outpatient for his cholecystitis. He has history of cardiomyopathy with cardioversion, yazidi of left ventricular function. He is having no PND, shortness of breath. He feels much better, sitting up in bed, breathing normally. Medications reviewed. REVIEW OF SYSTEMS: Fourteen point is negative. PHYSICAL EXAMINATION: Blood pressure 110/50, heart rate 70. Sitting up in bed, giving appropriate answers. Respiratory rate 12 to 14. Pupils equal, round, reactive. Wearing glasses. LUNGS: Clear. CARDIOVASCULAR S1, S2. ABDOMEN: Soft, nontender. EXTREMITIES: 2+ edema bilaterally. ASSESSMENT: 1. Status post abdominal aortic endoscopic repair, stable. 2. History of atrial fibrillation, stable. 3. Coronary artery disease. 4. Cardiomyopathy. 5. Chronic kidney disease. 6. Hypertension. 7. Dyslipidemia. 8. Chronic obstructive pulmonary disease. PROGNOSIS: Guarded. Appears to be stable postop at this time. Continue home medicines. Will follow up as an outpatient once discharged. Date of service 09/18/2021. MMODL / IJN: [id number] /
== END 2021-09-19 15:15 | disposition home or self-care (01) | DRG 269 ==
LOC: 2ORMAIN 06:14 → 2SICU 11:44
PROVIDERS: ADMIT Surgery; ATTEND Surgery
PROC: 027X3ZZ Dilation of Thoracic Aorta, Ascending/Arch, Percutaneous Approach (ICD-10-PCS; 2021-09-18)
PROC: 04V03DZ Restriction of Abdominal Aorta with Intraluminal Device, Percutaneous Approach (ICD-10-PCS; principal; 2021-09-18 08:30)
DX: I71.4 Abdominal aortic aneurysm, without rupture (principal); I42.9 Cardiomyopathy, unspecified; L97.919 Non-pressure chronic ulcer of unspecified part of right lower leg with unspecified severity; L97.929 Non-pressure chronic ulcer of unspecified part of left lower leg with unspecified severity; J44.9 Chronic obstructive pulmonary disease, unspecified; N18.30 Chronic kidney disease, stage 3 unspecified; I12.9 Hypertensive chronic kidney disease with stage 1 through stage 4 chronic kidney disease, or unspecified chronic kidney disease; K81.9 Cholecystitis, unspecified; I83.009 Varicose veins of unspecified lower extremity with ulcer of unspecified site; K46.9 Unspecified abdominal hernia without obstruction or gangrene; I48.91 Unspecified atrial fibrillation; I25.10 Atherosclerotic heart disease of native coronary artery without angina pectoris; E78.5 Hyperlipidemia, unspecified; K42.9 Umbilical hernia without obstruction or gangrene; R60.0 Localized edema; M19.90 Unspecified osteoarthritis, unspecified site; Z95.5 Presence of coronary angioplasty implant and graft; Z87.891 Personal history of nicotine dependence; Z79.890 Hormone replacement therapy; Z79.82 Long term (current) use of aspirin; Z79.01 Long term (current) use of anticoagulants; Z79.51 Long term (current) use of inhaled steroids; Z88.0 Allergy status to penicillin; Z86.19 Personal history of other infectious and parasitic diseases; Z79.899 Other long term (current) drug therapy; Z98.890 Other specified postprocedural states; Z82.49 Family history of ischemic heart disease and other diseases of the circulatory system; Z80.9 Family history of malignant neoplasm, unspecified
CPT/HCPCS: 80048; 85025; 85027; 86850; 86900; 86901

== ENCOUNTER → 2021-11-05 | Outpatient (CLI) | payer MEDICARE ==
--- NOTE | 2021-11-07 20:57 | CT ---
EXAMINATION TYPE: CT angio abdomen pelvis CT DLP: 3518 mGycm, Automated exposure control for dose reduction was used. DATE OF EXAM: 11/05/2021 11:40 AM COMPARISON: CT 06/27/2021. CLINICAL INDICATION:Male, 65 years old with history of I71.4 AAA; TECHNIQUE: Multiple thin slice sub-millimeter images were obtained through the abdomen, pelvis after administration of contrast. 3-D reconstructed images and maximum intensity projection images were ob tained of the abdomen, pelvis. CT Contrast: Contrast used: 80 cc of Isovue-370 Oral contrast used: None FINDINGS: CTA Abdomen and pelvis: No evidence of intramural hematoma. There is scattered atherosclerosis of the arterial vasculature and aorta. The origin of the celiac axis, superior mesenteric artery and bilate ral renal arteries are patent. There is atherosclerosis at the origins of the renal arteries present with at least 50% stenosis on the right and less than 25% stenosis on the left. There is a stent lisa ts at the level of the superior mesenteric and celiac axis present. Bilateral iliac artery stents are present and patent. Tiny curvilinear tract opacified tract extends to the inferior mesenteric artery as well as more posterior laterally on the right and likely feeding another vessel just anterior to the sacrum. The infrarenal aortic aneurysm excluded lumen is now thrombosed measuring up to 7.5 x 5.0 cm. Which is similar to prior on 06/27/2021 VISCERA: LIVER: Nodular contour with hypertrophy of the caudate lobe. GALLBLADDER AND BILE DUCTS: Layering increased densities within the lumen consistent with gallstones are present. PANCREAS: Unremarkable. SPLEEN: Spleen is enlarged up to 16.8 cm. ADRENAL GLANDS: Unremarkable. KIDNEYS AND URETERS: No evidence of hydronephrosis or renal calculus. The ureters are unremarkable. Renal sinus calcifications on left are felt to be vascular. Left renal cyst. PELVIS BLADDER: Unremarkable REPRODUCTIVE: Unremarkable. ABDOMEN & PELVIS STOMACH AND BOWEL: No evidence of bowel obstruction. Scattered clonic diverticula present. PERITONEUM: No evidence of pneumoperitoneum or free fluid. VASCULATURE: No evidence of aortic aneurysm. Recanalization of the paraumbilical vein. MUSCULOSKELETAL: No acute osseous abnormalities LYMPH NODES: No gross evidence for lymphadenopathy. SOFT TISSUE/ABDOMINAL WALL: Large umbilical hernia containing omentum. LOWER CHEST: Multiple remote appearing right-sided rib fractures. Moderate 2 severe coronary artery a therosclerosis. Mild gynecomastia changes partially visualized on left and visualized on the right. IMPRESSION 1. Stent grafts at the level of the celiac axis is patent. Additional bilateral iliac arteries stent s are patent. The excluded infrarenal renal abdominal aneurysm excluded lumen is predominantly thromb osed except for 2 curvilinear tracts extending to the thrombosis to the inferior mesenteric artery an d another vessel posteriorly. 2. Hepatic cirrhosis with evidence of portal hypertension. 3. Large umbilical hernia containing omental fat. 4. Cholelithiasis.
== END | disposition home or self-care (01) ==
LOC: RADCTMAIN 09:46
PROVIDERS: ATTEND Surgery
DX: K80.20 Calculus of gallbladder without cholecystitis without obstruction (principal); K74.69 Other cirrhosis of liver; K42.9 Umbilical hernia without obstruction or gangrene
CPT/HCPCS: 82565; 84520; 36415; 74174; Q9967

== ENCOUNTER → 2021-12-08 | Outpatient (CLI) | payer MEDICARE ==
[2021-12-08 15:18] LABS: HCT 34.3 % (39.6-50.0); HGB 11.1 g/dL (13.0-17.0); MCH 25.3 pg (27.0-32.0); MCHC 32.4 g/dL (32.0-37.0); MCV 78.3 fL (80.0-97.0); NRBC Per 100 WBC 0 /100 WBCS (0.0-0.0); Platelet Count 209 X 10*3/uL (140-440); RBC 4.38 X 10*6/uL (4.40-5.60); RDW 16.3 % (11.5-14.5)
[2021-12-08 17:06] LABS: Basophils # (A) 0.11 X 10*3/uL (0.00-0.10); Basophils % (A) 0.9 %; Eosinophils # (A) 0.17 X 10*3/uL (0.04-0.35); Eosinophils % (A) 1.4 %; Immature Grans, Automated 1.8 %; Lymphocytes # (A) 1.34 X 10*3/uL (0.90-5.00); Lymphocytes % (A) 11.1 %; Monocytes # (A) 1.62 X 10*3/uL (0.20-1.00); Monocytes % (A) 13.4 %; Neutrophils # (A) 8.64 X 10*3/uL (1.80-7.70); Neutrophils % (A) 71.4 %
== END | disposition home or self-care (01) ==
LOC: LABWHC1 08:44
PROVIDERS: ATTEND Surgery
DX: Z01.812 Encounter for preprocedural laboratory examination (principal); K43.0 Incisional hernia with obstruction, without gangrene
CPT/HCPCS: 36415; 85025

== ENCOUNTER 2021-12-10 07:59 | Observation (INO) | payer MEDICARE ==
[2021-12-10] MEDS ORDERED: SODIUM CHLORIDE 0.9% 1,000 ML IV ONE (08:15)
--- NOTE | 2021-12-10 08:20 | ED ---
General Adult HPI - General Chief complaint: Recheck/Abnormal Lab/Rx Stated complaint: hyperglycemia Time Seen by Provider: 12/10/21 08:01 Source: patient, RN notes reviewed Mode of arrival: ambulatory Limitations: no limitations - History of Present Illness Initial comments: 66-year-old male presents emergency Department with chief complaint of hypergly cemia. Patient wasn't preoperative for surgery today by Dr. Fajardo for hernia repair. Patient states he is currently on steroids he has no history of diabetes. He states he does have patient there is, increased urination. Patient was sent down for management, admission. Patient does have underlying renal disease which is closely followed. Patient states that on his last admission he was given insulin because his blood sugar was elevated after steroids. - Related Data Home Medications Medication Instructions Recorded Confirmed Aspirin 81 mg PO HS 10/21/20 12/10/21 Atorvastatin [Lipitor] 80 mg PO DAILY 10/21/20 12/10/21 Levothyroxine Sodium [Synthroid] 100 mcg PO QAM 10/21/20 12/10/21 Montelukast [Singulair] 10 mg PO HS 10/21/20 12/10/21 Apixaban [Eliquis] 5 mg PO BID 06/21/21 12/09/21 Furosemide [Lasix] 40 mg PO DAILY@1400 06/21/21 12/10/21 Furosemide [Lasix] 80 mg PO DAILY@0600 06/21/21 12/10/21 Omeprazole 40 mg PO HS 06/21/21 12/10/21 Spironolactone 25 mg PO 1200 06/21/21 12/10/21 predniSONE [Deltasone] 20 mg PO QAM 09/17/21 12/10/21 Previous Rx's Medication Instructions Recorded Potassium Chloride ER [K-Dur 20] 20 meq PO DAILY 90 Days #90 tablet 06/27/21 Metoprolol Tartrate [Lopressor] 50 mg PO BID tab 09/19/21 Allergies Allergy/AdvReac Type Severity Reaction Status Date / Time cephalexin [From Keflex] Allergy Rash OVER Verified 12/10/21 08:04 MOST OF HIT BODY, ITCHING Penicillins Allergy THROAT Verified 12/10/21 08:04 SWELLING/RASH/HIVES Review of Systems ROS Statement: Those systems with pertinent positive or pertinent negative responses have been documented in the HPI. ROS Other: All systems not noted in ROS Statement are negative. Past Medical History Past Medical History: Atrial Fibrillation, Coronary Artery Disease (CAD), Chest Pain / Angina, COPD, Hypertension, Osteoarthritis (OA), Renal Disease Additional Past Medical History / Comment(s): chronic renal insufficiency stage III, cardiomyopathy, abdominal aneurysm,SWELLING OF LOWER LEGS AT TIMES . Hernia. UNSURE ABOUT HEART FAILURE HISTORY PER , UMBILICAL HERNIA , History of Any Multi-Drug Resistant Organisms: None Reported Past Surgical History: Heart Catheterization, Heart Catheterization With Stent, Orthopedic Surgery Additional Past Surgical History / Comment(s): KARAN, cardioversion 10/17/15, left arm surgery - 1976 PERCUTANEOUS ENDOVASCULAR AORTIC REPAIR (AAA) Past Anesthesia/Blood Transfusion Reactions: No Reported Reaction Date of Last Stent Placement:: 11/14/15 Past Psychological History: No Psychological Hx Reported Smoking Status: Former smoker Past Alcohol Use History: Occasional Past Drug Use History: None Reported - Past Family History Mother Family Medical History: Cancer, Myocardial Infarction ([place]) Additional Family Medical History / Comment(s): Mother of a [place] in in 60's. Sister(s) Family Medical History: Cancer Additional Family Medical History / Comment(s): Breast cancer. General Exam Limitations: no limitations General appearance: alert, in no apparent distress Head exam: Present: atraumatic, normocephalic, normal inspection Respiratory exam: Present: normal lung sounds bilaterally. Absent: respiratory distress, wheezes, rales, rhonchi, stridor Cardiovascular Exam: Present: regular rate, normal rhythm, normal heart sounds. Absent: systolic murmur, diastolic murmur, rubs, gallop, clicks GI/Abdominal exam: Present: soft, normal bowel sounds, hernia. Absent: distended, tenderness, guarding, rebound, rigid Neurological exam: Present: alert Course Vital Signs 12/10/21 08:01 Temperature 98.3 F Pulse Rate 62 Respiratory 18 Rate Blood Pressure 118/81 O2 Sat by Pulse 98 Oximetry Medical Decision Making - Medical Decision Making 66-year-old male present emergency department for hyperglycemia patient will be admitted for new-onset diabetes, hyperglycemia for further management and poss ible rescheduling of hernia repair. Disposition Clinical Impression: Diabetes mellitus, new onset, Hyperglycemia Disposition: ADMITTED IP TO THIS HOSP Condition: Fair Referrals: Ermias Soriano MD [Primary Care Provider] - 1-2 days Time of Disposition: 08:48
[2021-12-10 08:45] LABS: ALT 23 U/L (4-49); AST 26 U/L (17-59); African American GFR (CKD) 38 (>60 ml/min/1.73 sqM); Albumin 3.1 g/dL (3.5-5.0); Alkaline Phosphatase 86 U/L (38-126); Anion Gap 10 mmol/L; Anisocytosis Slight; Basophils # (A) 0.1 k/uL (0-0.2); Basophils % (A) 1 %; Blood Urea Nitrogen 39 mg/dL (9-20); Calcium 8.1 mg/dL (8.4-10.2); Carbon Dioxide 22 mmol/L (22-30); Chloride 96 mmol/L (98-107); Eosinophils # (A) 0.1 k/uL (0-0.7); Eosinophils % (A) 1 %; HCT 33.7 % (39.0-53.0); HGB 10.7 gm/dL (13.0-17.5); Hypochromasia Marked; Lymphocytes # (A) 0.8 k/uL (1.0-4.8); Lymphocytes % (A) 8 %; MCH 25.4 pg (25.0-35.0); MCHC 31.9 g/dL (31.0-37.0); MCV 79.6 fL (80.0-100.0); Magnesium 1.9 mg/dL (1.6-2.3); Mean Platelet Volume 8.5; Microcytosis Slight; Monocytes # (A) 0.7 k/uL (0-1.0); Monocytes % (A) 7 %; Neutrophils # (A) 8.5 k/uL (1.3-7.7); Neutrophils % (A) 81 %; Non-African American GFR(CKD) 33 (>60 ml/min/1.73 sqM); Platelet Count 160 k/uL (150-450); Poikilocytosis Slight; Potassium 3.7 mmol/L (3.5-5.1); RBC 4.23 m/uL (4.30-5.90); RDW 16.3 % (11.5-15.5); Sodium 128 mmol/L (137-145); Total Bilirubin 1.2 mg/dL (0.2-1.3); Total Protein 5.2 g/dL (6.3-8.2); WBC 10.5 k/uL (3.8-10.6)
[2021-12-10] MEDS ORDERED: DEXTROSE 50% SYRINGE 50 ML IVP PRN ×2 (08:45)
[2021-12-10] MEDS ORDERED: ONDANSETRON 4 MG/2 ML VIAL IVP PRN (08:48)
[2021-12-10] MEDS ORDERED: NALOXONE 0.4 MG/ML 1 ML VIAL IV PRN (08:48)
[2021-12-10 08:54] LABS: Glucose 513 mg/dL (74-99)
[2021-12-10] MEDS ORDERED: SODIUM CHLORIDE 0.9% 1,000 ML IV SCH (09:00)
[2021-12-10 09:08] LABS: Glucose,Whole Blood 506 mg/dL (70-110)
[2021-12-10 09:19] LABS: Appearance,Urine Clear (Clear); Bilirubin,Urine Negative (Negative); Blood,Urine Negative (Negative); Color,Urine Light Yellow; Glucose,Urine (UA) 4+ (Negative); Ketones,Urine Negative (Negative); Leukocyte Esterase,Urine Negative (Negative); Nitrite,Urine Negative (Negative); PH, Urine 5.5 (5.0-8.0); Protein,Urine Negative (Negative); Specific Gravity,Urine 1.017 (1.001-1.035); Urobilinogen,Urine <2.0 mg/dL (<2.0)
[2021-12-10 10:50] LABS: Glucose,Whole Blood 456 mg/dL (70-110)
[2021-12-10] MEDS ORDERED: INSULIN REGULAR 100 UNIT/ML VIAL (IV) IV ONE (11:53)
[2021-12-10 12:35] LABS: Glucose,Whole Blood 449 mg/dL (70-110)
[2021-12-10] MEDS: INSULIN ASPART (NovoLOG) 100 UNIT/ML VIAL SQ SCH ×4 (12:41→21:21)
[2021-12-10] MEDS ORDERED: INSULIN ASPART (NovoLOG) 100 UNIT/ML VIAL SQ ONE (14:26)
[2021-12-10] MEDS: HEPARIN SODIUM,PORCINE/PF 5,000 UNIT/0.5 ML SYRINGE SQ SCH ×2 (15:37→21:22)
[2021-12-10 15:39] LABS: Glucose,Whole Blood 507 mg/dL (70-110)
[2021-12-10] MEDS ORDERED: INSULIN DETEMIR (LEVEMIR) 100 UNIT/ML SYR SQ STA (16:04)
[2021-12-10 16:49] LABS: Glucose,Whole Blood 540 mg/dL (70-110)
[2021-12-10 16:53] LABS: Glucose,Whole Blood 544 mg/dL (70-110)
[2021-12-10] MEDS: SODIUM CHLORIDE 0.9% 1,000 ML IV SCH (17:20)
[2021-12-10 20:59] LABS: Glucose,Whole Blood 445 mg/dL (70-110)
[2021-12-10] MEDS ORDERED: INSULIN DETEMIR (LEVEMIR) 100 UNIT/ML SYR SQ SCH (21:00)
[2021-12-10] MEDS: ASPIRIN 81 MG PO SCH (21:21)
[2021-12-10] MEDS: MONTELUKAST 10 MG TAB PO SCH (21:22)
[2021-12-10] MEDS: PANTOPRAZOLE 40 MG TABLET PO SCH (21:22)
[2021-12-10] MEDS: METOPROLOL TARTRATE 50 MG TAB PO SCH (21:22)
--- NOTE | 2021-12-11 01:04 | HP ---
HISTORY AND PHYSICAL HISTORY OF PRESENT ILLNESS: A 66-year-old white male comes in with hyperglycemia for hernia repair, was found to have sugar into the 600s. He was admitted for uncontrolled diabetes mellitus. Sugar has been going high after couple of surgeries recently. We are going to start him on insulin scale and monitor him. His sugar was under control prior to surgery. He is taken off Eliquis, he is on subcu heparin. HOME MEDICINES: 1. Lipitor 80 daily. 2. Synthroid 100 mcg daily. 3. Singulair 10 mg daily. 4. Eliquis 5 mg b.i.d. at home. 5. Lasix 80 in the morning and 40 at night. 6. Omeprazole 40 mg daily. 7. Spironolactone 25 mg daily. ALLERGIES: Keflex, penicillin. REVIEW OF SYSTEMS: A 14-point review of system negative except for mentioned above. PAST MEDICAL HISTORY: Atrial fibrillation, coronary artery disease, chest pain, angina, COPD, hypertension, osteoarthritis, and renal disease. PAST SURGICAL HISTORY: Heart catheterization with stent, orthopedic surgery, KARAN, AAA repair. SOCIAL SUPPORT: Former smoker. Occasional alcohol. No drugs. FAMILY HISTORY: Mother with myocardial infarction, sister with cancer of breast. PHYSICAL EXAMINATION: VITAL SIGNS: Temperature 98.3, pulse 60 to 62, respiratory rate 16 to 18, blood pressure 118/80, and O2 98. CARDIOVASCULAR: S1, S2. LUNGS: Scattered wheeze. PSYCH: Fair mood and affect. NEUROLOGIC: Alert and oriented x3. PSYCH: Fair mood and affect. HEMATOLOGIC: Negative Homans. Generalized 2+ edema. OPHTHALMOLOGIC: Pupils equal, round, reactive. NEUROLOGIC: Cranial nerves are intact. ASSESSMENT: 1. Uncontrolled diabetes mellitus, new onset. 2. Hyperglycemia. 3. Congestive heart failure. 4. Abdominal aortic aneurysm repair. 5. Chronic obstructive pulmonary disease. 6. Hypertension. PROGNOSIS: Guarded. Start on insulin with Accu-Chek protocol. Wait for surgery on Wednesday for hernia repair. MMODL / IJN: [id number] /
[2021-12-11] MEDS: SODIUM CHLORIDE 0.9% 1,000 ML IV SCH ×3 (04:03→18:09)
[2021-12-11 04:45] LABS: Glucose,Whole Blood 256 mg/dL (70-110)
[2021-12-11] MEDS: LEVOTHYROXINE 100 MCG TAB PO SCH (05:47)
[2021-12-11] MEDS: FUROSEMIDE 80 MG TAB PO SCH (05:47)
[2021-12-11 06:51] LABS: Glucose,Whole Blood 211 mg/dL (70-110)
[2021-12-11] MEDS: IPRATROPIUM 0.5 MG/2.5 ML NEBU INHALATION SCH ×4 (07:56→20:01)
[2021-12-11] MEDS: HEPARIN SODIUM,PORCINE/PF 5,000 UNIT/0.5 ML SYRINGE SQ SCH ×3 (08:55→20:27)
[2021-12-11] MEDS: METOPROLOL TARTRATE 50 MG TAB PO SCH ×2 (08:55→20:27)
[2021-12-11] MEDS: POTASSIUM CHLORIDE ER 20 MEQ TAB.ER PO SCH (08:55)
[2021-12-11] MEDS: ATORVASTATIN 80 MG TAB PO SCH (08:55)
[2021-12-11] MEDS: INSULIN ASPART (NovoLOG) 100 UNIT/ML VIAL SQ SCH ×7 (08:56→20:26)
[2021-12-11] MEDS: INSULIN DETEMIR (LEVEMIR) 100 UNIT/ML SYR SQ SCH ×2 (08:56→20:26)
[2021-12-11 10:57] LABS: Glucose,Whole Blood 261 mg/dL (70-110)
[2021-12-11 11:02] VITALS: BMI 34.8
--- NOTE | 2021-12-11 11:56 | P.GSCN ---
History of Present Illness Consult date: 12/11/21 History of present illness: CHIEF COMPLAINT: Hyperglycemia HISTORY OF PRESENT ILLNESS: This is a 66-year-old male who was initially scheduled for a umbilical hernia repair with Dr. dunne yesterday. However in preop he was found have a blood sugar of 580. Surgery was canceled. Patient went to the ER and admitted to the hospital for hypoglycemia. Denies any hist ory of diabetes. Denies being on any steroids. His hemoglobin A1c was 13.1. Patient does report increased urination and excessive thirstiness. The patient denies any abdominal pain. Denies any nausea vomiting. He reports having regular bowel movements. PAST MEDICAL HISTORY: See list. PAST SURGICAL HISTORY: See list. MEDICATIONS: See list. ALLERGIES: See list. SOCIAL HISTORY: No illicit drug use. REVIEW OF SYSTEMS: CONSTITUTIONAL: Denies fever or chills. HEENT: Denies blurred vision, vision changes, or eye pain. Denies hemoptysis CARDIOVASCULAR: Denies chest pain or pressure. RESPIRATORY: No shortness of breath. GASTROINTESTINAL: See HPI for pertinent findings HEMATOLOGIC: Denies bleeding disorders. GENITOURINARY: Denies any blood in urine or increased urinary frequency. SKIN: Denies pruitis. Denies rash. PHYSICAL EXAM: VITAL SIGNS: Reviewed GENERAL: Well-developed in no acute distress. HEENT: No sclera icterus. Extraocular movements grossly intact. Moist buccal mucosa. Head is atraumatic, normocephalic. No nasal drainage. ABDOMEN: Soft. Obese. Nondistended. Incarcerated umbilical hernia hernia. Mild tenderness with palpation NEUROLOGIC: Alert and oriented. Cranial nerves II through XII grossly intact. LABORATORY DATA: WBC 10.5 Hgb 10.7 platelets 160 Sodium is 128 potassium 3.7 creatinine 2.03 Glucose 513-261 Hemoglobin A1c 13.1 acetone negative IMAGING: ASSESSMENT: 1. Incarcerated umbilical hernia 2. Hyperglycemia, new-onset diabetes PLAN: -Diabetes management per medicine service -Umbilical hernia repair when patient is medically stable -Continue support care Physician Garage Mechanic note has been reviewed by physician. Signing provider agrees with the documented findings, assessment, and plan of care. Past Medical History Past Medical History: Atrial Fibrillation, Coronary Artery Disease (CAD), Chest Pain / Angina, COPD, Hypertension, Osteoarthritis (OA), Renal Disease Additional Past Medical History / Comment(s): chronic renal insufficiency stage III, cardiomyopathy, abdominal aneurysm,SWELLING OF LOWER LEGS AT TIMES . Hernia. UNSURE ABOUT HEART FAILURE HISTORY PER , UMBILICAL HERNIA , History of Any Multi-Drug Resistant Organisms: None Reported Past Surgical History: Heart Catheterization, Heart Catheterization With Stent, Orthopedic Surgery Additional Past Surgical History / Comment(s): KARAN, cardioversion 10/17/15, left arm surgery - 1976 PERCUTANEOUS ENDOVASCULAR AORTIC REPAIR (AAA) Past Anesthesia/Blood Transfusion Reactions: No Reported Reaction Date of Last Stent Placement:: 11/14/15 Past Psychological History: No Psychological Hx Reported Additional Psychological History / Comment(s): Pt resides with spouse. He has a cane which he has been using lately. He drives. Smoking Status: Former smoker Past Alcohol Use History: Occasional Additional Past Alcohol Use History / Comment(s): STARTED SMOKING AT AGE 15 Quit smoking 2017 SMOKED 1PPD Past Drug Use History: None Reported Additional Drug Use History / Comment(s): Patient stopped smoking 2016 - Past Family History Mother Family Medical History: Cancer, Myocardial Infarction ([place]) Additional Family Medical History / Comment(s): Mother of a [place] in in 60's. Sister(s) Family Medical History: Cancer Additional Family Medical History / Comment(s): Breast cancer. Medications and Allergies Home Medications Medication Instructions Recorded Confirmed Type Aspirin 81 mg PO HS 10/21/20 12/10/21 History Atorvastatin [Lipitor] 80 mg PO DAILY 10/21/20 12/10/21 History Levothyroxine Sodium [Synthroid] 100 mcg PO QAM 10/21/20 12/10/21 History Montelukast [Singulair] 10 mg PO HS 10/21/20 12/10/21 History Apixaban [Eliquis] 5 mg PO DIRECTED 06/21/21 12/10/21 History Furosemide [Lasix] 40 mg PO DAILY@1200 06/21/21 12/10/21 History Furosemide [Lasix] 80 mg PO DAILY@0600 06/21/21 12/10/21 History Omeprazole 40 mg PO HS 06/21/21 12/10/21 History Spironolactone 25 mg PO DAILY@1200 06/21/21 12/10/21 History Potassium Chloride ER [K-Dur 20] 20 meq PO DAILY 90 Days #90 tablet 06/27/21 12/10/21 Rx predniSONE [Deltasone] 20 mg PO QAM 09/17/21 12/10/21 History Metoprolol Tartrate [Lopressor] 50 mg PO BID tab 09/19/21 12/10/21 Rx Tiotropium 2.5 Mcg/Puff [Spiriva 2 puff INHALATION RT-DAILY 12/10/21 12/10/21 History Respimat 2.5 Mcg] Allergies Allergy/AdvReac Type Severity Reaction Status Date / Time cephalexin [From Keflex] Allergy Rash OVER Verified 12/10/21 11:58 MOST OF HIT BODY, ITCHING Penicillins Allergy THROAT Verified 12/10/21 11:58 SWELLING/RASH/HIVES Surgical - Exam Vital Signs Temp Pulse Resp BP Pulse Ox 98.3 F 62 18 118/81 98 12/10/21 08:01 12/10/21 08:01 12/10/21 08:01 12/10/21 08:01 12/10/21 08:01 Results - Labs 12/10/21 08:23 12/10/21 08:23 Abnormal Lab Results - Last 24 Hours (Table) 12/10/21 12/10/21 12/10/21 Range/Units 08:23 09:16 10:48 POC Glucose (mg/dL) 456 H (70-110) mg/dL Hemoglobin A1c 13.1 H (0.0-6.0) % C-Peptide (0.81-3.85) ng/mL Urine Glucose (UA) 4+ H (Negative) 12/10/21 12/10/21 12/10/21 Range/Units 12:33 13:52 15:37 POC Glucose (mg/dL) 449 H 540 H 507 H (70-110) mg/dL Hemoglobin A1c (0.0-6.0) % C-Peptide (0.81-3.85) ng/mL Urine Glucose (UA) (Negative) 12/10/21 12/10/21 12/10/21 Range/Units 16:05 16:46 20:58 POC Glucose (mg/dL) 544 H 445 H (70-110) mg/dL Hemoglobin A1c (0.0-6.0) % C-Peptide 7.77 H (0.81-3.85) ng/mL Urine Glucose (UA) (Negative) 12/11/21 12/11/21 Range/Units 04:43 06:50 POC Glucose (mg/dL) 256 H 211 H (70-110) mg/dL Hemoglobin A1c (0.0-6.0) % C-Peptide (0.81-3.85) ng/mL Urine Glucose (UA) (Negative) Diabetes panel 12/10/21 Range/Units 08:23 Hemoglobin A1c 13.1 H (0.0-6.0) %
[2021-12-11] MEDS ORDERED: SPIRONOLACTONE 25 MG TAB PO SCH (12:00)
[2021-12-11] MEDS ORDERED: FUROSEMIDE 40 MG TAB PO SCH (12:00)
[2021-12-11 15:16] LABS: Glucose,Whole Blood 260 mg/dL (70-110)
[2021-12-11 17:53] LABS: Glucose,Whole Blood 295 mg/dL (70-110)
[2021-12-11 19:18] LABS: Glucose,Whole Blood 310 mg/dL (70-110)
[2021-12-11] MEDS: ASPIRIN 81 MG PO SCH (20:26)
[2021-12-11] MEDS: MONTELUKAST 10 MG TAB PO SCH (20:27)
[2021-12-11] MEDS: PANTOPRAZOLE 40 MG TABLET PO SCH (20:27)
[2021-12-12 05:01] LABS: Glucose,Whole Blood 202 mg/dL (70-110)
[2021-12-12 05:01] LABS: Glucose,Whole Blood 147 mg/dL (70-110)
[2021-12-12] MEDS: SODIUM CHLORIDE 0.9% 1,000 ML IV SCH ×2 (05:16→09:12)
[2021-12-12] MEDS: FUROSEMIDE 80 MG TAB PO SCH (05:34)
[2021-12-12] MEDS: LEVOTHYROXINE 100 MCG TAB PO SCH (05:34)
[2021-12-12 07:39] LABS: Glucose,Whole Blood 149 mg/dL (70-110)
[2021-12-12] MEDS: IPRATROPIUM 0.5 MG/2.5 ML NEBU INHALATION SCH ×2 (07:57→11:26)
[2021-12-12 08:16] VITALS: BP 149/78; PULSE 75; RESP 20; TEMP 98.1
[2021-12-12] MEDS: POTASSIUM CHLORIDE ER 20 MEQ TAB.ER PO SCH (09:11)
[2021-12-12] MEDS: HEPARIN SODIUM,PORCINE/PF 5,000 UNIT/0.5 ML SYRINGE SQ SCH (09:11)
[2021-12-12] MEDS: METOPROLOL TARTRATE 50 MG TAB PO SCH (09:11)
[2021-12-12] MEDS: ATORVASTATIN 80 MG TAB PO SCH (09:11)
[2021-12-12] MEDS: INSULIN DETEMIR (LEVEMIR) 100 UNIT/ML SYR SQ SCH (09:11)
[2021-12-12] MEDS: INSULIN ASPART (NovoLOG) 100 UNIT/ML VIAL SQ SCH ×2 (10:13)
== END 2021-12-12 11:35 | disposition home or self-care (01) ==
LOC: EC 07:59 → 6NMEDSUR 08:55
PROVIDERS: ADMIT Family Medicine; ATTEND Family Medicine
DX: E11.65 Type 2 diabetes mellitus with hyperglycemia (principal); K42.0 Umbilical hernia with obstruction, without gangrene; I48.91 Unspecified atrial fibrillation; I25.10 Atherosclerotic heart disease of native coronary artery without angina pectoris; J44.9 Chronic obstructive pulmonary disease, unspecified; E11.22 Type 2 diabetes mellitus with diabetic chronic kidney disease; I12.9 Hypertensive chronic kidney disease with stage 1 through stage 4 chronic kidney disease, or unspecified chronic kidney disease; N18.30 Chronic kidney disease, stage 3 unspecified; I42.9 Cardiomyopathy, unspecified; Z87.891 Personal history of nicotine dependence; Z95.5 Presence of coronary angioplasty implant and graft; Z79.01 Long term (current) use of anticoagulants; Z79.82 Long term (current) use of aspirin; Z79.890 Hormone replacement therapy; Z79.899 Other long term (current) drug therapy; Z88.0 Allergy status to penicillin; Z88.1 Allergy status to other antibiotic agents; Z82.49 Family history of ischemic heart disease and other diseases of the circulatory system; Z80.3 Family history of malignant neoplasm of breast
CPT/HCPCS: 96372 ×4; 96360; 99285; 36415; 80053; 82009; 83735; 85025; 81003; 84681; 83036; G0378 ×3; J1644 ×3

== ENCOUNTER → 2021-12-10 | Day surgery (SDC) | payer MEDICARE ==
[2021-12-09 10:10] VITALS: BMI 36.2
[~2021-12-10] MED LIST changes: +ACETAMINOPHEN TAB 500 MG TAB PO PRN; -ALPRAZolam 0.25 MG TAB PO PRN; -ALPRAZolam 0.5 MG TAB PO PRN; +HEPARIN SODIUM,PORCINE/PF 5,000 UNIT/0.5 ML SYRINGE SQ PRN; +HYDROmorphone 0.5 MG/0.5 ML SYRINGE IVP PRN; +INSULIN ASPART (NovoLOG) 100 UNIT/ML VIAL SQ ONE; +LACTATED RINGERS 1,000 ML IV SCH; +MIDAZOLAM 2 MG/2 ML VIAL IV PRN; +SODIUM CHLORIDE 0.9% 1,000 ML IV ONE; -SODIUM CHLORIDE 0.9% 1,000 ML in EMPTY BAG 1 BAG IV ONE; -ZOLPIDEM 5 MG TAB PO PRN
[2021-12-10 06:32] VITALS: BP 153/105; PULSE 58; RESP 16; TEMP 97
[2021-12-10 06:50] LABS: Glucose,Whole Blood 559 mg/dL (70-110)
[2021-12-10 06:50] LABS: Glucose,Whole Blood 571 mg/dL (70-110)
[2021-12-10 07:17] LABS: Anisocytosis Slight; Basophils # (A) 0.1 k/uL (0-0.2); Basophils % (A) 1 %; Eosinophils # (A) 0.2 k/uL (0-0.7); Eosinophils % (A) 1 %; HCT 36.5 % (39.0-53.0); HGB 11.7 gm/dL (13.0-17.5); Hypochromasia Moderate; Lymphocytes # (A) 1.2 k/uL (1.0-4.8); Lymphocytes % (A) 9 %; MCH 25.4 pg (25.0-35.0); Mean Platelet Volume 8.3; Microcytosis Slight; Monocytes % (A) 8 %; Neutrophils # (A) 10.4 k/uL (1.3-7.7); Neutrophils % (A) 79 %; Platelet Count 201 k/uL (150-450); Poikilocytosis Slight; RBC 4.61 m/uL (4.30-5.90); RDW 16.5 % (11.5-15.5); WBC 13.2 k/uL (3.8-10.6)
[2021-12-10 07:26] LABS: MCV 79.2 fL (80.0-100.0)
[2021-12-10 07:28] LABS: Potassium 4.1 mmol/L (3.5-5.1)
--- NOTE | 2021-12-10 07:52 | P.PN ---
Progress Note - Text Progress Note Date: 12/10/21 The patient was seen in the preoperative hold area. His blood glucoses in the 580 range. I discussed this with the patient and his family. Patient's surgery will be canceled. Patient will be admitted to Dr. Ermias Elena for further medical workup.
[2021-12-10 08:03] LABS: Glucose,Whole Blood 566 mg/dL (70-110)
== END ==
LOC: OR 05:59
PROVIDERS: ATTEND Surgery
DX: Z53.9 Procedure and treatment not carried out, unspecified reason (principal); K43.0 Incisional hernia with obstruction, without gangrene
CPT/HCPCS: 80051; 82565; 82947; 83036; 84520; 85025; 86850; 86900; 86901

== ENCOUNTER → 2022-01-05 | Outpatient (CLI) | payer MEDICARE ==
[2022-01-05 15:32] LABS: Basophils # (A) 0.19 X 10*3/uL (0.00-0.10); Basophils % (A) 1.6 %; Eosinophils # (A) 0.27 X 10*3/uL (0.04-0.35); Eosinophils % (A) 2.2 %; HCT 37.4 % (39.6-50.0); HGB 11.1 g/dL (13.0-17.0); Immature Grans, Automated 2.1 %; Lymphocytes # (A) 1.62 X 10*3/uL (0.90-5.00); Lymphocytes % (A) 13.3 %; MCH 22.9 pg (27.0-32.0); MCHC 29.7 g/dL (32.0-37.0); MCV 77.3 fL (80.0-97.0); Mean Platelet Volume 9.2 fL (9.5-12.2); Monocytes % (A) 15.6 %; NRBC Per 100 WBC 0 /100 WBCS (0.0-0.0); Neutrophils # (A) 7.93 X 10*3/uL (1.80-7.70); Neutrophils % (A) 65.2 %; Platelet Count 296 X 10*3/uL (140-440); RBC 4.84 X 10*6/uL (4.40-5.60); RDW 18.1 % (11.5-14.5); WBC 12.16 X 10*3/uL (4.50-10.00)
== END | disposition home or self-care (01) ==
LOC: LABPAT 08:26
PROVIDERS: ATTEND Surgery
DX: Z01.818 Encounter for other preprocedural examination (principal)
CPT/HCPCS: 36415; 85025

== ENCOUNTER 2022-01-14 07:40 | Inpatient (IN) | payer MEDICARE ==
[2022-01-09 14:12] VITALS: BMI 35.1
[~2022-01-14 07:40] MED LIST changes: -INSULIN ASPART (NovoLOG) 100 UNIT/ML VIAL SQ ONE; -LACTATED RINGERS 1,000 ML IV SCH; -SODIUM CHLORIDE 0.9% 1,000 ML IV ONE
--- NOTE | 2022-01-14 08:31 | P.GSHP ---
History of Present Illness H&P Date: 01/14/22 Chief Complaint: Incarcerated ventral hernia Is a 66-year-old male who presents today for laparoscopic robotic-assisted repair of incarcerated ventral hernia. Patient was originally scheduled for surgery several weeks ago. His case was canceled due to hyperglycemia at that time. Patient has been on diabetic management since then. Patient's aware the risk surgery including possible wound infection. Past Medical History Past Medical History: Atrial Fibrillation, Coronary Artery Disease (CAD), Chest Pain / Angina, COPD, Diabetes Mellitus, Hypertension, Osteoarthritis (OA), Renal Disease Additional Past Medical History / Comment(s): NEWLY DIAGNOSED DIABETIC (12/10/21 ARRIVED FOR SURG AND HAD BS IN 500'S), chronic renal insufficiency stage III, cardiomyopathy, abdominal aneurysm,SWELLING OF LOWER LEGS AT TIMES, UNSURE ABOUT HEART FAILURE HISTORY PER , UMBILICAL HERNIA History of Any Multi-Drug Resistant Organisms: None Reported Past Surgical History: Cholecystectomy, Heart Catheterization, Heart Catheterization With Stent, Orthopedic Surgery Additional Past Surgical History / Comment(s): KARAN, cardioversion 10/17/15, left arm surgery - 1976 PERCUTANEOUS ENDOVASCULAR AORTIC REPAIR (AAA) Past Anesthesia/Blood Transfusion Reactions: No Reported Reaction Date of Last Stent Placement:: 11/14/15 Smoking Status: Former smoker - Past Family History Mother Family Medical History: Cancer, Myocardial Infarction ([place]) Additional Family Medical History / Comment(s): Mother of a [place] in in 60's. Sister(s) Family Medical History: Cancer Additional Family Medical History / Comment(s): Breast cancer. Medications and Allergies Home Medications Medication Instructions Recorded Confirmed Type Aspirin 81 mg PO HS 10/21/20 01/09/22 History Atorvastatin [Lipitor] 80 mg PO DAILY 10/21/20 01/09/22 History Levothyroxine Sodium [Synthroid] 100 mcg PO QAM 10/21/20 01/09/22 History Montelukast [Singulair] 10 mg PO HS 10/21/20 01/09/22 History Furosemide [Lasix] 40 mg PO DAILY@1200 06/21/21 01/09/22 History Furosemide [Lasix] 80 mg PO DAILY@0600 06/21/21 01/09/22 History Omeprazole 40 mg PO HS 06/21/21 01/09/22 History Spironolactone 25 mg PO DAILY@1200 06/21/21 01/09/22 History Potassium Chloride ER [K-Dur 20] 20 meq PO DAILY 90 Days #90 tablet 06/27/21 01/09/22 Rx Metoprolol Tartrate [Lopressor] 50 mg PO BID tab 09/19/21 01/09/22 Rx Tiotropium 2.5 Mcg/Puff [Spiriva 2 puff INHALATION RT-DAILY 12/10/21 01/09/22 History Respimat 2.5 Mcg] Apixaban [Eliquis] 5 mg PO BID 01/09/22 01/09/22 History Dulaglutide [Trulicity] 0.75 mg SQ SA 01/09/22 01/09/22 History Enoxaparin [Lovenox] 40 mg SQ DAILY 01/09/22 01/09/22 History Insulin Aspart [NovoLOG Flexpen] 15 units SQ TID-W/MEALS 01/09/22 01/09/22 History Insulin Glargine,Hum.rec.anlog 40 units SQ DAILY 01/09/22 01/09/22 History [Tosridevi Diaz] Allergies Allergy/AdvReac Type Severity Reaction Status Date / Time cephalexin [From Keflex] Allergy Rash OVER Verified 01/09/22 13:35 MOST OF HIS BODY, ITCHING Penicillins Allergy THROAT Verified 01/09/22 13:35 SWELLING/RASH/HIVES Surgical - Exam - General well developed, well nourished, no distress - Eyes PERRL - ENT normal pinna - Neck no masses - Respiratory normal expansion - Cardiovascular Rhythm: regular - Abdomen 15 cm incarcerated ventral hernia located above the umbilicus Abdomen: soft, non tender Assessment and Plan Assessment: Incarcerated ventral hernia. Perform laparoscopic robotic-assisted repair.
[2022-01-14] MEDS ORDERED: LACTATED RINGERS 1,000 ML IV ONE ×3 (08:35→10:56)
[2022-01-14 08:41] LABS: Glucose,Whole Blood 113 mg/dL (70-110)
[2022-01-14 08:50] LABS: Anisocytosis Slight; HCT 34.7 % (39.0-53.0); HGB 10.8 gm/dL (13.0-17.5); Hypochromasia Marked; MCH 23.6 pg (25.0-35.0); MCHC 31.2 g/dL (31.0-37.0); MCV 75.7 fL (80.0-100.0); Mean Platelet Volume 7.6; Microcytosis Slight; Platelet Count 308 k/uL (150-450); Poikilocytosis Slight; RBC 4.58 m/uL (4.30-5.90); RDW 17.4 % (11.5-15.5); WBC 11.7 k/uL (3.8-10.6)
[2022-01-14] MEDS ORDERED: MIDAZOLAM 2 MG/2 ML VIAL IVP ONE (09:04)
[2022-01-14 09:07] LABS: Calcium 8.7 mg/dL (8.4-10.2); Potassium 4.2 mmol/L (3.5-5.1)
[2022-01-14] MEDS ORDERED: ROPIVACAINE 5 MG/ML 30 ML VIAL ONE (09:50)
[2022-01-14] MEDS ORDERED: DEXAMETHASONE SOD PHOSPHATE 4 MG/ML 1 ML VIAL ONE (09:50)
[2022-01-14] MEDS ORDERED: LIDOCAINE 4% LTA KIT (4 ML) TOPICAL ONE (09:50)
[2022-01-14] MEDS ORDERED: KETOROLAC 15 MG/ML 1 ML VIAL ONE (09:50)
[2022-01-14] MEDS ORDERED: GLYCOPYRROLATE 0.2 MG/ML 2 ML VIAL ONE (09:50)
[2022-01-14] MEDS ORDERED: PHENYLEPHRINE-0.9% NACL SYG 1,000 MCG/10 ML SYRINGE ONE (09:50)
[2022-01-14] MEDS ORDERED: PROPOFOL 10 MG/ML 20 ML VIAL IV ONE (09:50)
[2022-01-14] MEDS ORDERED: ROCURONIUM 10 MG/ML (5 ML VIAL) IV ONE (09:50)
[2022-01-14] MEDS ORDERED: KETAMINE 10 MG/ML 20 ML VIAL ONE (09:50)
[2022-01-14] MEDS ORDERED: LIDOCAINE 2% INJ 20 MG/ML (2 ML VIAL) ONE (09:50)
[2022-01-14] MEDS ORDERED: SUCCINYLCHOLINE CHLORIDE 200 MG/10 ML VIAL IV ONE (09:50)
[2022-01-14] MEDS ORDERED: fentaNYL (PF) 50 MCG/ML 2 ML AMP ONE (09:50)
[2022-01-14] MEDS ORDERED: NEOSTIGMINE 1 MG/ML 10 ML VIAL ONE (09:50)
[2022-01-14] MEDS ORDERED: BUPIVACAIN-EPI 0.25%-1:200,000 30 ML VIAL SQ ONE (10:11)
[2022-01-14] MEDS ORDERED: SUGAMMADEX SODIUM 200 MG/2 ML SDV IV ONE (10:54)
[2022-01-14] MEDS ORDERED: NALOXONE 0.4 MG/ML 1 ML VIAL IV PRN (10:56)
[2022-01-14] MEDS ORDERED: HYDROmorphone 0.5 MG/0.5 ML SYRINGE IVP PRN (10:56)
[2022-01-14] MEDS ORDERED: ACETAMINOPHEN TAB 325 MG TAB PO PRN (10:56)
[2022-01-14] MEDS ORDERED: HYDROmorphone 1 MG/ML 1 ML SYRINGE IVP PRN (10:56)
[2022-01-14] MEDS ORDERED: ONDANSETRON 4 MG/2 ML VIAL IVP PRN (10:56)
--- NOTE | 2022-01-14 10:56 | P.OP ---
Date of Procedure: 01/14/22 Preoperative Diagnosis: Incarcerated ventral hernia Postoperative Diagnosis: Incarcerated ventral hernia Procedure(s) Performed: Laparoscopic robotic system repair of incarcerated ventral hernia Partial omentectomy Anesthesia: WILLIAM Surgeon: Jeffrey Fajardo Estimated Blood Loss (ml): 10 Pathology: other (Omentum/hernia sac) Condition: stable Disposition: PACU Description of Procedure: The patient was placed on the operating table in the supine position. He received general anesthesia. His abdomen was prepped and draped usual fashion. The patient had a large incarcerated ventral hernia located approximately 3 cm above the umbilicus. Using a 5 mm optical trocar under direct visualization the peritoneal cavity was entered in the left upper quadrant. The abdomen was then insufflated. The laparoscope was placed back into the perineal cavity. Next a 8 mm robotic trocar was placed in the left lower quadrant and a 12 mm robotic trocar was placed in the left lateral position. The original 5 mm trocar was exchanged for a 8 mm robotic trocar. The patient's placed in the left side up position. And the patient was docked to the robot. The ventral hernia was visualized. The incarcerated omentum was dissected free. Pieces of the omentum was sent to pathology. Using hook cautery the peritoneum over the incisional hernia was excised. The fascial opening was repaired using 0V LOC suture. Next a piece of 11 cm round ventral light ST mesh was placed into the. Cavity and secured with 2 OV lock suture. The patient was undocked the robot. The needles were retrieved. The fascia of the 12 mm trocar site was closed with 0 Ethibond suture. Skin was closed interrupted 3-0 Monocryl suture. The redundant skin over top of the ventral hernia was excised using electrocautery. The skin was closed nicole. Dermabond dressings was applied. Patient tolerated procedure well and was sent to recovery room stable condition.
[2022-01-14 11:38] LABS: Glucose,Whole Blood 148 mg/dL (70-110)
[2022-01-14] MEDS ORDERED: ONDANSETRON 4 MG/2 ML VIAL IVP ONE (11:59)
[2022-01-14] MEDS: KETOROLAC 15 MG/ML 1 ML VIAL IVP SCH ×3 (20:18→23:40)
[2022-01-14] MEDS: LACTATED RINGERS 1,000 ML IV SCH (20:18)
[2022-01-14 21:48] LABS: Glucose,Whole Blood 328 mg/dL (70-110)
[2022-01-14] MEDS: PANTOPRAZOLE 40 MG TABLET PO SCH (23:39)
[2022-01-14] MEDS: METOPROLOL TARTRATE 50 MG TAB PO SCH (23:39)
[2022-01-14] MEDS: MONTELUKAST 10 MG TAB PO SCH (23:39)
[2022-01-14] MEDS: ATORVASTATIN 80 MG TAB PO SCH (23:39)
[2022-01-14] MEDS: INSULIN ASPART (NovoLOG) 100 UNIT/ML VIAL SQ SCH (23:41)
--- NOTE | 2022-01-15 01:58 | CONS ---
CONSULTATION HISTORY OF PRESENT ILLNESS: A 66-year-old white male, admitted to the hospital status post hernia repair. Medical consult. fever, chills. Got abdominal binder. No chest pain or shortness of breath. No lightheadedness or syncope. MEDICATIONS: Home medications have been reordered, which include, 1. Eliquis 5 mg b.i.d. 2. Lipitor 80 daily. 3. Trulicity weekly. 4. Lasix 40 daily at 2 p.m., 80 in the morning. 5. Synthroid 100 mcg daily. 6. Lopressor 50 b.i.d. 7. Senna 10 mg daily. 8. Omeprazole 40 mg daily. 9. Spiriva Respimat 2 puffs daily. 10.Spironolactone 25 mg daily. 11.Potassium chloride 20 mEq daily. REVIEW OF SYSTEMS: A 14-point review of systems otherwise negative. PHYSICAL EXAMINATION: VITAL SIGNS: Temperature 97 to 98, blood pressure 110/115 over 60s, respiratory rate 16 to 17, pulse 60s to 90s, O2 of 98 to 99 on room air. CARDIOVASCULAR: S1, S2. LUNGS: Transmitted upper sounds. HEMATOLOGY: Negative for Homans. PSYCH: Fair mood and affect. ENDOCRINE: BMI is over 40. HEMATOLOGIC: 2 to 3+ edema bilaterally. HEENT: Normocephalic, atraumatic. OPHTHALMOLOGICAL: Pupils equal, round, reactive. NEUROLOGIC: Alert and oriented x3. ASSESSMENT: Status post abdominal hernia repair. The patient appears to be stable. EKG today shows sinus rhythm. Home medications have been reordered. Continue home medicines. Monitor progress. PT, OT. Current treatment. MMODL / IJN: [id number] /
[2022-01-15 06:04] LABS: Glucose,Whole Blood 123 mg/dL (70-110)
[2022-01-15] MEDS: KETOROLAC 15 MG/ML 1 ML VIAL IVP SCH ×2 (06:54→13:33)
[2022-01-15] MEDS: LEVOTHYROXINE 100 MCG TAB PO SCH (06:55)
[2022-01-15] MEDS: IPRATROPIUM 0.5 MG/2.5 ML NEBU INHALATION SCH ×4 (08:18→19:06)
[2022-01-15] MEDS: INSULIN ASPART (NovoLOG) 100 UNIT/ML VIAL SQ SCH ×7 (08:25→21:49)
[2022-01-15] MEDS: INSULIN DETEMIR (LEVEMIR) 100 UNIT/ML SYR SQ SCH (08:27)
[2022-01-15] MEDS: POTASSIUM CHLORIDE ER 20 MEQ TAB.ER PO SCH (08:28)
[2022-01-15] MEDS: METOPROLOL TARTRATE 50 MG TAB PO SCH ×2 (08:28→20:24)
[2022-01-15] MEDS: ATORVASTATIN 80 MG TAB PO SCH (08:28)
[2022-01-15] MEDS ORDERED: HEPARIN SODIUM,PORCINE/PF 5,000 UNIT/0.5 ML SYRINGE SQ SCH (09:00)
[2022-01-15] MEDS ORDERED: APIXABAN 5 MG TAB PO SCH (09:00)
[2022-01-15] MEDS ORDERED: ENOXAPARIN 40 MG/0.4 ML SYRINGE SQ SCH (09:00)
[2022-01-15 09:31] LABS: Basophils # (A) 0.04 X 10*3/uL (0.00-0.10); Basophils % (A) 0.2 %; Eosinophils # (A) 0 X 10*3/uL (0.04-0.35); Eosinophils % (A) 0 %; HCT 31.4 % (39.6-50.0); HGB 9.4 g/dL (13.0-17.0); Immature Grans, Automated 0.8 %; Lymphocytes # (A) 1.33 X 10*3/uL (0.90-5.00); Lymphocytes % (A) 8.2 %; MCH 23.3 pg (27.0-32.0); MCHC 29.9 g/dL (32.0-37.0); MCV 77.9 fL (80.0-97.0); Mean Platelet Volume 9.7 fL (9.5-12.2); Monocytes # (A) 1.52 X 10*3/uL (0.20-1.00); Monocytes % (A) 9.4 %; NRBC Per 100 WBC 0 /100 WBCS (0.0-0.0); Neutrophils # (A) 13.15 X 10*3/uL (1.80-7.70); Neutrophils % (A) 81.4 %; Platelet Count 295 X 10*3/uL (140-440); RBC 4.03 X 10*6/uL (4.40-5.60); RDW 18.3 % (11.5-14.5); WBC 16.17 X 10*3/uL (4.50-10.00)
[2022-01-15 09:48] LABS: African American GFR (CKD) 24.2 (60.0-200.0); Albumin 3.3 g/dL (3.8-4.9); Albumin/Globulin Ratio 1.79 (1.60-3.17); Anion Gap 13.7 mmol/L (10.00-18.00); BUN/Creat Ratio 13.19 Ratio (12.00-20.00); Blood Urea Nitrogen 39.3 mg/dL (9.0-27.0); Calcium 8.9 mg/dL (8.7-10.3); Carbon Dioxide 17.6 mmol/L (20.0-27.5); Globulin 1.8 g/dL (1.6-3.3); Non-African American GFR(CKD) 20.9 (60.0-200.0); Potassium 5.2 mmol/L (3.5-5.5); Total Bilirubin 0.7 mg/dL (0.30-1.20); Total Protein 5.1 g/dL (6.2-8.2)
[2022-01-15 11:32] LABS: Glucose,Whole Blood 146 mg/dL (70-110)
[2022-01-15] MEDS: LACTATED RINGERS 1,000 ML IV SCH (11:46)
[2022-01-15] MEDS: FUROSEMIDE 40 MG TAB PO SCH (12:48)
[2022-01-15] MEDS: SPIRONOLACTONE 25 MG TAB PO SCH (12:48)
[2022-01-15] MEDS: HYDROcodone/APAP 5-325MG 1 EACH TAB PO PRN ×2 (12:52→20:23)
[2022-01-15 16:04] LABS: Glucose,Whole Blood 92 mg/dL (70-110)
--- NOTE | 2022-01-15 16:04 | P.PN ---
Subjective Progress Note Date: 01/15/22 CHIEF COMPLAINT: Incarcerated ventral hernia HISTORY OF PRESENT ILLNESS: Patient is postop day #1 laparoscopic robotic repair of incarcerated ventral hernia and partial omentectomy. Patient had complained of chest pain last night. Medicine service had ordered EKG and apparently there is been no changes. Patient is tender with palpation of the chest wall likely more musculoskeletal pain. Patient did have bleeding at incision site. This was reinforced by nursing staff. During my examination the bleeding had essentially resolved. There is minimal saturation on the dressing. The patient does report decreased appetite. No bowel activity. Denies any nausea or vomiting. He just feels very weak. Afebrile. WBC 16.1; hemoglobin 9.4 platelets 294 sodium is 135 potassium is 5.2 creatinine is 3.0 Patient seen and examined with Dr. Fajardo PHYSICAL EXAM: VITAL SIGNS: Reviewed. GENERAL: Well-developed in no acute distress. HEENT: No sclera icterus. Extraocular movements grossly intact. Moist buccal mucosa. Head is atraumatic, normocephalic. ABDOMEN: Soft. Nondistended. Incision site clean dry and intact. As noted above minimal blood noted on abdominal dressing. NEUROLOGIC: Alert and oriented. Cranial nerves II through XII grossly intact. ASSESSMENT: 1. Incarcerated ventral hernia status post laparoscopic robotic repair 2. Leukocytosis likely reactive from surgery PLAN: -[place] added for pain control -Okay to resume Eliquis tonight -Continue regular diet -Consult PT OT to ambulate patient -Encouraged patient to increase activity level -Repeat labs in a.m. -Incentive spirometer ordered -Possible discharge tomorrow Physician Student Counselor note has been reviewed by physician. Signing provider agrees with the documented findings, assessment, and plan of care. Objective - Vital Signs Vital signs: Vital Signs Temp 97.5 F L 01/15/22 12:47 Pulse 80 01/15/22 15:57 Resp 19 01/15/22 12:47 BP 120/69 01/15/22 12:47 Pulse Ox 97 01/15/22 15:48 FiO2 Intake & Output 01/14/22 01/15/22 01/15/22 18:59 06:59 18:59 Intake Total 1400 Output Total 20 Balance 1380 Weight 118.5 kg Intake: IV 1400 Output: Estimated Blood Loss 20 Other: # Voids 3 - Labs CBC & Chem 7: 01/15/22 06:13 11/17/22 06:13 Labs: Abnormal Lab Results - Last 24 Hours (Table) 01/14/22 01/15/22 01/15/22 Range/Units 21:47 06:03 06:13 WBC 16.17 H (4.50-10.00) X 10*3/uL RBC 4.03 L (4.40-5.60) X 10*6/uL Hgb 9.4 L (13.0-17.0) g/dL Hct 31.4 L (39.6-50.0) % MCV 77.9 L (80.0-97.0) fL MCH 23.3 L (27.0-32.0) pg MCHC 29.9 L (32.0-37.0) g/dL RDW 18.3 H (11.5-14.5) % Immature Gran # 0.13 H (0.00-0.04) X 10*3/uL Neutrophils # 13.15 H (1.80-7.70) X 10*3/uL Monocytes # 1.52 H (0.20-1.00) X 10*3/uL Eosinophils # 0 L (0.04-0.35) X 10*3/uL Carbon Dioxide (20.0-27.5) mmol/L BUN (9.0-27.0) mg/dL Creatinine (0.6-1.5) mg/dL Est GFR (CKD-EPI)AfAm (60.0-200.0) Est GFR (CKD-EPI)NonAf (60.0-200.0) Glucose (70-110) mg/dL POC Glucose (mg/dL) 328 H 123 H (70-110) mg/dL Total Protein (6.2-8.2) g/dL Albumin (3.8-4.9) g/dL 01/15/22 01/15/22 Range/Units 06:13 11:30 WBC (4.50-10.00) X 10*3/uL RBC (4.40-5.60) X 10*6/uL Hgb (13.0-17.0) g/dL Hct (39.6-50.0) % MCV (80.0-97.0) fL MCH (27.0-32.0) pg MCHC (32.0-37.0) g/dL RDW (11.5-14.5) % Immature Gran # (0.00-0.04) X 10*3/uL Neutrophils # (1.80-7.70) X 10*3/uL Monocytes # (0.20-1.00) X 10*3/uL Eosinophils # (0.04-0.35) X 10*3/uL Carbon Dioxide 17.6 L (20.0-27.5) mmol/L BUN 39.3 H (9.0-27.0) mg/dL Creatinine 3.0 H (0.6-1.5) mg/dL Est GFR (CKD-EPI)AfAm 24.2 L (60.0-200.0) Est GFR (CKD-EPI)NonAf 20.9 L (60.0-200.0) Glucose 111 H (70-110) mg/dL POC Glucose (mg/dL) 146 H (70-110) mg/dL Total Protein 5.1 L (6.2-8.2) g/dL Albumin 3.3 L (3.8-4.9) g/dL
--- NOTE | 2022-01-15 18:50 | P.ANPRN ---
Procedure Note - Anesthesia - Nerve Block Performed Bilateral Transversus Abdominis Single Time Out Performed: Yes Date of Procedure: 01/14/22 Procedure Start Time: :03 Procedure Stop Time: 09:10 Location of Patient: PreOp Indication: Acute Post-Operative Pain, Requested by Surgeon Sedation Type: Sedate with meaningful contact maintained Preparation: Sterile Prep Position: Supine Needle Types: Pajunk Needle Gauge: 21 Ultrasound used to visualize needle placement: Yes Ultrasound used to observe medication spread: Yes Blood Aspirated: No Pain Paresthesia on Injection Noted: No Resistance on Injection: Normal Image Stored and Saved: Yes Events: Uneventful and Well Tolerated (ropi .5% 20cc plus dexamethasone 4mg gien bilaterally)
[2022-01-15] MEDS: APIXABAN 5 MG TAB PO SCH (20:23)
[2022-01-15] MEDS: MONTELUKAST 10 MG TAB PO SCH (20:23)
[2022-01-15] MEDS: ASPIRIN 81 MG PO SCH (20:23)
[2022-01-15] MEDS: PANTOPRAZOLE 40 MG TABLET PO SCH (20:24)
[2022-01-15 20:42] LABS: Glucose,Whole Blood 113 mg/dL (70-110)
[2022-01-15] MEDS ORDERED: INSULIN ASPART (NovoLOG) 100 UNIT/ML VIAL SQ SCH (23:21)
--- NOTE | 2022-01-16 02:49 | PN ---
PROGRESS NOTE SUBJECTIVE: A 66-year-old white male status post umbilical hernia repair. Home medicines have been restarted. He has been up in to the chair today. Sat 95% on room air. OBJECTIVE: VITAL SIGNS: Blood pressure 108/69, temperature 98, respiratory rate 16 to 18, pulse 67. CARDIOVASCULAR: S1, S2. LUNGS: Clear. GI: Soft. HEMATOLOGY: Negative Homans. PSYCH: Fair mood and affect. ABDOMEN: He has a binder on. ASSESSMENT: Status post umbilical hernia repair, chronic obstructive pulmonary disease, congestive heart failure, status post abdominal aortic aneurysm repair, status post cholecystectomy. PROGNOSIS: Guarded. Possible discharge home tomorrow. Ambulate, advanced diet. MMODL / IJN: [id number] /
[2022-01-16 06:25] LABS: Glucose,Whole Blood 119 mg/dL (70-110)
[2022-01-16] MEDS: INSULIN ASPART (NovoLOG) 100 UNIT/ML VIAL SQ SCH ×7 (06:33→21:30)
[2022-01-16] MEDS: LEVOTHYROXINE 100 MCG TAB PO SCH (06:38)
[2022-01-16] MEDS: INSULIN DETEMIR (LEVEMIR) 100 UNIT/ML SYR SQ SCH (08:01)
[2022-01-16] MEDS: LACTATED RINGERS 1,000 ML IV SCH (08:02)
[2022-01-16] MEDS: APIXABAN 5 MG TAB PO SCH ×2 (08:03→21:34)
[2022-01-16] MEDS: POTASSIUM CHLORIDE ER 20 MEQ TAB.ER PO SCH (08:03)
[2022-01-16] MEDS: ATORVASTATIN 80 MG TAB PO SCH (08:03)
[2022-01-16] MEDS: METOPROLOL TARTRATE 50 MG TAB PO SCH ×2 (08:03→21:35)
[2022-01-16 09:25] LABS: Anisocytosis Slight; Basophils # (A) 0.1 k/uL (0-0.2); Basophils % (A) 1 %; Eosinophils # (A) 0.3 k/uL (0-0.7); Eosinophils % (A) 2 %; HCT 33.3 % (39.0-53.0); Hypochromasia Marked; Lymphocytes # (A) 1.2 k/uL (1.0-4.8); Lymphocytes % (A) 10 %; MCH 24.1 pg (25.0-35.0); MCHC 30.1 g/dL (31.0-37.0); Mean Platelet Volume 7.1; Microcytosis Slight; Monocytes # (A) 1.2 k/uL (0-1.0); Monocytes % (A) 9 %; Neutrophils # (A) 9.4 k/uL (1.3-7.7); Neutrophils % (A) 76 %; Platelet Count 303 k/uL (150-450); Poikilocytosis Slight; RBC 4.17 m/uL (4.30-5.90); RDW 17.6 % (11.5-15.5); WBC 12.4 k/uL (3.8-10.6)
[2022-01-16] MEDS: IPRATROPIUM 0.5 MG/2.5 ML NEBU INHALATION SCH ×4 (09:28→19:31)
[2022-01-16 09:40] LABS: African American GFR (CKD) 27 (>60 ml/min/1.73 sqM); Anion Gap 9 mmol/L; Blood Urea Nitrogen 42 mg/dL (9-20); Calcium 8.2 mg/dL (8.4-10.2); Carbon Dioxide 17 mmol/L (22-30); Chloride 108 mmol/L (98-107); Glucose 143 mg/dL (74-99); Non-African American GFR(CKD) 23 (>60 ml/min/1.73 sqM); Potassium 5.1 mmol/L (3.5-5.1); Sodium 134 mmol/L (137-145)
[2022-01-16] MEDS: HYDROcodone/APAP 5-325MG 1 EACH TAB PO PRN ×2 (11:12→21:34)
[2022-01-16 11:40] LABS: Glucose,Whole Blood 76 mg/dL (70-110)
[2022-01-16] MEDS: SPIRONOLACTONE 25 MG TAB PO SCH (12:36)
[2022-01-16] MEDS: FUROSEMIDE 40 MG TAB PO SCH (12:36)
[2022-01-16] MEDS ORDERED: LEVOFLOXACIN 750 MG TAB PO SCH (13:00)
--- NOTE | 2022-01-16 14:13 | P.PN ---
Subjective Progress Note Date: 01/16/22 CHIEF COMPLAINT: Incarcerated ventral hernia HISTORY OF PRESENT ILLNESS: Patient is postop day #2 laparoscopic robotic repair of incarcerated ventral hernia and partial omentectomy. Patient reports that he is feeling better today. Still complains of abdominal pain. He did have a bowel movement. Denies any nausea vomiting. He reports eating a small amount of his food. Afebrile. WBC is is down from 16 to 12.4 Hgb is 10 platelets 303 sodium is 134 potassium is 5.1 creatinine 2.71 Patient seen and examined with Dr. Fajardo PHYSICAL EXAM: VITAL SIGNS: Reviewed. GENERAL: Well-developed in no acute distress. HEENT: No sclera icterus. Extraocular movements grossly intact. Moist buccal mucosa. Head is atraumatic, normocephalic. ABDOMEN: Soft. Nondistended. Incision site with small area of oozing blood at the distal aspect. His dressing had a moderate area of saturation of blood. NEUROLOGIC: Alert and oriented. Cranial nerves II through XII grossly intact. ASSESSMENT: 1. Incarcerated ventral hernia status post laparoscopic robotic repair 2. Leukocytosis PLAN: -Consult case mgr for possible ECF placement -Continue to work with PT OT -Levaquin added due to leukocytosis -Continue pain management -ok to continue Eliquis -Continue regular diet -Encouraged patient to increase activity level -Incentive spirometer ordered Physician Brickmason Supervisor note has been reviewed by physician. Signing provider agrees with the documented findings, assessment, and plan of care. Objective - Vital Signs Vital signs: Vital Signs Temp 98.4 F 01/16/22 08:00 Pulse 89 01/16/22 08:00 Resp 18 01/16/22 08:00 BP 105/77 01/16/22 08:00 Pulse Ox 96 01/16/22 08:00 FiO2 Intake & Output 01/15/22 01/16/22 01/16/22 18:59 06:59 18:59 Output Total 400 Balance -400 Output: Urine 400 Other: Voiding Method Toilet Toilet Urinal Urinal # Voids 1 - Labs CBC & Chem 7: 01/16/22 08:41 01/16/22 08:41 Labs: Abnormal Lab Results - Last 24 Hours (Table) 01/15/22 01/16/22 01/16/22 Range/Units 20:40 06:24 08:41 WBC 12.4 H (3.8-10.6) k/uL RBC 4.17 L (4.30-5.90) m/uL Hgb 10.0 L (13.0-17.5) gm/dL Hct 33.3 L (39.0-53.0) % MCH 24.1 L (25.0-35.0) pg MCHC 30.1 L (31.0-37.0) g/dL RDW 17.6 H (11.5-15.5) % Neutrophils # 9.4 H (1.3-7.7) k/uL Monocytes # 1.2 H (0-1.0) k/uL Sodium (137-145) mmol/L Chloride (98-107) mmol/L Carbon Dioxide (22-30) mmol/L BUN (9-20) mg/dL Creatinine (0.66-1.25) mg/dL Glucose (74-99) mg/dL POC Glucose (mg/dL) 113 H 119 H (70-110) mg/dL Calcium (8.4-10.2) mg/dL 01/16/22 Range/Units 08:41 WBC (3.8-10.6) k/uL RBC (4.30-5.90) m/uL Hgb (13.0-17.5) gm/dL Hct (39.0-53.0) % MCH (25.0-35.0) pg MCHC (31.0-37.0) g/dL RDW (11.5-15.5) % Neutrophils # (1.3-7.7) k/uL Monocytes # (0-1.0) k/uL Sodium 134 L (137-145) mmol/L Chloride 108 H (98-107) mmol/L Carbon Dioxide 17 L (22-30) mmol/L BUN 42 H (9-20) mg/dL Creatinine 2.71 H (0.66-1.25) mg/dL Glucose 143 H (74-99) mg/dL POC Glucose (mg/dL) (70-110) mg/dL Calcium 8.2 L (8.4-10.2) mg/dL
[2022-01-16 17:11] LABS: Glucose,Whole Blood 117 mg/dL (70-110)
[2022-01-16 20:16] VITALS: RESP 18
[2022-01-16 20:45] LABS: Glucose,Whole Blood 145 mg/dL (70-110)
[2022-01-16] MEDS: ASPIRIN 81 MG PO SCH (21:34)
[2022-01-16] MEDS: PANTOPRAZOLE 40 MG TABLET PO SCH (21:35)
[2022-01-16] MEDS: MONTELUKAST 10 MG TAB PO SCH (21:35)
[2022-01-17 06:24] LABS: Glucose,Whole Blood 139 mg/dL (70-110)
[2022-01-17] MEDS: INSULIN DETEMIR (LEVEMIR) 100 UNIT/ML SYR SQ SCH (06:35)
[2022-01-17] MEDS: LEVOTHYROXINE 100 MCG TAB PO SCH (06:35)
[2022-01-17] MEDS: INSULIN ASPART (NovoLOG) 100 UNIT/ML VIAL SQ SCH ×2 (06:38→08:22)
[2022-01-17 07:22] VITALS: BP 102/71; PULSE 92; TEMP 97.7
[2022-01-17] MEDS: IPRATROPIUM 0.5 MG/2.5 ML NEBU INHALATION SCH ×2 (08:13→11:43)
[2022-01-17] MEDS: METOPROLOL TARTRATE 50 MG TAB PO SCH (08:22)
[2022-01-17] MEDS: ATORVASTATIN 80 MG TAB PO SCH (08:22)
[2022-01-17] MEDS: POTASSIUM CHLORIDE ER 20 MEQ TAB.ER PO SCH (08:23)
[2022-01-17] MEDS: LACTATED RINGERS 1,000 ML IV SCH (08:23)
[2022-01-17] MEDS: APIXABAN 5 MG TAB PO SCH (08:26)
[2022-01-17] MEDS: HYDROcodone/APAP 5-325MG 1 EACH TAB PO PRN (08:26)
--- NOTE | 2022-01-17 08:37 | PN ---
PROGRESS NOTE SUBJECTIVE: A 66-year-old white male, status post umbilical hernia repair and ventral hernia repair. OBJECTIVE: VITAL SIGNS: He is saturating 96% on room air. Blood pressure is 102/58, temp 97.5, pulse is 95, respiratory rate 20 to 25. CARDIOVASCULAR: S1, S2. LUNGS: Clear. GI: Soft. HEMATOLOGY: 2 to 3+ edema. LABS: White count is 12.4, hemoglobin is 10. Sodium 134, potassium 5.1, BUN is 42, creatinine 2.71. ASSESSMENT: Congestive heart failure, diastolic, status post ventral hernia repair, chronic obstructive pulmonary disease, asthma, hypertension, acute on chronic diastolic heart failure. Prognosis guarded. Continue current treatment. Possibly discharge home once cleared by Surgery. MMODL / IJN: [id number] /
[2022-01-17] MEDS ORDERED: NON FORMULARY DRUG (Dulaglutide [Trulicity] 0.75 MG/0.5 ML Each) SQ SCH (09:00)
--- NOTE | 2022-01-17 10:06 | P.PN ---
Progress Note - Text Progress Note Date: 01/17/22 Patient feels better today. His abdomen soft. Incisions clean and intact. Status post repair of incisional hernia. Patient be discharged home today. He'll follow-up in one week.
[2022-01-17 11:26] LABS: Glucose,Whole Blood 105 mg/dL (70-110)
== END 2022-01-17 12:03 | disposition home or self-care (01) | DRG 353 ==
LOC: OR 07:40 → 4SSUR 10:53 → OBSVTOIN 01-16 08:44 → OR 01-16 08:44 → 4SSUR 01-16 08:44
PROVIDERS: ADMIT Surgery; ATTEND Surgery
PROC: 0DBU4ZZ Excision of Omentum, Percutaneous Endoscopic Approach (ICD-10-PCS; 2022-01-14)
PROC: 8E0W4CZ Robotic Assisted Procedure of Trunk Region, Percutaneous Endoscopic Approach (ICD-10-PCS; 2022-01-14)
PROC: 0WQF4ZZ Repair Abdominal Wall, Percutaneous Endoscopic Approach (ICD-10-PCS; principal; 2022-01-14 09:30)
DX: K43.6 Other and unspecified ventral hernia with obstruction, without gangrene (principal); I50.33 Acute on chronic diastolic (congestive) heart failure; I13.0 Hypertensive heart and chronic kidney disease with heart failure and stage 1 through stage 4 chronic kidney disease, or unspecified chronic kidney disease; E11.22 Type 2 diabetes mellitus with diabetic chronic kidney disease; J44.9 Chronic obstructive pulmonary disease, unspecified; N18.30 Chronic kidney disease, stage 3 unspecified; I25.10 Atherosclerotic heart disease of native coronary artery without angina pectoris; D72.828 Other elevated white blood cell count; M79.18 Myalgia, other site; R53.1 Weakness; Z79.85 Long-term (current) use of injectable non-insulin antidiabetic drugs; Z95.820 Peripheral vascular angioplasty status with implants and grafts; Z79.890 Hormone replacement therapy; Z79.01 Long term (current) use of anticoagulants; Z79.899 Other long term (current) drug therapy; Z87.891 Personal history of nicotine dependence; Z95.5 Presence of coronary angioplasty implant and graft; Z79.82 Long term (current) use of aspirin; Z79.4 Long term (current) use of insulin; Z88.0 Allergy status to penicillin; Z88.1 Allergy status to other antibiotic agents
CPT/HCPCS: 64488; 80048; 80053; 85025; 85027; 86850; 86900; 86901; 88305; 93005; 94640; 94760

== ENCOUNTER → 2022-06-18 | Outpatient (CLI) | payer MEDICARE ==
--- NOTE | 2022-06-18 12:10 | XR ---
Exam: Left wrist 4 views Date: 06/18/2022 Comparison: None Clinical History: Swelling and redness with pain for 2 weeks Technique: Multiple views the left wrist were obtained per protocol. Findings: There is no acute fracture. There is a chronic appearing deformity of the ulnar styloid, which likely relates to remote injury. There are calcifications within the region of the triangular fibrocartilag e. There are degenerative changes at the first carpometacarpal joint. There are degenerative changes at the first metatarsophalangeal joint. There are no suspicious erosive changes or periostitis. There are multiple radiopaque foreign bodies projecting over the distal radius and ulna. Impression: 1. No acute fracture or dislocation. 2. Findings suggestive of chondrocalcinosis within the region of the triangle of fibrocartilage.
[2022-06-18 15:55] LABS: African American GFR (CKD) 41.7 (60.0-200.0); Albumin/Globulin Ratio 1.67 (1.60-3.17); Anion Gap 13.7 mmol/L (10.00-18.00); BUN/Creat Ratio 14.21 Ratio (12.00-20.00); Calcium 8.9 mg/dL (8.7-10.3); Carbon Dioxide 21.3 mmol/L (20.0-27.5); Globulin 2.4 g/dL (1.6-3.3); Non-African American GFR(CKD) 35.9 (60.0-200.0); Total Bilirubin 0.7 mg/dL (0.30-1.20); Total Protein 6.4 g/dL (6.2-8.2)
[2022-06-18 16:19] LABS: HCT 32.6 % (39.6-50.0); HGB 9.2 g/dL (13.0-17.0); MCH 20.4 pg (27.0-32.0); MCHC 28.2 g/dL (32.0-37.0); MCV 72.4 fL (80.0-97.0); Mean Platelet Volume 9.2 fL (9.5-12.2); NRBC Per 100 WBC 0 /100 WBCS (0.0-0.0); Platelet Count 237 X 10*3/uL (140-440); RDW 20.1 % (11.5-14.5); WBC 10.59 X 10*3/uL (4.50-10.00)
== END | disposition home or self-care (01) ==
LOC: LABWHC1 09:09
PROVIDERS: ATTEND Family Medicine
DX: M25.532 Pain in left wrist (principal); I10 Essential (primary) hypertension; E11.9 Type 2 diabetes mellitus without complications; S69.92XA Unspecified injury of left wrist, hand and finger(s), initial encounter; X58.XXXA Exposure to other specified factors, initial encounter; Z79.899 Other long term (current) drug therapy
CPT/HCPCS: 36415; 80053; 83036; 83880; 84443; 85027

== ENCOUNTER → 2023-05-28 | Outpatient (CLI) | payer MEDICARE ==
--- NOTE | 2023-06-03 16:14 | CT ---
EXAMINATION TYPE: CT abdomen wo con CT DLP: 1024.8 mGycm, Automated exposure control for dose reduction was used. DATE OF EXAM: 05/28/2023 8:50 AM COMPARISON: CT abdomen pelvis most recent from 11/05/2021 CLINICAL INDICATION:Male, 67 years old with history of R10.84 GENERALIZED ABDOMINAL PAIN; diarrhea, u pper abdominal pain, weight loss 15lbs in 3 months TECHNIQUE: Axial CT abdomen wo con;Sagittal and coronal reformats were created on a separate worksta tion. Contrast used: mL of , (none if empty) Oral contrast used: without Oral Contrast (none if empty) FINDINGS: LOWER CHEST: Moderate to severe coronary artery calcifications. Mitral valve annular cusp patient's. ABDOMEN LIVER: Shrunken nodular contour to liver. GALLBLADDER AND BILE DUCTS: The gallbladder is surgically absent. PANCREAS: Unremarkable. SPLEEN: Unremarkable. ADRENAL GLANDS: Unremarkable. KIDNEYS AND URETERS: Bilateral probable simple appearing cysts. No evidence of hydronephrosis or yessica l calculus. The ureters are unremarkable. STOMACH AND BOWEL: No evidence of bowel obstruction. The appendix is normal. PERITONEUM/RETROPERITONEUM: No evidence of pneumoperitoneum or free fluid. VASCULATURE: No evidence of aortic aneurysm. Inferior abdominal aorta aortobiiliac stent graft presen t. Moderate to severe atherosclerosis. MUSCULOSKELETAL: No acute osseous abnormalities. Moderate disc degeneration changes are present throu ghout the thoracolumbar spine. LYMPH NODES: No gross evidence for lymphadenopathy. SOFT TISSUE/ABDOMINAL WALL: Fat-containing umbilical hernia. IMPRESSION: 1. No evidence for acute abdominal process. 2. Hepatic cirrhosis without suspicious lesion definitively visualized. Note the exam is suboptimal for evaluation for mass given lack of IV contrast. 3. Umbilical hernia containing fat. 4. Moderate to severe coronary artery calcifications.
== END | disposition home or self-care (01) ==
LOC: RADCTMAIN 07:58
PROVIDERS: ATTEND Family Medicine
DX: K42.9 Umbilical hernia without obstruction or gangrene (principal); I25.10 Atherosclerotic heart disease of native coronary artery without angina pectoris; K74.60 Unspecified cirrhosis of liver; R63.4 Abnormal weight loss; R19.7 Diarrhea, unspecified
CPT/HCPCS: 74150

== ENCOUNTER → 2023-06-08 | Outpatient (CLI) | payer MEDICARE ==
[2023-06-08 16:23] LABS: Basophils # (A) 0.09 X 10*3/uL (0.00-0.10); Eosinophils # (A) 0.28 X 10*3/uL (0.04-0.35); Eosinophils % (A) 3.2 %; HCT 28.1 % (39.6-50.0); HGB 7.3 g/dL (13.0-17.0); Lymphocytes # (A) 0.88 X 10*3/uL (0.90-5.00); Lymphocytes % (A) 10.2 %; Mean Platelet Volume 9.9 FL (9.5-12.2); Monocytes # (A) 0.92 X 10*3/uL (0.20-1.00); Monocytes % (A) 10.6 %; NRBC Per 100 WBC 0 X 10*3/uL (0.00-0.01); Neutrophils % (A) 74.1 %; Platelet Count 174 X 10*3/uL (140-440); RBC 3.65 X 10*6/uL (4.40-5.60); RDW 21.2 % (11.5-14.5); WBC 8.65 X 10*3/uL (4.50-10.00)
[2023-06-08 16:33] LABS: ALT 8 U/L (10-49); AST 17 U/L (14-35); Albumin 3.6 g/dL (3.8-4.9); Albumin/Globulin Ratio 1.89 Ratio (1.60-3.17); Alkaline Phosphatase 109 U/L (41-126); BUN/Creat Ratio 9.68 Ratio (12.00-20.00); Blood Urea Nitrogen 18.4 mg/dL (9.0-27.0); Calcium 8.7 mg/dL (8.7-10.3); Carbon Dioxide 21.6 mmol/L (21.6-31.8); Chloride 107 mmol/L (96-109); Chol/HDL Ratio 4.43 Ratio; Globulin 1.9 g/dL (1.6-3.3); Glucose 101 mg/dL (70-110); LDL Cholesterol,Calculated 80.7 mg/dL (0.0-131.0); Potassium 4.4 mmol/L (3.5-5.5); Prostate Specific Antigen 0.42 ng/mL (0.000-4.500); Sodium 140 mmol/L (135-145); Total Bilirubin 0.7 mg/dL (0.3-1.2); Total Protein 5.5 g/dL (6.2-8.2)
== END | disposition home or self-care (01) ==
LOC: LABWHC1 08:41
PROVIDERS: ATTEND Family Medicine
DX: I10 Essential (primary) hypertension (principal); E11.9 Type 2 diabetes mellitus without complications; R97.20 Elevated prostate specific antigen [PSA]; Z79.899 Other long term (current) drug therapy
CPT/HCPCS: 36415; 80053; 80061; 83036; 84153; 84443; 85025

== ENCOUNTER → 2023-06-22 | Outpatient (CLI) | payer MEDICARE ==
[2023-06-22 15:49] LABS: HCT 31.6 % (39.6-50.0); HGB 8.1 g/dL (13.0-17.0); MCHC 25.6 g/dL (32.0-37.0); MCV 81.9 FL (80.0-97.0); Mean Platelet Volume 9.2 FL (9.5-12.2); NRBC Per 100 WBC 0 X 10*3/uL (0.00-0.01); Platelet Count 269 X 10*3/uL (140-440); RBC 3.86 X 10*6/uL (4.40-5.60); RDW 23.1 % (11.5-14.5); WBC 12.99 X 10*3/uL (4.50-10.00)
[2023-06-22 15:50] LABS: Reticulocyte % 3.39 % (0.10-1.80)
[2023-06-22 16:30] LABS: % Iron Saturation 4.98 (15.00-50.00); Ferritin 31.9 ng/mL (22.0-322.0)
== END | disposition home or self-care (01) ==
LOC: LABWHC1 09:03
PROVIDERS: ATTEND Family Medicine
DX: I48.91 Unspecified atrial fibrillation (principal); E11.22 Type 2 diabetes mellitus with diabetic chronic kidney disease; N18.4 Chronic kidney disease, stage 4 (severe)
CPT/HCPCS: 36415; 82728; 83010; 83540; 83550; 85027; 85045

== ENCOUNTER → 2023-09-07 | Outpatient (CLI) | payer MEDICARE ==
[2023-09-07 09:31] LABS: Anisocytosis Slight; HCT 38.1 % (39.0-53.0); HGB 11.4 gm/dL (13.0-17.5); Hypochromasia Marked; MCH 28.2 pg (25.0-35.0); MCHC 29.9 g/dL (31.0-37.0); MCV 94.3 fL (80.0-100.0); Mean Platelet Volume 8.9; Platelet Count 167 k/uL (150-450); RBC 4.04 m/uL (4.30-5.90); RDW 18.1 % (11.5-15.5); WBC 7.4 k/uL (3.8-10.6)
== END | disposition home or self-care (01) ==
LOC: LABWHC1 08:17
PROVIDERS: ATTEND Family Medicine
DX: Z00.00 Encounter for general adult medical examination without abnormal findings (principal); D50.9 Iron deficiency anemia, unspecified
CPT/HCPCS: 36415; 83540; 85027

== ENCOUNTER → 2024-01-18 | Outpatient (CLI) | payer MEDICARE ==
[2024-01-18 15:17] LABS: Appearance,Urine Clear (Clear); Bilirubin,Urine Negative (Negative); Blood,Urine Negative (Negative); Color,Urine Yellow (Yellow); Ketones,Urine Negative (Negative); Nitrite,Urine Negative (Negative); PH, Urine 5.5; Specific Gravity,Urine 1.021 (1.001-1.030)
[2024-01-18 15:22] LABS: Blood Urea Nitrogen 18.9 mg/dL (9.0-27.0); Carbon Dioxide 23.3 mmol/L (21.6-31.8); Chloride 107 mmol/L (96-109); Potassium 4.2 mmol/L (3.5-5.5); Sodium 141 mmol/L (135-145)
[2024-01-18 15:24] LABS: Bacteria,Urine None Seen (None Seen)
== END | disposition home or self-care (01) ==
LOC: LABWHC1 08:39
PROVIDERS: ATTEND Family Medicine
DX: E11.22 Type 2 diabetes mellitus with diabetic chronic kidney disease (principal); N18.4 Chronic kidney disease, stage 4 (severe)
CPT/HCPCS: 36415; 80051; 81001; 82565; 84520

== ENCOUNTER → 2024-03-15 | Outpatient (CLI) | payer MEDICARE ==
[2024-03-15 17:09] LABS: Blood Urea Nitrogen 17.7 mg/dL (9.0-27.0); Carbon Dioxide 23.4 mmol/L (21.6-31.8); Chloride 107 mmol/L (96-109); Potassium 4.6 mmol/L (3.5-5.5); Sodium 142 mmol/L (135-145)
[2024-03-15 17:11] LABS: HGB 12.9 g/dL (13.0-17.0); MCV 96.6 FL (80.0-97.0); NRBC Per 100 WBC 0 X 10*3/uL (0.00-0.01); Platelet Count 228 X 10*3/uL (140-440); RBC 4.45 X 10*6/uL (4.40-5.60); RDW 16.5 % (11.5-14.5); WBC 10.44 X 10*3/uL (4.50-10.00)
[2024-03-15 18:06] LABS: Microalbumin Creatinine Ratio <50 mg/g Cr (0-30); Urine Creatinine 23.9 mg/dL (39.0-259.0)
== END | disposition home or self-care (01) ==
LOC: LABWHC1 09:22
PROVIDERS: ATTEND Family Medicine
DX: N18.4 Chronic kidney disease, stage 4 (severe) (principal); E11.22 Type 2 diabetes mellitus with diabetic chronic kidney disease; I48.91 Unspecified atrial fibrillation; I12.9 Hypertensive chronic kidney disease with stage 1 through stage 4 chronic kidney disease, or unspecified chronic kidney disease
CPT/HCPCS: 36415; 80051; 82043; 82565; 82570; 83036; 84443; 84520; 85027

== ENCOUNTER 2024-05-28 07:03 | Emergency (ER) | payer MEDICARE ==
[2024-05-28 07:14] VITALS: TEMP 97.8
--- NOTE | 2024-05-28 07:27 | ED ---
Skin/Abscess/FB HPI - General Chief complaint: Skin/Abscess/Foreign Body Stated complaint: rash Time Seen by Provider: 05/28/24 07:16 Source: patient, RN notes reviewed Mode of arrival: ambulatory Limitations: no limitations - History of Present Illness Initial comments: 68-year-old male presenting to emergency department for complaint of a rash. Patient states that he had an appoint with his primary care provider last week when he was diagnosed with right lower extremity cellulitis and started on Bactrim. He states that he began to experience a pruritic urticarial rash earlier this week, Wednesday or , that has worsened. He states that the rashes started to his back and is pruritic. Denies tonsillar, swelling, difficulty breathing, mucosal involvement. States he has a known allergy to penicillins that he has anaphylactic reaction to. He has attempted topical Benadryl with minimal relief in symptoms. - Related Data Home Medications Medication Instructions Recorded Confirmed Aspirin 81 mg PO HS 10/21/20 01/14/22 Atorvastatin [Lipitor] 80 mg PO DAILY 10/21/20 01/14/22 Levothyroxine Sodium [Synthroid] 100 mcg PO QAM 10/21/20 01/14/22 Montelukast [Singulair] 10 mg PO HS 10/21/20 01/14/22 Furosemide [Lasix] 40 mg PO DAILY@1200 06/21/21 01/14/22 Furosemide [Lasix] 80 mg PO DAILY@0600 06/21/21 01/14/22 Omeprazole 40 mg PO HS 06/21/21 01/14/22 Spironolactone 25 mg PO DAILY@1200 06/21/21 01/14/22 Tiotropium 2.5 Mcg/Puff [Spiriva 2 puff INHALATION RT-DAILY 12/10/21 01/14/22 Respimat 2.5 Mcg] Apixaban [Eliquis] 5 mg PO BID 01/09/22 01/14/22 Dulaglutide [Trulicity] 0.75 mg SQ SA 01/09/22 01/14/22 Enoxaparin [Lovenox] 40 mg SQ DAILY 01/09/22 01/14/22 Insulin Aspart [NovoLOG Flexpen] 15 units SQ TID-W/MEALS 01/09/22 01/14/22 Insulin Glargine,Hum.rec.anlog 40 units SQ DAILY 01/09/22 01/14/22 [Grace Diaz] Previous Rx's Medication Instructions Recorded Potassium Chloride ER [K-Dur 20] 20 meq PO DAILY 90 Days #90 tablet 06/27/21 Metoprolol Tartrate [Lopressor] 50 mg PO BID tab 09/19/21 Acetaminophen Tab [Tylenol] 650 mg PO Q6H #30 tab 01/17/22 Docusate [Colace] 100 mg PO BID #20 capsule 01/17/22 Ibuprofen [Motrin] 600 mg PO Q6HR PRN #40 tab 01/17/22 oxyCODONE HCL [OxyIR] 5 mg PO Q6H PRN 3 Days #10 tab 01/17/22 clindamycin HCL 300 mg PO QID #40 cap 05/28/24 predniSONE 50 mg PO DAILY #5 tab 05/28/24 Allergies Allergy/AdvReac Type Severity Reaction Status Date / Time cephalexin [From Keflex] Allergy Rash OVER Verified 05/28/24 07:14 MOST OF HIS BODY, ITCHING Penicillins Allergy THROAT Verified 05/28/24 07:14 SWELLING/RASH/HIVES Review of Systems ROS Statement: Those systems with pertinent positive or pertinent negative responses have been documented in the HPI. ROS Other: All systems not noted in ROS Statement are negative. Past Medical History Past Medical History: Atrial Fibrillation, Coronary Artery Disease (CAD), Chest Pain / Angina, COPD, Diabetes Mellitus, Hypertension, Osteoarthritis (OA), Renal Disease Additional Past Medical History / Comment(s): NEWLY DIAGNOSED DIABETIC (12/10/21 ARRIVED FOR SURG AND HAD BS IN [facility]'S), chronic renal insufficiency stage III, cardiomyopathy, abdominal aneurysm,SWELLING OF LOWER LEGS AT TIMES, UNSURE ABOUT HEART FAILURE HISTORY PER , UMBILICAL HERNIA History of Any Multi-Drug Resistant Organisms: None Reported Past Surgical History: Cholecystectomy, Heart Catheterization, Heart Catheterization With Stent, Orthopedic Surgery Additional Past Surgical History / Comment(s): KARAN, cardioversion 10/17/15, left arm surgery - 1976 PERCUTANEOUS ENDOVASCULAR AORTIC REPAIR (AAA) Past Anesthesia/Blood Transfusion Reactions: No Reported Reaction Date of Last Stent Placement:: 11/14/15 Past Psychological History: No Psychological Hx Reported Smoking Status: Former smoker Past Alcohol Use History: Occasional Past Drug Use History: None Reported - Past Family History Mother Family Medical History: Cancer, Myocardial Infarction (MS) Additional Family Medical History / Comment(s): Mother of a MS in in 60's. Sister(s) Family Medical History: Cancer Additional Family Medical History / Comment(s): Breast cancer. General Exam Limitations: no limitations General appearance: alert, in no apparent distress ENT exam: Present: normal exam, mucous membranes moist Neck exam: Present: normal inspection. Absent: tenderness, meningismus, lymphadenopathy Respiratory exam: Present: normal lung sounds bilaterally. Absent: respiratory distress, wheezes, rales, rhonchi, stridor Cardiovascular Exam: Present: regular rate, normal rhythm, normal heart sounds. Absent: systolic murmur, diastolic murmur, rubs, gallop, clicks GI/Abdominal exam: Present: soft, normal bowel sounds. Absent: distended, tenderness, guarding, rebound, rigid Extremities exam: Present: normal inspection, full ROM, normal capillary refill. Absent: tenderness, pedal edema, joint swelling, calf tenderness Expanded Type of lesion: Present: rash. Absent: abscess, laceration, foreign body Distribution of rash: generalized Description of rash: Present: urticarial. Absent: tenderness, macular, papular, crusting, discharge, fluctuant Course Vital Signs 05/28/24 05/28/24 07:10 08:15 Temperature 97.8 F 97.8 F Pulse Rate 83 78 Respiratory 17 20 Rate Blood Pressure 143/87 144/84 O2 Sat by Pulse 99 100 Oximetry Medical Decision Making - Medical Decision Making Was pt. sent in by a medical professional or institution (, PA, COMMUNICATION CENTER COORDINATOR, urgent care, hospital, or intermediate...) When possible be specific @ -No Did you speak to anyone other than the patient for history (EMS, parent, family, police, friend...)? What history was obtained from this source @ -No Did you review nursing and triage notes (agree or disagree)? Why? @ -I reviewed and agree with nursing and triage notes Were old charts reviewed (outside hosp., previous admission, EMS record, old EKG, old radiological studies, urgent care reports/EKG's, intermediate records)? Report findings @ -No old charts were reviewed Differential Diagnosis (chest pain, altered mental status, abdominal pain women, abdominal pain men, vaginal bleeding, weakness, fever, dyspnea, syncope, headache, dizziness, GI bleed, back pain, seizure, CVA, palpatations, mental health, musculoskeletal)? @ -SJS, TEN, contact dermatitis, medication allergic reaction, urticaria, this list is not all inclusive EKG interpreted by me (3pts min.). @ -none X-rays interpreted by me (1pt min.). @ -None done CT interpreted by me (1pt min.). @ -None done U/S interpreted by me (1pt. min.). @ -None done What testing was considered but not performed or refused? (CT, X-rays, U/S, labs)? Why? @ -None What meds were considered but not given or refused? Why? @ -None Did you discuss the management of the patient with other professionals (professionals i.e. , PA, COMMUNICATION CENTER COORDINATOR, lab, RT, psych nurse, social work msw, epidemiology investigator, teacher, safety security officer, case managers)? Give summary @ -No Was smoking cessation discussed for >3mins.? @ -No Was critical care preformed (if so, how long)? @ -No Were there social determinants of health that impacted care today? How? (Homelessness, low income, unemployed, alcoholism, drug addiction, transportation, low edu. Level, literacy, decrease access to med. care, prison, rehab)? @ -No Was there de-escalation of care discussed even if they declined (Discuss DNR or withdrawal of care, Hospice)? DNR status @ -No What co-morbidities impacted this encounter? (DM, HTN, Smoking, COPD, CAD, Cancer, CVA, ARF, Chemo, Hep., AIDS, mental health diagnosis, sleep apnea, morbid obesity)? @ -None Was patient admitted / discharged? Hospital course, mention meds given and route, prescriptions, significant lab abnormalities, going to OR and other pertinent info. @ -Discharge. 68-year-old male presenting with a rash. There is a. Urticarial rash located over the abdomen and back with no evidence of mucosal involvement. Negative squeeze crying. He is provided with allergic cocktail. On reevaluation patient's rash has mildly subsided. Recommend patient discontinue use of Bactrim. Prescription sent for prednisone and clindamycin for cellulitis. Return parameters discussed. Case discussed with Dr. Ellsworth Undiagnosed new problem with uncertain prognosis? @ -No Drug Therapy requiring intensive monitoring for toxicity (Heparin, Nitro, Insulin, Cardizem)? @ -No Were any procedures done? @ -No Diagnosis/symptom? @ -Allergic reaction Acute, or Chronic, or Acute on Chronic? @ -Acute Uncomplicated (without systemic symptoms) or Complicated (systemic symptoms)? @ -uncomplicated Side effects of treatment? @ -No Exacerbation, Progression, or Severe Exacerbation? @ -No Poses a threat to life or bodily function? How? (Chest pain, USA, MS, pneumonia, PE, COPD, DKA, ARF, appy, cholecystitis, CVA, Diverticulitis, Homicidal, Suicidal, threat to staff... and all critical care pts) @ -No Disposition Clinical Impression: Cellulitis, Allergic reaction Disposition: HOME SELF-CARE Condition: Good Instructions (If sedation given, give patient instructions): Urticaria (ED), Cellulitis (ED) Additional Instructions: Please return to the Emergency Department if symptoms worsen or any other concerns. Prescriptions: clindamycin HCL 300 mg PO QID #40 cap predniSONE 50 mg PO DAILY #5 tab Is patient prescribed a controlled substance at d/c from ED?: No Referrals: Ermias Soriano MD [Primary Care Provider] - 1-2 days Time of Disposition: 08:09
[2024-05-28] MEDS: methylPREDNISolone SOD SUCCI 125 MG/2 ML VIAL IV STA (07:32)
[2024-05-28] MEDS: diphenhydrAMINE 50 MG/ML 1 ML VIAL IVP STA (07:32)
[2024-05-28] MEDS: FAMOTIDINE 20 MG/2 ML VIAL IV STA (07:32)
[2024-05-28 08:16] VITALS: BP 144/84; PULSE 78; RESP 20
== END 2024-05-28 08:16 | disposition home or self-care (01) ==
LOC: EC 07:03
DX: L50.0 Allergic urticaria (principal); L03.115 Cellulitis of right lower limb; Z88.0 Allergy status to penicillin; Z88.1 Allergy status to other antibiotic agents; Z87.891 Personal history of nicotine dependence
CPT/HCPCS: 99282; 96374; 96375 ×2; J1200; J3490; J2919

== ENCOUNTER → 2024-07-17 | Outpatient (CLI) | payer MEDICARE ==
[2024-07-17 10:23] LABS: HCT 40.7 % (39.6-50.0); HGB 12.4 g/dL (13.0-17.0); MCH 28.6 pg (27.0-32.0); MCHC 30.5 g/dL (32.0-37.0); MCV 93.8 FL (80.0-97.0); Mean Platelet Volume 9.5 FL (9.5-12.2); NRBC Per 100 WBC 0 X 10*3/uL (0.00-0.01); Platelet Count 232 X 10*3/uL (140-440); RBC 4.34 X 10*6/uL (4.40-5.60); RDW 16.8 % (11.5-14.5); WBC 10.64 X 10*3/uL (4.50-10.00)
[2024-07-17 13:18] LABS: Albumin 3.6 g/dL (3.8-4.9); BUN/Creat Ratio 12.71 Ratio (12.00-20.00); Blood Urea Nitrogen 21.6 mg/dL (9.0-27.0); Calcium 8.9 mg/dL (8.7-10.3); Carbon Dioxide 21.3 mmol/L (21.6-31.8); Chloride 107 mmol/L (96-109); Glucose 119 mg/dL (70-110); Potassium 4.7 mmol/L (3.5-5.5); Sodium 140 mmol/L (135-145); Total Bilirubin 0.7 mg/dL (0.3-1.2); Total Protein 5.6 g/dL (6.2-8.2)
[2024-07-17 13:19] LABS: ALT 14 U/L (10-49); AST 25 U/L (14-35); Alkaline Phosphatase 159 U/L (41-126)
[2024-07-17 20:43] LABS: Microalbumin Creatinine Ratio <11 mg/g Cr (0-30)
== END | disposition home or self-care (01) ==
LOC: LABWHC1 07:53
PROVIDERS: ATTEND Family Medicine
DX: I12.9 Hypertensive chronic kidney disease with stage 1 through stage 4 chronic kidney disease, or unspecified chronic kidney disease (principal); E11.22 Type 2 diabetes mellitus with diabetic chronic kidney disease; N18.4 Chronic kidney disease, stage 4 (severe); I48.91 Unspecified atrial fibrillation; D50.9 Iron deficiency anemia, unspecified
CPT/HCPCS: 36415; 80053; 82043; 82570; 85027